=== PATIENT | male | born 1940 | race Caucasian/White ===

== ENCOUNTER 2019-12-30 17:29 | Outpatient (CLI) | payer MEDICARE, BC, SELFPAY ==
--- NOTE | ~2019-12-30 | XR_ITS ---
EXAMINATION: XR abdomen/kub 1V DATE: 12/30/2019 17:58 INDICATION: Recent kidney stone TECHNIQUE: A supine view of the abdomen on 2 radiographs was obtained. COMPARISON: 06/03/2019 FINDINGS: No interval change in 3.3 x 1.6 cm staghorn calculus as well as a couple additional 3 mm and 4 mm rou nd stones projecting over the lower pole of the left kidney. No other evident urolithiasis. Multiple surgical clips in the pelvis and left abdomen. Moderate amount of gas and stool scattered throughout the colon. No dilated gas-filled loops of small bowel to suggest obstruction. Visualized lung bases a re clear with no pleural effusion. Lumbar levoscoliosis with severe spondylosis. Mild left and modera te to severe right hip osteoarthritis. IMPRESSION: 1. No interval change in a 3.3 cm staghorn calculus and additional 3 mm and 4 mm stones at the lower pole of the left kidney. Reviewed, dictated and finalized at location A. IMPRESSION: 1. No interval change in a 3.3 cm staghorn calculus and additional 3 mm and 4 m m stones at the lower pole of the left kidney.
== END 2019-12-30 17:30 | disposition home or self-care (01) ==
PROVIDERS: PCP Family Medicine; Visit Provider Urology
DX: N20.0 Calculus of kidney (principal)
CPT/HCPCS: 74018

== ENCOUNTER 2020-06-11 07:51 | Outpatient (CLI) | payer MEDICARE, SELFPAY ==
--- NOTE | ~2020-06-11 | US_ITS ---
EXAMINATION: US venous doppler [facility] DATE: 06/11/2020 08:33 INDICATION: Personal history of other venous thrombosis and embolism. TECHNIQUE: Grayscale ultrasound images without and with compression and Doppler ultrasound images of the left lower extremity veins were obtained. COMPARISON: Ultrasound 12/28/2013 FINDINGS: The visualized portions of left common femoral vein, profunda (deep) femoral vein, femoral vein, popl iteal vein, peroneal veins, posterior tibial veins, and greater saphenous vein outflow are patent. IMPRESSION: 1. No deep venous thrombosis. Reviewed, dictated and finalized at location A. NG TECHNICIAN
== END 2020-06-11 07:52 | disposition home or self-care (01) ==
LOC: ANHIMG 07:57
PROVIDERS: PCP Family Medicine; Visit Provider Family Medicine
DX: I82.402 Acute embolism and thrombosis of unspecified deep veins of left lower extremity (principal); Z86.718 Personal history of other venous thrombosis and embolism
CPT/HCPCS: 93971

== ENCOUNTER 2020-07-19 15:23 | Outpatient (CLI) | payer MEDICARE, SELFPAY ==
--- NOTE | ~2020-07-19 | XR_ITS ---
EXAMINATION: XR abdomen/kub 1V EXAM DATE: 07/19/2020 15:51 INDICATION: Kidney stones. TECHNIQUE: Frontal projection(s) of the abdomen for interpretation. Comparison is made to prior exami nation from 12/30/2019. FINDINGS: Again there is a large approximately 3 cm left inferior calyceal stone, and also there may be a subcentimeter superior calyceal stone. Kidneys are obscured by large amount of colonic gas. No s mall bowel dilation. Pelvic surgical clips. Moderate lumbar levoscoliosis and severe thoracolumbar sp ondylosis. IMPRESSION: 1. Left nephrolithiasis. Reviewed, dictated and finalized at location A. ICATIONS INSTRUCTOR IMPRESSION: 1. Left nephrolithiasis.
== END 2020-07-19 15:24 | disposition home or self-care (01) ==
PROVIDERS: PCP Family Medicine; Visit Provider Urology
DX: N20.0 Calculus of kidney (principal)
CPT/HCPCS: 74018

== ENCOUNTER → 2022-03-06 10:16 | Outpatient (CLI) | payer MEDICARE, SELFPAY ==
--- NOTE | ~2022-03-06 | US_ITS ---
EXAMINATION: US renal BI DATE: 03/06/2022 10:49 INDICATION: CKD TECHNIQUE: Multiple grayscale and Doppler ultrasound images of the kidneys were obtained. COMPARISON: Abdominal x-ray 07/19/2020. CT abdomen pelvis 02/19/2019. FINDINGS: Exam somewhat limited by patient condition and bowel gas. The right kidney measures 9.8 x 4.8 x 5.1 c m. The left kidney measures 10.7 x 4.7 x 5.5 cm. The kidneys demonstrate slightly increased parenchym al echogenicity, with cortical thinning. Multiple echogenic shadowing foci in the left renal pelvis. No mass. Mild left hydronephrosis. The bladder is adequately distended, with bilateral ureteral jets. IMPRESSION: 1. Renal atrophy and findings suggestive of medical renal disease. 2. Mild left hydronephrosis. 3. Left nephrolithiasis. Reviewed, dictated and finalized at location K.
== END ==
PROVIDERS: PCP Family Medicine; Visit Provider Internal Medicine Nephrology
DX: N18.31 Chronic kidney disease, stage 3a (principal); Z87.442 Personal history of urinary calculi; N20.0 Calculus of kidney
CPT/HCPCS: 76775

== ENCOUNTER 2022-10-08 09:58 | Outpatient (CLI) | payer MEDICARE, SELFPAY ==
[2022-10-08 11:46] LABS: Albumin Level 4.3 g/dL (3.5-5.1); Anion Gap 9 mmol/L (8-16); Blood Urea Nitrogen 19 mg/dL (9-20); Calcium 9.5 mg/dL (8.4-10.2); Carbon Dioxide 30 mmol/L (22-30); Chloride 104 mmol/L (98-107); Estimated Glomerular Filt Rate 45; Glucose 91 mg/dL (65-110); Phosphorus 3.2 mg/dL (2.5-4.5); Potassium 3.7 mmol/L (3.4-5.0); Sodium 143 mmol/L (137-145)
[2022-10-08 12:23] LABS: Vitamin D 25 Hydroxy 83.8 ng/mL
[2022-10-08 12:41] LABS: Parathyroid Intact 33.8 pg/mL (7.5-53.5)
[2022-10-08 17:08] LABS: Creatinine Urine 113.7 mg/dL; Total Protein Urine Random 55 mg/dL; Ur Ttl Prot Creatinine Ratio 0.48 mg/mg (0-0.20)
[2022-10-10 21:47] LABS: Albumin 3.5 g/dL (3.8-4.8); Alpha 1 Globulin 0.4 g/dL (0.2-0.3); Alpha 2 Globulin 0.9 g/dL (0.5-0.9); Beta 1 Globulin 0.5 g/dL (0.4-0.6); Gamma Globulin 1.2 g/dL (0.8-1.7)
== END 2022-10-08 09:59 | disposition home or self-care (01) ==
LOC: ANHLAB 10:04
PROVIDERS: PCP Family Medicine; Visit Provider Internal Medicine Nephrology
DX: I12.9 Hypertensive chronic kidney disease with stage 1 through stage 4 chronic kidney disease, or unspecified chronic kidney disease (principal); N18.31 Chronic kidney disease, stage 3a; R77.8 Other specified abnormalities of plasma proteins; N25.81 Secondary hyperparathyroidism of renal origin; E55.9 Vitamin D deficiency, unspecified
CPT/HCPCS: 36415; 80069; 82306; 82570; 83970; 84155; 84156; 84165; 84166; 86334; 86335

== ENCOUNTER 2023-03-27 08:34 | Outpatient (CLI) | payer MEDICARE, SELFPAY ==
[2023-03-27 19:04] LABS: Basophils Absolute Auto 0.1 K/mm3 (0.0-0.1); Basophils Percent Auto 0.7 % (0.2-1.2); Eosinophils Absolute Auto 0.2 K/mm3 (0-0.3); Eosinophils Percent Auto 2.4 % (0-4.4); Hematocrit 38.7 % (42.0-52.0); Immature Granulocyte Absolute 0.04 K/mm3 (0.00-0.031); Immature Granulocyte Percent A 0.5 % (0-0.5); Lymphocytes Absolute Auto 1.52 K/mm3 (0.9-3.2); Lymphocytes Percent Auto 17.5 % (18.3-44.2); Mean Corpuscular Hemoglobin 25.9 pg (26-34); Mean Corpuscular Volume 83.4 fl (80-100); Mean Platelet Volume 10.5 fl (7.4-10.4); Monocytes Absolute Auto 0.4 K/mm3 (0.1-0.6); Monocytes Percent Auto 4.4 % (2.6-8.5); Neutrophils Absolute Auto 6.5 K/mm3 (1.3-6.7); Neutrophils Percent Auto 74.5 % (45.5-73.1); Platelet Count Result 413 k/mm3 (150-375); Red Blood Count 4.64 M/mm3 (4.6-6.20); Red Cell Distribution Width 14.5 % (11.5-14.5); White Blood Count 8.7 K/mm3 (4.5-10.0)
[2023-03-27 19:27] LABS: Alanine Aminotransferase 10 U/L (6-50); Albumin Level 3.9 g/dL (3.5-5.1); Alkaline Phosphatase 90 U/L (38-126); Anion Gap 8 mmol/L (8-16); Aspartate Amino Transferase 21 U/L (17-59); Bilirubin,Total 0.4 mg/dL (0.2-1.3); Blood Urea Nitrogen 19 mg/dL (9-20); Calcium 9.6 mg/dL (8.4-10.2); Carbon Dioxide 27 mmol/L (22-30); Chloride 104 mmol/L (98-107); Cholesterol 188 mg/dL (0-200); Estimated Glomerular Filt Rate 45; Glucose 85 mg/dL (65-110); HDL Direct 33 mg/dL; Phosphorus 3.3 mg/dL (2.5-4.5); Sodium 139 mmol/L (137-145); Triglycerides 121 mg/dL (<150)
[2023-03-27 19:39] LABS: LDL Cholesterol Direct 101 mg/dL
[2023-03-27 19:41] LABS: Vitamin D 25 Hydroxy 80.2 ng/mL
[2023-03-27 19:54] LABS: Thyroid Stimulating Hormone Reflex 0.633 uIU/mL (0.465-4.68)
[2023-03-27 19:57] LABS: Prostate Specific Antigen 0.2 ng/mL (< OR = 4.0)
== END 2023-03-27 08:35 | disposition home or self-care (01) ==
PROVIDERS: PCP Family Medicine; Visit Provider Family Medicine
DX: Z00.00 Encounter for general adult medical examination without abnormal findings (principal); Z85.038 Personal history of other malignant neoplasm of large intestine; I10 Essential (primary) hypertension; E78.5 Hyperlipidemia, unspecified; E55.9 Vitamin D deficiency, unspecified; Z12.5 Encounter for screening for malignant neoplasm of prostate; I12.9 Hypertensive chronic kidney disease with stage 1 through stage 4 chronic kidney disease, or unspecified chronic kidney disease; N18.31 Chronic kidney disease, stage 3a; E53.8 Deficiency of other specified B group vitamins
CPT/HCPCS: 36415; 80053; 80061; 80069; 82306; 82607; 84153; 84443; 85025; G0103

== ENCOUNTER 2023-03-28 08:05 | Outpatient (NON) | payer MEDICARE, SELFPAY ==
[2023-03-28 13:21] LABS: Creatinine Urine 118.8 mg/dL; Total Protein Urine Random 73 mg/dL; Ur Ttl Prot Creatinine Ratio 0.61 mg/mg (0-0.20)
== END 2023-03-28 08:06 | disposition home or self-care (01) ==
LOC: ANHGOSHLAB 08:07
PROVIDERS: PCP Family Medicine; Visit Provider Family Medicine
DX: I12.9 Hypertensive chronic kidney disease with stage 1 through stage 4 chronic kidney disease, or unspecified chronic kidney disease (principal); N18.31 Chronic kidney disease, stage 3a
CPT/HCPCS: 82570; 84156

== ENCOUNTER 2023-09-03 09:50 | Outpatient (CLI) | payer MEDICARE, SELFPAY ==
[2023-09-03 14:58] LABS: Anion Gap 8 mmol/L (8-16); Blood Urea Nitrogen 20 mg/dL (9-20); Calcium 9.9 mg/dL (8.4-10.2); Carbon Dioxide 27 mmol/L (22-30); Chloride 105 mmol/L (98-107); Estimated Glomerular Filt Rate 49; Glucose 96 mg/dL (65-110); Phosphorus 2.6 mg/dL (2.5-4.5); Potassium 3.8 mmol/L (3.4-5.0); Sodium 140 mmol/L (137-145)
[2023-09-03 15:16] LABS: Vitamin D 25 Hydroxy 67.5 ng/mL
[2023-09-03 15:26] LABS: Creatinine Urine 91.9 mg/dL; Total Protein Urine Random 44 mg/dL; Ur Ttl Prot Creatinine Ratio 0.48 mg/mg (0-0.20)
== END 2023-09-03 09:51 | disposition home or self-care (01) ==
LOC: ANHGOSHLAB 09:54
PROVIDERS: PCP Family Medicine; Visit Provider Internal Medicine Nephrology
DX: E55.9 Vitamin D deficiency, unspecified (principal); N25.81 Secondary hyperparathyroidism of renal origin; I12.9 Hypertensive chronic kidney disease with stage 1 through stage 4 chronic kidney disease, or unspecified chronic kidney disease; N18.31 Chronic kidney disease, stage 3a
CPT/HCPCS: 36415; 80069; 82306; 82570; 83970; 84156

== ENCOUNTER 2023-09-23 04:22 | Inpatient (IN) | payer MEDICARE, SELFPAY ==
[2023-09-23] VITALS (26 sets, daily range): BP systolic 76–132; BP diastolic 44–88; PULSE 58–73; RESP 18–27; TEMP 36.1–36.6; O2SAT 93–98; BMI 23.8
--- NOTE | 2023-09-23 | ECHO_ITS ---
Patient Info Name: David Coleman Age: 82 years : 1940 Gender: Male Ht: 70 in Wt: 166 lbs BSA: 1.93 m2 HR: 59 bpm BP: 101 / 52 mmHg Heart Rhythm: Sinus Rhythm Technical Quality: Fair Exam Date: 09/23/2023 1:25 PM Exam Location: Echo Lab Patient Status: Inpatient Admit Date: 09/23/2023 Staff Ordering Physician: Elba Ramirez DO Vp Product Management: Susana Marvin RDCS Attending Provider: Miracle Le MD Referring Physician: Ashley DOTY; Exam Type: CA echo dop color flow w con Study Info Indications - wide complex tachycardia Complete two-dimensional, color flow and Doppler transthoracic echocardiogram is performed with contrast to opacify the left ventricle and to improve the deliniation of the left ventricle endocardial borders. Contrast/Agitated Saline Contrast/Ag. Saline: Definity Amount: 2.00 ml Administered By: Susana Marvin RDCS Existing IV Access: Yes IV Access Condition: patent with no signs of infiltration Summary 1. Definity contrast injected to improve visualization. 2. Mild LV enlargement with moderate global systolic dysfunction. 3. David akinesis of the posterior segment. 4. No significant valvular dysfunction. Left Ventricle Left ventricular chamber dimension is mildly enlarged. Left ventricular systolic function is moderately reduced, estimated at 35-40%. The left ventricular diastolic function is grade I diastolic dysfunction. Right Ventricle Right ventricular chamber dimension is normal. Left Atria Left atrial chamber dimension is normal. Right Atria Right atrial chamber dimension is normal. Aortic Valve The aortic valve is trileaflet. There is mild aortic valve sclerosis. Pulmonic Valve The pulmonic valve is not well visualized. Mitral Valve The mitral valve has normal leaflets. There is trace mitral valve regurgitation. Tricuspid Valve The tricuspid valve leaflets are normal. Pericardium/Pleural The pericardium appears normal. Aorta The aortic root size at the sinus of Valsalva is normal. Left Ventricular Outflow Tract Name Value Normal LVOT 2D LVOT Diameter 2.08 cm LVOT Doppler LVOT Peak Gradient 2 mmHg LVOT Mean Gradient 1 mmHg LVOT VTI 12.82 cm LVOT VTI/AV VTI Ratio 0.74 LVOT Stroke Volume 43.44 ml LVOT CO 2.63 l/min LVOT CI 1.36 L/min/m2 Pulmonic Valve Name Value Normal RVOT Doppler RVOT Peak Gradient 1 mmHg PV Doppler PV Peak Gradient 2 mmHg Mitral Valve Name Value Normal
--- NOTE | ~2023-09-23 | XR_ITS ---
EXAMINATION: XR chest 1V portable DATE: 09/26/2023 10:37 INDICATION: Leukocytosis. TECHNIQUE: A single frontal view of the chest was obtained. COMPARISON: Chest single view 09/23/2023, CT abdomen and pelvis 02/19/2019 FINDINGS: There are small pleural effusions. There are airspace opacities in right mid and lower lung zones and at left lung base. No pneumothorax. The heart size is normal. IMPRESSION: 1. Worsened small pleural effusions. 2. Worsened airspace opacities in right mid and lower lung zones and at left lung base, consistent wi th atelectasis versus pneumonia. Reviewed, dictated and finalized at location A. IMPRESSION: 1. Worsened small pleural effusions. 2. Worsened airspace opacities in right mid and lower lung zones and at left zhanna ng base, consistent with atelectasis versus pneumonia.
--- NOTE | ~2023-09-23 | XR_ITS ---
Portable chest x-ray Comparison: 10/01/2018 Clinical History: Palpitations Findings: There is mild bibasilar haziness, nonspecific. Cardiomediastinal silhouette is stable. Kuldeep toña and soft tissues are unremarkable. Impression: Mild bibasilar haziness. Correlate for mild pulmonary edema/atelectasis, less likely pneumonia. Reviewed, dictated and finalized at location . Impression: Mild bibasilar haziness. Correlate for mild pulmonary edema/atelectasis, less l ikely pneumonia.
--- NOTE | 2023-09-23 04:29 | ECG_ITS ---
Measurements Intervals [place] Rate: 74 P: 29 [place]: 188 QRS: -3 QRSD: 90 T: -48 QT: 397 QTc: 443 Interpretive Statements SINUS RHYTHM VENTRICULAR PREMATURE COMPLEX CONSIDER INFERIOR INFARCT, AGE INDETERMINATE BORDERLINE ST-T WAVE ABNORMALITY- ANTEROLATERAL LEADS BASELINE ARTIFACT- I, II, III, AVR, AVL, AVF, V1-V2, V4-V6 ABNORMAL ECG COMPARED TO ECG 10/01/2018 16:30:02 NO SIGNIFICANT CHANGES Electronically Signed On 09-23-2023 6:45:37 CDT by Sang Sheikh D.O.
--- NOTE | 2023-09-23 04:34 | ED.GENADULT ---
HPI - General Adult General Chief complaint: Arrhythmia/Palpitations Stated complaint: palpitations History of Present Illness HPI narrative: Patient 82-year-old gentleman who presents emergency department with chief complaint of anxiety and inability to sleep. Patient states that at the evening he just was not feeling well feeling very anxious he has had some intermittent episodes of feeling anxious and just not feeling right. Patient decided to call EMS this evening was found to have a wide complex tachycardia with a rate of in the 180s. Patient was given 150 mg amiodarone bolus in the back of the ambulance as he had a good blood pressure at that time. Patient denies chest pain does reports that he has not felt well Related Data Home Medications Medication Instructions Recorded Confirmed calcium carbonate 600 mg calcium 600 mg PO DAILY 12/13/21 09/05/23 (1,500 mg) tablet clobetasol 0.05 % shampoo 1 applic topical QHS PRN 06/06/22 09/05/23 Allergies Allergy/AdvReac Type Severity Reaction Status Date / Time morphine Allergy Severe HIVES Verified 09/05/23 10:19 MEPERIDINE HCL Allergy Intermediate SEVERE Uncoded 09/05/23 10:19 CONSTIPATION NFA Allergy Unknown Unknown Uncoded 09/05/23 10:19 Review of Systems Review of Systems: A 10 system review of systems was completed on the patient and is negative except for what is stated in the HPI. Nursing and ancillary documentation was reviewed. [facility] Past Medical History Medical History Arthritis of left shoulder region Benign prostatic disease Degenerative arthritis of right shoulder region Foot drop History of deep venous thrombosis (DVT) of distal vein of left lower extremity (~2018) provoked after hospital admission. History of postoperative complication of surgical procedure Osteoarthritis Psoriasis Rhinitis Rotator cuff arthropathy of both shoulders Venous insufficiency, peripheral Surgical History Surgical History History of cervical spinal surgery 10/2018 History of left knee replacement (~2000) History of lumbosacral spine surgery early History of partial colectomy (~1994) Social History Social History Smoking packs per day: 1 Smoking cigarettes per day: 20.0 Years smoked: 2 Smoking pack-years: 2.00 Smoking status: Former smoker Second hand tobacco smoke exposure: No Smoking end date: 07/15/61 Alcohol intake: never Substance use: never Substance use type: does not use Do You Feel Safe in your Home?: Yes Lack of Transportation: No Lack of Food: Never True Current Housing: I Have Housing Concerned About Future Housing: No Difficulty Paying Gas/Electric Bills: No Difficulty Paying for Meds: No Currently Unemployed: No Education: High School Diploma/GED Difficulty w/ Childcare or Family Care: No Living arrangements: with family Additional living arrangements comments: Occupation/Education: retired Gender identity (if verbalized by the patient): Male Sexual Orientation (if Verbalized by the Patient): Straight or Heterosexual Exam Narrative: GENERAL: Well-appearing, well-nourished, and in no acute distress. HEAD: Normocephalic, atraumatic. EYES: PERRLA and EOMI. ENT: Nares clear, no rhinorrhea or epistaxis. Mucous membranes moist. NECK: Supple. CHEST: Clear to auscultation. No respiratory distress. HEART: Regular rate and rhythm. No murmur heard. Normal peripheral pulses. ABDOMEN: Soft, nontender, nondistended, normal active bowel sounds. EXTREMITIES: Normal range of motion. No edema. SKIN: Warm, dry, no rash. NEURO: No focal deficits. Alert and oriented x3. PSYCH: Normal mood and affect. Course Vital Signs Vital signs: Vital Signs Temperature 36.6 C 09/23/23 04:19 Puls
[2023-09-23] MEDS: ASPIRIN 81 MG CHEWABLE TABLET 324 MG PO (04:40)
[2023-09-23] MEDS: SODIUM CHLORIDE 0.9% IV 1,000 ML 999 ML IV CONT (04:42)
[2023-09-23] MEDS: AMIODARONE 360 MG/D5W 200 ML 360 MG/200 ML BAG 33.33 MG IV CONT (04:42)
[2023-09-23 04:46] LABS: Basophils Absolute Auto 0.1 K/mm3 (0.0-0.1); Basophils Percent Auto 0.5 % (0.2-1.2); Eosinophils Absolute Auto 0.1 K/mm3 (0-0.3); Eosinophils Percent Auto 1.2 % (0-4.4); Hematocrit 35.7 % (42.0-52.0); Immature Granulocyte Absolute 0.04 K/mm3 (0.00-0.031); Immature Granulocyte Percent A 0.4 % (0-0.5); Lymphocytes Absolute Auto 1.33 K/mm3 (0.9-3.2); Lymphocytes Percent Auto 13.1 % (18.3-44.2); Mean Corpuscular HGB Conc 30.8 g/dl (32-36); Mean Corpuscular Hemoglobin 25.5 pg (26-34); Mean Corpuscular Volume 82.8 fl (80-100); Mean Platelet Volume 10.2 fl (7.4-10.4); Monocytes Absolute Auto 0.5 K/mm3 (0.1-0.6); Monocytes Percent Auto 4.5 % (2.6-8.5); Neutrophils Absolute Auto 8.2 K/mm3 (1.3-6.7); Neutrophils Percent Auto 80.3 % (45.5-73.1); Platelet Count Result 327 k/mm3 (150-375); Red Blood Count 4.31 M/mm3 (4.6-6.20); Red Cell Distribution Width 16.3 % (11.5-14.5); White Blood Count 10.2 K/mm3 (4.5-10.0)
[2023-09-23 04:58] LABS: Alanine Aminotransferase 49 U/L (6-50); Albumin Level 3.8 g/dL (3.5-5.1); Alkaline Phosphatase 85 U/L (38-126); Anion Gap 7 mmol/L (8-16); Aspartate Amino Transferase 54 U/L (17-59); Bilirubin,Total 0.7 mg/dL (0.2-1.3); Blood Urea Nitrogen 27 mg/dL (9-20); Calcium 9.3 mg/dL (8.4-10.2); Carbon Dioxide 23 mmol/L (22-30); Chloride 107 mmol/L (98-107); Estimated CRCL calculation 31 ml/min; Estimated Glomerular Filt Rate 39; Glucose 110 mg/dL (65-110); Lipase 40 U/L (23-300); Magnesium 1.4 mg/dL (1.6-2.3); Potassium 3.7 mmol/L (3.4-5.0); Sodium 137 mmol/L (137-145)
[2023-09-23 04:59] LABS: INR 1.1; Prothrombin Time 14.3 Seconds (11.1-14.7)
[2023-09-23 05:00] LABS: Partial Thromboplastin Time 25.8 SECONDS (22.3-36.8)
[2023-09-23 05:15] LABS: NT Pro B Type Natriuretic Pept 8310 pg/mL (19.9-100); Troponin I 0.206 ng/mL (0.000-0.034)
[2023-09-23] MEDS: MAGNESIUM SULF 2 GM/WATER 50ML 2 GM/50 ML BAG IVPB (05:46)
[2023-09-23 06:36] LABS: Appearance Urine Cloudy (Clear); Bacteria Urine 4+ /hpf; Bilirubin Urine Negative (Negative); Blood Urine 1+ (Negative); Color Urine Yellow (Yellow); Glucose Urine UA Negative (Negative); Ketones Urine Negative (Negative); Leukocyte Esterase Ur 3+ LEU/UL (Negative); Nitrate Urine Positive (Negative); Non Pathogenic Casts 0-2; Protein Urine 2+ mg/dL (Negative); RBC Urine 0-2 /hpf (0-2); Specific Grav Ur 1.016 (1.001-1.035); Squamous Epithelial Cell Urine None seen /hpf (Few); Urobilinogen Urine 0.2 mg/dL (<2.0); WBC Urine >100 /hpf
[2023-09-23 06:39] LABS: Add Urine Microscopic? YES
--- NOTE | 2023-09-23 06:44 | ADMGEN ---
This patient, David Coleman, was admitted to IMU Room 232-01. Patient/family oriented to hospital policies and general routines including ID bracelet, bed and alarms, visiting hours, pain management, procedures, bathroom and other care routines, personal items, smoking policy, room service/diet, and visiting hours. Information on how to activate the Rapid Response Team has been discussed. Patient/Family are encouraged to report perceived risks to care and to ask questions if they do not understand what they are told or what they should do.
[2023-09-23 09:01] LABS: Troponin I 0.526 ng/mL (0.000-0.034)
--- NOTE | 2023-09-23 09:38 | PM.IMHP ---
H&P: HPI History of Present Illness Date/Time: 09/23/23 09:38 Chief Complaint: Palpitation Narrative: Patient is an 82-year-old male with past medical history of BPH, GERD, stents hypertension, history of colon cancer presents to the ED with complaints of palpitations. He had some palpitations over last week by however last night he could not fall asleep. With difficulty sleeping he thought something was wrong prompting him to come to the ED for further evaluation. He has never had issues like this before. No recent changes to medications. He has no history of heart disease or coronary events. In the ED: EMS found patient to have wide complex tachycardia rate 180s and he was given amiodarone converted him to normal sinus rhythm. He was also given a L of fluid and 2 g Mag sulfate for hypomagnesemia 1.4. Patient admitted for further evaluation and treatment of wide complex tachycardia. Review of Systems Review of Systems: Constitutional: No Fever, No Chills, No Night Sweats, No Fatigue, No Malaise ENT/Mouth: No Hearing Changes, No Ear Pain, No Nasal Congestion, No Sinus Pain, No Hoarseness, No sore throat, No Rhinorrhea, No Swallowing Difficulty Eyes: No Eye Pain, No Redness, No Vision Changes Cardiovascular: No Chest Pain, he endorses palpitations, no dyspnea Respiratory: No Cough, No Sputum, No Wheezing, No Shortness of Breath Gastrointestinal: No Nausea, No Vomiting, No Diarrhea, No Constipation, No Abdominal Pain, No Heartburn, No Hematochezia, No Melena Genitourinary: No Dysuria, No Urinary Frequency, No Hematuria, No Urinary Incontinence, No Urgency Musculoskeletal: No Arthralgias, No Myalgias, No Joint Swelling, No Joint Stiffness, No Back Pain Skin: No Skin Lesions, No Pruritis, No Hair Changes Neuro: No Weakness, No Numbness, No Paresthesias, No Loss of Consciousness, No Syncope, No Dizziness, No Headache Psych: No Anxiety/Panic, No Depression, No Insomnia Heme: No Bruising, No Bleeding Lymph: No Adenopathy Endocrine: No Polyuria, No Polydipsia, No Temperature Intolerance PMFSH Past Medical History Medical History Arthritis of left shoulder region Benign prostatic disease Degenerative arthritis of right shoulder region Foot drop History of deep venous thrombosis (DVT) of distal vein of left lower extremity (~2018) provoked after hospital admission. History of postoperative complication of surgical procedure Osteoarthritis Psoriasis Rhinitis Rotator cuff arthropathy of both shoulders Venous insufficiency, peripheral Surgical History Surgical History History of cervical spinal surgery 10/2018 History of left knee replacement (~2000) History of lumbosacral spine surgery early History of partial colectomy (~1994) Social History Social History Smoking packs per day: 1 Smoking cigarettes per day: 20.0 Years smoked: 2 Smoking pack-years: 2.00 Smoking status: Former smoker Tobacco type: cigarettes Second hand tobacco smoke exposure: No Smoking end date: 07/15/61 Alcohol intake: never Substance use: never Substance use type: does not use Do You Feel Safe in your Home?: Yes Lack of Transportation: No Lack of Food: Never True Current Housing: I Have Housing Concerned About Future Housing: No Difficulty Paying Gas/Electric Bills: No Difficulty Paying for Meds: No Currently Unemployed: No Education: High School Diploma/GED Difficulty w/ Childcare or Family Care: No Living arrangements: with family Additional living arrangements comments: Occupation/Education: retired Gender identity (if verbalized by the patient): Male Sexual Orientation (if Verbalized by the Patient): Straight or Heterosexual Spiritual care concerns: No Meds Home Medications and Allergies H
[2023-09-23] MEDS: CALCIUM CARBONATE (TUMS) 500 MG (200 MG ELEMENTAL) 600 MG PO (09:50)
[2023-09-23] MEDS: FINASTERIDE 5 MG TABLET PO (09:51)
[2023-09-23] MEDS: PANTOPRAZOLE 40 MG TABLET PO (09:51)
[2023-09-23] MEDS: ASPIRIN 81 MG CHEWABLE TABLET PO (09:51)
[2023-09-23] MEDS: TAMSULOSIN HCL 0.4 MG CAPSULE PO (09:51)
[2023-09-23] MEDS: AMIODARONE 360 MG/D5W 200 ML 360 MG/200 ML BAG 16.67 MG IV CONT ×2 (09:58→21:34)
[2023-09-23 11:23] LABS: Troponin I 0.803 ng/mL (0.000-0.034)
--- NOTE | 2023-09-23 12:38 | PM.CNCAR ---
Assessment and Plan Assessment and plan (1) Regular wide QRS complex tachycardia: Code(s): R00.0 - Tachycardia, unspecified Status: Acute Plan This is an 82-year-old man without significant cardiovascular history who was been feeling unwell for the last couple of weeks. He had very modest symptoms of inability to sleep and anxiety and was found to be in a sustained wide QRS tachycardia. This possibly was ventricular tachycardia with hemodynamic stability although I suspect it may well have been a SVT as I mentioned above. In any event the arrhythmia has been terminated with amiodarone. His cardiac silhouette is somewhat enlarged on chest x-ray he does have some bibasilar pulmonary rales at this time. When to give him 1 time dose of furosemide and await echocardiographic findings. I did prepare the patient in his family with a likelihood of having to recommend coronary angiography for further evaluation of this wide QRS tachycardia. Will await echocardiographic findings and proceed from there for now I will leave him on intravenous amiodarone pending the above information Noel Cardona MD [facility] History of Present Illness History of Present Illness Consult date/time: 09/23/23 12:38 Reason For Visit: circular tachycardia, elevated troponin, hypomagne Narrative: This is an 82-year-old man admitted to the hospital yesterday after feeling unwell and found in the EMS in the field to have a wide QRS tachycardia for which she was treated with intravenous amiodarone and then admitted to the hospital. He states he does not have any prior knowledge of any significant heart disease. He is a rather poor historian states that for the last couple weeks he was not feeling well at home he denies any sense of significant palpitations tachycardia or significant chest pain he does state that on occasion he has some central chest tightness this seems to wax and wane but not really associated with physical exertion. Having said that he is an elderly gentleman who is wheelchair-bound because of difficulty with his low low back and inability to ambulate for at least the last 5 or 6 years. He has no history of palpitations syncope orthopnea PND or edema. His electrocardiogram in the field shows a wide QRS tachycardia with a left bundle branch type morphology in the anterior precordial leads the is suggestion of P waves in the ST segment which raises the possibility of an SVT with aberrancy. In any event this arrhythmia was treated in the field with amiodarone bolus which converted him to sinus rhythm. He maintains on an amiodarone infusion at this time. Troponin levels have risen slightly to 0.8 following this event. 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 He is concerned about her care while he is hospitalized. His laboratory data does show evidence of some renal insufficiency with a creatinine of 1.7. Echocardiogram has been requested by the hospital staff and is pending. Chest x-ray does show some enlargement in his cardiothoracic silhouette as well as some mild pulmonary vascular congestion. Review of Systems Constitutional: Constitutional: Reports difficulty sleeping and Reports lethargy Eyes: Eyes: Reports no additional eye complaints ENT: Reports system reviewed and no additional complaints, except as documented Cardiovascular: Comments: Intermittent chest tightness Respiratory: Respiratory: Reports no additional respiratory complaints Gastrointestinal: Gastrointestinal: Reports no additional gastrointestinal complaints Genitourinary: Genitourinary: Reports no additional male genitourinary complaints Musculoskeletal: Musculoskeletal: Reports no additional musculoskeletal complaints Integumentary/Breasts: Skin/Breast: Reports system reviewed and no additional complaints, except as docu Neurologic: Comments: Alert and oriented x3 PMFS
[2023-09-23] MEDS: FUROSEMIDE INJ 40 MG/4 ML VIAL IV PUSH (12:57)
[2023-09-23] MEDS: PERFLUTREN LIPID MICROSPHERES 1.5 ML VIAL DILUTED TO 10 ML TOTAL VOLUME IV PUSH (14:58)
--- NOTE | 2023-09-23 16:23 | IVDEFINITY ---
Prior to administration of IV Definity the patient was educated on the risks and benefits of the imaging enhancing agent including potential adverse side effects. The patient verbalized understanding. Allergies were verified. No exclusion criteria were identified and at least one of the following inclusion criteria were met: 1) physician request, 2) patient technically difficult to image (per the [place] [employer] guidelines of two or more segments not discernable within the apical view), or 3) questionable left ventricular function. ?
--- NOTE | 2023-09-23 23:55 | PC.NURSE ---
patient unable to void. bladder scan read 316ml. 200ml drained in straight cath procedure.
[2023-09-24] VITALS (29 sets, daily range): BP systolic 114–131; BP diastolic 53–65; PULSE 20–93; RESP 16–25; TEMP 36.2–36.9; O2SAT 18–99
[2023-09-24 04:38] LABS: Hemoglobin 10.7 g/dL (14.0-18.0); Mean Corpuscular HGB Conc 31.5 g/dl (32-36); Mean Corpuscular Hemoglobin 25.4 pg (26-34); Mean Corpuscular Volume 80.8 fl (80-100); Mean Platelet Volume 9.9 fl (7.4-10.4); Platelet Count Result 347 k/mm3 (150-375); Red Blood Count 4.21 M/mm3 (4.6-6.20); Red Cell Distribution Width 16.5 % (11.5-14.5); White Blood Count 10.8 K/mm3 (4.5-10.0)
[2023-09-24 04:39] LABS: Anion Gap 5 mmol/L (8-16); Blood Urea Nitrogen 21 mg/dL (9-20); Calcium 9.2 mg/dL (8.4-10.2); Carbon Dioxide 27 mmol/L (22-30); Chloride 105 mmol/L (98-107); Estimated CRCL calculation 31 ml/min; Estimated Glomerular Filt Rate 39; Glucose 102 mg/dL (65-110); Magnesium 1.8 mg/dL (1.6-2.3); Potassium 3.5 mmol/L (3.4-5.0); Sodium 137 mmol/L (137-145)
[2023-09-24] MEDS: ASPIRIN 81 MG CHEWABLE TABLET PO (09:51)
[2023-09-24] MEDS: AMIODARONE 360 MG/D5W 200 ML 360 MG/200 ML BAG 16.67 MG IV CONT (09:53)
[2023-09-24] MEDS: SCOPOLAMINE 1 MG PATCH 1 PATCH TRANSDERM (09:55)
--- NOTE | 2023-09-24 10:22 | PM.PNCARD ---
Progress Note: A&P Assessment and Plan (1) Ventricular tachycardia: Code(s): I47.20 - Ventricular tachycardia, unspecified Status: Acute (2) NSTEMI (non-ST elevated myocardial infarction): Code(s): I21.4 - Non-ST elevation (NSTEMI) myocardial infarction Status: Acute (3) Cardiomyopathy: Code(s): I42.9 - Cardiomyopathy, unspecified Status: Acute Plan This is an 82-year-old man without significant cardiovascular history who has been feeling unwell for the last couple of weeks.? He had very modest symptoms of inability to sleep and anxiety and was found to be in a sustained wide QRS tachycardia.? This possibly was ventricular tachycardia with hemodynamic stability although may well have been an SVT. His echocardiogram demonstrates mild LV enlargement with systolic dysfunction. The posterior ?segment appears frankly akinetic, global ejection fraction is in the range of 35-40%.? This makes coronary disease and ventricular tachycardia the most likely diagnosis. The arrhythmia has been terminated with amiodarone, will continue IV Amiodarone for now. Recommended cardiac catheterization. Discussed procedure details with the patient, including indication for cath, procedure details, risks vs benefits, alternative management options. Patient is agreeable to cardiac cath. Will plan for cardiac cath today. Further recommendations and plan pending results of cath. Will plan to initiate heart failure GDMT after cath. Subjective Date/time seen: 09/24/23 10:22 Interval history: Reason for visit: VT, NSTEMI, Cardiomyopathy HPI: This is an 82-year-old man admitted to the hospital yesterday after feeling unwell and found in the EMS in the field to have a wide QRS tachycardia for which she was treated with intravenous amiodarone and then admitted to the hospital.? He states he does not have any prior knowledge of any significant heart disease.? He is a rather poor historian states that for the last couple weeks he was not feeling well at home he denies any sense of significant palpitations tachycardia or significant chest pain he does state that on occasion he has some central chest tightness this seems to wax and wane but not really associated with physical exertion.? Having said that he is an elderly gentleman who is wheelchair-bound because of difficulty with his low low back and inability to ambulate for at least the last 5 or 6 years.? He has no history of palpitations syncope orthopnea PND or edema.? His electrocardiogram in the field shows a wide QRS tachycardia with a left bundle branch type morphology in the anterior precordial leads the is suggestion of P waves in the ST segment which raises the possibility of an SVT with aberrancy.? In any event this arrhythmia was treated in the field with amiodarone bolus which converted him to sinus rhythm.? He maintains on an amiodarone infusion at this time.? Troponin levels have risen slightly to 0.8 following this event.? The patient is very emotional and concerned about his who he cares for at home with Alzheimer type of dementia.? He is concerned about her care while he is hospitalized.? His laboratory data does show evidence of some renal insufficiency with a creatinine of 1.7.? Echocardiogram has been requested by the hospital staff and is pending.? Chest x-ray does show some enlargement in his cardiothoracic silhouette as well as some mild pulmonary vascular congestion. Date of service 09/23: Feeling nauseous this morning. No chest pain. Review of Systems Review of Systems: All systems reviewed & are unremarkable except as noted in HPI and below (HPI) Exam Const: General: comfortable and no acute distress HENMT: Mouth: Yes dry mucous membranes Eyes: General: appearance normal, both eyes and all related structures Sclera: sclerae normal Neck: Neck: supple Resp: Effort & Inspection: normal respiratory effort Cardio: Rate: regular rate Rhythm: regular rhythm Skin
--- NOTE | 2023-09-24 10:47 | PM.IMPN ---
Progress Note: A&P Assessment and Plan (1) Regular wide QRS complex tachycardia: Code(s): R00.0 - Tachycardia, unspecified Status: Acute (2) Cardiomyopathy: Code(s): I42.9 - Cardiomyopathy, unspecified Status: Acute (3) NSTEMI (non-ST elevated myocardial infarction): Code(s): I21.4 - Non-ST elevation (NSTEMI) myocardial infarction Status: Acute (4) Hypomagnesemia: Code(s): E83.42 - Hypomagnesemia Status: Acute (5) Chronic kidney disease: Code(s): N18.9 - Chronic kidney disease, unspecified Status: Acute (6) Acute UTI: Code(s): N39.0 - Urinary tract infection, site not specified Status: Acute Plan An 82-year-old male with past medical history BPH, GERD, hypertension, history of colon cancer, CKD stage 3B presents with complaints of palpitations and feeling unwell and unable to sleep. EMS found patient have wide complex tachycardia with rate of 180s. Patient was started an LMA order own and he converted to normal sinus rhythm. Given normal saline and 2 g Mag sulfate rider for hypo magnesemia. Admitted on 09/23/2023 further workup. Patient to go for cardiac catheterization today. Currently on IV amiodarone. Start ceftriaxone for uncomplicated UTI. FEN: NPO for cardiac catheterization GI prophylaxis: Not indicated DVT prophylaxis: SCDs Lines: Peripheral IV Code Status: Full code Dispo: Stable. Subjective Date/time seen: 09/24/23 10:47 Interval history: Patient feels nauseous this morning. Otherwise has no complaints. No chest pain no shortness of breath. Telemetry revealing sinus rhythm at 82 beats per minute Review of Systems Review of Systems: All systems reviewed & are unremarkable except as noted in HPI and below (Subjective) Exam Const: General: comfortable and no acute distress Resp: Effort & Inspection: normal respiratory effort Auscultation: clear to auscultation bilaterally Cardio: Rate: regular rate Rhythm: regular rhythm GI: GI Palp: Yes Soft to palpation Extrem: General: no edema Objective Data Vital Signs Vital Signs: Vital Signs - 24 hr 09/23/23 11:10 09/23/23 12:00 09/23/23 16:00 Temperature 97.7 F 97.7 F 97.6 F Pulse Rate 63 63 63 Respiratory Rate 18 18 18 Blood Pressure 132/71 132/71 114/88 Pulse Oximetry 97 97 97 Oxygen Delivery 09/23/23 12:00 09/23/23 14:00 09/23/23 16:00 Temperature Pulse Rate 65 64 62 Respiratory Rate Blood Pressure Pulse Oximetry Oxygen Delivery 09/23/23 18:00 09/23/23 12:00 09/23/23 16:00 Temperature Pulse Rate 66 Respiratory Rate Blood Pressure Pulse Oximetry Oxygen Delivery Room Air Room Air 09/23/23 20:23 09/23/23 21:34 09/23/23 20:00 Temperature 97.3 F L Pulse Rate 63 64 64 Respiratory Rate 18 18 Blood Pressure 117/61 Pulse Oximetry 97 97 Oxygen Delivery Room Air 09/23/23 20:00 09/23/23 22:31 09/23/23 23:20 Temperature 97.2 F L Pulse Rate 64 60 68 Respiratory Rate 18 Blood Pressure 113/65 Pulse Oximetry 95 Oxygen Delivery 09/23/23 23:51 09/24/23 00:00 09/24/23 02:00 Temperature Pulse Rate 68 61 61 Respiratory Rate 18 Blood Pressure Pulse Oximetry 95 Oxygen Delivery Room Air 09/24/23 04:00 09/24/23 04:00 09/24/23 04:00 Temperature 97.2 F L Pulse Rate 65 65 65 Respiratory Rate 18 18 Blood Pressure 118/63 Pulse Oximetry 97 97 Oxygen Delivery Room Air 09/24/23 06:00 09/24/23 07:59 09/24/23 09:53 Temperature 97.6 F Pulse Rate 71 73 93 Respiratory Rate 20 Blood Pressure 131/64 Pulse Oximetry 97 Oxygen Delivery Intake/Output Intake/Output: Intake & Output 09/21/23 09/22/23 09/23/23 09/24/23 22:59 23:59 23:59 23:59 Intake Total 1880 700 Output Total 1999 1050 Balance -120 -350 Meds/Results Medications: Active Medications Generic Name Dose Route Start Last Admin Trade Name Freq PRN Reason Stop Do
--- NOTE | 2023-09-24 10:50 | WPDMODSED ---
Moderate Sedation Note-Pt Data Patient Data Diagnosis: Coronary artery disease Present Complaint: Coronary artery disease Procedure to be performed/Plan: Coronary angiography, left heart cath, +/- PCI Allergies Allergy/AdvReac Type Severity Reaction Status Date / Time morphine Allergy Severe HIVES Verified 09/05/23 10:19 meperidine AdvReac severe Verified 09/24/23 10:50 constipation NFA Allergy Unknown Unknown Uncoded 09/05/23 10:19 Home Medications Medication Instructions Recorded Confirmed Type calcium carbonate 600 mg calcium 600 mg PO DAILY 12/13/21 09/23/23 History (1,500 mg) tablet amlodipine 10 mg tablet 10 mg PO DAILY #90 tabs 05/24/23 09/23/23 Rx finasteride 5 mg tablet 5 mg PO DAILY #90 tabs 05/24/23 09/23/23 Rx tamsulosin 0.4 mg capsule 0.4 mg PO DAILY #90 caps 05/24/23 09/23/23 Rx omeprazole 20 mg capsule,delayed 20 mg PO DAILY #90 caps 07/16/23 09/23/23 Rx release betamethasone, augmented 0.05 % 1 applic topical BID 09/23/23 09/23/23 History topical ointment Current Medications: Active Medications Aspirin (Aspirin 81 Mg Chewable Tablet) 81 mg PO DAILY@0800 [facility] Last Admin: 09/24/23 09:51 Dose: 81 mg Calcium Carbonate (Calcium Carbonate (Tums) 500 Mg (200 Mg Elemental)) 600 mg PO DAILY [facility] Last Admin: 09/23/23 09:50 Dose: 600 mg Enoxaparin Sodium (Enoxaparin 40 Mg/0.4 Ml Syringe) 40 mg SUB-Q DAILY [facility] Finasteride (Finasteride 5 Mg Tablet) 5 mg PO DAILY [facility] Last Admin: 09/23/23 09:51 Dose: 5 mg Amiodarone HCl/Dextrose (Nexterone 360 Mg/D5w 200 Ml) 360 mg in 200 mls @ 16.667 mls/hr IV CONT .Q12H [facility] Last Admin: 09/24/23 09:53 Dose: 0.5 mg/min, 16.67 mls/hr Ceftriaxone Sodium (Rocephin 1 Gm/Ns 50 Ml) 1 gm in 50 mls @ 100 mls/hr IVPB Q24H [facility] Pantoprazole Sodium (Pantoprazole 40 Mg Tablet) 40 mg PO DAILY [facility] Last Admin: 09/23/23 09:51 Dose: 40 mg Tamsulosin HCl (Tamsulosin Hcl 0.4 Mg Capsule) 0.4 mg PO DAILY [facility] Last Admin: 09/23/23 09:51 Dose: 0.4 mg Sedation/Anesthesia: No previous sedation/anesthesia problems (including family history). [facility] Past Medical History Medical History Arthritis of left shoulder region Benign prostatic disease Degenerative arthritis of right shoulder region Foot drop History of deep venous thrombosis (DVT) of distal vein of left lower extremity (~2018) provoked after hospital admission. History of postoperative complication of surgical procedure Osteoarthritis Psoriasis Rhinitis Rotator cuff arthropathy of both shoulders Venous insufficiency, peripheral Surgical History Surgical History History of cervical spinal surgery 10/2018 History of left knee replacement (~2000) History of lumbosacral spine surgery early History of partial colectomy (~1994) Social History Social History Smoking packs per day: 1 Smoking cigarettes per day: 20.0 Years smoked: 2 Smoking pack-years: 2.00 Smoking status: Former smoker Tobacco type: cigarettes Second hand tobacco smoke exposure: No Smoking end date: 07/15/61 Alcohol intake: never Substance use: never Substance use type: does not use Do You Feel Safe in your Home?: Yes Lack of Transportation: No Lack of Food: Never True Current Housing: I Have Housing Concerned About Future Housing: No Difficulty Paying Gas/Electric Bills: No Difficulty Paying for Meds: No Currently Unemployed: No Education: High School Diploma/GED Difficulty w/ Childcare or Family Care: No Living arrangements: with family Additional living arrangements comments: Occupation/Education: retired Gender identity (if verbalized by the patient): Male Sexual Orientation (if Verbalized by the Patient): Straight or Heterosexual Spiritual care concerns: No Mod Sed Physical Exam Physical Exa
--- NOTE | 2023-09-24 11:35 | WPDCARDPROC ---
Cardiac Cath Procedure Note Date of procedure:: 09/24/23 Performing physician:: CATHETERIZATION LABORATORY REPORT Procedure Date: 09/24/2023 Flow Worker: Brenda Tello M.D., [facility]? Referring Physician: Noel Cardona M.D. ? Anesthesia: Versed and Fentanyl were ordered and given in my presence at 10:59, procedure ended at 11:25. Supervision of nurse monitored moderate sedation with Versed and Fentanyl was provided for 26 minutes. Total of Versed 1mg and Fentanyl 25mcg were administered by the Kennel Helper RN Shania Garcia. Pre-op Diagnosis: Coronary artery disease Post-op Diagnosis: 1. Multivessel coronary artery disease 2. Left ventricular end-diastolic pressure of 3mmHg Procedure(s): 1. Moderate sedation 2. Ultrasound-guided access of the right common femoral artery 3. Coronary angiography 4. Left heart cath 5. Angioseal closure of the right common femoral artery Access Site: Right common femoral artery Brief History and Clinical Indications: Patient is an 82 year old male who is referred for [facility] for VT, NSTEMI. All risks, benefits and alternatives to left heart catheterization with or without percutaneous coronary intervention was discussed at length with the patient. Risk of complications including but not limited to bleeding, infection, arrhythmia, stroke, worsening kidney function, blood loss, groin hematoma, limb loss, emergency coronary artery bypass grafting, and even were discussed with the patient and all questions were answered. The patient understood and wished to proceed. Time out called, patient name, date of , medical record number, allergies, procedure performed, identify Flow Worker, patient and staff member concurred with accurate data, procedure carried on. Findings: LEFT HEART CATHETERIZATION FINDINGS: 1. Left main: The left main coronary artery is widely patent without any significant obstructive disease. 2. Left anterior descending: There are heavy calcifications in the proximal and mid RCA. The proximal RCA has mild diffuse disease. The mid LAD after the bifurcation of the second septal branch and second diagonal branch has significant heavily calcified disease of 70-80%. The first diagonal branch is a very small branch. The second diagonal branch is a large caliber vessel that has mild ostial disease. 3. Ramus: No significant obstructive angiographic disease. 4. Left circumflex: The left circumflex artery has luminal irregularities. The OM branch is a large caliber branch with significant 80% disease in the mid portion. 5. Right coronary artery: The RCA is the dominant vessel. Heavy calcifications noted in the proximal and distal RCA. The RCA is a diffusely diseased vessel with significant 80-90% disease in the mid portion followed by a significant 80% lesion in the distal portion. The RPDA and RPLV are without any significant disease, however, slow flow noted distally. There are [id number] collaterals filling the distal RCA branches. 6. Left ventricle: A. End-diastolic pressure 3 mmHg. B. LV gram deferred. C. No significant gradient across aortic valve on catheter pullback. Description of Procedure: Informed consent signed and placed in the chart. Patient transferred to earth science laboratory technician room. Prepped and draped in usual sterile fashion. 2% lidocaine in right groin area. Micropuncture needle used to access right common femoral artery with Seldinger technique under fluoroscopic and ultrasound guidance. J wire advanced, micropuncture cannula placed. Right iliofemoral angiogram performed, access confirmed and micropuncture cannula exchanged for 6-FR sheath. 5F FL 4 diagnostic catheter engaged Left Main Coronary Artery. 5F FR 4 diagnostic catheter engaged Right Coronary Artery. Multiple orthogonal angiogram obtained and reviewed 5F Pigtail diagnostic catheter crossed aortic valve to obtain LVEDP, LV angiogram deferred. Hemostasis was achieved by 6F Angioseal. Post Operat
--- NOTE | 2023-09-24 12:09 | PC.NURSE ---
1043-pt to dairy lab technician, alert and oriented, pt continued 0.5mg amioderone drip
[2023-09-24 12:35] LABS: Cholesterol 140 mg/dL (0-200); HDL Direct 40 mg/dL; Triglycerides 47 mg/dL (<150)
[2023-09-24] MEDS: SODIUM CHLORIDE 0.9% IV 1,000 ML 125 ML IV CONT (12:38)
[2023-09-24 12:46] LABS: LDL Cholesterol Direct 90 mg/dL
[2023-09-24 12:48] LABS: Hemoglobin A1C 5.6 % (<5.7)
--- NOTE | 2023-09-24 12:55 | PC.NURSE ---
pt back from [facility]
[2023-09-24] MEDS: ENOXAPARIN 40 MG/0.4 ML SYRINGE SUB-Q (13:01)
[2023-09-24] MEDS: PANTOPRAZOLE 40 MG TABLET PO (13:01)
[2023-09-24] MEDS: TAMSULOSIN HCL 0.4 MG CAPSULE PO (13:01)
[2023-09-24] MEDS: FINASTERIDE 5 MG TABLET PO (13:02)
[2023-09-24] MEDS: ATORVASTATIN 40 MG TABLET 80 MG PO (13:02)
[2023-09-24] MEDS: CALCIUM CARBONATE (TUMS) 500 MG (200 MG ELEMENTAL) 600 MG PO (13:03)
[2023-09-24] MEDS: AMIODARONE HCL 200 MG TABLET PO (13:23)
[2023-09-25] VITALS (16 sets, daily range): BP systolic 107–123; BP diastolic 47–66; PULSE 57–71; RESP 18–20; TEMP 36.7–37.2; O2SAT 96–97
[2023-09-25] MEDS: ONDANSETRON HCL ODT 4 MG TABLET PO (01:29)
[2023-09-25 05:00] LABS: Basophils Percent Auto 0.2 % (0.2-1.2); Eosinophils Percent Auto 0.2 % (0-4.4); Hematocrit 33.6 % (42.0-52.0); Hemoglobin 10.3 g/dL (14.0-18.0); Immature Granulocyte Absolute 0.04 K/mm3 (0.00-0.031); Immature Granulocyte Percent A 0.3 % (0-0.5); Lymphocytes Absolute Auto 0.79 K/mm3 (0.9-3.2); Lymphocytes Percent Auto 6.8 % (18.3-44.2); Mean Corpuscular HGB Conc 30.7 g/dl (32-36); Mean Corpuscular Hemoglobin 25.2 pg (26-34); Mean Corpuscular Volume 82.4 fl (80-100); Mean Platelet Volume 10.2 fl (7.4-10.4); Monocytes Absolute Auto 0.6 K/mm3 (0.1-0.6); Monocytes Percent Auto 4.9 % (2.6-8.5); Neutrophils Absolute Auto 10.2 K/mm3 (1.3-6.7); Neutrophils Percent Auto 87.6 % (45.5-73.1); Platelet Count Result 345 k/mm3 (150-375); Red Blood Count 4.08 M/mm3 (4.6-6.20); Red Cell Distribution Width 16.8 % (11.5-14.5); White Blood Count 11.6 K/mm3 (4.5-10.0)
[2023-09-25 05:12] LABS: Anion Gap 4 mmol/L (8-16); Blood Urea Nitrogen 19 mg/dL (9-20); Calcium 8.9 mg/dL (8.4-10.2); Carbon Dioxide 27 mmol/L (22-30); Chloride 106 mmol/L (98-107); Estimated CRCL calculation 33 ml/min; Estimated Glomerular Filt Rate 42; Glucose 101 mg/dL (65-110); Magnesium 1.7 mg/dL (1.6-2.3); Potassium 3.5 mmol/L (3.4-5.0); Sodium 137 mmol/L (137-145)
[2023-09-25 05:27] LABS: Procalcitonin 0.1 ng/mL
--- NOTE | 2023-09-25 08:05 | PM.IMPN ---
Progress Note: A&P Assessment and Plan (1) Regular wide QRS complex tachycardia: Code(s): R00.0 - Tachycardia, unspecified Status: Acute (2) Cardiomyopathy: Code(s): I42.9 - Cardiomyopathy, unspecified Status: Acute (3) NSTEMI (non-ST elevated myocardial infarction): Code(s): I21.4 - Non-ST elevation (NSTEMI) myocardial infarction Status: Acute (4) Hypomagnesemia: Code(s): E83.42 - Hypomagnesemia Status: Acute (5) Chronic kidney disease: Code(s): N18.9 - Chronic kidney disease, unspecified Status: Acute (6) Acute UTI: Code(s): N39.0 - Urinary tract infection, site not specified Status: Acute Plan An 82-year-old male with past medical history BPH, GERD, hypertension, history of colon cancer, CKD stage 3B, bed-bound status due to bilateral foot drop and severe spinal stenosis and chronic pain and debility, presents with complaints of palpitations and feeling unwell and unable to sleep. EMS found patient have wide complex tachycardia with rate of 180s. Patient was started an LMA order own and he converted to normal sinus rhythm. Given normal saline and 2 g Mag sulfate rider for hypo magnesemia. Admitted on 09/23/2023 further workup. Ventricular tachycardia -continue telemetry. No further events. -amiodarone transition to p.o. per Cardiology NSTEMI/multivessel coronary artery disease -status post left heart catheterization on 09/24/[address] Sosa CT Surgery at [facility] contacted by Dr. Tello Line Inspector and considering the patient's wheelchair-bound status patient deemed a better candidate for hybrid approach with MIDCAB TAM to LAD and PCI to the OM and RCA. Evaluation to be conducted as an outpatient. -started on beta-carrie, aspirin, atorvastatin, Plavix. 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 Akinesis of posterior segment. LifeVest ordered. Leukocytosis -likely due to urinary tract infection secondary to urinary retention. However urine culture from admission sample negative mixed servando. In the setting of increasing leukocytosis on 09/24 with neutrophilia will order another urine sample. Continue ceftriaxone 1 g q.day started on 03/12. FEN: Cardiac diet. Saline lock IV GI prophylaxis: Not indicated DVT prophylaxis: Lovenox 40 mg q.day Lines: Peripheral IV Code Status: Full code Dispo: Stable. Transfer to medical floor with telemetry Subjective Date/time seen: 09/25/23 08:05 Interval history: No acute overnight events. Patient feels nauseous this morning however he was able to eat breakfast and once the more. He denies fever chills chest pain shortness of breath abdominal pain vomiting diarrhea. Review of Systems Review of Systems: All systems reviewed & are unremarkable except as noted in HPI and below (Subjective) Exam Const: General: comfortable and no acute distress Eyes: Pupils: Equal, round and reactive pupils present Resp: Effort & Inspection: normal respiratory effort Auscultation: clear to auscultation bilaterally Cardio: Rate: regular rate Rhythm: regular rhythm GI: Inspection: distended GI Palp: Yes Soft to palpation and No Tenderness to palpation present (GI) Extrem: General: no edema Objective Data Vital Signs Vital Signs: Vital Signs - 24 hr 09/24/23 09:53 09/24/23 11:35 09/24/23 11:35 Temperature 97.8 F Pulse Rate 93 71 Pulse Rate [Bilateral Pedal (Dorsalis Pedis) Palpation] 75 Respiratory Rate 18 Blood Pressure 124/65 Pulse Oximetry 97 Oxygen Delivery Room Air 09/24/23 12:00 09/24/23 12:00 09/24/23 12:15 Temperature Pulse Rate 79 75 Pulse Rate [Bilateral Pedal (Dorsalis Pedis) Palpation] 76 Respiratory Rate 25 H 22 H Blood Pressure 128/63 117/60 Pulse Oximetry 96 95 Oxygen Delivery Room Air Room Air 09/24/23 12:15 09/24/23 12:30 09/24/23 12:[facility]
[2023-09-25] MEDS: AMIODARONE HCL 200 MG TABLET PO (09:35)
[2023-09-25] MEDS: ASPIRIN 81 MG CHEWABLE TABLET PO (09:36)
[2023-09-25] MEDS: ENOXAPARIN 40 MG/0.4 ML SYRINGE SUB-Q (09:37)
[2023-09-25] MEDS: CALCIUM CARBONATE (TUMS) 500 MG (200 MG ELEMENTAL) 600 MG PO (09:37)
[2023-09-25] MEDS: CLOPIDOGREL BISULFATE 75 MG TABLET PO (09:37)
[2023-09-25] MEDS: ATORVASTATIN 40 MG TABLET 80 MG PO (09:37)
[2023-09-25] MEDS: TAMSULOSIN HCL 0.4 MG CAPSULE PO (09:38)
[2023-09-25] MEDS: PANTOPRAZOLE 40 MG TABLET PO (09:38)
[2023-09-25] MEDS: METOPROLOL SUCCINATE EXT REL 25 MG TABCR PO (09:38)
[2023-09-25] MEDS: FINASTERIDE 5 MG TABLET PO (09:38)
--- NOTE | 2023-09-25 10:30 | PM.PNCARD ---
Progress Note: A&P Assessment and Plan (1) Ventricular tachycardia: Code(s): I47.20 - Ventricular tachycardia, unspecified Status: Acute (2) NSTEMI (non-ST elevated myocardial infarction): Code(s): I21.4 - Non-ST elevation (NSTEMI) myocardial infarction Status: Acute (3) Cardiomyopathy: Code(s): I42.9 - Cardiomyopathy, unspecified Status: Acute Plan This is an 82-year-old man without significant cardiovascular history who has been feeling unwell for the last couple of weeks.? He had very modest symptoms of inability to sleep and anxiety and was found to be in a sustained wide QRS tachycardia.? This possibly was ventricular tachycardia with hemodynamic stability although may well have been an SVT. His echocardiogram demonstrates mild LV enlargement with systolic dysfunction. The posterior ?segment appears frankly akinetic, global ejection fraction is in the range of 35-40%.? This makes coronary disease and ventricular tachycardia the most likely diagnosis. The arrhythmia has been terminated with Amiodarone. Recommended cardiac catheterization, which was done on 09/23. Cardiac catheterization shows multivessel coronary artery disease involving the LAD, OM, and RCA. Discussed the case with Dr. Sosa, CT Surgery at [facility]. As patient is wheelchair-bound, we are concerned about his recovery and rehab after bypass surgery. Patient may be a better candidate for a hybrid approach with MIDCAB TAM to LAD bypass graft and PCI to the OM and RCA. This can be evaluated as an outpatient. Therefore, will optimize patient medically and get him scheduled to see us and CTS as an outpatient. Continue PO Amiodarone 200mg once daily. Started Metoprolol 25mg once daily, continue. I did discuss Life Vest with the patient, and he is agreeable (will plan to do Life Vest until he is revascularized). Indication for Life Vest: Sustained VT. Will start low-dose Losartan for his cardiomyopathy. Continue ASA, high-intensity statin. Started on Plavix. Treatment of UTI as per Hospitalist. From a cardiac standpoint, he is okay to discharge home. Recommendations and plan discussed with Hospitalist. Subjective Date/time seen: 09/25/23 10:30 Interval history: Reason for visit: VT, NSTEMI, Cardiomyopathy HPI: This is an 82-year-old man admitted to the hospital yesterday after feeling unwell and found in the EMS in the field to have a wide QRS tachycardia for which she was treated with intravenous amiodarone and then admitted to the hospital.? He states he does not have any prior knowledge of any significant heart disease.? He is a rather poor historian states that for the last couple weeks he was not feeling well at home he denies any sense of significant palpitations tachycardia or significant chest pain he does state that on occasion he has some central chest tightness this seems to wax and wane but not really associated with physical exertion.? Having said that he is an elderly gentleman who is wheelchair-bound because of difficulty with his low low back and inability to ambulate for at least the last 5 or 6 years.? He has no history of palpitations syncope orthopnea PND or edema.? His electrocardiogram in the field shows a wide QRS tachycardia with a left bundle branch type morphology in the anterior precordial leads the is suggestion of P waves in the ST segment which raises the possibility of an SVT with aberrancy.? In any event this arrhythmia was treated in the field with amiodarone bolus which converted him to sinus rhythm.? He maintains on an amiodarone infusion at this time.? Troponin levels have risen slightly to 0.8 following this event.? The patient is very emotional and concerned about his who he cares for at home with Alzheimer type of dementia.? He is concerned about her care while he is hospitalized.? His laboratory data does show evidence of some renal insufficiency with a creatinine of 1.7.? Echocardiogram has be
[2023-09-25] MEDS: LOSARTAN POTASSIUM 12.5 MG TABLET PO (12:15)
--- NOTE | 2023-09-25 15:59 | PC.NURSE ---
This patient, David Coleman, was transferred to [[address] [place] [address] ] on 09/25/23 at 1545. Personal belongings sent with patient. Report given to [MARIA ELENA Verde ]. Appropriate documentation sent with patient.
--- NOTE | 2023-09-25 15:59 | ADMGEN ---
This patient, David Coleman, was admitted to Medical Room 249-01. Patient/family oriented to hospital policies and general routines including ID bracelet, bed and alarms, visiting hours, pain management, procedures, bathroom and other care routines, personal items, smoking policy, room service/diet, and visiting hours. Information on how to activate the Rapid Response Team has been discussed. Patient/Family are encouraged to report perceived risks to care and to ask questions if they do not understand what they are told or what they should do.
[2023-09-26] VITALS (11 sets, daily range): BP systolic 100–124; BP diastolic 41–64; PULSE 48–66; RESP 17–18; TEMP 36.5–37.2; O2SAT 93–95
[2023-09-26] MEDS: ONDANSETRON HCL ODT 4 MG TABLET PO (01:20)
[2023-09-26 05:44] LABS: Basophils Percent Auto 0.2 % (0.2-1.2); Eosinophils Percent Auto 0.1 % (0-4.4); Hematocrit 31.7 % (42.0-52.0); Hemoglobin 9.6 g/dL (14.0-18.0); Immature Granulocyte Absolute 0.08 K/mm3 (0.00-0.031); Immature Granulocyte Percent A 0.6 % (0-0.5); Lymphocytes Absolute Auto 0.92 K/mm3 (0.9-3.2); Lymphocytes Percent Auto 6.8 % (18.3-44.2); Mean Corpuscular HGB Conc 30.3 g/dl (32-36); Mean Corpuscular Hemoglobin 24.9 pg (26-34); Mean Corpuscular Volume 82.3 fl (80-100); Monocytes Absolute Auto 0.7 K/mm3 (0.1-0.6); Monocytes Percent Auto 5.4 % (2.6-8.5); Neutrophils Absolute Auto 11.7 K/mm3 (1.3-6.7); Neutrophils Percent Auto 86.9 % (45.5-73.1); Platelet Count Result 327 k/mm3 (150-375); Red Blood Count 3.85 M/mm3 (4.6-6.20); Red Cell Distribution Width 16.5 % (11.5-14.5); White Blood Count 13.5 K/mm3 (4.5-10.0)
[2023-09-26 06:02] LABS: Anion Gap 4 mmol/L (8-16); Blood Urea Nitrogen 23 mg/dL (9-20); Calcium 8.4 mg/dL (8.4-10.2); Carbon Dioxide 26 mmol/L (22-30); Chloride 103 mmol/L (98-107); Estimated CRCL calculation 31 ml/min; Estimated Glomerular Filt Rate 39; Glucose 104 mg/dL (65-110); Magnesium 1.6 mg/dL (1.6-2.3); Sodium 133 mmol/L (137-145)
[2023-09-26 06:14] LABS: Potassium 3.5 mmol/L (3.4-5.0)
[2023-09-26] MEDS: ASPIRIN 81 MG CHEWABLE TABLET PO (09:08)
[2023-09-26] MEDS: AMIODARONE HCL 200 MG TABLET PO (09:08)
[2023-09-26] MEDS: PANTOPRAZOLE 40 MG TABLET PO (09:08)
[2023-09-26] MEDS: ATORVASTATIN 40 MG TABLET 80 MG PO (09:08)
[2023-09-26] MEDS: FINASTERIDE 5 MG TABLET PO (09:10)
[2023-09-26] MEDS: CLOPIDOGREL BISULFATE 75 MG TABLET PO (09:10)
[2023-09-26] MEDS: TAMSULOSIN HCL 0.4 MG CAPSULE PO (09:10)
[2023-09-26] MEDS: LOSARTAN POTASSIUM 12.5 MG TABLET PO (09:10)
[2023-09-26] MEDS: METOPROLOL SUCCINATE EXT REL 25 MG TABCR PO (09:10)
[2023-09-26] MEDS: ENOXAPARIN 40 MG/0.4 ML SYRINGE SUB-Q (09:11)
[2023-09-26] MEDS: CALCIUM CARBONATE (TUMS) 500 MG (200 MG ELEMENTAL) 600 MG PO (09:11)
--- NOTE | 2023-09-26 10:38 | PM.IMPN ---
Progress Note: A&P Assessment and Plan (1) Regular wide QRS complex tachycardia: Code(s): R00.0 - Tachycardia, unspecified Status: Acute (2) Cardiomyopathy: Code(s): I42.9 - Cardiomyopathy, unspecified Status: Acute (3) NSTEMI (non-ST elevated myocardial infarction): Code(s): I21.4 - Non-ST elevation (NSTEMI) myocardial infarction Status: Acute (4) Hypomagnesemia: Code(s): E83.42 - Hypomagnesemia Status: Acute (5) Chronic kidney disease: Code(s): N18.9 - Chronic kidney disease, unspecified Status: Acute (6) Acute UTI: Code(s): N39.0 - Urinary tract infection, site not specified Status: Acute Plan An 82-year-old male with past medical history BPH, GERD, hypertension, history of colon cancer, CKD stage 3B, bed-bound status due to bilateral foot drop and severe spinal stenosis and chronic pain and debility, presents with complaints of palpitations and feeling unwell and unable to sleep. EMS found patient have wide complex tachycardia with rate of 180s. Patient was started an LMA order own and he converted to normal sinus rhythm. Given normal saline and 2 g Mag sulfate rider for hypo magnesemia. Admitted on 09/23/2023 further workup. Ventricular tachycardia -continue telemetry. No further events. -amiodarone transition to p.o. per Cardiology NSTEMI/multivessel coronary artery disease -status post left heart catheterization on 09/24/[address] disease. Dr. Sosa CT Surgery at [facility] contacted by Dr. Tello Store Coordinator and considering the patient's wheelchair-bound status patient deemed a better candidate for hybrid approach with MIDCAB TAM to LAD and PCI to the OM and RCA. Evaluation to be conducted as an outpatient. -started on beta-carrie, aspirin, atorvastatin, Plavix. -on 09/25 low-dose losartan 12.5 mg p.o. daily started. 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 Akinesis of posterior segment. LifeVest ordered. Leukocytosis -admission urinalysis demonstrating wbc's nitrates and leuk esterase in spite of patient being asymptomatic ceftriaxone started. Subsequently urine culture growing mixed servando. Leukocytosis continues to increase although procalcitonin is within normal limits. UA ordered on 09/24 although this was not sent out. On 09/25 spoke with nurse Esparza to ensure that this urinalysis and culture are sent out. Check blood cultures and repeat chest x-ray as well. -continue ceftriaxone 1 g q.day for now and monitor for revealing symptomatology. CKD stage IIIB -stable. Continue to cycle renal function labs. Patient started on losartan on 09/25 and underwent left heart catheterization on 09/23 Urinary retention -Restrepo catheter placed on admission. Voiding trial soon. hypertension -at goal. FEN: Cardiac diet. Saline lock IV GI prophylaxis: Appears to be on omeprazole daily at home. Continue Protonix while inpatient. DVT prophylaxis: Lovenox 40 mg q.day Lines: Peripheral IV Code Status: Full code Dispo: Stable on medical floor with telemetry. Subjective Date/time seen: 09/26/23 10:38 Interval history: No acute overnight events. Patient denies any shortness of breath chest pain fever abdominal pain diarrhea open sores/wounds, cough, bladder pain. Review of Systems Review of Systems: All systems reviewed & are unremarkable except as noted in HPI and below (Subjective) Exam Const: General: comfortable and no acute distress Other: A&O x3 Eyes: Pupils: Equal, round and reactive pupils present Neck: Neck: supple Resp: Effort & Inspection: normal respiratory effort Auscultation: clear to auscultation bilaterally Cardio: Rate: regular rate Rhythm: regular rhythm GI: GI Palp: Yes Soft to palpation and No Tenderness to palpation present (GI) Extrem: General: no edema Objective Data Vital Signs Kyara
[2023-09-26] MEDS: DOXYCYCLINE 100 MG/NS 100 ML 100 MG/100 ML BAG IVPB ×2 (14:27→21:35)
[2023-09-26 17:01] LABS: Appearance Urine Cloudy (Clear); Bacteria Urine None Seen /hpf; Bilirubin Urine Negative (Negative); Blood Urine 2+ (Negative); Color Urine Yellow (Yellow); Glucose Urine UA Negative (Negative); Ketones Urine Trace mg/dL (Negative); Leukocyte Esterase Ur 3+ LEU/UL (Negative); Need Manual Microscopic Reviewed; Nitrate Urine Negative (Negative); Protein Urine 2+ mg/dL (Negative); RBC Urine 51-100 /hpf (0-2); Specific Grav Ur 1.021 (1.001-1.035); Squamous Epithelial Cell Urine None Seen /hpf (Few); Urobilinogen Urine 0.2 mg/dL (<2.0); WBC Urine >100 /hpf (0-3); pH Urine 5.5 (5.0-9.0)
[2023-09-26 17:02] LABS: Add Urine Microscopic? YES
[2023-09-26 18:22] LABS: Influenza A QL RT-PCR Negative (Negative); Influenza B QL RT-PCR Negative (Negative); RSV RNA, RT-PCR Negative (Negative); SARS-CoV-2 RNA PCR Negative (Negative)
[2023-09-27] VITALS (8 sets, daily range): BP systolic 101–118; BP diastolic 44–60; PULSE 47–58; RESP 16–18; TEMP 36.3–36.5; O2SAT 94–96
[2023-09-27 06:31] LABS: Basophils Percent Auto 0.3 % (0.2-1.2); Eosinophils Absolute Auto 0.1 K/mm3 (0-0.3); Eosinophils Percent Auto 1.3 % (0-4.4); Hematocrit 27.8 % (42.0-52.0); Hemoglobin 8.7 g/dL (14.0-18.0); Immature Granulocyte Absolute 0.08 K/mm3 (0.00-0.031); Immature Granulocyte Percent A 0.9 % (0-0.5); Lymphocytes Absolute Auto 1.05 K/mm3 (0.9-3.2); Lymphocytes Percent Auto 11.2 % (18.3-44.2); Mean Corpuscular HGB Conc 31.3 g/dl (32-36); Mean Corpuscular Hemoglobin 25.6 pg (26-34); Mean Corpuscular Volume 81.8 fl (80-100); Monocytes Absolute Auto 0.6 K/mm3 (0.1-0.6); Monocytes Percent Auto 6.5 % (2.6-8.5); Neutrophils Absolute Auto 7.5 K/mm3 (1.3-6.7); Neutrophils Percent Auto 79.8 % (45.5-73.1); Platelet Count Result 249 k/mm3 (150-375); Red Cell Distribution Width 16.5 % (11.5-14.5); White Blood Count 9.4 K/mm3 (4.5-10.0)
[2023-09-27 06:51] LABS: Alanine Aminotransferase 25 U/L (6-50); Albumin Level 2.7 g/dL (3.5-5.1); Alkaline Phosphatase 70 U/L (38-126); Anion Gap 0 mmol/L (8-16); Aspartate Amino Transferase 29 U/L (17-59); Bilirubin,Total 0.5 mg/dL (0.2-1.3); Blood Urea Nitrogen 25 mg/dL (9-20); Calcium 8.3 mg/dL (8.4-10.2); Carbon Dioxide 26 mmol/L (22-30); Chloride 106 mmol/L (98-107); Estimated CRCL calculation 28 ml/min; Estimated Glomerular Filt Rate 34; Glucose 95 mg/dL (65-110); Magnesium 1.5 mg/dL (1.6-2.3); Potassium 3.5 mmol/L (3.4-5.0); Sodium 132 mmol/L (137-145)
[2023-09-27 08:02] LABS: Procalcitonin 0.2 ng/mL
[2023-09-27] MEDS: METOPROLOL SUCCINATE EXT REL 25 MG TABCR PO (08:26)
[2023-09-27] MEDS: AMIODARONE HCL 200 MG TABLET PO (08:26)
[2023-09-27] MEDS: CALCIUM CARBONATE (TUMS) 500 MG (200 MG ELEMENTAL) 600 MG PO (08:27)
[2023-09-27] MEDS: FINASTERIDE 5 MG TABLET PO (08:27)
[2023-09-27] MEDS: PANTOPRAZOLE 40 MG TABLET PO (08:27)
[2023-09-27] MEDS: ENOXAPARIN 40 MG/0.4 ML SYRINGE SUB-Q (08:27)
[2023-09-27] MEDS: TAMSULOSIN HCL 0.4 MG CAPSULE PO (08:27)
[2023-09-27] MEDS: ATORVASTATIN 40 MG TABLET 80 MG PO (08:27)
[2023-09-27] MEDS: ASPIRIN 81 MG CHEWABLE TABLET PO (08:27)
[2023-09-27] MEDS: CLOPIDOGREL BISULFATE 75 MG TABLET PO (08:27)
[2023-09-27] MEDS: LOSARTAN POTASSIUM 12.5 MG TABLET PO (08:27)
[2023-09-27] MEDS: cefTRIAXone 2 GM/NS 100 ML 2 GM/100 ML BAG IVPB (08:28)
[2023-09-27] MEDS: DOXYCYCLINE 100 MG/NS 100 ML 100 MG/100 ML BAG IVPB (09:13)
--- NOTE | 2023-09-27 14:57 | PM.DS ---
DS: Discharge Diagnosis Discharge Diagnosis (1) Regular wide QRS complex tachycardia: Code(s): R00.0 - Tachycardia, unspecified Status: Acute (2) Cardiomyopathy: Code(s): I42.9 - Cardiomyopathy, unspecified Status: Acute (3) NSTEMI (non-ST elevated myocardial infarction): Code(s): I21.4 - Non-ST elevation (NSTEMI) myocardial infarction Status: Acute (4) Hypomagnesemia: Code(s): E83.42 - Hypomagnesemia Status: Acute (5) Chronic kidney disease: Code(s): N18.9 - Chronic kidney disease, unspecified Status: Acute (6) Acute UTI: Code(s): N39.0 - Urinary tract infection, site not specified Status: Acute Plan An 82-year-old male with past medical history BPH, GERD, hypertension, history of colon cancer, CKD stage 3B, bed-bound status due to bilateral foot drop and severe spinal stenosis and chronic pain and debility, presents with complaints of palpitations and feeling unwell and unable to sleep. EMS found patient have wide complex tachycardia with rate of 180s. Patient was started an LMA order own and he converted to normal sinus rhythm. Given normal saline and 2 g Mag sulfate rider for hypo magnesemia. Admitted on 09/23/2023 further workup. Ventricular tachycardia -continue telemetry. No further events. -amiodarone transition to p.o. per Cardiology NSTEMI/multivessel coronary artery disease -status post left heart catheterization on 09/24/[address] disease[address] Sosa CT Surgery at [facility] contacted by Dr. Tello Quality Control Assessor and considering the patient's wheelchair-bound status patient deemed a better candidate for hybrid approach with MIDCAB TAM to LAD and PCI to the OM and RCA. Evaluation to be conducted as an outpatient. -started on beta-carrie, aspirin, atorvastatin, Plavix. -on 09/25 low-dose losartan 12.5 mg p.o. daily started. 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 Akinesis of posterior segment. LifeVest ordered. Leukocytosis -admission urinalysis demonstrating wbc's nitrates and leuk esterase in spite of patient being asymptomatic ceftriaxone started. Subsequently urine culture growing mixed servando. Leukocytosis continues to increase although procalcitonin is within normal limits. UA ordered on 09/24 although this was not sent out. On 09/25 spoke with nurse Esparza to ensure that this urinalysis and culture are sent out. Check blood cultures and repeat chest x-ray as well. -continue ceftriaxone 1 g q.day for now and monitor for revealing symptomatology. CKD stage IIIB -stable. Continue to cycle renal function labs. Patient started on losartan on 09/25 and underwent left heart catheterization on 09/23 Urinary retention -Restrepo catheter placed on admission. Voiding trial soon. hypertension -at goal. FEN: Cardiac diet. Saline lock IV GI prophylaxis: Appears to be on omeprazole daily at home. Continue Protonix while inpatient. DVT prophylaxis: Lovenox 40 mg q.day Lines: Peripheral IV Code Status: Full code Dispo: Stable on medical floor with telemetry. DS: Summary Time Spent with Patient Time attestation: Total time spent providing and/or coordinating discharge services: Exam Narrative: - GENERAL: Pleasant male in no acute distress. Well-nourished. - EYES: EOMI. Anicteric. - HENT: Moist mucous membranes. - LUNGS: Clear to auscultation bilaterally, no wheezing, rhonchi, or rales. - CARDIOVASCULAR: Regular rate and rhythm. No murmur. No JVD. - ABDOMEN: Soft, non-tender and non-distended. No palpable masses. - EXTREMITIES: No edema. Peripheral pulses 2+. Non-tender. - NEUROLOGIC: No focal neurological deficits. CN II-XII grossly intact. - PSYCHIATRIC: Awake, Alert and oriented x 3. Appropriate mood and affect. - SKIN: No rashes or lesions. Warm. - LYMPH: No cervical lymphadenopathy. Const: General: comfortable and no ac
--- NOTE | 2023-09-27 15:03 | PM.IMPN ---
Progress Note: A&P Assessment and Plan (1) Regular wide QRS complex tachycardia: Code(s): R00.0 - Tachycardia, unspecified Status: Acute (2) Cardiomyopathy: Code(s): I42.9 - Cardiomyopathy, unspecified Status: Acute (3) NSTEMI (non-ST elevated myocardial infarction): Code(s): I21.4 - Non-ST elevation (NSTEMI) myocardial infarction Status: Acute (4) Hypomagnesemia: Code(s): E83.42 - Hypomagnesemia Status: Acute (5) Chronic kidney disease: Code(s): N18.9 - Chronic kidney disease, unspecified Status: Acute (6) Acute UTI: Code(s): N39.0 - Urinary tract infection, site not specified Status: Acute Assessment and Plan: On ceftriaxone (7) Ventricular tachycardia: Code(s): I47.20 - Ventricular tachycardia, unspecified Status: Acute Assessment and Plan: Recommended cardiac catheterization, which was done on 09/23. Cardiac catheterization shows multivessel coronary artery disease involving the LAD, OM, and RCA. Discussed the case with Dr. Sosa, CT Surgery at [facility]. As patient is wheelchair-bound, we are concerned about his recovery and rehab after bypass surgery. Patient may be a better candidate for a hybrid approach with MIDCAB TAM to LAD bypass graft and PCI to the OM and RCA. This can be evaluated as an outpatient. Therefore, will optimize patient medically and get him scheduled to see us and CTS as an outpatient. Continue PO Amiodarone 200mg once daily. Started Metoprolol 25mg once daily, continue. I did discuss Life Vest with the patient, and he is agreeable (will plan to do Life Vest until he is revascularized). Indication for Life Vest: Sustained VT. Will start low-dose Losartan for his cardiomyopathy. Continue ASA, high-intensity statin. Started on Plavix. Treatment of UTI as per Hospitalist. From a cardiac standpoint, he is okay to discharge home. Plan Plan An 82-year-old male with past medical history BPH, GERD, hypertension, history of colon cancer, CKD stage 3B, bed-bound status due to bilateral foot drop and severe spinal stenosis and chronic pain and debility, presents with complaints of palpitations and feeling unwell and unable to sleep.? EMS found patient have wide complex tachycardia with rate of 180s.? Patient was started an LMA order own and he converted to normal sinus rhythm.? Given normal saline and 2 g Mag sulfate rider for hypo magnesemia.? Admitted on 09/23/2023 further workup. Ventricular tachycardia -continue telemetry.? No further events. -amiodarone transition to p.o. per Cardiology NSTEMI/multivessel coronary artery disease -status post left heart catheterization on 09/24/[address] Sosa CT Surgery at [facility] contacted by Dr. Tello Senior Core Java Developer and considering the patient's wheelchair-bound status patient deemed a better candidate for hybrid approach with MIDCAB TAM to LAD and PCI to the OM and RCA.? Evaluation to be conducted as an outpatient. -started on beta-carrie, aspirin, atorvastatin, Plavix. -on 09/25 low-dose losartan 12.5 mg p.o. daily started.? 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 Akinesis of posterior segment.? LifeVest ordered. Leukocytosis -admission urinalysis demonstrating wbc's nitrates and leuk esterase in spite of patient being asymptomatic ceftriaxone started.? Subsequently urine culture growing mixed servando.? Leukocytosis continues to increase although procalcitonin is within normal limits.? UA ordered on 09/24 although this was not sent out.? On 09/25 spoke with nurse Esparza to ensure that this urinalysis and culture are sent out.? Check blood cultures and repeat chest x-ray as well. -continue ceftriaxone 1 g q.day for now and monitor for revealing symptomatology. CKD stage IIIB -stable.? Continue to cycle renal function labs.? Patient started on losartan on 09/25 an
[2023-09-27] MEDS: DOXYCYCLINE HYCLATE 100 MG TABLET PO (21:32)
[2023-09-28] VITALS: BP 113/53; PULSE 44; PULSE 51; RESP 18; TEMP 36.6; O2SAT 97
[2023-09-28 04:00] VITALS: BP 128/54; PULSE 51; PULSE 52; RESP 18; TEMP 36.6; O2SAT 94
[2023-09-28 05:43] LABS: Basophils Percent Auto 0.3 % (0.2-1.2); Eosinophils Absolute Auto 0.2 K/mm3 (0-0.3); Eosinophils Percent Auto 1.9 % (0-4.4); Hematocrit 28.4 % (42.0-52.0); Hemoglobin 8.8 g/dL (14.0-18.0); Immature Granulocyte Absolute 0.07 K/mm3 (0.00-0.031); Immature Granulocyte Percent A 0.8 % (0-0.5); Lymphocytes Percent Auto 13.9 % (18.3-44.2); Mean Corpuscular Hemoglobin 25.4 pg (26-34); Mean Corpuscular Volume 82.1 fl (80-100); Monocytes Absolute Auto 0.7 K/mm3 (0.1-0.6); Monocytes Percent Auto 7.5 % (2.6-8.5); Neutrophils Absolute Auto 7.1 K/mm3 (1.3-6.7); Neutrophils Percent Auto 75.6 % (45.5-73.1); Platelet Count Result 267 k/mm3 (150-375); Red Blood Count 3.46 M/mm3 (4.6-6.20); Red Cell Distribution Width 16.5 % (11.5-14.5); White Blood Count 9.3 K/mm3 (4.5-10.0)
[2023-09-28 05:51] LABS: Alanine Aminotransferase 28 U/L (6-50); Albumin Level 2.9 g/dL (3.5-5.1); Alkaline Phosphatase 72 U/L (38-126); Anion Gap 5 mmol/L (8-16); Aspartate Amino Transferase 38 U/L (17-59); Bilirubin,Total 0.2 mg/dL (0.2-1.3); Blood Urea Nitrogen 27 mg/dL (9-20); Calcium 8.5 mg/dL (8.4-10.2); Carbon Dioxide 25 mmol/L (22-30); Chloride 106 mmol/L (98-107); Estimated CRCL calculation 26 ml/min; Estimated Glomerular Filt Rate 30; Glucose 94 mg/dL (65-110); Potassium 3.5 mmol/L (3.4-5.0); Sodium 136 mmol/L (137-145)
--- NOTE | 2023-09-28 06:41 | PC.NURSE ---
Pt with known low urine output currently attempting voiding trial. Pt has had 100ml out in purewick canister and bladder scan shows a max of 300ml, however multiple repeat scans consistently show 150-200. Dr Hogan notified and no new orders received, continue to monitor at this time.
[2023-09-28 08:00] VITALS: BP 126/46; PULSE 51; PULSE 81; RESP 24; TEMP 36.8; O2SAT 96
[2023-09-28] MEDS: ASPIRIN 81 MG CHEWABLE TABLET PO (08:54)
[2023-09-28] MEDS: FINASTERIDE 5 MG TABLET PO (08:54)
[2023-09-28] MEDS: PANTOPRAZOLE 40 MG TABLET PO (08:54)
[2023-09-28] MEDS: TAMSULOSIN HCL 0.4 MG CAPSULE PO (08:54)
[2023-09-28] MEDS: CLOPIDOGREL BISULFATE 75 MG TABLET PO (08:54)
[2023-09-28] MEDS: AMIODARONE HCL 200 MG TABLET PO (08:54)
[2023-09-28] MEDS: LOSARTAN POTASSIUM 12.5 MG TABLET PO (08:54)
[2023-09-28] MEDS: METOPROLOL SUCCINATE EXT REL 25 MG TABCR PO (08:54)
[2023-09-28] MEDS: DOXYCYCLINE HYCLATE 100 MG TABLET PO (08:54)
[2023-09-28] MEDS: ATORVASTATIN 40 MG TABLET 80 MG PO (08:54)
[2023-09-28] MEDS: ENOXAPARIN 40 MG/0.4 ML SYRINGE SUB-Q (10:54)
[2023-09-28 12:00] VITALS: BP 124/51; PULSE 53; PULSE 81; RESP 18; TEMP 36.9; O2SAT 98
[2023-09-28] MEDS: CALCIUM CARBONATE (TUMS) 500 MG (200 MG ELEMENTAL) 600 MG PO (12:04)
--- NOTE | 2023-09-28 13:02 | PM.DS ---
DS: Admitting Diagnosis Discharge Date 09/28/23 Admitting Diagnosis 1. Palpitations 2. Tachycardia DS: Discharge Diagnosis Discharge Diagnosis (1) Regular wide QRS complex tachycardia: Code(s): R00.0 - Tachycardia, unspecified Status: Acute (2) Cardiomyopathy: Code(s): I42.9 - Cardiomyopathy, unspecified Status: Acute (3) NSTEMI (non-ST elevated myocardial infarction): Code(s): I21.4 - Non-ST elevation (NSTEMI) myocardial infarction Status: Acute (4) Hypomagnesemia: Code(s): E83.42 - Hypomagnesemia Status: Acute (5) Chronic kidney disease: Code(s): N18.9 - Chronic kidney disease, unspecified Status: Acute (6) Acute UTI: Code(s): N39.0 - Urinary tract infection, site not specified Status: Acute Assessment and Plan: On ceftriaxone (7) Ventricular tachycardia: Code(s): I47.20 - Ventricular tachycardia, unspecified Status: Acute Assessment and Plan: Recommended cardiac catheterization, which was done on 09/23. Cardiac catheterization shows multivessel coronary artery disease involving the LAD, OM, and RCA. Discussed the case with Dr. Sosa, CT Surgery at [facility]. As patient is wheelchair-bound, we are concerned about his recovery and rehab after bypass surgery. Patient may be a better candidate for a hybrid approach with MIDCAB TAM to LAD bypass graft and PCI to the OM and RCA. This can be evaluated as an outpatient. Therefore, will optimize patient medically and get him scheduled to see us and CTS as an outpatient. Continue PO Amiodarone 200mg once daily. Started Metoprolol 25mg once daily, continue. I did discuss Life Vest with the patient, and he is agreeable (will plan to do Life Vest until he is revascularized). Indication for Life Vest: Sustained VT. Will start low-dose Losartan for his cardiomyopathy. Continue ASA, high-intensity statin. Started on Plavix. Treatment of UTI as per Hospitalist. From a cardiac standpoint, he is okay to discharge home. Plan Plan An 82-year-old male with past medical history BPH, GERD, hypertension, history of colon cancer, CKD stage 3B, bed-bound status due to bilateral foot drop and severe spinal stenosis and chronic pain and debility, presents with complaints of palpitations and feeling unwell and unable to sleep.? EMS found patient have wide complex tachycardia with rate of 180s.? Patient was started an LMA order own and he converted to normal sinus rhythm.? Given normal saline and 2 g Mag sulfate rider for hypo magnesemia.? Admitted on 09/23/2023 further workup. Ventricular tachycardia -continue telemetry.? No further events. -amiodarone transition to p.o. per Cardiology NSTEMI/multivessel coronary artery disease -status post left heart catheterization on 09/24/[address] disease. Dr. Sosa CT Surgery at [facility] contacted by Dr. Tello Zinc Furnace Charger and considering the patient's wheelchair-bound status patient deemed a better candidate for hybrid approach with MIDCAB TAM to LAD and PCI to the OM and RCA.? Evaluation to be conducted as an outpatient. -started on beta-carrie, aspirin, atorvastatin, Plavix. -on 09/25 low-dose losartan 12.5 mg p.o. daily started.? 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 Akinesis of posterior segment.? LifeVest ordered. Leukocytosis -admission urinalysis demonstrating wbc's nitrates and leuk esterase in spite of patient being asymptomatic ceftriaxone started.? Subsequently urine culture growing mixed servando.? Leukocytosis continues to increase although procalcitonin is within normal limits.? UA ordered on 09/24 although this was not sent out.? On 09/25 spoke with nurse Esparza to ensure that this urinalysis and culture are sent out.? Check blood cultures and repeat chest x-ray as well. -continue ceftriaxone 1 g q.day for now and monitor for revealing symptomatolog
[2023-09-28 16:00] VITALS: BP 140/60; PULSE 54; RESP 16; TEMP 36.8; O2SAT 98
== END 2023-09-28 18:10 | disposition home or self-care (01) | DRG 281 ==
LOC: ANHED 05:46 → ANHIMU 06:15 → ANH2MED 09-25 15:56
PROVIDERS: General Practice; Internal Medicine; Student in an Organized Health Care Education/Training Program; Admitting Provider Internal Medicine; Emergency Provider Emergency Medicine; PCP Family Medicine; Visit Provider Internal Medicine
PROC: 4A023N7 Measurement of Cardiac Sampling and Pressure, Left Heart, Percutaneous Approach (ICD-10-PCS; CPT 93452; principal; 2023-09-24 10:30)
PROC: 4A023N7 Measurement of Cardiac Sampling and Pressure, Left Heart, Percutaneous Approach (ICD-10-PCS; 2023-09-24 10:30)
DX: I47.20 Ventricular tachycardia, unspecified (principal); I21.4 Non-ST elevation (NSTEMI) myocardial infarction; N39.0 Urinary tract infection, site not specified; I25.10 Atherosclerotic heart disease of native coronary artery without angina pectoris; I25.5 Ischemic cardiomyopathy; I12.9 Hypertensive chronic kidney disease with stage 1 through stage 4 chronic kidney disease, or unspecified chronic kidney disease; N18.32 Chronic kidney disease, stage 3b; E83.42 Hypomagnesemia; F41.9 Anxiety disorder, unspecified; N40.0 Benign prostatic hyperplasia without lower urinary tract symptoms; K21.9 Gastro-esophageal reflux disease without esophagitis; M19.90 Unspecified osteoarthritis, unspecified site; R33.9 Retention of urine, unspecified; M21.379 Foot drop, unspecified foot; L40.9 Psoriasis, unspecified; R79.89 Other specified abnormal findings of blood chemistry; M48.00 Spinal stenosis, site unspecified; Z99.3 Dependence on wheelchair; Z74.01 Bed confinement status; Z96.652 Presence of left artificial knee joint; Z86.718 Personal history of other venous thrombosis and embolism; Z87.891 Personal history of nicotine dependence; Z85.038 Personal history of other malignant neoplasm of large intestine
CPT/HCPCS: 36415; 71045; 80048; 80053; 80061; 81001; 83036; 83690; 83735; 83880; 84145; 84443; 84484; 85025; 85027; 85610; 85730; 87040; 87086; 87088; 87637; 93005; 93458; 96361; 96375; 96376; 99285; A9270; C1760; C1769; C1887; C1894; C8929; G0269; G0378; J0282; J0696; J1644; J1650; J1940; J2250; J3010; J3475; J7030; J7040; Q9957

== ENCOUNTER 2024-03-24 09:22 | Outpatient (CLI) | payer MEDICARE, SELFPAY ==
[2024-03-24 14:04] LABS: Albumin Level 3.6 g/dL (3.5-5.1); Anion Gap 10 mmol/L (4-12); Blood Urea Nitrogen 26 mg/dL (9-20); Calcium 9.1 mg/dL (8.4-10.2); Carbon Dioxide 25 mmol/L (22-30); Chloride 102 mmol/L (98-107); Estimated Glomerular Filt Rate 26; Glucose 112 mg/dL (65-110); Potassium 3.5 mmol/L (3.4-5.0); Sodium 137 mmol/L (137-145)
== END 2024-03-24 09:23 | disposition home or self-care (01) ==
PROVIDERS: PCP Family Medicine; Visit Provider Internal Medicine Nephrology
DX: I12.9 Hypertensive chronic kidney disease with stage 1 through stage 4 chronic kidney disease, or unspecified chronic kidney disease (principal); N18.31 Chronic kidney disease, stage 3a
CPT/HCPCS: 36415; 80069

== ENCOUNTER 2024-03-25 13:42 | Outpatient (NON) | payer MEDICARE, SELFPAY | END 2024-03-25 13:43 | disposition home or self-care (01) | LOC: ANHGOSHLAB 13:43 | PROVIDERS: PCP Family Medicine; Visit Provider Nurse Practitioner Family | DX: N40.0 Benign prostatic hyperplasia without lower urinary tract symptoms (principal) | CPT/HCPCS: 87077; 87086; 87088; 87186 ==

== ENCOUNTER 2024-04-07 10:07 | Outpatient (CLI) | payer MEDICARE, SELFPAY ==
[2024-04-07 13:26] LABS: Iron 39 ug/dL (49-181)
[2024-04-07 13:33] LABS: Basophils Absolute Auto 0.1 K/mm3 (0.0-0.1); Basophils Percent Auto 0.6 % (0.2-1.2); Eosinophils Absolute Auto 0.3 K/mm3 (0-0.3); Hematocrit 36.7 % (42.0-52.0); Hemoglobin 11.1 g/dL (14.0-18.0); Immature Granulocyte Absolute 0.09 K/mm3 (0.00-0.031); Immature Granulocyte Percent A 0.9 % (0-0.5); Lymphocytes Absolute Auto 1.35 K/mm3 (0.9-3.2); Lymphocytes Percent Auto 13.4 % (18.3-44.2); Mean Corpuscular HGB Conc 30.2 g/dl (32-36); Mean Corpuscular Hemoglobin 25.3 pg (26-34); Mean Corpuscular Volume 83.8 fl (80-100); Mean Platelet Volume 9.2 fl (7.4-10.4); Monocytes Absolute Auto 0.7 K/mm3 (0.1-0.6); Monocytes Percent Auto 7.3 % (2.6-8.5); Neutrophils Absolute Auto 7.5 K/mm3 (1.3-6.7); Neutrophils Percent Auto 74.8 % (45.5-73.1); Platelet Count Result 381 k/mm3 (150-375); Red Blood Count 4.38 M/mm3 (4.6-6.20); Red Cell Distribution Width 18.5 % (11.5-14.5); White Blood Count 10.1 K/mm3 (4.5-10.0)
[2024-04-07 13:35] LABS: Percent Iron Saturation 11 % (20-50)
[2024-04-07 14:02] LABS: Vitamin D 25 Hydroxy 57.4 ng/mL
[2024-04-07 14:29] LABS: Alanine Aminotransferase 31 U/L (6-50); Albumin Level 3.5 g/dL (3.5-5.1); Alkaline Phosphatase 76 U/L (38-126); Anion Gap 7 mmol/L (4-12); Aspartate Amino Transferase 53 U/L (17-59); Bilirubin,Total 0.3 mg/dL (0.2-1.3); Blood Urea Nitrogen 25 mg/dL (9-20); Carbon Dioxide 30 mmol/L (22-30); Chloride 99 mmol/L (98-107); Cholesterol 111 mg/dL (0-200); Estimated Glomerular Filt Rate 29; Glucose 124 mg/dL (65-110); HDL Direct 47 mg/dL; Magnesium 1.9 mg/dL (1.6-2.3); Potassium 3.8 mmol/L (3.4-5.0); Sodium 136 mmol/L (137-145); Triglycerides 44 mg/dL (<150)
[2024-04-07 14:40] LABS: LDL Cholesterol Direct 39 mg/dL
[2024-04-07 14:59] LABS: Prostate Specific Antigen 0.1 ng/mL (< OR = 4.0)
[2024-04-07 15:04] LABS: Hemoglobin A1C 6.2 % (<5.7)
== END 2024-04-07 10:08 | disposition home or self-care (01) ==
LOC: ANHGOSHLAB 10:09
PROVIDERS: PCP Family Medicine; Visit Provider Family Medicine
DX: Z12.5 Encounter for screening for malignant neoplasm of prostate (principal); E55.9 Vitamin D deficiency, unspecified; R73.9 Hyperglycemia, unspecified; I10 Essential (primary) hypertension; I25.10 Atherosclerotic heart disease of native coronary artery without angina pectoris; E78.5 Hyperlipidemia, unspecified; E53.8 Deficiency of other specified B group vitamins; I42.9 Cardiomyopathy, unspecified; D64.9 Anemia, unspecified
CPT/HCPCS: 36415; 80053; 80061; 82306; 82607; 82728; 83036; 83540; 83550; 83735; 84153; 84443; 85025; G0103

== ENCOUNTER 2024-04-19 08:37 | Inpatient (IN) | payer MEDICARE, SELFPAY ==
[2024-04-19] VITALS (38 sets, daily range): BP systolic 84–133; BP diastolic 36–90; PULSE 44–56; RESP 12–33; TEMP 36.1–37.3; O2SAT 89–100
--- NOTE | ~2024-04-19 | CT_ITS ---
EXAMINATION: CT brain wo con DATE: 04/19/2024 11:46 INDICATION: Altered mental status. Hallucinations. TECHNIQUE: Computed tomography (CT) of the head was performed without intravenous contrast. Sagittal and coronal reconstructions were performed. The mA was adjusted according to patient size. Iterative reconstruction technique was employed. The dose-length product was 1059.33 mGy-cm. COMPARISON: Brain MR dated 06/27/2004 FINDINGS: No acute intracranial hemorrhage, acute infarction or abnormal extra axial fluid collection. There is moderate scattered white matter hypoattenuation consistent with chronic small vessel ischemic diseas e. Symmetric prominence of the sulci and ventricles consistent with mild to moderate age-appropriate diffuse cerebral volume loss. Ventricles are normal and symmetric. No mass/mass effect. Changes of bilateral intraocular lens replacement. Sinus disease with complete opacification of the l eft frontal sinus, partially visualized mucous retention cyst in the left maxillary sinus and additio nal more diffuse mild mucosal thickening. Minimal bilateral mastoid effusions. Intracranial calcified cerebral atherosclerosis is noted. IMPRESSION: 1. No acute intracranial process. 2. Age-related changes including mild to moderate diffuse volume loss and moderate scattered white ma tter hypoattenuation consistent with chronic small vessel ischemic disease. 3. Extensive sinus disease. Reviewed, dictated and finalized at location A. IMPRESSION: 1. No acute intracranial process. 2. Age-related changes including mild to moderate diffuse volume loss and moder ate scattered white matter hypoattenuation consistent with chronic small vessel ischemic disease. 3. Extensive sinus disease.
--- NOTE | ~2024-04-19 | XR_ITS ---
EXAMINATION: XR chest 1V portable DATE: 04/19/2024 10:44 INDICATION: Cough TECHNIQUE: frontal view of the chest was obtained. COMPARISON: Chest radiograph dated 09/26/2023 FINDINGS: Small lung volumes. Mild streaky bibasilar opacities and favor atelectasis over pneumonia. No pulmona ry edema, pleural effusion or pneumothorax. The cardiomediastinal silhouette is within normal limits conifer AP technique. Bilateral rotator cuff arthropathy. Plain screw fixation for a mid cervical ant erior spinal fusion. IMPRESSION: 1. Small lung volumes with mild bibasilar atelectasis versus less likely pneumonia. Reviewed, dictated and finalized at location A. IMPRESSION: 1. Small lung volumes with mild bibasilar atelectasis versus less likely pneumo arvind.
--- NOTE | 2024-04-19 10:11 | ECG_ITS ---
Test Date: 2024-04-19 10:28:28 Measurements Intervals [place] Rate: 46 P: 79 IA: 233 QRS: -17 QRSD: 106 T: -4 QT: 484 QTc: 426 Interpretive Statements SINUS BRADYCARDIA WITH FIRST DEGREE AV BLOCK LOW QRS VOLTAGE IN PRECORDIAL LEADS [QRS DEFLECTION < 1.0 mV IN CHEST LEADS] No previous ECG available for comparison Electronically Signed On 04-19-2024 11:40:46 CDT by Axel Hawkins M.D.
[2024-04-19 10:49] LABS: Basophils Absolute Auto 0.1 K/mm3 (0.0-0.1); Basophils Percent Auto 0.5 % (0.2-1.2); Eosinophils Absolute Auto 0.4 K/mm3 (0-0.3); Eosinophils Percent Auto 2.5 % (0-4.4); Hematocrit 33.1 % (42.0-52.0); Hemoglobin 10.3 g/dL (14.0-18.0); Immature Granulocyte Absolute 0.09 K/mm3 (0.00-0.031); Immature Granulocyte Percent A 0.6 % (0-0.5); Lymphocytes Absolute Auto 1.26 K/mm3 (0.9-3.2); Lymphocytes Percent Auto 8.7 % (18.3-44.2); Mean Corpuscular HGB Conc 31.1 g/dl (32-36); Mean Corpuscular Hemoglobin 25.6 pg (26-34); Mean Corpuscular Volume 82.3 fl (80-100); Monocytes Absolute Auto 0.8 K/mm3 (0.1-0.6); Monocytes Percent Auto 5.3 % (2.6-8.5); Neutrophils Percent Auto 82.4 % (45.5-73.1); Platelet Count Result 270 k/mm3 (150-375); Red Blood Count 4.02 M/mm3 (4.6-6.20); Red Cell Distribution Width 18.6 % (11.5-14.5); White Blood Count 14.6 K/mm3 (4.5-10.0)
[2024-04-19 10:58] LABS: Alanine Aminotransferase 22 U/L (6-50); Albumin Level 3.1 g/dL (3.5-5.1); Alkaline Phosphatase 65 U/L (38-126); Anion Gap 5 mmol/L (4-12); Aspartate Amino Transferase 20 U/L (17-59); Bilirubin,Total 0.2 mg/dL (0.2-1.3); Blood Urea Nitrogen 21 mg/dL (9-20); Calcium 8.8 mg/dL (8.4-10.2); Carbon Dioxide 27 mmol/L (22-30); Chloride 106 mmol/L (98-107); Estimated CRCL calculation 23 ml/min; Estimated Glomerular Filt Rate 29; Glucose 136 mg/dL (65-110); Potassium 3.4 mmol/L (3.4-5.0); Sodium 138 mmol/L (137-145)
[2024-04-19 11:01] LABS: INR 1.1; Prothrombin Time 14.6 Seconds (11.1-14.7)
[2024-04-19 11:02] LABS: Partial Thromboplastin Time 27.8 Seconds (22.3-36.8)
[2024-04-19 11:25] LABS: Influenza A QL RT-PCR Negative (Negative); Influenza B QL RT-PCR Negative (Negative); SARS-CoV-2 RNA PCR Negative (Negative)
--- NOTE | 2024-04-19 11:58 | ED.AMS ---
HPI - Altered Mental Status General Chief Complaint: Altered Mental Status Stated Complaint: AMS, hallucinations Time Seen by Provider: 04/19/24 10:10 Source: patient, family, EMS, RN notes reviewed and old records reviewed Mode of arrival: EMS Limitations: no limitations History of Present Illness HPI narrative: This is an 83 year old male with multiple medicals who presents for evaluation of altered mental status. Patient reports he has had sore throat, congestion, and cough for 1 week. Patient is unsure of fever. She is also reporting hallucinations. He is talking to people that are not there. He denies chest pain, shortness of breath, vomiting. He reports nausea and diarrhea. Related Data Home Medications Medication Instructions Recorded Confirmed calcium carbonate 600 mg PO DAILY 12/13/21 04/07/24 melatonin 10 mg capsule 10 mg PO QHS 04/07/24 04/07/24 Allergies Allergy/AdvReac Type Severity Reaction Status Date / Time morphine Allergy Severe HIVES Verified 04/19/24 15:49 meperidine AdvReac severe Verified 04/19/24 15:49 constipation NFA Allergy Unknown Unknown Uncoded 04/19/24 08:56 Review of Systems Constitutional: Constitutional: Reports weakness Cardiovascular: Cardiovascular: Denies syncope, Denies rapid heart rate, Denies irregular heart rhythm, Denies leg edema and Denies dyspnea Respiratory: Respiratory: Denies chest congestion, Reports cough, Denies excessive phlegm production and Denies dyspnea Gastrointestinal: Gastrointestinal: Denies abdominal pain, Denies hematochezia, Reports diarrhea, Reports nausea and Denies vomiting Genitourinary: Genitourinary: Denies hematuria, Denies dysuria, Denies penile discharge and Denies testicular pain Musculoskeletal: Musculoskeletal: Denies joint swelling, Denies loss of height and Denies muscle weakness Neurologic: Denies syncope, Denies focal weakness and Denies weakness [facility] Past Medical History Medical History (Updated 04/19/24 @ 18:44 by Caitlin Snell MD) Benign prostatic disease Cardiomyopathy On LifeVest from September to February 2024. Chronic kidney disease Colon cancer Status post partial colectomy and chemoradiation. Coronary artery disease Multivessel coronary artery disease noted on cardiac catheterization in September 2023 including the LAD, RCA, and an obtuse marginal. Patient declined MIDCAB and is being treated medically. Deep vein thrombosis of left lower extremity (2018) Provoked DVT following admission. Foot drop Iron deficiency anemia Osteoarthritis Psoriasis Vitamin D deficiency Wide-complex tachycardia (09/2023) SVT versus VT, terminated with amiodarone. Surgical History Surgical History (Updated 04/19/24 @ 13:50 by Nellie Gee PA-C) History of cervical spinal surgery (10/2018) History of left knee replacement (2000) History of lumbosacral spine surgery early History of partial colectomy (1994) Family History Family History Other Cancer Cerebrovascular accident Hypertension Social History Social History (Updated 04/19/24 @ 14:03 by Nellie Gee PA-C) Social History: Surrogate medical decision maker: David Coleman Jr. (son). Code status: Full code. Smoking packs per day: 1 Smoking cigarettes per day: 20.0 Years smoked: 2 Smoking pack-years: 2.00 Smoking status: Never smoker Tobacco type: cigarettes Second hand tobacco smoke exposure: No Smoking end date: 07/15/59 Alcohol intake: never Substance use: never Substance use type: does not use Do You Feel Safe in your Home?: Yes Lack of Transportation: No Lack of Food: Never True Current Housing: I Have Housing Concerned About Future Housing: No Difficulty Paying Gas/Electric Bills: No Difficulty Paying for Meds: No Currently Unemployed: No Education: Don't Know Difficulty w/ Childcare or Family Care: No Living arrangements: with fa
[2024-04-19 12:03] LABS: Add Urine Microscopic? YES; Appearance Urine Cloudy (Clear); Bacteria Urine 4+ /hpf; Bilirubin Urine Negative (Negative); Blood Urine 1+ (Negative); Color Urine Yellow (Yellow); Glucose Urine UA Negative (Negative); Ketones Urine Negative (Negative); Leukocyte Esterase Ur 3+ LEU/UL (Negative); Nitrate Urine Positive (Negative); Non Pathogenic Casts 0-2; Protein Urine 1+ mg/dL (Negative); RBC Urine 0-2 /hpf (0-2); Specific Grav Ur 1.008 (1.001-1.035); Squamous Epithelial Cell Urine None Seen /hpf (Few); Urobilinogen Urine 0.2 mg/dL (<2.0); WBC Urine >100 /hpf (0-3)
[2024-04-19 12:16] LABS: Amphetamine Screen Urine Negative (Negative); Barbiturate Screen Urine Negative (Negative); Benzodiazepines Screen Urine Negative (Negative); Cannabinoid Screen Urine Negative (Negative); Cocaine Screen Urine Negative (Negative); Methadone Screen Urine Negative (Negative); Opiate Screen Urine Negative (Negative); Phencyclidine Screen Urine Negative (Negative)
[2024-04-19 12:23] LABS: NT Pro B Type Natriuretic Pept 948 pg/mL (19.9-100)
[2024-04-19 12:41] LABS: Strep Group A RT-PCR NOT DETECTED (Negative)
[2024-04-19 12:46] LABS: Lactic Acid Reflex 0.9 mmol/L (0.7-2.0)
--- NOTE | 2024-04-19 13:35 | PM.IMHP ---
H&P: HPI History of Present Illness Date/Time: 04/19/24 13:35 Chief Complaint: Altered mental status. Narrative: This is an 83-year-old male with cardiomyopathy (recently taken off of LifeVest), multi-vessel coronary artery disease on medical management, wide complex tachycardia (VT versus SVT) on amiodarone, hyperlipidemia, chronic kidney disease, left lower extremity deep venous thrombosis following hospitalization, colon cancer status post partial colectomy and chemoradiation, benign prostatic hyperplasia, iron deficiency anemia, bilateral foot drop, and gastroesophageal reflux disease who presented to the emergency department via EMS from home for evaluation of altered mental status. He is alert and oriented at the time of my evaluation and provides the following history. He has not been feeling well for couple of days with sinus congestion, nonproductive cough, sore throat, nausea, loose stools, and dysuria. Caregiver reports that he has been having hallucinations and is talking to people who were not present. He has not had any recent falls or head trauma. No fever, chills, sweats, chest pain, shortness of breath, vomiting, or hematuria. In the ED: He was afebrile on arrival. Blood pressures have been running at the lower end of normal which is not unusual for him. Pulse has been in the upper 40s to low 50s which seems near his baseline as well. Labs were significant for WBC count of 14.6, hemoglobin 10.3, BUN 21, creatinine 2.20. Urinalysis was positive for 1+ protein, 1+ blood, nitrates, 3+ leukocyte esterase, 4+ bacteria, greater than 100 WBC. He was negative for influenza, COVID, and group A strep. Urine drug screen was negative. Head CT showed no acute findings, age-related changes, and extensive sinus disease. Chest x-ray showed small lung volumes with mild bibasilar atelectasis versus less likely pneumonia. He was given a dose of ceftriaxone is being admitted in this setting. Review of Systems Review of Systems: 12 systems were reviewed and are negative except for as per HPI. [facility] Past Medical History Medical History Benign prostatic disease Cardiomyopathy On LifeVest from September to February 2024. Chronic kidney disease Colon cancer Status post partial colectomy and chemoradiation. Coronary artery disease Multivessel coronary artery disease noted on cardiac catheterization in September 2023 including the LAD, RCA, and an obtuse marginal. Patient declined MIDCAB and is being treated medically. Deep vein thrombosis of left lower extremity (2018) Provoked DVT following admission. Foot drop Iron deficiency anemia Osteoarthritis Psoriasis Vitamin D deficiency Wide-complex tachycardia (09/2023) SVT versus VT, terminated with amiodarone. Surgical History Surgical History History of cervical spinal surgery (10/2018) History of left knee replacement (2000) History of lumbosacral spine surgery early History of partial colectomy (1994) Family History Family History Other Cancer Cerebrovascular accident Hypertension Social History Social History (Updated 04/19/24 @ 21:19 by Nellie Gee PA-C) Social History: Surrogate medical decision maker: David Jr. Jared (son). Code status: Full code. Smoking packs per day: 1 Smoking cigarettes per day: 20.0 Years smoked: 2 Smoking pack-years: 2.00 Smoking status: Never smoker Tobacco type: cigarettes Second hand tobacco smoke exposure: No Smoking end date: 07/15/59 Alcohol intake: never Substance use: never Substance use type: does not use Do You Feel Safe in your Home?: Yes Lack of Transportation: No Lack of Food: Never True Current Housing: I Have Housing Concerned About Future Housing: No Difficulty Paying Gas/Electric Bills: No Difficulty Paying
[2024-04-19] MEDS: NYSTATIN 100,000 UNITS/ML SUSP 5 ML ORAL.SUSP PO ×2 (13:43→19:53)
[2024-04-19 15:36] LABS: Thyroid Stimulating Hormone Reflex 0.755 uIU/mL (0.465-4.68)
--- NOTE | 2024-04-19 15:48 | ADMGEN ---
This patient, David Coleman, was admitted to [facility] Surg Room 332-01. Patient/family oriented to hospital policies and general routines including ID bracelet, bed and alarms, visiting hours, pain management, procedures, bathroom and other care routines, personal items, smoking policy, room service/diet, and visiting hours. Information on how to activate the Rapid Response Team has been discussed. Patient/Family are encouraged to report perceived risks to care and to ask questions if they do not understand what they are told or what they should do.
[2024-04-19 20:07] LABS: Glucose Point of Care 121 mg/dl (65-105)
[2024-04-19] MEDS: ROSUVASTATIN 20 MG TABLET 40 MG PO (22:21)
[2024-04-19] MEDS: MELATONIN 5 MG TABLET 10 MG PO (22:22)
[2024-04-20] VITALS (11 sets, daily range): BP systolic 115–117; BP diastolic 49–69; PULSE 44–63; RESP 16–18; TEMP 36.2–37.1; O2SAT 95–98
[2024-04-20 06:36] LABS: Basophils Absolute Auto 0.1 K/mm3 (0.0-0.1); Basophils Percent Auto 0.5 % (0.2-1.2); Eosinophils Absolute Auto 0.3 K/mm3 (0-0.3); Eosinophils Percent Auto 2.5 % (0-4.4); Hematocrit 33.5 % (42.0-52.0); Hemoglobin 10.3 g/dL (14.0-18.0); Immature Granulocyte Percent A 0.8 % (0-0.5); Lymphocytes Absolute Auto 1.24 K/mm3 (0.9-3.2); Lymphocytes Percent Auto 9.8 % (18.3-44.2); Mean Corpuscular HGB Conc 30.7 g/dl (32-36); Mean Corpuscular Hemoglobin 25.7 pg (26-34); Mean Corpuscular Volume 83.5 fl (80-100); Mean Platelet Volume 9.1 fl (7.4-10.4); Monocytes Absolute Auto 0.6 K/mm3 (0.1-0.6); Neutrophils Absolute Auto 10.3 K/mm3 (1.3-6.7); Neutrophils Percent Auto 81.4 % (45.5-73.1); Platelet Count Result 308 k/mm3 (150-375); Red Blood Count 4.01 M/mm3 (4.6-6.20); Red Cell Distribution Width 18.6 % (11.5-14.5); White Blood Count 12.6 K/mm3 (4.5-10.0)
[2024-04-20 06:52] LABS: Alanine Aminotransferase 24 U/L (6-50); Albumin Level 3.2 g/dL (3.5-5.1); Alkaline Phosphatase 73 U/L (38-126); Anion Gap 6 mmol/L (4-12); Aspartate Amino Transferase 32 U/L (17-59); Bilirubin,Total 0.4 mg/dL (0.2-1.3); Blood Urea Nitrogen 20 mg/dL (9-20); Calcium 9.1 mg/dL (8.4-10.2); Carbon Dioxide 27 mmol/L (22-30); Chloride 105 mmol/L (98-107); Estimated CRCL calculation 24 ml/min; Estimated Glomerular Filt Rate 29; Glucose 92 mg/dL (65-110); Magnesium 1.8 mg/dL (1.6-2.3); Potassium 3.6 mmol/L (3.4-5.0); Sodium 138 mmol/L (137-145)
[2024-04-20 07:44] LABS: Glucose Point of Care 100 mg/dl (65-105)
[2024-04-20] MEDS: oxyBUTYnin CHLORIDE XL 5 MG TAB.ER.24 PO (09:24)
[2024-04-20] MEDS: amLODIPine BESYLATE 5 MG TABLET PO (09:24)
[2024-04-20] MEDS: PANTOPRAZOLE 40 MG TABLET PO (09:24)
[2024-04-20] MEDS: ASPIRIN 81 MG CHEWABLE TABLET PO (09:24)
[2024-04-20] MEDS: FERROUS SULFATE 325 MG TABLET DR PO (09:24)
[2024-04-20] MEDS: FINASTERIDE 5 MG TABLET PO (09:24)
[2024-04-20] MEDS: CLOPIDOGREL BISULFATE 75 MG TABLET PO (09:24)
[2024-04-20] MEDS: TAMSULOSIN HCL 0.4 MG CAPSULE PO (09:24)
[2024-04-20] MEDS: CALCIUM CARBONATE (OSCAL) 500 MG TABLET PO (09:24)
[2024-04-20] MEDS: NYSTATIN 100,000 UNITS/ML SUSP 5 ML ORAL.SUSP PO ×4 (09:28→21:07)
--- NOTE | 2024-04-20 10:15 | PC.NURSE ---
RN gave update to son Eric Coleman via telephone
--- NOTE | 2024-04-20 16:27 | PM.IMPN ---
Progress Note: A&P Assessment and Plan (1) Urinary tract infection: Code(s): N39.0 - Urinary tract infection, site not specified Status: Acute (2) Sinus disease: Code(s): J34.9 - Unspecified disorder of nose and nasal sinuses Status: Acute (3) Bradycardia: Code(s): R00.1 - Bradycardia, unspecified Status: Acute (4) Oral thrush: Code(s): B37.0 - Candidal stomatitis Status: Acute (5) Cardiomyopathy: Qualifiers: Cardiomyopathy type: unspecified Qualified Code(s): I42.9 - Cardiomyopathy, unspecified Code(s): I42.9 - Cardiomyopathy, unspecified Status: Acute (6) Chronic kidney disease: Code(s): N18.9 - Chronic kidney disease, unspecified Status: Acute (7) Coronary artery disease: Code(s): I25.10 - Atherosclerotic heart disease of [place] coronary artery without angina pectoris Status: Acute (8) Iron deficiency anemia: Code(s): D50.9 - Iron deficiency anemia, unspecified Status: Acute Plan This is an 83-year-old male Who presents to the ED via EMS for evaluation of altered mental status. He reports he has not been feeling well for past couple days with sinus congestion, nonproductive cough, sore throat, nausea, loose stools and dysuria. Caregiver reported that he has been having hallucination and talking to people who were not present. No recent falls or head trauma. No fever chills chest pain shortness of breath vomiting or hematuria. In the ED: He was afebrile on arrival. Blood pressures have been running at the lower end of normal which is not unusual for him. Pulse has been in the upper 40s to low 50s which seems near his baseline as well. Labs were significant for WBC count of 14.6, hemoglobin 10.3, BUN 21, creatinine 2.20. Urinalysis was positive for 1+ protein, 1+ blood, nitrates, 3+ leukocyte esterase, 4+ bacteria, greater than 100 WBC. He was negative for influenza, COVID, and group A strep. Urine drug screen was negative. Head CT showed no acute findings, age-related changes, and extensive sinus disease. Chest x-ray showed small lung volumes with mild bibasilar atelectasis versus less likely pneumonia. He was given a dose of ceftriaxone is being admitted in this setting. Altered mental status Hallucinations UTI urine culture growing Gram-negative bacilli. Recent 04/07 urine culture positive for Klebsiella pneumonia Extensive sinus disease Per CT scan Could be acute on chronic sinusitis Oral thrush Sinus bradycardia on beta-carrie and amiodarone ischemic cardiomyopathy EF 35-40% with grade 1 diastolic dysfunction Multivessel coronary artery disease no coronary intervention was pursued after consultation with CTS History of wide complex tachycardia on amiodarone Hyperlipidemia Chronic kidney disease stage IIIB History of left lower extremity DVT History of colon cancer status post partial colectomy and chemoradiation BPH Iron deficiency anemia Bilateral footdrop Bed-bound status due to bilateral footdrop and severe spinal stenosis and chronic pain and debility with prior multiple spinal surgeries GERD DVT prophylaxis on Eliquis Code status full code Subjective Date/time seen: 04/20/24 16:27 Interval history: No overnight events. Denies any new complaints. No chest pain or shortness of breath. Review of Systems Review of Systems: All systems reviewed & are unremarkable except as noted in HPI and below Exam Narrative: General: Mildly ill-appearing gentleman the semi-Jack position in bed. Not in acute distress HEENT: PERRL, EOMI. Sclera anicteric. Tacky mucous membranes. White patches on the tongue and mucous membranes. Neck: Supple. Respiratory: Respirations are nonlabored. Lungs are clear to auscultation. Cardiovascular: Bradycardic with S1-S2. Gastrointestinal: Abdomen is soft, nontender, and nondistended with positive bowel sounds. Skin: Warm and dry. Generalized pallor.
[2024-04-20] MEDS: ROSUVASTATIN 20 MG TABLET 40 MG PO (21:02)
[2024-04-20] MEDS: MELATONIN 5 MG TABLET 10 MG PO (21:03)
[2024-04-20] MEDS: ACETAMINOPHEN 325 MG TABLET 650 MG PO (21:05)
[2024-04-21] VITALS (11 sets, daily range): BP systolic 113–120; BP diastolic 44–62; PULSE 43–61; RESP 14–22; TEMP 35.9–36.7; O2SAT 96–99
[2024-04-21 06:54] LABS: Basophils Absolute Auto 0.1 K/mm3 (0.0-0.1); Basophils Percent Auto 0.6 % (0.2-1.2); Eosinophils Absolute Auto 0.3 K/mm3 (0-0.3); Eosinophils Percent Auto 2.9 % (0-4.4); Hematocrit 32.7 % (42.0-52.0); Hemoglobin 9.9 g/dL (14.0-18.0); Immature Granulocyte Absolute 0.14 K/mm3 (0.00-0.031); Immature Granulocyte Percent A 1.4 % (0-0.5); Lymphocytes Absolute Auto 1.56 K/mm3 (0.9-3.2); Lymphocytes Percent Auto 15.1 % (18.3-44.2); Mean Corpuscular HGB Conc 30.3 g/dl (32-36); Mean Corpuscular Hemoglobin 25.4 pg (26-34); Mean Corpuscular Volume 84.1 fl (80-100); Mean Platelet Volume 9.1 fl (7.4-10.4); Monocytes Absolute Auto 0.6 K/mm3 (0.1-0.6); Monocytes Percent Auto 5.8 % (2.6-8.5); Neutrophils Absolute Auto 7.7 K/mm3 (1.3-6.7); Neutrophils Percent Auto 74.2 % (45.5-73.1); Platelet Count Result 300 k/mm3 (150-375); Red Blood Count 3.89 M/mm3 (4.6-6.20); Red Cell Distribution Width 18.7 % (11.5-14.5); White Blood Count 10.3 K/mm3 (4.5-10.0)
[2024-04-21 06:57] LABS: Alanine Aminotransferase 23 U/L (6-50); Albumin Level 3.2 g/dL (3.5-5.1); Alkaline Phosphatase 82 U/L (38-126); Anion Gap 7 mmol/L (4-12); Aspartate Amino Transferase 30 U/L (17-59); Bilirubin,Total 0.3 mg/dL (0.2-1.3); Blood Urea Nitrogen 19 mg/dL (9-20); Carbon Dioxide 26 mmol/L (22-30); Chloride 105 mmol/L (98-107); Estimated CRCL calculation 24 ml/min; Estimated Glomerular Filt Rate 29; Glucose 94 mg/dL (65-110); Magnesium 1.8 mg/dL (1.6-2.3); Potassium 3.7 mmol/L (3.4-5.0); Sodium 138 mmol/L (137-145)
[2024-04-21] MEDS: CLOPIDOGREL BISULFATE 75 MG TABLET PO (08:26)
[2024-04-21] MEDS: oxyBUTYnin CHLORIDE XL 5 MG TAB.ER.24 PO (08:26)
[2024-04-21] MEDS: ASPIRIN 81 MG CHEWABLE TABLET PO (08:26)
[2024-04-21] MEDS: FERROUS SULFATE 325 MG TABLET DR PO (08:26)
[2024-04-21] MEDS: CALCIUM CARBONATE (OSCAL) 500 MG TABLET PO (08:26)
[2024-04-21] MEDS: ACETAMINOPHEN 325 MG TABLET 650 MG PO ×2 (08:26→20:40)
[2024-04-21] MEDS: amLODIPine BESYLATE 5 MG TABLET PO (08:26)
[2024-04-21] MEDS: TAMSULOSIN HCL 0.4 MG CAPSULE PO (08:26)
[2024-04-21] MEDS: PANTOPRAZOLE 40 MG TABLET PO (08:26)
[2024-04-21] MEDS: FINASTERIDE 5 MG TABLET PO (08:26)
[2024-04-21] MEDS: NYSTATIN 100,000 UNITS/ML SUSP 5 ML ORAL.SUSP PO ×4 (08:26→20:41)
[2024-04-21] MEDS: AMIODARONE HCL 100 MG TABLET PO (09:18)
[2024-04-21] MEDS: CEPHALEXIN 250 MG CAPSULE PO ×2 (13:13→20:41)
--- NOTE | 2024-04-21 14:33 | PM.IMPN ---
Progress Note: A&P Assessment and Plan (1) Urinary tract infection: Code(s): N39.0 - Urinary tract infection, site not specified Status: Acute (2) Sinus disease: Code(s): J34.9 - Unspecified disorder of nose and nasal sinuses Status: Acute (3) Bradycardia: Code(s): R00.1 - Bradycardia, unspecified Status: Acute (4) Oral thrush: Code(s): B37.0 - Candidal stomatitis Status: Acute (5) Cardiomyopathy: Qualifiers: Cardiomyopathy type: unspecified Qualified Code(s): I42.9 - Cardiomyopathy, unspecified Code(s): I42.9 - Cardiomyopathy, unspecified Status: Acute (6) Chronic kidney disease: Code(s): N18.9 - Chronic kidney disease, unspecified Status: Acute (7) Coronary artery disease: Code(s): I25.10 - Atherosclerotic heart disease of [place] coronary artery without angina pectoris Status: Acute (8) Iron deficiency anemia: Code(s): D50.9 - Iron deficiency anemia, unspecified Status: Acute Plan This is an 83-year-old male Who presents to the ED via EMS for evaluation of altered mental status. He reports he has not been feeling well for past couple days with sinus congestion, nonproductive cough, sore throat, nausea, loose stools and dysuria. Caregiver reported that he has been having hallucination and talking to people who were not present. No recent falls or head trauma. No fever chills chest pain shortness of breath vomiting or hematuria. In the ED: He was afebrile on arrival. Blood pressures have been running at the lower end of normal which is not unusual for him. Pulse has been in the upper 40s to low 50s which seems near his baseline as well. Labs were significant for WBC count of 14.6, hemoglobin 10.3, BUN 21, creatinine 2.20. Urinalysis was positive for 1+ protein, 1+ blood, nitrates, 3+ leukocyte esterase, 4+ bacteria, greater than 100 WBC. He was negative for influenza, COVID, and group A strep. Urine drug screen was negative. Head CT showed no acute findings, age-related changes, and extensive sinus disease. Chest x-ray showed small lung volumes with mild bibasilar atelectasis versus less likely pneumonia. He was given a dose of ceftriaxone is being admitted in this setting. Altered mental status Hallucinations UTI urine culture growing Gram-negative bacilli. Recent 04/07 urine culture positive for Klebsiella pneumonia Extensive sinus disease Per CT scan Could be acute on chronic sinusitis Oral thrush Sinus bradycardia on beta-carrie and amiodarone beta-carrie on hold will restart amiodarone 100 mg daily ischemic cardiomyopathy EF 35-40% with grade 1 diastolic dysfunction. Plan to have a repeat echocardiogram done. Will order that. Cardiology consult due to persistent bradycardia Multivessel coronary artery disease no coronary intervention was pursued after consultation with CTS History of wide complex tachycardia on amiodarone Hyperlipidemia Chronic kidney disease stage IIIB History of left lower extremity DVT History of colon cancer status post partial colectomy and chemoradiation BPH Iron deficiency anemia Bilateral footdrop Bed-bound status due to bilateral footdrop and severe spinal stenosis and chronic pain and debility with prior multiple spinal surgeries GERD DVT prophylaxis on Eliquis Code status full code Subjective Date/time seen: 04/21/24 14:33 Interval history: No overnight events. Feels well. He ambulates to the bathroom. No urinary symptoms reported. Review of Systems Review of Systems: All systems reviewed & are unremarkable except as noted in HPI and below Exam Narrative: General: Mildly ill-appearing gentleman the semi-Jack position in bed. Not in acute distress HEENT: PERRL, EOMI. Sclera anicteric. Tacky mucous membranes. Neck: Supple. Respiratory: Respirations are nonlabored. Lungs are clear to auscultation. Cardiovascular: Bradycardic with S1-S2. [place]
[2024-04-21] MEDS: ROSUVASTATIN 20 MG TABLET 40 MG PO (20:42)
[2024-04-21] MEDS: MELATONIN 5 MG TABLET 10 MG PO (20:42)
[2024-04-22] VITALS (8 sets, daily range): BP systolic 83–123; BP diastolic 49–59; PULSE 48–70; RESP 12–20; TEMP 35.9–36.8; O2SAT 94–99
[2024-04-22 06:34] LABS: Basophils Absolute Auto 0.1 K/mm3 (0.0-0.1); Basophils Percent Auto 0.5 % (0.2-1.2); Eosinophils Absolute Auto 0.3 K/mm3 (0-0.3); Eosinophils Percent Auto 2.6 % (0-4.4); Hematocrit 31.8 % (42.0-52.0); Hemoglobin 9.7 g/dL (14.0-18.0); Immature Granulocyte Absolute 0.13 K/mm3 (0.00-0.031); Immature Granulocyte Percent A 1.2 % (0-0.5); Lymphocytes Absolute Auto 1.49 K/mm3 (0.9-3.2); Lymphocytes Percent Auto 13.6 % (18.3-44.2); Mean Corpuscular HGB Conc 30.5 g/dl (32-36); Mean Corpuscular Hemoglobin 25.3 pg (26-34); Mean Platelet Volume 9.1 fl (7.4-10.4); Monocytes Absolute Auto 0.6 K/mm3 (0.1-0.6); Monocytes Percent Auto 5.2 % (2.6-8.5); Neutrophils Absolute Auto 8.4 K/mm3 (1.3-6.7); Neutrophils Percent Auto 76.9 % (45.5-73.1); Platelet Count Result 292 k/mm3 (150-375); Red Blood Count 3.83 M/mm3 (4.6-6.20); Red Cell Distribution Width 18.6 % (11.5-14.5)
[2024-04-22 06:44] LABS: Alanine Aminotransferase 24 U/L (6-50); Alkaline Phosphatase 70 U/L (38-126); Anion Gap 7 mmol/L (4-12); Aspartate Amino Transferase 37 U/L (17-59); Bilirubin,Total 0.3 mg/dL (0.2-1.3); Blood Urea Nitrogen 19 mg/dL (9-20); Calcium 8.6 mg/dL (8.4-10.2); Carbon Dioxide 25 mmol/L (22-30); Chloride 104 mmol/L (98-107); Estimated CRCL calculation 28 ml/min; Estimated Glomerular Filt Rate 34; Glucose 93 mg/dL (65-110); Magnesium 1.7 mg/dL (1.6-2.3); Potassium 3.3 mmol/L (3.4-5.0); Sodium 136 mmol/L (137-145)
[2024-04-22] MEDS: AMIODARONE HCL 100 MG TABLET PO (08:23)
[2024-04-22] MEDS: NYSTATIN 100,000 UNITS/ML SUSP 5 ML ORAL.SUSP PO ×4 (08:23→20:37)
[2024-04-22] MEDS: CEPHALEXIN 250 MG CAPSULE PO (08:23)
[2024-04-22] MEDS: oxyBUTYnin CHLORIDE XL 5 MG TAB.ER.24 PO (08:23)
[2024-04-22] MEDS: CLOPIDOGREL BISULFATE 75 MG TABLET PO (08:23)
[2024-04-22] MEDS: ASPIRIN 81 MG CHEWABLE TABLET PO (08:23)
[2024-04-22] MEDS: TAMSULOSIN HCL 0.4 MG CAPSULE PO (08:23)
[2024-04-22] MEDS: FINASTERIDE 5 MG TABLET PO (08:23)
[2024-04-22] MEDS: FERROUS SULFATE 325 MG TABLET DR PO (08:23)
[2024-04-22] MEDS: amLODIPine BESYLATE 5 MG TABLET PO (08:23)
[2024-04-22] MEDS: CALCIUM CARBONATE (OSCAL) 500 MG TABLET PO (08:23)
[2024-04-22] MEDS: PANTOPRAZOLE 40 MG TABLET PO (08:23)
--- NOTE | 2024-04-22 13:21 | PM.CNCAR ---
Assessment and Plan Assessment and plan (1) Bradycardia: Code(s): R00.1 - Bradycardia, unspecified Status: Acute (2) Wide-complex tachycardia: Onset Date: 09/2023 Code(s): R00.0 - Tachycardia, unspecified Status: Acute (3) Coronary artery disease: Code(s): I25.10 - Atherosclerotic heart disease of [place] coronary artery without angina pectoris Status: Acute (4) CAD (coronary artery disease): Qualifiers: Coronary Disease-Associated Artery/Lesion type: [place] artery [place] vs. transplanted heart: [place] heart Associated angina: without angina Qualified Code(s): I25.10 - Atherosclerotic heart disease of [place] coronary artery without angina pectoris Code(s): I25.10 - Atherosclerotic heart disease of [place] coronary artery without angina pectoris Status: Acute (5) Cardiomyopathy: Qualifiers: Cardiomyopathy type: unspecified Qualified Code(s): I42.9 - Cardiomyopathy, unspecified Code(s): I42.9 - Cardiomyopathy, unspecified Status: Acute Plan 1. Sinus Bradycardia ECG: Sinus bradycardia, First degree AV block 2. Compensated chronic systolic HF NYHA II, Stage C; EF 35-40% Etiolgoy: most likely ischemic 3. CAD, MVD 4. Hx of wide complex tachycardia 5. UTI/Delirium - Continue oral amiodarone at 100 mg OD, had a prior admission with wide-complex tachycardia. Will decrease toprol-Xl to 12.5 MG OD. Continue to monitor on tele - Not on AVE/ARB/ARNI/AA/SGLT2 because of impaired renal function - Will monitor his renal function and introduce them when able as an outpatient - Can be given hydralazine/ISDN if BP allows - Continue DAPT for now - He needs to be seen in the outpatient cardiology/CTS clinic for revascularization plans - Continue life vest till revascularization History of Present Illness History of Present Illness Consult date/time: 04/22/24 13:21 Reason For Visit: Delirium, UTI Narrative: HPI: This is an 82-year-old man known to have CAD with MVD,Cardiomyopathy, recent history of WCT (on life vest) was admitted with UTI/Delirium. cardiology consulted fro bradycardia. His HR ranges from 45-55 Denies any dizziness, lightheadeness, presyncope or syncope ON Toprol-Xl 25 and amiodarone 100 mg OD Is not wearing his life vest On DPAT Has not seen cardiology/CTS for revascularization Review of Systems Review of Systems: 12 systems were reviewed and are negative except for as per HPI. All systems reviewed & are unremarkable except as noted in HPI and below Constitutional: Constitutional: Denies weakness Cardiovascular: Cardiovascular: Denies syncope, Denies rapid heart rate, Denies irregular heart rhythm, Denies leg edema and Denies dyspnea Respiratory: Respiratory: Denies chest congestion, Reports cough, Denies excessive phlegm production and Denies dyspnea Gastrointestinal: Gastrointestinal: Denies abdominal pain, Denies hematochezia, Reports diarrhea, Reports nausea and Denies vomiting Genitourinary: Genitourinary: Denies hematuria, Denies dysuria, Denies penile discharge and Denies testicular pain Musculoskeletal: Musculoskeletal: Denies joint swelling, Denies loss of height and Denies muscle weakness Neurologic: Denies syncope, Denies focal weakness and Denies weakness [facility] Past Medical History Medical History Benign prostatic disease Cardiomyopathy On LifeVest from September to February 2024. Chronic kidney disease Colon cancer Status post partial colectomy and chemoradiation. Coronary artery disease Multivessel coronary artery disease noted on cardiac catheterization in September 2023 including the LAD, RCA, and an obtuse marginal. Patient declined MIDCAB and is being treated medically. Deep vein thrombosis of left lower extremity (2018) Provoked DVT following admission. Foot drop Iron deficiency anemia Osteoarthritis Psoriasis Vitamin
--- NOTE | 2024-04-22 15:03 | PM.IMPN ---
Progress Note: A&P Assessment and Plan (1) Urinary tract infection: Code(s): N39.0 - Urinary tract infection, site not specified Status: Acute (2) Sinus disease: Code(s): J34.9 - Unspecified disorder of nose and nasal sinuses Status: Acute (3) Bradycardia: Code(s): R00.1 - Bradycardia, unspecified Status: Acute (4) Oral thrush: Code(s): B37.0 - Candidal stomatitis Status: Acute (5) Cardiomyopathy: Qualifiers: Cardiomyopathy type: unspecified Qualified Code(s): I42.9 - Cardiomyopathy, unspecified Code(s): I42.9 - Cardiomyopathy, unspecified Status: Acute (6) Chronic kidney disease: Code(s): N18.9 - Chronic kidney disease, unspecified Status: Acute (7) Coronary artery disease: Code(s): I25.10 - Atherosclerotic heart disease of [place] coronary artery without angina pectoris Status: Acute (8) Iron deficiency anemia: Code(s): D50.9 - Iron deficiency anemia, unspecified Status: Acute Plan HPI - This is an 83-year-old male Who presents to the ED via EMS for evaluation of altered mental status. He reports he has not been feeling well for past couple days with sinus congestion, nonproductive cough, sore throat, nausea, loose stools and dysuria. Caregiver reported that he has been having hallucination and talking to people who were not present. No recent falls or head trauma. No fever chills chest pain shortness of breath vomiting or hematuria. ED - In the ED, he was afebrile on arrival. Blood pressures have been running at the lower end of normal which is not unusual for him. Pulse has been in the upper 40s to low 50s which seems near his baseline as well. Labs were significant for WBC count of 14.6, hemoglobin 10.3, BUN 21, creatinine 2.20. Urinalysis was positive for 1+ protein, 1+ blood, nitrates, 3+ leukocyte esterase, 4+ bacteria, greater than 100 WBC. He was negative for influenza, RSV, COVID, and group A strep. Urine drug screen was negative. Head CT showed no acute findings, age-related changes, and extensive sinus disease. Chest x-ray showed small lung volumes with mild bibasilar atelectasis versus less likely pneumonia. He was given a dose of ceftriaxone is being admitted in this setting. Altered mental status felt related to the UTI. Hallucinations resolved. UTI - urine culture growing Klebsiella. Changed to Keflex Extensive sinus disease - Per CT scan Could be acute on chronic sinusitis - change abx to cover UTI and sinus disease. Oral thrush - on Nystatin. Oral cavity clear now Sinus bradycardia on beta-carrie and amiodarone - beta-carrie was held; amiodarone 100 mg daily resumed. Cardiology consulted. Toprol XL resumed. Add parameters. Stop Norvasc to try to have more BP to work with. Ischemic CMP - EF 35-40% with grade 1 diastolic dysfunction. Repeat echo cancelled. Cardiology consulted due to persistent bradycardia. Continue Toprol XL as tolerated. Add ARB/Entresto if able. Multivessel coronary artery disease no coronary intervention was pursued after consultation with CTS History of wide complex tachycardia on amiodarone Hyperlipidemia Chronic kidney disease stage IIIB - Cr down slightly to 1.9. History of left lower extremity DVT History of colon cancer status post partial colectomy and chemoradiation BPH Iron deficiency anemia Bilateral footdrop Bed-bound status due to bilateral footdrop and severe spinal stenosis and chronic pain and debility with prior multiple spinal surgeries GERD DVT prophylaxis on Eliquis Code status full code Plan for discharge tomorrow if he remains stable. Subjective Date/time seen: 04/22/24 15:03 Interval history: 83yo male with CAD, CKD and CMP (EF 35-40%) here for altered mental status. No problems overnight. No complaints of chest pain or shortness of breath. He is bedbound related to bilateral footdrop and spinal stenosis. He has sores on his buttock
[2024-04-22 17:04] LABS: Glucose Point of Care 106 mg/dl (65-105)
[2024-04-22] MEDS: ACETAMINOPHEN 325 MG TABLET 650 MG PO (20:35)
[2024-04-22] MEDS: MELATONIN 5 MG TABLET 10 MG PO (20:37)
[2024-04-22] MEDS: ROSUVASTATIN 20 MG TABLET 40 MG PO (20:37)
[2024-04-22] MEDS: AMOXICILLIN/CLAVULANATE K 500-125 MG TAB 1 TABLET PO (20:39)
[2024-04-23] VITALS (8 sets, daily range): BP systolic 104–118; BP diastolic 41–53; PULSE 54–67; RESP 13–20; TEMP 36.1–37.2; O2SAT 95–99
[2024-04-23 06:28] LABS: Hematocrit 31.1 % (42.0-52.0); Hemoglobin 9.5 g/dL (14.0-18.0); Mean Corpuscular HGB Conc 30.5 g/dl (32-36); Mean Corpuscular Hemoglobin 25.7 pg (26-34); Mean Corpuscular Volume 84.3 fl (80-100); Mean Platelet Volume 9.1 fl (7.4-10.4); Platelet Count Result 293 k/mm3 (150-375); Red Blood Count 3.69 M/mm3 (4.6-6.20); Red Cell Distribution Width 18.5 % (11.5-14.5); White Blood Count 12.2 K/mm3 (4.5-10.0)
[2024-04-23 06:41] LABS: Albumin Level 2.9 g/dL (3.5-5.1); Anion Gap 7 mmol/L (4-12); Blood Urea Nitrogen 17 mg/dL (9-20); Calcium 8.7 mg/dL (8.4-10.2); Carbon Dioxide 24 mmol/L (22-30); Chloride 105 mmol/L (98-107); Estimated CRCL calculation 26 ml/min; Estimated Glomerular Filt Rate 32; Glucose 84 mg/dL (65-110); Magnesium 1.8 mg/dL (1.6-2.3); Potassium 3.5 mmol/L (3.4-5.0); Sodium 136 mmol/L (137-145)
[2024-04-23] MEDS: PANTOPRAZOLE 40 MG TABLET PO (08:46)
[2024-04-23] MEDS: TAMSULOSIN HCL 0.4 MG CAPSULE PO (08:46)
[2024-04-23] MEDS: CALCIUM CARBONATE (OSCAL) 500 MG TABLET PO (08:46)
[2024-04-23] MEDS: AMIODARONE HCL 100 MG TABLET PO (08:46)
[2024-04-23] MEDS: AMOXICILLIN/CLAVULANATE K 500-125 MG TAB 1 TABLET PO (08:46)
[2024-04-23] MEDS: oxyBUTYnin CHLORIDE XL 5 MG TAB.ER.24 PO (08:47)
[2024-04-23] MEDS: ASPIRIN 81 MG CHEWABLE TABLET PO (08:47)
[2024-04-23] MEDS: FERROUS SULFATE 325 MG TABLET DR PO (08:48)
[2024-04-23] MEDS: FINASTERIDE 5 MG TABLET PO (08:48)
[2024-04-23] MEDS: CLOPIDOGREL BISULFATE 75 MG TABLET PO (08:48)
[2024-04-23] MEDS: NYSTATIN 100,000 UNITS/ML SUSP 5 ML ORAL.SUSP PO ×2 (08:51→12:10)
--- NOTE | 2024-04-23 09:47 | PM.PNCARD ---
Progress Note: A&P Assessment and Plan (1) Bradycardia: Code(s): R00.1 - Bradycardia, unspecified Status: Acute Plan 83-year-old man with chronic multivessel coronary disease stable on medical therapy. He is also receiving amiodarone because of wide QRS tachycardia that was noticed during his initial presentation here. The consult a silva note from yesterday with Dr. Tamayo indicated the patient had not yet seen thoracic surgery consult. The patient in fact has been seen by thoracic search engine optimization consultant at [facility] and the patient declined surgical revascularization because of his advanced age. He is therefore being treated medically. For a while he had been on a LifeVest because of the wide QRS tachycardia. That has been discontinued since he has no desire for aggressive care. There were some comments made in the office note that the patient might be a candidate for a implantable defibrillator. In my opinion that is not consistent with his decision to decline revascularization. From my perspective he is stable enough for discharge. Follow-up is already arranged in the office with my partner, Dr. Omer Cardona MD [facility] Subjective Date/time seen: Date of service: 04/23/24 09:47 Interval history: Follow-up visit in this 83-year-old man with Multivessel coronary artery disease being treated medically. He was recently evaluated in the labor relations or personnel negotiator here and seen by cardiothoracic surgery at [facility]. Patient declined surgical revascularization. On medical therapy he has been stable and is asymptomatic. He was admitted to the hospital this time for UTI and altered mental status. Consultation regarding bradycardia. Beta-carrie dosage and amiodarone dosage have been decreased. Exam Const: General: comfortable and no acute distress Other: Pleasant elderly man watching television sitting in the wheelchair reports no symptom HENMT: Mouth: Yes moist mucous membranes Eyes: Sclera: sclerae normal Neck: Neck: supple and no JVD Resp: Effort & Inspection: normal respiratory effort Auscultation: clear to auscultation bilaterally Cardio: Rate: regular rate Rhythm: regular rhythm GI: GI Palp: Yes Soft to palpation Auscultation: normal bowel sounds Skin: General skin exam: normal color Neuro: Other: Alert and oriented x3 Objective Data Vital Signs Vital Signs: Vital Signs - 24 hr 04/22/24 12:00 04/22/24 12:00 04/22/24 14:55 Temperature 35.9 C L Pulse Rate 55 L 53 L Respiratory Rate 20 Blood Pressure 83/59 L Pulse Oximetry 99 Oxygen Delivery Room Air 04/22/24 14:39 04/22/24 16:00 04/22/24 16:00 Temperature 36.1 C L Pulse Rate 58 L 61 Respiratory Rate 20 Blood Pressure 120/52 L Pulse Oximetry 95 Oxygen Delivery Room Air 04/22/24 20:00 04/22/24 20:00 04/23/24 00:00 Temperature 36.8 C 37.2 C Pulse Rate 60 67 Respiratory Rate 12 20 Blood Pressure 123/53 L 118/41 L Pulse Oximetry 95 98 Oxygen Delivery Room Air 04/22/24 20:00 04/23/24 00:00 04/23/24 04:00 Temperature Pulse Rate 70 67 57 L Respiratory Rate Blood Pressure Pulse Oximetry Oxygen Delivery 04/23/24 04:00 04/23/24 08:46 Temperature 36.8 C Pulse Rate 54 L 64 Respiratory Rate 13 Blood Pressure 104/49 L Pulse Oximetry 98 Oxygen Delivery Intake/Output Intake/Output: Intake & Output 04/20/24 04/21/24 04/22/24 04/23/24 23:59 23:59 23:59 23:59 Intake Total 700 651 2571 250 Output Total 919 557 3191 800 Balance 140 -402 1030 -550 Meds/Results Medications: Active Medications Generic Name Dose Route Start Last Admin Trade Name Freq PRN Reason Stop Dose Admin Acetaminophen 650 mg 04/21/24 14:46 04/22/24 20:35 Acetaminophen 325 Mg Tablet PO 650 mg Q6H PRN Administration Mild Pain (1-3) or Fever Amiodarone HCl 100 mg 04/21/24 09:00 04/23/24 08:46 Amiodarone Hcl 100 Mg Tablet PO 100 mg
--- NOTE | 2024-04-23 14:35 | PM.DS ---
DS: Admitting Diagnosis Discharge Date 04/23/24 Admitting Diagnosis Altered mental status DS: Discharge Diagnosis Discharge Diagnosis (1) Urinary tract infection: Code(s): N39.0 - Urinary tract infection, site not specified Status: Acute (2) Sinus disease: Code(s): J34.9 - Unspecified disorder of nose and nasal sinuses Status: Acute (3) Bradycardia: Code(s): R00.1 - Bradycardia, unspecified Status: Acute (4) Oral thrush: Code(s): B37.0 - Candidal stomatitis Status: Acute (5) Cardiomyopathy: Qualifiers: Cardiomyopathy type: unspecified Qualified Code(s): I42.9 - Cardiomyopathy, unspecified Code(s): I42.9 - Cardiomyopathy, unspecified Status: Acute (6) Chronic kidney disease: Code(s): N18.9 - Chronic kidney disease, unspecified Status: Acute (7) Coronary artery disease: Code(s): I25.10 - Atherosclerotic heart disease of [place] coronary artery without angina pectoris Status: Acute (8) Iron deficiency anemia: Code(s): D50.9 - Iron deficiency anemia, unspecified Status: Acute (9) Altered mental status: Code(s): R41.82 - Altered mental status, unspecified Status: Acute DS: Summary Hospital Course Reason for hospitalization: 83yo male with CAD, CKD and CMP (EF 35-40%) here for altered mental status. Please see H&P for details. Hospital Course: In the ED, he was afebrile. Blood pressures were low end of normal which is not unusual for him. Pulse was upper 40s to low 50s. Labs were significant for WBC count of 14.6, hemoglobin 10.3, BUN 21, creatinine 2.20. Urinalysis was positive. He was negative for influenza, RSV, COVID, and group A strep. Urine drug screen was negative. Head CT showed no acute findings but age-related changes and extensive sinus disease. Chest x-ray showed small lung volumes with mild bibasilar atelectasis versus less likely pneumonia. He was given a dose of ceftriaxone. Altered mental status felt related to the UTI. Hallucinations resolved. Urine culture grew Klebsiella. Abx changed to Keflex but then to Augmentin given the extensive sinus disease. Oral thrush noted and was treated with Nystatin with good response. Oral cavity clear now. Sinus bradycardia noted on admission. He is on beta-carrie and amiodarone. Beta-carrie was held; amiodarone 100 mg daily resumed. Cardiology consulted. Toprol XL resumed at lower dose. Norvasc stopped to try to have more BP to work with. 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 Repeat echo here was cancelled. Patient with known multivessel coronary artery disease but patient declined coronary intervention. LifeVest was no longer recommended by Cardiology. He had clinical improvement and was able to be discharged home on 04/23/24. Status at Discharge Cognitive/behavioral status at discharge: stable Time Spent with Patient Time attestation: Total time spent providing and/or coordinating discharge services: 36 minutes Time spent: Greater than 30 minutes Exam Narrative: AF 97.5 107/53 54 20 99% ra Gen - NARD HEENT - no thrush Chest - CTA bilaterally, nml RR CV - bradycardia, regular, S1/S2. Tele showing SB Abd - Soft, NT/ND, Positive BS Ext - No pedal edema Neuro - Alert and orientedx4. bilateral feet in plantar flexion Psych - Nml mood and affect Skin - Warm and dry DS: Data Data Completed and Pending Labs on day of discharge: Labs from last 24 hours 04/23/24 04/22/24 05:30 16:53 WBC 12.2 H RBC 3.69 L Hgb 9.5 L Hct 31.1 L MCV 84.3 MCH 25.7 L MCHC 30.5 L RDW 18.5 H Plt Count 293 MPV 9.1 Sodium 136 L Potassium 3.5 Chloride 105 Carbon Dioxide 24 Anion Gap 7 BUN 17 Creatinine 2.00 H Estim Creat Clear Calc 26 Estimated GFR 32 L Glucose 84 POC Capillary Glucose 106 H Calcium 8.7 Phosphorus 3.0 Magnesium 1.8
== END 2024-04-23 16:25 | disposition home or self-care (01) | DRG 690 ==
LOC: ANHED 10:14 → ANH3MEDSUR 14:40
PROVIDERS: Internal Medicine; Physician Assistant; Admitting Provider Internal Medicine; Emergency Provider General Practice; PCP Family Medicine; Visit Provider Internal Medicine
DX: N39.0 Urinary tract infection, site not specified (principal); B37.0 Candidal stomatitis; R44.3 Hallucinations, unspecified; B96.1 Klebsiella pneumoniae [K. pneumoniae] as the cause of diseases classified elsewhere; D50.9 Iron deficiency anemia, unspecified; R00.1 Bradycardia, unspecified; I25.5 Ischemic cardiomyopathy; N18.32 Chronic kidney disease, stage 3b; I25.10 Atherosclerotic heart disease of native coronary artery without angina pectoris; E78.5 Hyperlipidemia, unspecified; N40.0 Benign prostatic hyperplasia without lower urinary tract symptoms; K21.9 Gastro-esophageal reflux disease without esophagitis; M19.90 Unspecified osteoarthritis, unspecified site; L40.9 Psoriasis, unspecified; M48.00 Spinal stenosis, site unspecified; J34.9 Unspecified disorder of nose and nasal sinuses; Z85.038 Personal history of other malignant neoplasm of large intestine; Z86.718 Personal history of other venous thrombosis and embolism; Z96.652 Presence of left artificial knee joint; Z79.82 Long term (current) use of aspirin; M21.372 Foot drop, left foot; M21.371 Foot drop, right foot; Z74.01 Bed confinement status
CPT/HCPCS: 36415; 70450; 71045; 80053; 80069; 80307; 81001; 82607; 82948; 83605; 83735; 83880; 84443; 85025; 85027; 85610; 85730; 87040; 87077; 87086; 87186; 87636; 87651; 93005; 96365; 96366; 97110; 97161; 97165; 97530; 99285; A9270; G0378; J0696

== ENCOUNTER 2024-05-27 08:32 | Outpatient (NON) | payer MEDICARE, SELFPAY | END 2024-05-27 08:33 | disposition home or self-care (01) | LOC: ANHGOSHLAB 08:34 | PROVIDERS: PCP Family Medicine; Visit Provider Family Medicine | DX: N30.00 Acute cystitis without hematuria (principal) | CPT/HCPCS: 87077; 87086; 87186 ==

== ENCOUNTER 2024-06-14 13:05 | Emergency (ER) | payer MEDICARE, SELFPAY ==
[2024-06-14 13:12] VITALS: BP 117/54; PULSE 50; RESP 14; TEMP 36.8; O2SAT 98
[2024-06-14 13:58] LABS: Basophils Absolute Auto 0.1 K/mm3 (0.0-0.1); Basophils Percent Auto 0.6 % (0.2-1.2); Eosinophils Absolute Auto 0.4 K/mm3 (0-0.3); Eosinophils Percent Auto 3.4 % (0-4.4); Hematocrit 35.3 % (42.0-52.0); Hemoglobin 11.3 g/dL (14.0-18.0); Immature Granulocyte Absolute 0.05 K/mm3 (0.00-0.031); Immature Granulocyte Percent A 0.5 % (0-0.5); Lymphocytes Absolute Auto 1.38 K/mm3 (0.9-3.2); Mean Corpuscular Hemoglobin 27.3 pg (26-34); Mean Corpuscular Volume 85.3 fl (80-100); Mean Platelet Volume 8.9 fl (7.4-10.4); Monocytes Absolute Auto 0.6 K/mm3 (0.1-0.6); Neutrophils Absolute Auto 8.1 K/mm3 (1.3-6.7); Neutrophils Percent Auto 76.5 % (45.5-73.1); Platelet Count Result 240 k/mm3 (150-375); Red Blood Count 4.14 M/mm3 (4.6-6.20); Red Cell Distribution Width 18.5 % (11.5-14.5); White Blood Count 10.6 K/mm3 (4.5-10.0)
[2024-06-14 14:00] VITALS: BP 144/50; PULSE 50; RESP 16; O2SAT 97
[2024-06-14 14:09] LABS: INR 1.1; Prothrombin Time 14.4 Seconds (11.1-14.7)
[2024-06-14 14:10] LABS: Partial Thromboplastin Time 21.1 Seconds (22.3-36.8)
[2024-06-14 14:14] LABS: Alanine Aminotransferase 46 U/L (6-50); Albumin Level 3.2 g/dL (3.5-5.1); Alkaline Phosphatase 71 U/L (38-126); Anion Gap 3 mmol/L (4-12); Aspartate Amino Transferase 42 U/L (17-59); Bilirubin,Total 0.4 mg/dL (0.2-1.3); Blood Urea Nitrogen 26 mg/dL (9-20); Calcium 8.7 mg/dL (8.4-10.2); Carbon Dioxide 25 mmol/L (22-30); Chloride 110 mmol/L (98-107); Estimated CRCL calculation 20 ml/min; Estimated Glomerular Filt Rate 27; Glucose 114 mg/dL (65-110); Potassium 3.8 mmol/L (3.4-5.0); Sodium 138 mmol/L (137-145)
[2024-06-14 15:00] VITALS: BP 140/87; PULSE 50; RESP 16; O2SAT 99
--- NOTE | 2024-06-14 15:40 | ED.GENADULT ---
HPI - General Adult General Chief complaint: GI Bleed Stated complaint: dark tarry stool Time Seen by Provider: 06/14/24 14:39 History of Present Illness HPI narrative: This is an 83-year-old male presenting ED with chief complaint of dark tarry stools. His code number stamper notes over last 2 days he has been having dark stools and he reports as red blood. The patient has no physical complaints.. He does take iron supplementation. Related Data Home Medications Medication Instructions Recorded Confirmed calcium carbonate 600 mg PO DAILY 12/13/21 04/19/24 melatonin 10 mg capsule 10 mg PO QHS 04/07/24 04/19/24 Allergies Allergy/AdvReac Type Severity Reaction Status Date / Time morphine Allergy Severe HIVES Verified 04/19/24 15:49 No Known Food Allergies Allergy Other Verified 04/22/24 15:24 meperidine AdvReac severe Verified 04/19/24 15:49 constipation PMFSH Past Medical History Medical History Benign prostatic disease Cardiomyopathy On LifeVest from September to February 2024. Chronic kidney disease Colon cancer Status post partial colectomy and chemoradiation. Coronary artery disease Multivessel coronary artery disease noted on cardiac catheterization in September 2023 including the LAD, RCA, and an obtuse marginal. Patient declined MIDCAB and is being treated medically. Deep vein thrombosis of left lower extremity (2018) Provoked DVT following admission. Foot drop Iron deficiency anemia Osteoarthritis Psoriasis Vitamin D deficiency Wide-complex tachycardia (09/2023) SVT versus VT, terminated with amiodarone. Surgical History Surgical History History of cervical spinal surgery (10/2018) History of left knee replacement (2000) History of lumbosacral spine surgery early History of partial colectomy (1994) Family History Family History Other Cancer Cerebrovascular accident Hypertension Social History Social History Social History: Surrogate medical decision maker: David Coleman Jr. (son). Code status: Full code. Smoking packs per day: 1 Smoking cigarettes per day: 20.0 Years smoked: 2 Smoking pack-years: 2.00 Smoking status: Never smoker Tobacco type: cigarettes Second hand tobacco smoke exposure: No Smoking end date: 07/15/59 Alcohol intake: never Substance use: never Substance use type: does not use Do You Feel Safe in your Home?: Yes Lack of Transportation: No Lack of Food: Never True Current Housing: I Have Housing Concerned About Future Housing: No Difficulty Paying Gas/Electric Bills: No Difficulty Paying for Meds: No Currently Unemployed: No Education: Don't Know Difficulty w/ Childcare or Family Care: No Living arrangements: with family Additional living arrangements comments: Lives alone. 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 He has bilateral footdrop and cannot ambulate even with his AFO braces. He uses a slide board to transfer. Occupation/Education: retired Spiritual care concerns: No Exam Narrative: APPEARANCE: No apparent distress. A&O x4 Head: atraumatic. EYES: EOMI, NOSE: Atraumatic NECK: Trachea midline RESPIRATORY: No increased rate of breathing CARDIOVASCULAR: RRR, ABDOMINAL: Large well-healed surgical scar over the patient's abdomen, soft nontender no guarding rebound Rectal exam: Brown stool in rectal vault, Hemoccult positive MUSCULOSKELETAl: No obvious deformities NEURO: Alert. Moving 4/4 extremities SKIN:: Warm, dry. Normal color PSYCHIATRIC: Normal affect Course Vital Signs Vital signs: Vital Signs Temperature 98.2 F 06/14/24 13:12 Pulse Rate 50 L 06/14/24 13:12 Respiratory Rate 14 06/14/24 13:12 Blood Pressure 117/54 L 06/14/24 13:12 Pulse Oximetry 98 06/14/24 13:12 Temperature 98.2 F 06/14/24 13:12 Pulse Rate 50 L 06/14/24 13:12 Respiratory Rate 14 06/14/24 13:12 Blood Pressure 117/54 L 06/14/24 13:12 Pulse Oximetry 98 06/14/24 13:12 Medical Decision Making MDM Narrative Medical decision making narrative: -Course: 83-year-old male presenting the ED with chief complaint of dark stools. Rectal exam showed brown stool in the rectal vault. His hemoglobin today is 11.3 which is actually 2 points higher than it was when he was discharged and on April 23. Blood pressure is at baseline. He is bradycardic which is typical for him. He does not have any abdominal pain. He is resting comfortably in bed with no complaints. I discussed admission versus discharge with the patient and his family. The patient does not want to be admitted to the hospital. We discussed risks of GI bleeding if he is discharged home. I discussed return precautions if they notice more dark or bloody stools. Recommended patient follows up with their primary care physician in next several days to get a repeat hemoglobin to see if this trending up or down. The patient has a good relationship his primary care physician does not think that will be an issue. Given GI follow-up. -DDX includes but is not limited to: Lower GI bleed, upper GI bleed, discoloration of stool due to food or medication -Independent interpretation of studies: Laboratory studies reviewed. Hemoglobin 11.3. Increased from 9.5 on d/c on Apr 23 -Shared decision making / Disposition: Discharge Vital Signs Vital Signs: Vital Signs Temperature 98.2 F 06/14/24 13:12 Pulse Rate 50 L 06/14/24 13:12 Respiratory Rate 14 06/14/24 13:12 Blood Pressure 117/54 L 06/14/24 13:12 Pulse Oximetry 98 06/14/24 13:12 Temperature 98.2 F 06/14/24 13:12 Pulse Rate 50 L 06/14/24 13:12 Respiratory Rate 14 06/14/24 13:12 Blood Pressure 117/54 L 06/14/24 13:12 Pulse Oximetry 98 06/14/24 13:12 Lab Data 06/14/24 13:51 06/14/24 13:51 Labs: Lab Results 06/14/24 Range/Units 13:51 WBC 10.6 H (4.5-10.0) K/mm3 RBC 4.14 L (4.6-6.20) M/mm3 Hgb 11.3 L (14.0-18.0) g/dL Hct 35.3 L (42.0-52.0) % MCV 85.3 (80-100) fl MCH 27.3 (26-34) pg MCHC 32.0 (32-36) g/dl RDW 18.5 H (11.5-14.5) % Plt Count 240 (150-375) k/mm3 MPV 8.9 (7.4-10.4) fl Immature Gran % (Auto) 0.5 (0-0.5) % Neut % (Auto) 76.5 H (45.5-73.1) % Lymph % (Auto) 13.0 L (18.3-44.2) % Hawkins % (Auto) 6.0 (2.6-8.5) % Eos % (Auto) 3.4 (0-4.4) % Baso % (Auto) 0.6 (0.2-1.2) % Lymph # (Auto) 1.38 (0.9-3.2) K/mm3 Hawkins # (Auto) 0.6 (0.1-0.6) K/mm3 Eos # (Auto) 0.4 H (0-0.3) K/mm3 Baso # (Auto) 0.1 (0.0-0.1) K/mm3 Abs Immat Gran (auto) 0.05 H (0.00-0.031) K/mm3 Absolute Neuts (auto) 8.1 H (1.3-6.7) K/mm3 Absolute Nucleated RBC 0.000 (0.0-0.012) K/mm3 Nucleated RBC % 0.0 (0.0-0.2) % PT 14.4 (11.1-14.7) Seconds INR 1.1 APTT 21.1 L (22.3-36.8) Seconds Sodium 138 (137-145) mmol/L Potassium 3.8 (3.4-5.0) mmol/L Chloride 110 H (98-107) mmol/L Carbon Dioxide 25 (22-30) mmol/L Anion Gap 3 L (4-12) mmol/L BUN 26 H (9-20) mg/dL Creatinine 2.30 H (0.7-1.3) mg/dL Estim Creat Clear Calc 20 ml/min Estimated GFR 27 L (59 - ) Glucose 114 H (65-110) mg/dL Calcium 8.7 (8.4-10.2) mg/dL Total Bilirubin 0.4 (0.2-1.3) mg/dL AST 42 (17-59) U/L ALT 46 (6-50) U/L Alkaline Phosphatase 71 (38-126) U/L Total Protein 7.0 (6.3-8.2) g/dL Albumin 3.2 L (3.5-5.1) g/dL Discharge Plan Discharge Clinical Impression: Dark stools Patient Disposition: Home, Self-Care Condition: Guarded Prognosis Instructions: Antibiotic Form, Melena (ED) Additional Instructions: You were seen in the ED for possible bloody stools. Her hemoglobin today is 11.3. I did not see any evidence of bleeding on rectal exam. Please follow-up with your primary care physician in 1 week so she can repeat the hemoglobin to see if it is trending down. If he continues to have dark or bloody stools I would like you to bring him back to the emergency department for re-evaluation. If he develops fevers or abdominal pain please return as well. Prescriptions: No Action calcium carbonate 600 mg calcium (1,500 mg) tablet 600 mg PO DAILY melatonin 10 mg capsule 10 mg PO QHS oxybutynin chloride 5 mg tablet extended release 24hr 5 mg PO DAILY Qty: 90 0RF rosuvastatin [Crestor] 40 mg tablet 40 mg PO QHS Qty: 90 2RF tamsulosin 0.4 mg capsule 0.4 mg PO DAILY Qty: 90 1RF finasteride 5 mg tablet 5 mg PO DAILY Qty: 90 1RF omeprazole 20 mg capsule,delayed release(DR/EC) 20 mg PO DAILY Qty: 90 1RF ferrous sulfate 325 mg (65 mg iron) tablet,delayed release (DR/EC) 325 mg PO DAILY Qty: 90 2RF metoprolol succinate [Toprol XL] 25 mg tablet extended release 24 hr 25 mg PO QAM Qty: 90 1RF Hold Instructions: HOLD - resume when okay with your doctor clopidogrel 75 mg tablet 75 mg PO QAM Qty: 90 1RF amiodarone [Pacerone] 200 mg tablet 100 mg PO DAILY@0800 Qty: 90 1RF aspirin [Children's Aspirin] 81 mg tablet,chewable 81 mg PO DAILY@0800 Qty: 90 1RF ciprofloxacin HCl 500 mg tablet 500 mg PO Q12H Qty: 14 0RF Follow-up/Referrals: Hilda Painting MD [Primary Care Provider] - 1 Week (Dark stools ) Jori Zhang MD [Physician] - 1 Week (Dark stools)
[2024-06-14 16:00] VITALS: BP 137/69; PULSE 50; RESP 16; O2SAT 97
== END 2024-06-14 16:35 | disposition home or self-care (01) ==
PROVIDERS: Emergency Provider Emergency Medicine; PCP Family Medicine
DX: R19.5 Other fecal abnormalities (principal); N18.9 Chronic kidney disease, unspecified; Z85.038 Personal history of other malignant neoplasm of large intestine; I25.10 Atherosclerotic heart disease of native coronary artery without angina pectoris; Z86.718 Personal history of other venous thrombosis and embolism; E55.9 Vitamin D deficiency, unspecified; Z96.652 Presence of left artificial knee joint
CPT/HCPCS: 36415; 80053; 85025; 85610; 85730; 86850; 86900; 86901; 99283

== ENCOUNTER 2024-07-27 07:49 | Outpatient (NON) | payer MEDICARE, SELFPAY ==
[2024-07-27 09:10] LABS: Add Urine Microscopic? YES; Appearance Urine Cloudy (Clear); Bacteria Urine 4+ /hpf; Bilirubin Urine Negative (Negative); Blood Urine 1+ (Negative); Color Urine Yellow (Yellow); Glucose Urine UA Negative (Negative); Ketones Urine Negative (Negative); Leukocyte Esterase Ur 3+ LEU/UL (Negative); Nitrate Urine Positive (Negative); Non Pathogenic Casts 0-2; Protein Urine 1+ mg/dL (Negative); RBC Urine 0-2 /hpf (0-2); Specific Grav Ur 1.013 (1.001-1.035); Squamous Epithelial Cell Urine None Seen /hpf (Few); Urobilinogen Urine 0.2 mg/dL (<2.0); WBC Urine >100 /hpf (0-3); pH Urine 5.5 (5.0-9.0)
== END 2024-07-27 07:50 | disposition home or self-care (01) ==
LOC: ANHLAB 07:50
PROVIDERS: PCP Family Medicine; Visit Provider Nurse Practitioner Family
DX: R39.9 Unspecified symptoms and signs involving the genitourinary system (principal)
CPT/HCPCS: 81001; 87086

== ENCOUNTER 2024-10-06 15:09 | Outpatient (CLI) | payer MEDICARE, SELFPAY ==
--- OUTSIDE RECORDS SUMMARY | 2024-10-06 17:45 | XMS_ITS | Clinical Summary ---
Author Organization [facility] Address [address] [place] [address] Phone Care Team Providers Care Hardwood Floor Finisher Name Role Phone Akhil Painting MD Primary Care Provider Allergies Active Allergy Reactions Criticality Noted Date Comments Morphine Medications metoprolol XL (TOPROL-XL) 25 mg extended release tablet Take 1 tablet (25 mg total) by mouth every morning 4 Active clopidogreL (PLAVIX) 75 mg tablet Take 1 tablet (75 mg total) by mouth daily 4 Active aspirin 81 mg capsule CHEW AND SWALLOW 1 TABLET BY MOUTH ONCE DAILY AT 8AM 4 Active amiodarone (PACERONE) 200 mg tablet TAKE 1 TABLET BY MOUTH ONCE DAILY AT 8AM 4 Active amLODIPine (NORVASC) 10 mg tablet Take 1 tablet (10 mg total) by mouth daily Active calcium carbonate (OS-REID) 1,500 mg (600 mg elemental) tablet 9 Active finasteride (PROSCAR) 5 mg tablet Take 1 tablet (5 mg total) by mouth daily Active omeprazole (PriLOSEC) 20 mg capsule Take 1 capsule (20 mg total) by mouth daily Active tamsulosin (FLOMAX) 0.4 mg extended release capsule Take 1 capsule (0.4 mg total) by mouth daily Active betamethasone, augmented, (DIPROLENE) 0.05 % ointment APPLY OINTMENT TOPICALLY TO AFFECTED AREA TWICE DAILY NEEDED TO NECK DIRECTED. 07/25/202 4 Active rosuvastatin (CRESTOR) 40 mg tablet Take 1 tablet (40 mg total) by mouth nightly at bedtime 4 Active Active Problems Problem Noted Date Diagnosed Date Pain of lower extremity 10/19/2014 Lumbago 10/15/2014 Immunizations Immunization Administration Dates Next Due Influenza, Trivalent, Preservative Free, Intramu scular 04/14/2014,03/15/2014 Pfizer SARS-CoV-2 Monovalent Vaccination (12+ Yrs) PURPLE 04/22/2021 Surgical History Surgery Date Site/Laterality Comments BACK SURGERY Back Surgery - (Added by TW Conv) [place] ARTHROPLASTY KNEE TIBIAL PLATEAU Knee Replacement - (Added by TW Conv) Social History Tobacco Use Types Packs/Day Years Used Date Smoking Tobacco: Former Tobacco Cessation:Counseling Given: Not Answered Personal Safety Answer Date Recorded Getting School Help Needed Not on file 08/15 Sex and Gender Information Value Date Recorded Sex Assigned at Not on file Legal Sex Male 5:50 AM 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 Gender Identity Not on file Sexual Orientation Not on file Obstetrics History Last Filed Vital Signs Vital Sign Reading Time Taken Comments Blood Pressure 102/48 03/02/2024 9:46 AM CDT Pulse 48 03/02/2024 9:46 AM CDT Temperature - - Respiratory Rate 16 10/17/2023 12:39 PM CDT Oxygen Saturation 98% 03/02/2024 9:46 AM CDT Inhaled Oxygen Concentration - - Weight 73.5 kg (162 lb) 03/02/2024 9:46 AM CDT Height 177.8 cm (5' 10 ) 03/02/2024 9:46 AM CDT Body Mass Index 23.24 03/02/2024 9:46 AM CDT Plan of Treatment Health Maintenance Due Date Last Done Comments Depression Screening 1940 Fall Risk Assessment 1940 DTaP/Tdap/Td Vaccine (1 - Tdap) 11/22/1951 Hepatitis B Screening 1958 Well Visit 65+ 2005 Zoster Vaccine (2 of 3) 04/18/2013 02/21/2013 Covid-19 Vaccine (5 - 2023-2 5 season) 2024 04/22/2021, 10/19/2020, 10/08/2020, Additional history exists Influenza Vaccine (#1) 03/15/202406/01/ 9, 05/11/2017, 04/05/2015, Additional history exists Pneumococcal vaccine 65+ Completed 015, 12/24/2014, 12/24/2014, Additional history exists Insurance [facility] MEDICARE AETNA MEDICARE Care Teams Hardwood Floor Finisher Relationship Specialty Start Date End Date Akhil Painting MD [address] [facility] [address] [place] [address] PCP - General Family Practice 03/02/24
--- OUTSIDE RECORDS SUMMARY | 2024-10-06 17:45 | XMS_ITS | Referral Summary ---
Author Organization 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
--- OUTSIDE RECORDS SUMMARY | 2024-10-06 17:45 | XMS_ITS ---
Author Name Be Hoff Address [address] [place] [address] Phone [phone] [facility] ices Address [address] [place] [address] Phone [phone] Care Team Providers Care Screen Printing Supervisor Name Role Phone Be Hoff Unavailable [phone] Yissel Orozco Unavailable Susan Neff Unavailable [phone] Functional Status No Results Mental Status No Results Allergies and Intolerances Name Onset Date Reaction Severity No Known Allergies (Allergy) SatNovember 14 15:28:00 EDT 2019 Medications Medication Directions Start Date End Date LORazepam 0.5 mg tablet 0.5mg TABLET Ora l PRN 2 Times Daily MD to review for continued usage of PRNanxiety SatJan 14 11:00:00 EDT 2018Jan 19 00:59:00 EDT 2018 metroNIDAZOLE 500 mg tablet 1 tab TABLET Oral 3 Times Daily for 14 Days SatJan 13 07:00:00 EDT 2018Jan 19 00:59:00 EDT 2019 Acidophilus capsule 2 tablets CAPSULE Or al 2 Times Daily for 21 Days Probiotic protocol SatJan 12 16:00:00 EDT 2018Jan 19 00:59:00 EDT 2019 levoFLOXacin 750 mg tablet 750mg TABLET Oral 1 Time Daily for 5 Days SatJan 10 01:00:00 EDT 2018Jan 12 16:12:00 EDT 2019 Acidophilus capsule 2 tablets CAPSULE Or al 2 Times Daily for 12 Days SatJan 10 01:00:00 EDT 2018Jan 12 16:16:00 EDT 2018 loperamide 2 mg tablet 2mg TABLET Oral P RN (Max 8 Doses) Diarrhea SatJan 06 19:00:00 EDT 2018Jan 12 16:11:00 EDT 2019 nystatin 100,000 unit/gram topical powder 1 application POWDER (GRAM) Topical 2 Times Daily for 7 Days Apply nystatin powder to nasim-area BID & PRN SatJan 05 15:00:00 ED2018Jan 12 14:59:00 ED2018 Xarelto 15 mg tablet 15mg TABLET Oral 2 Times Daily for 21 Days DVT proph SatJan 03 09:00:00 ED2018Jan 19 00:59:00 ED2018 Xarelto 20 mg tablet 20mg TABLET Oral 1 Time Daily DVT proph SatJan 24 09:00:00 ED2018Jan 19 00:59:00 ED2018 metroNIDAZOLE 500 mg tablet 500mg TABLET Oral Every 8 Hours for 6 Days Intra-abdominal Abscess SatDec 27 09:00:00 ED2018Jan 02 08:59:00 ED2018 metoclopramide 5 mg tablet 5mg TABLET Or al 2 Times Daily SatDec 27 07:00:00 EDT 2018Jan 19 00:59:00 EDT 2018 TUBErsol 5 tub. unit/0.1 mL intradermal injection solution Read Results VIAL (ML) Other 1 Time Weekly for 2 Weeks Read results between 48-72 hours after 1st and 2nd 1 week apart. If positive do chest x-ray to rule out active disease. SatDec 21 15:00:00 EDT 2018Jan 04 14:59:00 EDT 2018 heparin lock flush 10 unit/mL intravenous solution 5 ml VIAL (ML) Intravenous 1 Time Daily for 8 Days flush picc line per [facility]. SatDec 20 10:00:00 ED2018Dec 24 16:48:00 EDT 2018 melatonin 10 mg tablet 10mg TABLET Oral 1 Time Daily insomnia SatDec 20 01:00:00 ED2018Jan 19 00:59:00 EDT 2018 LORazepam 0.5 mg tablet 0.5mg TABLET Ora l PRN 2 Times Daily anxiety SatDec 20 01:00:00 ED2018Jan 14 11:44:00 EDT 2018 Acidophilus chewable tablet 2 TABS TABLE T,CHEWABLE Oral 2 Times Daily for 22 Days SatDec 19 09:00:00 ED2018Jan 10 08:59:00 EDT 2018 sertraline 50 mg tablet 50mg TABLET Oral 1 Time Daily Depression SatDec 20 07:00:00 ED2018Jan 19 00:59:00 EDT 2018 Vitamin D3 2,000 unit capsule 10,000 Unit CAPSULE Oral 1 Time Daily Supplement SatDec 18 13:00:00 ED2018Jan 19 00:59:00 ED2018 TUBErsol 5 tub. unit/0.1 mL intradermal injection solution 0.1 ml VIAL (ML) Intradermal 1 Time Weekly for 2 Weeks (PPD) 1st injection upon admission. Read between 48 and 72 hours and give 2nd injection 1 week after the 1st if result is negative. If positive result, proceed with chest x-ray to rule out active disease. SatDec 18 15:00:00 ED2018Jan 01 14:59:00 EDT 2018 levoFLOXacin 500 mg tablet 500mg TABLET Oral 1 Time Daily for 7 Days Intra-abdominal Abscess SatDec 26 08:00:00 ED2018Jan 02 07:59:00 ED2018 metroNIDAZOLE 500 mg tablet 500mg TABLET Oral Every 8 Hours for 7 Days Intra-abdominal Abscess SatDec 26 08:00:00 EDT 2018Dec 24 16:48:00 EDT 2018 ertapenem 1 gram solution for injection 1 gram VIAL (EA) Intravenous 1 Time Daily for 8 Days SatDec 17 13:00:00 ED2018Dec 25 12:59:00 ED2018 Normal Saline Flush 0.9 % injection syringe 1 syringe SYRINGE (ML) Intravenous 1 Time Daily for 8 Days SatDec 17 13:00:00 ED2018Dec 25 12:59:00 2018 clonazePAM 0.25 mg disintegrating tablet 0.25mg TABLET,DISINTEGRATING Oral PRN 2 Times Daily Anxiety SatDec 17 13:00:00 2018Dec 18 13:09:00 ED2018 HYDROcodone 5 mg-acetaminophen 325 mg tablet 1 tablet TABLET Oral PRN Every 8 Hours Pain SatDec 17 13:00:00 ED2018Jan 19 00:59:00 ED2018 Sterile Saline 0.9 % irrigation solution 5-10mL SOLUTION, IRRIGATION Irrigate 2 Times Daily SatDec 17 13:00:00 ED2018Jan 04 14:46:00 EDT 2018 cephALEXin 500 mg capsule 500mg CAPSULE Oral 2 Times Daily for 7 Days Infection to abd incision. Sat December 06 07:00:00 EDT 2018 Sat Dec 13 06:59:00 EDT 2018 enoxaparin 40 mg/0.4 mL subcutaneous syringe 0.4ml SYRINGE (ML) Subcutaneous 1 Time Daily DVT prophylactic SatDecember 05 15:00:00 ED2018Jan 03 16:08:00 ED2018 Vitamin D3 1,000 unit tablet 5,000 units TABLET Oral 1 Time Daily Supplement SatDecember 06 07:00:00 ED2018 [facility] Dec 18 13:09:00 ED2018 Vitamin B-12 500 mcg tablet 500mcg TABLE T Oral 1 Time Daily Supplement SatDecember 06 07:00:00 ED2018 [facility] Dec 18 13:09:00 ED2018 metoclopramide 10 mg tablet 10mg TABLET Oral 2 Times Daily SatNovember 26 14:00:00 ED2018December 05 15:26:00 ED2018 prochlorperazine maleate 5 mg tablet 5mg TABLET Oral PRN Every 8 Hours N/V SatNovember 26 14:00:00 2018December 05 15:26:00 ED2018 water (bulk) liquid 75 ml LIQUID (ML) G- tube 3 Times Daily SatNovember 26 16:00:00 2018December 05 15:26:00 ED2018 water (bulk) liquid 100 ml LIQUID (ML) G-tube Every 6 Hours SatNovember 24 16:25:00 ED2018November 26 16:14:00 ED2018 acetaminophen 500 mg tablet 1000mg TABLE T Oral PRN Every 8 Hours Pain SatNovember 23 13:00:00 ED2018November 23 13:28:00 ED2018 methocarbamol 750 mg tablet 750mg TABLET Oral PRN Every 8 Hours Muscle Spasms SatNovember 23 13:00:00 ED2018November 23 13:28:00 ED2018 acetaminophen 500 mg tablet 1000mg TABLE T G-tube PRN Every 8 Hours Pain SatNovember 23 13:00:00 ED2018Jan 19 00:59:00 ED2018 methocarbamol 750 mg tablet 750mg TABLET G-tube PRN Every 8 Hours Muscle Spasms SatNovember 23 13:00:00 ED2018Jan 19 00:59:00 ED2018 melatonin 10 mg tablet 10mg TABLET Oral 1 Time Daily insomnia SatNovember 23 01:00:00 ED2018December 05 15:26:00 ED2018 Xarelto 15 mg tablet 15 mg TABLET Oral 2 Times Daily for 21 Days SatNovember 22 07:00:00 ED2018December 05 15:20:00 ED2018 Xarelto 20 mg tablet 20 mg TABLET Oral 1 Time Daily Sun Dec 14 10:00:00 EDT 2018December 05 15:20:00 ED2018 Vitamin D3 1,000 unit tablet 10,000 unit s TABLET Oral 1 Time Daily Supplement SatNovember 21 07:00:00 ED2018December 05 15:23:00 EDT 2018 Vitamin D3 1,000 unit tablet 1,0000 unit TABLET Oral 1 Time Daily SatNovember 20 07:00:00 ED2018November 20 17:11:00 EDT 2018 Neosporin(qjk-pon-uazop) 3.5 mg-400 unit-5,000 unit top ointment packt 1 application OINTMENT IN PACKET (EA) Topical 1 Time Daily for 4 Days Apply to G-tube site SatNovember 17 15:00:00 EDT 2018November 21 14:59:00 ED2018 Jevity 1.2 Jose 0.06 gram-1.2 kcal/mL oral liquid 65ml/hr LIQUID (ML) Oral 2 Times Daily Jevity 1.2 at 85/hour from [id number] SatNovember 17 16:00:00 EDT 2018November 17 15:42:00 ED2018 water (bulk) liquid 140ml LIQUID (ML) G- tube Every 4 Hours Water [id number] cc every 4 hours SatNovember 17 09:00:00 ED2018November 17 15:44:00 ED2018 Jevity 1.2 Jose 0.06 gram-1.2 kcal/mL oral liquid 85mL/hr LIQUID (ML) G-tube 2 Times Daily SatNovember 17 15:00:00 EDT 2018November 17 15:49:00 EDT 2018 water (bulk) liquid 125mL LIQUID (ML) G- tube Every 4 Hours SatNovember 17 15:00:00 EDT 2018November 17 15:50:00 ED2018 Jevity 1.2 Jose 0.06 gram-1.2 kcal/mL oral liquid 85mL/hr LIQUID (ML) G-tube 2 Times Daily Jevity 85mL/hr x 18hours [id number] SatNovember 17 16:00:00 EDT 2018November 24 16:25:00 EDT 2018 water (bulk) liquid 125mL LIQUID (ML) G- tube Every 4 Hours Flush g-tube 125mL every 4 hours SatNovember 17 15:00:00 2018November 24 16:25:00 ED2018 TUBErsol 5 tub. unit/0.1 mL intradermal injection solution Read Results VIAL (ML) Other 1 Time Weekly for 2 Weeks Read results between 48-72 hours after 1st and 2nd 1 week apart. If positive do chest x-ray to rule out active disease. SatNovember 15 07:00:00 2018November 29 06:59:00 2018 water (bulk) liquid 140ml LIQUID (ML) G- tube Every 4 Hours Water flush SatNovember 15 09:00:00 2018November 17 15:40:00 2018 Lovenox 40 mg/0.4 mL subcutaneous syringe 40mg SYRINGE (ML) Subcutaneous 1 Time Daily DVT SatNovember 15 07:00:00 2018November 21 12:53:00 2018 ipratropium-albuterol 0.5 mg-3 mg(2.5 mg base)/3 mL nebulization soln 3mls AMPUL FOR NEBULIZATION (ML) Inhalation PRN Every 6 Hours SOB SatNovember 14 15:00:00 2018Jan 19 00:59:00 2018 Neosporin(xkr-tvt-aelfu) 3.5 mg-400 unit-5,000 unit top ointment packt 1 application OINTMENT IN PACKET (EA) Topical 1 Time Daily for 4 Days SatNovember 15 07:00:00 2018November 17 15:28:00 2018 Jevity 1.2 Jose 0.06 gram-1.2 kcal/mL oral liquid 65ml/hr LIQUID (ML) Oral Continuous SatNovember 14 16:00:00 2018November 17 15:30:00 2018 amLODIPine 10 mg tablet 10mg TABLET G-tu be 1 Time Daily HTN SatNovember 15 07:00:00 2018Jan 19 00:59:00 2018 acetaminophen 500 mg tablet 500mg TABLET Oral PRN Every 6 Hours Pain SatNovember 14 15:00:00 2018November 14 15:52:00 2018 alfuzosin ER 10 mg tablet,extended release 24 hr 10mg TABLET, EXTENDED RELEASE 24 HR G-tube 1 Time Daily urinary retention SatNovember 15 07:00:00 2018Jan 19 00:59:00 2018 Calcium 600 600 mg calcium (1,500 mg) tablet 600mg TABLET G-tube 2 Times Daily Supplement SatNovember 14 15:00:00 EDT 2018Jan 19 00:59:00 ED2018 acetaminophen 500 mg tablet 500mg TABLET G-tube PRN Every 6 Hours Pain SatNovember 14 15:00:00 ED2018November 23 13:21:00 EDT 2018 fluticasone propionate 50 mcg/actuation nasal spray,suspension 1 spray SPRAY, SUSPENSION Intranasal 1 Time Daily SatNovember 15 07:00:00 ED2018Jan 19 00:59:00 ED2018 methocarbamol 750 mg tablet 750mg TABLET G-tube PRN 3 Times Weekly Muscle spasm SatNovember 15 07:00:00 EDT 2018November 23 13:25:00 ED2018 metoclopramide 10 mg tablet 10mg TABLET G-tube 3 Times Daily for 10 Days Nausea/vomiting SatNovember 14 15:00:00 ED2018November 24 14:59:00 ED2018 omeprazole 40 mg capsule,delayed release 40mg CAPSULE,DELAYED RELEASE (ENTERIC COATED) G-tube 1 Time Daily GERD SatNovember 15 07:00:00 ED2018Jan 19 00:59:00 ED2018 Vitamin B-12 ER 500 mcg tablet,extended release 500mcg TABLET, EXTENDED RELEASE G-tube 1 Time Daily Supplement SatNovember 15 10:00:00 ED2018November 17 12:59:00 ED2018 Vitamin D3 5,000 unit tablet 1 tab TABLE T G-tube 1 Time Daily Supplement SatNovember 15 07:00:00 ED2018 Tavia November 20 17:11:00 EDT 2018 TUBErsol 5 tub. unit/0.1 mL intradermal injection solution 0.1 ml VIAL (ML) Intradermal 1 Time Weekly for 2 Weeks (PPD) 1st injection upon admission. Read between 48 and 72 hours and give 2nd injection 1 week after the 1st if result is negative. If positive result, proceed with chest x-ray to rule out active disease. 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* Code: * Start Date: SatNovember 14 00:00:00 EDT 2018 * End Date: * Text: * Foot drop, left foot* Code: * Start Date: SatNovember 14 00:00:00 EDT 2018 * End Date: * Text: * Foot drop, right foot* Code: * Start Date: SatNovember 14 00:00:00 EDT 2018 * End Date: * Text: * Weakness* Code: * Start Date: SatNovember 14 00:00:00 EDT 2018 * End Date: * Text: * Repeated falls* Code: * Start Date: SatNovember 14 00:00:00 EDT 2018 * End Date: * Text: * Essential (primary) hypertension* Code: * Start Date: SatNovember 14 00:00:00 EDT 2018 * End Date: * Text: * Benign prostatic hyperplasia without lower urinary tract symptoms* Code: * Start Date: SatNovember 14 00:00:00 EDT 2018 * End Date: * Text: * Presence of urogenital implants* Code: * Start Date: SatNovember 14 00:00:00 EDT 2018 * End Date: * Text: * Dysphagia, unspecified* Code: * Start Date: SatNovember 14 00:00:00 EDT 2018 * End Date: * Text: * Encounter for surgical aftercare following surgery on the digestive system* Code: * Start Date: SatNovember 14 00:00:00 EDT 2018 * End Date: * Text: * Gastrostomy status* Code: * Start Date: SatNovember 14 00:00:00 EDT 2018 * End Date: * Text: * Elevated white blood cell count, unspecified* Code: * Start Date: SatNovember 14 00:00:00 EDT 2018 * End Date: * Text: * Insomnia, unspecified* Code: * Start Date: SatNovember 14 00:00:00 EDT 2018 * End Date: * Text: * Encounter for attention to gastrostomy* Code: * Start Date: SatNovember 14 00:00:00 EDT 2018 * End Date: * Text: * Arthrodesis status* Code: * Start Date: SatNovember 14 00:00:00 EDT 2018 * End Date: * Text: * Fusion of spine, cervical region* Code: * Start Date: SatNovember 14 00:00:00 EDT 2018 * End Date: * Text: * Chronic embolism and thrombosis of unspecified deep veins of left lower extremity* Code: * Start Date: SatNovember 14 00:00:00 EDT 2018 * End Date: * Text: * Retention of urine, unspecified* Code: * Start Date: SatNovember 14 00:00:00 EDT 2018 * End Date: * Text: * Gastro-esophageal reflux disease without esophagitis* Code: * Start Date: SatNovember 14 00:00:00 EDT 2018 * End Date: * Text: * Personal history of malignant neoplasm of bladder* Code: * Start Date: SatNovember 14 00:00:00 EDT 2018 * End Date: * Text: * Gastrostomy malfunction* Code: * Start Date: SatDecember 05 00:00:00 EDT 2018 * End Date: * Text: * Other complications of procedures, not elsewhere classified, subsequent encounter* Code: * Start Date: SatDec 17 00:00:00 EDT 2018 * End Date: * Text: * Perforation of intestine (nontraumatic)* Code: * Start Date: SatDec 17 00:00:00 EDT 2019 * End Date: * Text: Reason for Referral Past Medical History
--- OUTSIDE RECORDS SUMMARY | 2024-10-06 17:46 | XMS_ITS | Clinical Summary ---
Author Organization [facility] Address Formerly [facility] [place] [address] Care Team Providers Care Boring Machine Operator Helper Name Role Phone Akhil Painting MD Primary Care Provider Soto Castillo MD Unavailable Unavailabl e Allergies Active Allergy Reactions Criticality Noted Date Comments Meperidine Other (see comment) 11/29/2018 CONSTIPATION Morphine Other (see comment) CONSTIPATION Medications alfuzosin ER 10 MG 24 hr tablet Take 10 mg by mouth daily. Active vitamin B-12 500 MCG tablet Take 500 mcg by mouth daily. Active Elastic Bandages & Supports (CERVICAL COLLAR) MiscIndications :Spinal stenosis of cervical region [facility] 1 each 09/23/2018 Active acetaminophen 500 MG tablet Take 1,000 mg by mouth every 8 (eight) hours as needed for Pain. Active vitamin D3, cholecalciferol , 5000 UNITS capsule Take 1 capsule by mouth daily. Active Calcium 500 MG TabIndications: calcium supplement 600-[address] castillo pre-op Take 650 mg by mouth 2 (two) times a day. 60 tablet 10/31/2018 Active amlodipine 10 MG tabletIndicatio ns:S/P cervical spinal fusion Take 1 tablet (10 mg total) by mouth daily. 30 tablet 11/15/2018 Active XARELTO 20 MG Tab tablet 01/27/2019 Active tamsulosin 0.4 MG Cap 02/25/2019 Active Active Problems Problem Noted Date Diagnosed Date Osteoporosis 02/05/2019 Urinary retention with incomplete bladder emptyi ng 02/05/2019 Physical deconditioning 02/05/2019 Postprocedural intraabdominal abscess ([facility] 12/09/2018 Gastrojejunostomy tube dislodgement 11/28/2018 Essential hypertension 11/03/2018 Weakness of distal arms and legs 11/02/2018 S/P cervical spinal fusion 10/30/2018 Cervical myelopathy ([facility]) 10/29/2018 Spinal stenosis of cervical region 09/23/2018 Other cervical disc degenera tion, unspecified cervical region 09/23/2018 Radiculopathy, cervical region 09/23/2018 Foraminal stenosis of cervical region 09/23/2018 Weakness generalized 09/23/2018 Family History Medical History Relation Comments Stroke Son 1 Relation Status Comments Daughter 1 Alive Daughter 2 Alive Father patient was 2.5 years old when father in MVC Mother Alive Son 1 Alive Son 2 Alive Son 3 Alive Social History Tobacco Use Types Packs/Day Years Used Date Smoking Tobacco: Former Cigarettes 1 3 0 07/15/1959 - 07/15/1962 Smokeless Tobacco: Never Alcohol Use Standard Drinks/Week Comments No 0 (1 standard drink = 0.6 oz pur e alcohol) AUDIT-C Answer Date Recorded Frequency of Alcohol Consumption Never 09/29/2018 Average Number of Drinks Not on file 019 Frequency of Binge Drinking Not on file 09/12 Sex and Gender Information Value Date Recorded Sex Assigned at Not on file 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 Gender Identity Not on file Sexual Orientation Straight 10/31/2018 11 :44 PM CDT Last Filed Vital Signs Vital Sign Reading Time Taken Comments Blood Pressure 152/84 03/26/2019 10:38 AM CDT Pulse 88 03/26/2019 10:38 AM CDT Temperature 36.6 C (97.8 F) 12/17/2018 5:00 AM CDT Respiratory Rate 20 12/17/2018 5:00 AM CDT Oxygen Saturation 97% 12/17/2018 5:00 AM CDT Inhaled Oxygen Concentration - - Weight 68 kg (150 lb) 03/26/2019 10:38 AM CDT stated weight Height 177.8 cm (5' 10 ) 02/05/2019 3:40 PM CDT Body Mass Index 21.52 02/05/2019 3:40 PM CDT Plan of Treatment Health Maintenance Due Date Last Done Comments DTaP, Tdap and Td Vaccines ( 1 - Tdap) 11/22/1959 Zoster Vaccines (1 of 2) 1990 Annual Medicare Wellness Visit 2005 Pneumococcal Vaccine: 65+ Years (1 of 1 - PCV) 2005 RSV Immunization or 60+ Years (1 - 1-dose 75+ series) 11/22/2015 COVID-19 Vaccine (1 - 2023-2 5 season) 2024 Influenza Adult (#1) 2024 04/14/2014, 03/15/2014 Meningococcal B Vaccine Aged Out No l onger eligible based on patient's age to complete this topic Meningococcal Vaccine Aged Out No susana selma eligible based on patient's age to complete this topic RSV Immunizations Under 20 Months Aged Out No longer eligible b ased on patient's age to complete this topic Medical Devices Implanted Type Area Continuous Mining Machine Company Miner Device Identifier Shelf Expiration Date Model / Serial / Lot Percutaneous Endoscopic Gastrostomy Set Implanted:Qty: 1 on 11/12/2018 by Caleb Rios MD at [facility] Tube Implant N/A: Abdomen [employer] [id number] 09/23/2019 / / [id number] Graft Infuse Bone Small - [id number] Implanted:Qty: 1 on 10/29/2018 by Soto Castillo MD at [facility] N/A: Spine Cervical [employer] 12/12/2020 [id number] / / [id number] Beth Lordotic Peek-Slidell Spacer Implanted:Qty: 1 on 10/29/2018 by Soto Castillo MD at [facility] N/A: Spine Cervical [employer] [id number] 02/20/2022 39-2607-[id number] / / [id number] Description:C3-C4 Offerman Lordotic Peek-Slidell Spacer Implanted:Qty: 1 on 10/29/2018 by Soto Castillo MD at [facility] N/A: Spine Cervical [employer]INE [id number] 08/05/2022 [id number] / / [id number] Description:C4-C5 Screw Implanted:Qty: 6 on 10/29/2018 by Soto Castillo MD at [facility] N/A: Spine Cervical MARISSA SPINE - DIV MARISSA KT [id number] / / 2 Level Plate Implanted:Qty: 1 on 10/29/2018 by Soto Castillo MD at [facility] N/A: Spine Cervical [employer] - DIV MARISSA KT [id number] / / Explanted Type Area Continuous Mining Machine Company Miner Device Identifier Shelf Expiration Date Model / Serial / Lot Distration Pin 12mm - [id number] Explanted:Qty: 3 on 10/29/2018 at [facility] [employer] [facility] DP-12-[id number] / / Insurance MEDICARE [facility] Advance Directives Documents on File Type Date Recorded Patient Mathematician Expl anation Advance Directives and Living Will 12/18/2018 10:03 AM Signed 11-17-18 POLST Form Advance Directives and Living Will 11/02/2018 9:59 AM POA FOR HEALTH CARE, (SIGNED BUT NOT DATED) * Full Code (Latest Code Status on File) Date Activated Date Inactivated Comments 12/09/2018 5:52 PM 12/17/2018 1:00 PM * Full Code Date Activated Date Inactivated Comments 10/31/2018 6:38 PM 11/14/2018 3:39 PM * Full Code Date Activated Date Inactivated Comments 10/29/2018 1:26 PM 10/31/2018 6:17 PM Care Teams Boring Machine Operator Helper Relationship Specialty Start Date End Date Akhil Painting MD PCP - General FAMILY PRACTICE 09/15/18 Soto Castillo MD Surgeon NEUROLOGICAL SURGERY 10/16/18
--- OUTSIDE RECORDS SUMMARY | 2024-10-06 17:46 | XMS_ITS | Clinical Summary ---
Author Organization [facility] Address [address] [place] [address] Phone Care Team Providers Care Orthopaedic Physician Assistant Name Role Phone Akhil Painting MD Primary Care Provider Allergies Active Allergy Reactions Criticality Noted Date Comments Meperidine Other (see comments) 11/29/2018 CONSTIPATION Morphine Other (see comments) 03/05/2022 CONSTIPATION Medications Medication Sig Dispensed Refills Start Date End Date Status alfuzosin (UROXATRAL) 10 MG 24 hr tablet alfuzosin ER 10 mg tablet,extended release 24 hr Active amLODIPine (NORVASC) 10 MG tablet Take 10 mg by mouth 1 (one) time each day 12/13/2021 Active finasteride (PROSCAR) 5 MG tablet Take 5 mg by mouth 1 (one) time each day 12/13/2021 Active fluticasone (VERAMYST) 27.5 MCG/SPRAY nasal spray Veramyst 27.5 mcg/actuation nasal spray,suspension Active fluticasone (FLONASE) 50 MCG/ACT nasal spray fluticasone propionate 50 mcg/actuation nasal spray,suspension Active omeprazole (PriLOSEC) [address] capsule Take 40 mg by mouth 1 (one) time each day 12/13/2021 Active tamsulosin (FLOMAX) 0.4 MG 24 hr capsule Take 0.4 mg by mouth 1 (one) time each day 01/21/2022 Active Clobetasol Propionate 0.05 % shampoo clobetasol 0.05 % shampoo APPLY TOPICALLY EVERY DAY AT BEDTIME FOR 4 WEEKS Active Active Problems Problem Noted Date Diagnosed Date Knee pain 03/05/2022 Osteoarthritis of knee 03/05/2022 Ingrowing toenail 11/25/2021 Incomplete emptying of urinary bladder 9 Physical deconditioning 02/05/2019 Osteoporosis 02/05/2019 Postprocedural intraabdominal abscess 12/09/2018 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 Left foot drop 11/13/2018 Essential hypertension 11/03/2018 Weakness of distal arms and legs 11/02/2018 History of cervical spine fusion 10/30/2018 Cervical myelopathy 10/29/2018 Asthenia 09/23/2018 Degeneration of cervical intervertebral disc 06/2019 Cervical radiculopathy 09/23/2018 Immunizations Name Administration Dates Next Due Influenza (IM) Preservative Free 04/14/2014,07/2013 Sars-cov-2, Unspecified 10/19/2020 Family History Medical History Relation Comments Kidney disease Neg Hx Nephrolithiasis Neg Hx Social History Tobacco Use Types Packs/Day Years Used Date Smoking Tobacco: Former Cigarettes 1 2 1 961 - 1963 Smokeless Tobacco: Never Tobacco Cessation:Counseling Given: Not Answered Alcohol Use Standard Drinks/Week Comments Never 0 (1 standard drink = 0.6 oz pur e alcohol) Sex and Gender Information Value Date Recorded Sex Assigned at Not on file Gender Identity Not on file Sexual Orientation Not on file Last Filed Vital Signs Vital Sign Reading Time Taken Comments Blood Pressure 134/76 06/04/2022 11:32 AM RIVERBOAT CAPTAIN Pulse - - Temperature 36.5 C (97.7 F) 06/04/2022 11:32 AM RIVERBOAT CAPTAIN Respiratory Rate 18 06/04/2022 11:32 AM RIVERBOAT CAPTAIN Oxygen Saturation - - Inhaled Oxygen Concentration - - Weight 74.8 kg (165 lb) 02/19/2022 9:42 AM CDT Height 175.3 cm (5' 9 ) 06/04/2022 11:32 AM RIVERBOAT CAPTAIN Body Mass Index 24.37 02/19/2022 9:42 AM CDT Plan of Treatment Health Maintenance Due Date Last Done Comments Pneumococcal PPSV23/PCV13 65 + Years / High and Highest Risk (1 of 4 - PCV) 1946 COVID-19 Vaccine (2 - season) 03/15/202403/2021, 10/19/2020 Influenza Vaccine (#1) 2024 04/14/2014, 2013 Care Teams Orthopaedic Physician Assistant Relationship Specialty Start Date End Date Akhil Painting MD [address] [place] [address] PCP - General Internal Medicine 12/26/21
--- OUTSIDE RECORDS SUMMARY | 2024-10-06 17:46 | XMS_ITS | Continuity of Care Document ---
Author Name Auto Generated, Auto Generated Organization [facility] Support Name Relationship Address Phone JaredDavid Son Unknown Unavailable Peri Dover Daughter Unknown Unavailable Jared David Financial Responsible Democrat [address] [place] [address] David Coleman Self [address] [place] [address] Tracy Coleman Spouse [address] [place] [address] Unavailable Summary Purpose Consult/Referral Allergies, Adverse Reactions, Alerts Type Description/Agent Code Date Allergy Active Date Allergy Inactivated Date of Last Reaction Adverse Reactions Severity Status Comments Source of Information [employer] f[employer] No Known Allergies Active Patient History Medications No Known Medications Conditions/Problems Problem/Diagnosis Awareness of Diagnosis Code (ICD-10) Onset Date (Start Date) Resolution Date (End Date) Status Source Comments OTHER COMPLICATIONS OF PROCEDURES, NOT ELSEWHERE CLASSIFIED, SUBSEQUENT ENCOUNTER T81.89XD 12/18/19 19 Active MD Be Hoff PERFORATION OF INTESTINE (NONTRAUMATIC) K63.1 12/18/19 19 Active MD Be Hoff 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 11/29/19 19 Active MD Be Hoff ENCOUNTER FOR OTHER ORTHOPEDIC AFTERCARE Z47.89 11/15/19 19 Active MD Be Hoff SPINAL STENOSIS, CERVICAL REGION M48.02 11/15/19 19 Active MD Be Hoff 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 11/15/19 19 Active MD Be Hoff FOOT DROP, LEFT FOOT M21.372 0 19 Active MD Be Hoff FOOT DROP, RIGHT FOOT M21.371 11/15/19 19 Active MD Be Hoff WEAKNESS R53.1 11/15/19 19 Active MD Be Hoff REPEATED FALLS R29.6 11/15/19 19 Active MD Be Hoff ESSENTIAL (PRIMARY) HYPERTENSION I10 11/15/19 19 Active MD Be Hoff 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 11/15/19 19 Active MD Be Hoff 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 11/15/19 19 Active MD Be Hoff DYSPHAGIA, UNSPECIFIED R13.10 11/15/19 19 Active MD Be Hoff ENCOUNTER FOR SURGICAL AFTERCARE FOLLOWING SURGERY ON THE DIGESTIVE SYSTEM Z48.815 11/15/19 19 Active MD Be Hoff GASTROSTOMY STATUS Z93.1 11/15/19 19 Active MD Be Hoff ELEVATED WHITE BLOOD CELL COUNT, UNSPECIFIED D72.829 11/15/19 19 Active MD Be Hoff INSOMNIA, UNSPECIFIED G47.00 11/15/19 19 Active MD Be Hoff ENCOUNTER FOR ATTENTION TO GASTROSTOMY Z43.1 11/15/19 19 Active MD Be Hoff ARTHRODESIS STATUS Z98.1 11/15/19 19 Active MD Be Hoff FUSION OF SPINE, CERVICAL REGION M43.22 11/15/19 19 Active MD Be Hoff 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
[2024-10-06 19:39] LABS: Basophils Absolute Auto 0.1 K/mm3 (0.0-0.1); Basophils Percent Auto 0.6 % (0.2-1.2); Eosinophils Absolute Auto 0.2 K/mm3 (0-0.3); Eosinophils Percent Auto 2.1 % (0-4.4); Hematocrit 39.9 % (42.0-52.0); Hemoglobin 12.5 g/dL (14.0-18.0); Immature Granulocyte Absolute 0.11 K/mm3 (0.00-0.031); Lymphocytes Absolute Auto 1.53 K/mm3 (0.9-3.2); Lymphocytes Percent Auto 13.3 % (18.3-44.2); Mean Corpuscular HGB Conc 31.3 g/dl (32-36); Mean Corpuscular Hemoglobin 27.9 pg (26-34); Mean Corpuscular Volume 89.1 fl (80-100); Mean Platelet Volume 9.6 fl (7.4-10.4); Monocytes Absolute Auto 0.7 K/mm3 (0.1-0.6); Monocytes Percent Auto 5.8 % (2.6-8.5); Neutrophils Absolute Auto 8.9 K/mm3 (1.3-6.7); Neutrophils Percent Auto 77.2 % (45.5-73.1); Platelet Count Result 323 k/mm3 (150-375); Red Blood Count 4.48 M/mm3 (4.6-6.20); Red Cell Distribution Width 17.3 % (11.5-14.5); White Blood Count 11.5 K/mm3 (4.5-10.0)
[2024-10-06 19:46] LABS: Alanine Aminotransferase 41 U/L (6-50); Albumin Level 3.6 g/dL (3.5-5.1); Alkaline Phosphatase 84 U/L (38-126); Anion Gap 11 mmol/L (4-12); Aspartate Amino Transferase 58 U/L (17-59); Bilirubin,Total 0.5 mg/dL (0.2-1.3); Blood Urea Nitrogen 28 mg/dL (9-20); Calcium 9.4 mg/dL (8.4-10.2); Carbon Dioxide 24 mmol/L (22-30); Chloride 102 mmol/L (98-107); Estimated Glomerular Filt Rate 18; Glucose 109 mg/dL (65-110); Potassium 3.8 mmol/L (3.4-5.0); Sodium 137 mmol/L (137-145)
[2024-10-06 20:12] LABS: Iron 70 ug/dL (49-181)
[2024-10-06 20:15] LABS: Hemoglobin A1C 5.9 % (<5.7)
[2024-10-06 20:28] LABS: Percent Iron Saturation 23 % (20-50)
== END 2024-10-06 15:10 | disposition home or self-care (01) ==
LOC: ANHGOSHLAB 15:10
PROVIDERS: PCP Family Medicine; Visit Provider Family Medicine
DX: D64.9 Anemia, unspecified (principal); I10 Essential (primary) hypertension; R73.03 Prediabetes; Z79.899 Other long term (current) drug therapy
CPT/HCPCS: 36415; 80053; 80299; 82607; 82728; 82746; 83036; 83540; 83550; 85025

== ENCOUNTER 2024-11-04 08:51 | Emergency (ER) | payer MEDICARE, SELFPAY ==
[2024-11-04] VITALS (13 sets, daily range): BP systolic 85–124; BP diastolic 54–69; PULSE 46–49; RESP 13–24; TEMP 36.4; O2SAT 98–100
--- NOTE | ~2024-11-04 | XR_ITS ---
EXAMINATION: XR chest 2V DATE: 11/04/2024 12:27 INDICATION: Weakness TECHNIQUE: frontal and lateral views of the chest were obtained. COMPARISON: Chest radiograph dated 04/19/24 FINDINGS: The lungs are clear with no focal airspace opacities, pulmonary edema, pleural effusion or pneumothor ax. Heart size is normal. Plate and screw fixation for cervical anterior spinal fusion. Surgical clip s in the left upper quadrant. Gaseous distention of the transverse colon. Severe thoracic and upper l umbar spondylosis. IMPRESSION: 1. No acute cardiopulmonary disease. Reviewed, dictated and finalized at location A.
--- OUTSIDE RECORDS SUMMARY | 2024-11-04 09:23 | XMS_ITS | Clinical Summary ---
Author Organization [facility] Address [facility] [place] [address] Care Team Providers Care Vice President Financial Name Role Phone Akhil Painting MD Primary [...] COLLAR) MiscIndications :Spinal stenosis of cervical region [facility] 1 each 09/23/2018 Active acetaminophen 500 MG [...] 02/05/2019 Physical deconditioning 02/05/2019 Postprocedural intraabdominal abscess ([facility]) 12/09/2018 Gastrojejunostomy tube dislodgement 11/28/2018 Essential hypertension 11/03/2018 Weakness of distal arms and legs 11/02/2018 S/P cervical spinal fusion 10/30/2018 Cervical myelopathy (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 Gender Identity Not on file Sexual Orientation [...] Td Vaccines ( 1 - Tdap) 11/22/1959 Pneumococcal Vaccine: 50+ Ye ars (1 of 1 - PCV) 1990 Zoster Vaccines (1 of 2) 1990 Annual Medicare Wellness Visit 2005 RSV Immunization or 60+ Years (1 - 1-dose 75+ series) 11/22/2015 COVID-19 Vaccine (1 - 2023-2 5 season) 2024 Meningococcal B Vaccine Aged Out No l onger eligible based on patient's age to complete this topic Meningococcal Vaccine Aged Out No susana selma eligible based on patient's age to complete this topic RSV Immunizations Under 20 Months Aged Out No longer eligible based on patient's age to complete this topic Medical Devices Implanted Type Area Community Outreach Director Device Identifier Shelf Expiration Date Model / Serial / Lot Percutaneous Endoscopic Gastrostomy Set Implanted:Qty: 1 on 11/12/2018 by Caleb Rios MD at [facility] Tube Implant N/A: Abdomen [employer] [id number] 09/23/2019 / / [id number] Graft Infuse Bone Small - [id number] Implanted:Qty: 1 on 10/29/2018 by Soto Castillo MD at [facility] N/A: Spine Cervical [employer] 12/12/2020 [id number] / / [id number] [place] Lordotic Peek-[place] Spacer Implanted:Qty: 1 on 10/29/2018 by Soto Castillo MD at [facility] N/A: Spine Cervical SE[employer]INE [id number] 02/20/2022 [id number] / / [id number] Description:C3-C4 Beth Lordotic Peek-[place] Spacer Implanted:Qty: 1 on 10/29/2018 by Soto Castillo MD at [facility] N/A: Spine Cervical SEASPINE [id number] 08/05/2022 [id number] / / [id number] Description:C4-C5 Screw Implanted:Qty: 6 on 10/29/2018 by Soto Castillo MD at [facility] N/A: Spine Cervical MARISSA SPINE - DIV MARISSA KT [id number] / / 2 Level Plate Implanted:Qty: 1 on 10/29/2018 by Soto Castillo MD at [facility] N/A: Spine Cervical MARISSA SPINE - DIV MARISSA KT [id number] / / Explanted Type Area Community Outreach Director Device Identifier Shelf Expiration Date Model / Serial / Lot Distration Pin 12mm - [id number] Explanted:Qty: 3 on 10/29/2018 at [facility] [employer] [id number]-12-[id number] / / Insurance MEDICARE [facility] Advance Directives Documents on File Type Date Recorded Patient Cryptographic Vulnerability Analyst Expl anation Advance Directives and Living Will [...] 1:26 PM 10/31/2018 6:17 PM Care Teams Vice President Financial Relationship Specialty Start Date End Date Akhil Painting MD PCP - General FAMILY PRACTICE 09/15/18 Soto Castillo MD Surgeon NEUROLOGICAL SURGERY 10/16/18
--- OUTSIDE RECORDS SUMMARY | 2024-11-04 09:23 | XMS_ITS ---
Author Name Be Hoff Address [address] [place] [address] Phone [phone] [facility] ices Address [address] [place] [address] Phone [phone] Care Team Providers Care Interpreter For The Deaf Name Role Phone Be Hoff Unavailable Yissel Orozco Unavailable Susan Neff Unavailable Functional Status No Results Mental Status No [...] 10 01:00:00 EDT 2018Jan 12 16:16:00 EDT 2019 loperamide 2 mg tablet 2mg TABLET Oral [...] for 8 Days flush picc line per [facility]. SatDec 20 10:00:00 ED2018Dec 24 16:48:00 [...] Time Daily Supplement SatDecember 06 07:00:00 ED2018 [facility] Dec 18 13:09:00 ED2018 Vitamin B-12 500 [...] 20 07:00:00 ED2018November 20 17:11:00 EDT 2018 Neosporin(mnp-aur-ufseq) 3.5 mg-400 unit-5,000 unit top ointment packt 1 application OINTMENT IN PACKET (EA) Topical 1 Time Daily for 4 Days Apply to G-tube site SatNovember 17 15:00:00 EDT 2018November 21 14:59:00 ED2018 Jevity 1.2 Jose 0.06 gram-1.2 kcal/mL oral liquid 65ml/hr LIQUID (ML) Oral 2 Times Daily Jevity 1.2 at 85/hour from 0558-4987 SatNovember 17 16:00:00 EDT 2018November 17 15:42:00 ED2018 water (bulk) liquid 140ml LIQUID (ML) G- tube Every 4 Hours Water [email or web address] cc every 4 hours SatNovember 17 09:00:00 [...] 2 Times Daily Jevity 85mL/hr x 18hours 7001-6341 SatNovember 17 16:00:00 EDT 2018November 24 16:25:00 [...] SatNovember 14 15:00:00 2018Jan 19 00:59:00 2018 Neosporin(hqb-lew-qulrv) 3.5 mg-400 unit-5,000 unit top ointment packt [...]
--- OUTSIDE RECORDS SUMMARY | 2024-11-04 09:23 | XMS_ITS | Referral Summary ---
Author Organization [facility] Address [address] [place] [address] Phone Care Team Providers Care Sidewalk Inspector Name Role Phone Akhil Painting MD Primary Care Provider Encounters Date Type Department Care Team Description 10/26/2024 Telephone [facility] Medical [facility] Cardiology [address] [facility] [address] [place] [phone] Kami Haines NP 10/22/2024 2:30 PM CDT Office Visit [facility] Cardiology [address] [facility] [address] [place] [phone] Kami Haines NP [place] (ventricular tachycardia) (HCC) (Primary Dx); 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 4 Active rosuvastatin (CRESTOR) 40 mg tablet Take 1 tablet (40 mg total) by mouth nightly at bedtime 4 Active amiodarone (PACERONE) 100 mg tabletIndicatio ns:Life-Threate lisa Ventricular Tachycardia Take 1 tablet (100 mg total) by mouth daily 90 tablet 3 5 Active metoprolol XL (TOPROL-XL) 25 mg extended release tablet Take 1 tablet (25 mg total) by mouth every morning 90 tablet 3 5 Active metoprolol XL (TOPROL-XL) 25 mg extended release tablet Take 1 tablet (25 mg total) by mouth every morning 4 10/27/19 25 Discontinu ed(Reorder ) amiodarone (PACERONE) 200 mg tablet TAKE 1 TABLET BY MOUTH ONCE DAILY AT 8AM 4 10/23/19 25 Discontinu ed(Reorder ) Active Problems Problem Noted Date Diagnosed Date Pain of lower extremity 10/19/2014 Lumbago 10/15/2014 Immunizations Immunization Administration Dates Next Due Influenza, Trivalent, Preservative Free, Intramu scular 04/14/2014,03/15/2014 Pfizer SARS-CoV-2 Monovalent Vaccination (12+ Yrs) PURPLE 04/22/2021 Social History Tobacco Use Types Packs/Day Years Used Date Smoking Tobacco: Former Tobacco Cessation:Counseling Given: Not Answered Sex and Gender Information Value Date Recorded Sex Assigned at Not on file 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 Gender Identity Not on file Sexual Orientation Not on file Last Filed Vital Signs Vital Sign Reading Time Taken Comments Blood Pressure 86/44 10/22/2024 2:29 PM CDT Pulse 49 10/22/2024 2:29 PM CDT Temperature - - Respiratory Rate 16 10/17/2023 12:39 PM CDT Oxygen Saturation 97% 10/22/2024 2:29 PM CDT Inhaled Oxygen Concentration - - Weight 69.9 kg (154 lb) 10/22/2024 2:29 PM CDT Height 177.8 cm (5' 10 ) 10/22/2024 2:29 PM CDT Body Mass Index 22.1 10/22/2024 2:29 PM CDT Plan of Treatment Not on file Insurance [facility] MEDICARE [employer] MEDICARE HMO Care Teams Sidewalk Inspector Relationship Specialty Start Date End Date Akhil Painting MD [address] [facility] [address] [place] [address] PCP - General Family Practice 03/02/24
--- OUTSIDE RECORDS SUMMARY | 2024-11-04 09:23 | XMS_ITS | Clinical Summary ---
Author Organization [facility] Address [address] [place] [address] Phone Care Team Providers Care On Site Services Specialist Name Role Phone Akhil Painting MD Primary [...] Pain of lower extremity 10/19/2014 Lumbago 10/15/2014 Encounters Date Type Department Care Team Description 10/26/2024 Telephone [facility] Cardiology [address] [place] [phone] Kami Haines NP 10/22/2024 2:30 PM CDT Office Visit [facility] Medical [facility] Cardiology [address] [place] [phone] Kami Haines NP [place] (ventricular tachycardia) ([facility]) (Primary Dx); 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; care home current use of amiodarone from Last 3 Months Immunizations Immunization Administration Dates Next Due Influenza, Trivalent, Preservative Free, Intramu scular 04/14/2014,03/15/2014 Pfizer SARS-CoV-2 Monovalent Vaccination (12+ Yrs) PURPLE 04/22/2021 Surgical History Surgery Date Site/Laterality Comments BACK SURGERY Back Surgery - (Added by BEATA Conv) MD ARTHROPLASTY KNEE TIBIAL PLATEAU Knee Replacement - (Added by BEATA Conv) Social History Tobacco Use Types Packs/Day Years Used Date Smoking Tobacco: Former Tobacco Cessation:Counseling Given: Not Answered Sex and Gender Information Value Date Recorded Sex Assigned at Not on file 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 Gender Identity Not on file Sexual Orientation [...] 10/22/2024 2:29 PM CDT Plan of Treatment Health Maintenance Due Date Last Done Comments Depression Screening 1940 Fall Risk Assessment 1940 DTaP/Tdap/Td Vaccine (1 - Tdap) 11[birth year]22/1951 Hepatitis B Screening 1958 Well Visit 65+ 2005 Zoster Vaccine (2 of 3) 04/18/2013 02/21/2013 Covid-19 Vaccine (5 - 2023-2 5 season) 2024 04/22/2021, 10/19/2020, 10/08/2020, Additional history exists Influenza Vaccine (Season Ended) 2025 06/01/2019, 05/11/2017, 04/05/2015, Additional history exists Pneumococcal vaccine 65+ Completed 015, 12/24/2014, 12/24/2014, Additional history exists Insurance [employer] [facility]ARE [facility] MEDICARE Address: [facility] [id number] [place] [address] [facility] MEDICARE HMO Care Teams On Site Services Specialist Relationship Specialty Start Date End Date Akhil Painting MD [address] [facility] [address] [place] [address] PCP - General Family Practice 03/02/24
--- OUTSIDE RECORDS SUMMARY | 2024-11-04 09:23 | XMS_ITS | Clinical Summary ---
Author Organization [facility] Address [address] [place] [address] Phone Care Team Providers Care Shelter Director Name Role Phone Akhil Painting MD Primary Care Provider Allergies Active Allergy Reactions Criticality Noted Date Comments Meperidine Other (see comments) 11/29/2018 CONSTIPATION Morphine Other (see comments) 03/05/2022 CONSTIPATION Medications alfuzosin (UROXATRAL) 10 MG 24 hr tablet alfuzosin ER 10 mg tablet,extended release 24 hr Active amLODIPine (NORVASC) 10 MG tablet Take 10 mg by mouth 1 (one) time each day 2 Active finasteride (PROSCAR) 5 MG tablet Take 5 mg by mouth 1 (one) time each day 2 Active fluticasone (VERAMYST) 27.5 MCG/SPRAY nasal spray Veramyst 27.5 mcg/actuation nasal spray,suspension Active fluticasone (FLONASE) 50 MCG/ACT nasal spray fluticasone propionate 50 mcg/actuation nasal spray,suspension Active omeprazole (PriLOSEC) [address] capsule Take 40 mg by mouth 1 (one) time each day 2 Active tamsulosin (FLOMAX) 0.4 MG 24 hr capsule Take 0.4 mg by mouth 1 (one) time each day 2 Active Clobetasol Propionate 0.05 % shampoo clobetasol [...] intervertebral disc 06/2019 Cervical radiculopathy 09/23/2018 Immunizations Immunization Administration Dates Next Due Influenza (IM) Preservative Free 04/14/2014,07/2013 Sars-cov-2, Unspecified 10/19/2020 Family History Medical History Relation Comments Kidney disease Neg Hx Nephrolithiasis Neg Hx Social History Tobacco Use Types Packs/Day Years Used Date Smoking Tobacco: Former Cigarettes 1 2 1 961 - 1962 Smokeless Tobacco: Never Tobacco Cessation:Counseling Given: Not Answered Alcohol Use Standard Drinks/Week Comments Never 0 (1 standard drink = 0.6 oz pur e alcohol) Sex and Gender Information Value Date Recorded Sex Assigned at Not on file Legal Sex Male 10:23 AM MDT Gender Identity Not on file Sexual Orientation Not on file Last Filed Vital Signs Vital Sign Reading Time Taken Comments Blood Pressure 134/76 06/04/2022 11:32 AM WOMENS 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 Pulse - - Temperature 36.5 C (97.7 F) 06/04/2022 11:32 AM WOMENS 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 Respiratory Rate 18 06/04/2022 11:32 AM WOMENS 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 Oxygen Saturation - - Inhaled Oxygen Concentration - - Weight 74.8 kg (165 lb) 02/19/2022 9:42 AM CDT Height 175.3 cm (5' 9 ) 06/04/2022 11:32 AM WOMENS 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 Body Mass Index 24.37 02/19/2022 9:42 AM CDT Plan of Treatment Health Maintenance Due Date Last Done Comments Pneumococcal PPSV23/PCV13 65 + Years / Low and Medium Risk (1 of 4 - PCV) 1990 COVID-19 Vaccine (2 - season) 03/15/202403/2021, 10/19/2020 Influenza Vaccine (Season Ended) 2025 04/14/20 14, 03/15/2014 Insurance MEDICARE [facility] Care Teams Shelter Director Relationship Specialty Start Date End Date Akhil Painting MD [address] [place] [address] PCP - General Internal Medicine 12/26/21
--- OUTSIDE RECORDS SUMMARY | 2024-11-04 09:23 | XMS_ITS ---
Author Name Be Hoff Address [address] [place] [address] Phone [phone] [facility] ices Address [address] [place] [address] Phone [phone] Care Team Providers Care Fire Prevention Chief Name Role Phone Be Hoff Unavailable [phone] Yissel Orozco Unavailable [phone] Susan Neff Unavailable Functional Status No Results [...] for 8 Days flush picc line per [facility]. SatDec 20 10:00:00 ED2018Dec 24 16:48:00 [...] Time Daily Supplement SatDecember 06 07:00:00 ED2018 [facility] Dec 18 13:09:00 ED2018 Vitamin B-12 [...] 20 07:00:00 ED2018November 20 17:11:00 EDT 2018 Neosporin(ldp-gvp-davtr) 3.5 mg-400 unit-5,000 unit top ointment packt 1 application OINTMENT IN PACKET (EA) Topical 1 Time Daily for 4 Days Apply to G-tube site SatNovember 17 15:00:00 EDT 2018November 21 14:59:00 ED2018 Jevity 1.2 Jose 0.06 gram-1.2 kcal/mL oral liquid 65ml/hr LIQUID (ML) Oral 2 Times Daily Jevity 1.2 at 85/hour from 5200-7709 SatNovember 17 16:00:00 EDT 2018November 17 15:42:00 ED2018 water (bulk) liquid 140ml LIQUID (ML) G- tube Every 4 Hours Water [id number] cc every 4 hours SatNovember 17 09:00:00 [...] 2 Times Daily Jevity 85mL/hr x 18hours 1100-4784 SatNovember 17 16:00:00 EDT 2018November 24 16:25:00 [...] SatNovember 14 15:00:00 2018Jan 19 00:59:00 2018 Neosporin(vgl-oof-vugmq) 3.5 mg-400 unit-5,000 unit top ointment packt [...]
--- NOTE | 2024-11-04 09:53 | ECG_ITS ---
Test Date: 2024-11-04 10:02:54 Measurements Intervals [place] Rate: 46 P: 30 NE: 274 QRS: -22 QRSD: 102 T: -4 QT: 473 QTc: 417 Interpretive Statements SINUS BRADYCARDIA WITH FIRST DEGREE AV BLOCK INFERIOR INFARCT, AGE INDETERMINATE BORDERLINE ST-T WAVE ABNORMALITY- ANTEROLATERAL LEADS BASELINE ARTIFACT- I, II, III, AVR, AVL ,AVF, V1-V2 ABNORMAL ECG Compared to ECG 04/19/2024 10:28:28 NO SIGNIFICANT CHANGE Electronically Signed On 11-04-2024 10:03:12 CDT by Sang Sheikh D.O.
[2024-11-04 10:06] LABS: Basophils Absolute Auto 0.1 K/mm3 (0.0-0.1); Basophils Percent Auto 0.6 % (0.2-1.2); Eosinophils Absolute Auto 0.2 K/mm3 (0-0.3); Eosinophils Percent Auto 1.4 % (0-4.4); Hematocrit 37.4 % (42.0-52.0); Hemoglobin 11.7 g/dL (14.0-18.0); Immature Granulocyte Absolute 0.11 K/mm3 (0.00-0.031); Immature Granulocyte Percent A 0.9 % (0-0.5); Lymphocytes Absolute Auto 1.41 K/mm3 (0.9-3.2); Lymphocytes Percent Auto 11.8 % (18.3-44.2); Mean Corpuscular HGB Conc 31.3 g/dl (32-36); Mean Corpuscular Hemoglobin 28.5 pg (26-34); Mean Platelet Volume 9.4 fl (7.4-10.4); Monocytes Absolute Auto 0.7 K/mm3 (0.1-0.6); Neutrophils Absolute Auto 9.5 K/mm3 (1.3-6.7); Neutrophils Percent Auto 79.3 % (45.5-73.1); Platelet Count Result 247 k/mm3 (150-375); Red Blood Count 4.11 M/mm3 (4.6-6.20)
[2024-11-04 10:17] LABS: Alanine Aminotransferase 18 U/L (6-50); Albumin Level 3.4 g/dL (3.5-5.1); Alkaline Phosphatase 84 U/L (38-126); Anion Gap 7 mmol/L (4-12); Aspartate Amino Transferase 24 U/L (17-59); Bilirubin,Total 0.5 mg/dL (0.2-1.3); Blood Urea Nitrogen 23 mg/dL (9-20); Calcium 9.2 mg/dL (8.4-10.2); Carbon Dioxide 24 mmol/L (22-30); Chloride 106 mmol/L (98-107); Estimated CRCL calculation 17 ml/min; Estimated Glomerular Filt Rate 19; Glucose 112 mg/dL (65-110); Potassium 3.6 mmol/L (3.4-5.0); Sodium 137 mmol/L (137-145)
[2024-11-04 10:35] LABS: Add Urine Microscopic? YES; Appearance Urine Cloudy (Clear); Bacteria Urine 4+ /hpf; Bilirubin Urine Negative (Negative); Blood Urine 2+ (Negative); Color Urine Yellow (Yellow); Glucose Urine UA Negative (Negative); Ketones Urine Negative (Negative); Leukocyte Esterase Ur 3+ LEU/UL (Negative); Need Manual Microscopic Reviewed; Nitrate Urine Negative (Negative); Protein Urine 1+ mg/dL (Negative); RBC Urine 0-2 /hpf (0-2); Squamous Epithelial Cell Urine None Seen /hpf (Few); Urobilinogen Urine 0.2 mg/dL (<2.0); WBC Urine >100 /hpf (0-3); pH Urine 5.5 (5.0-9.0)
[2024-11-04] MEDS: SODIUM CHLORIDE 0.9% IV 500 ML 999 ML IV CONT (11:49)
--- NOTE | 2024-11-04 11:56 | ED.WEAKNESS ---
HPI - Weakness General Chief complaint: Weakness Stated complaint: weakness Time Seen by Provider: 11/04/24 11:18 Source: patient and family Mode of arrival: EMS Limitations: no limitations History of Present Illness HPI Narrative: This is an 83-year-old male that presents to the emergency department for generalized weakness. Reports he has felt unwell since this morning. Cannot really localize any symptoms. Denies fevers, chest pain, shortness of breath, abdominal pain, vomiting, dysuria Related Data Home Medications ?Medication ?Instructions ?Recorded ?Confirmed ?Last Taken ?Type calcium carbonate 600 mg PO DAILY 12/13/21 10/06/24 09/22/23 09:00 History amiodarone 200 mg tablet 200 mg PO DAILY 10/06/24 10/06/24 Unknown History loratadine 10 mg tablet (Claritin) 10 mg PO DAILY 10/06/24 10/06/24 Unknown History Allergies Allergy/AdvReac Type Severity Reaction Status Date / Time morphine Allergy Severe HIVES Verified 11/04/24 10:03 No Known Food Allergies Allergy Other Verified 11/04/24 10:03 meperidine AdvReac severe Verified 11/04/24 10:03 constipation Review of Systems Review of Systems: CONSTITUTIONAL: Denies fever CARDIOVASCULAR: Denies chest pain, or edema. RESPIRATORY: Denies dyspnea. GASTROINTESTINAL: Denies abdominal pain, nausea, vomiting GENITOURINARY: Denies dysuria or hematuria. NEUROLOGIC: Reports generalized weakness. All systems reviewed & are unremarkable except as noted in HPI and below PMFSH Past Medical History Medical History (Updated 11/04/24 @ 12:46 by Sada Bruce PA-C) Prediabetes Colon cancer Status post partial colectomy and chemoradiation. 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 Iron deficiency anemia Deep vein thrombosis of left lower extremity (2018) Provoked DVT following admission. Coronary artery disease Multivessel coronary artery disease noted on cardiac catheterization in September 2023 including the LAD, RCA, and an obtuse marginal. Patient declined MIDCAB and is being treated medically. Cardiomyopathy On LifeVest from September to February 2024. Vitamin D deficiency Psoriasis Benign prostatic disease Osteoarthritis Foot drop Surgical History Surgical History History of cervical spinal surgery (10/2018) History of left knee replacement (2000) History of partial colectomy (1994) History of lumbosacral spine surgery early Family History Family History Other Cancer Cerebrovascular accident Hypertension Social History Social History Social History: Surrogate medical decision maker: David ColemanJr. (son). Code status: Full code. Smoking packs per day: 1 Smoking cigarettes per day: 20.0 Years smoked: 2 Smoking pack-years: 2.00 Smoking status: Never smoker Tobacco type: cigarettes Second hand tobacco smoke exposure: No Smoking end date: 07/15/59 Alcohol intake: never Substance use: never Substance use type: does not use Do You Feel Safe in your Home?: Yes Lack of Transportation: No Lack of Food: Never True Current Housing: I Have Housing Concerned About Future Housing: No Difficulty Paying Gas/Electric Bills: No Difficulty Paying for Meds: No Currently Unemployed: No Education: Don't Know Difficulty w/ Childcare or Family Care: No Living arrangements: with family Additional living arrangements comments: Lives alone. 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 He has bilateral footdrop and cannot ambulate even with his AFO braces. He uses a slide board to transfer. Occupation/Education: retired Spiritual care concerns: No Exam Narrative: GENERAL: Elderly, well-nourished, and in no acute distress. HEAD: Normocephalic, atraumatic. EYES: PERRLA and EOMI. ENT: Nares clear, no rhinorrhea or epistaxis. Mucous membranes moist. Oropharynx without tonsillar hypertrophy exudate or other lesions. Bilateral TMs pearly prather non-bulging NECK: Supple. No adenopathy or masses. CHEST: Clear to auscultation. No respiratory distress. No wheezes rales or rhonchi HEART: Regular rate and rhythm. No murmur heard. Normal peripheral pulses. ABDOMEN: Soft, nontender, nondistended, normal active bowel sounds. EXTREMITIES: Normal range of motion. No edema. SKIN: Warm, dry, no rash. NEURO: No focal deficits. Alert and oriented x3. PSYCH: Normal mood and affect Course Course Emergency Course: Patient family updated on workup and recommendation for admission. Patient would like to trial further management with outpatient oral antibiotics. Does report he has around the clock care at home. His family is in agreement with this plan Vital Signs Vital signs: Vital Signs Temperature 97.5 F L 11/04/24 08:51 Pulse Rate 49 L 11/04/24 08:51 Respiratory Rate 16 11/04/24 08:51 Blood Pressure 85/66 L 11/04/24 08:51 Pulse Oximetry 98 11/04/24 08:51 Temperature 97.5 F L 11/04/24 08:51 Pulse Rate 47 L 11/04/24 12:45 Respiratory Rate 13 11/04/24 12:45 Blood Pressure 124/69 11/04/24 11:45 Pulse Oximetry 100 11/04/24 11:46 MDM - Weakness MDM Narrative Medical decision making narrative: Patient presents to the emergency department for generalized weakness. Blood pressure soft upon arrival, this normalized before any intervention. He was lightly hydrated in the ED. CBC with leukocytosis to 12. Hemoglobin appears stable. Metabolic panel without evidence of patient's renal dysfunction. Urine with evidence of infection. This was sent for culture. Patient started on IV antibiotics. Influenza, RSV and COVID screens are negative. Chest x-ray without acute cardiopulmonary abnormality. Patient family updated on workup and recommendation for admission. Patient would like to trial further management with outpatient oral antibiotics. Does report he has around the clock care at home. His family is in agreement with this plan. He will be continued on oral antibiotics. Instructed to follow up with primary provider. He was given warnings to return to the ER Differential Diagnosis Differential diagnosis: Likely anemia, hypoglycemia, sepsis, dehydration and other (UTI, electrolyte derangement) Lab Data Attestation: I reviewed the patient's lab results. 11/04/24 09:58 11/04/24 09:58 Labs: Lab Results 11/04/24 11/04/24 11/04/24 Range/Units 09:58 10:11 11:25 WBC 12.0 H (4.5-10.0) K/mm3 RBC 4.11 L (4.6-6.20) M/mm3 Hgb 11.7 L (14.0-18.0) g/dL Hct 37.4 L (42.0-52.0) % MCV 91.0 (80-100) fl MCH 28.5 (26-34) pg MCHC 31.3 L (32-36) g/dl RDW 18.0 H (11.5-14.5) % Plt Count 247 (150-375) k/mm3 MPV 9.4 (7.4-10.4) fl Immature Gran % (Auto) 0.9 H (0-0.5) % Neut % (Auto) 79.3 H (45.5-73.1) % Lymph % (Auto) 11.8 L (18.3-44.2) % [place] % (Auto) 6.0 (2.6-8.5) % Eos % (Auto) 1.4 (0-4.4) % Baso % (Auto) 0.6 (0.2-1.2) % Lymph # (Auto) 1.41 (0.9-3.2) K/mm3 [place] # (Auto) 0.7 H (0.1-0.6) K/mm3 Eos # (Auto) 0.2 (0-0.3) K/mm3 Baso # (Auto) 0.1 (0.0-0.1) K/mm3 Abs Immat Gran (auto) 0.11 H (0.00-0.031) K/mm3 Absolute Neuts (auto) 9.5 H (1.3-6.7) K/mm3 Absolute Nucleated RBC 0.000 (0.0-0.012) K/mm3 Nucleated RBC % 0.0 (0.0-0.2) % Sodium 137 (137-145) mmol/L Potassium 3.6 (3.4-5.0) mmol/L Chloride 106 (98-107) mmol/L Carbon Dioxide 24 (22-30) mmol/L Anion Gap 7 (4-12) mmol/L BUN 23 H (9-20) mg/dL Creatinine 3.15 H (0.7-1.3) mg/dL Estim Creat Clear Calc 17 ml/min Estimated GFR 19 L (59 - ) Glucose 112 H (65-110) mg/dL Calcium 9.2 (8.4-10.2) mg/dL Total Bilirubin 0.5 (0.2-1.3) mg/dL AST 24 (17-59) U/L ALT 18 (6-50) U/L Alkaline Phosphatase 84 (38-126) U/L Total Protein 7.0 (6.3-8.2) g/dL Albumin 3.4 L (3.5-5.1) g/dL Urine Color Yellow (Yellow) Urine Appearance Cloudy H (Clear) Urine pH 5.5 (5.0-9.0) Ur Specific [place] 1.010 (1.001-1.035) Urine Protein 1+ H (Negative) mg/dL Urine Glucose (UA) Negative (Negative) mg/dL Urine Ketones Negative (Negative) mg/dL Ur Blood (Man) 2+ H (Negative) Urine Nitrate Negative (Negative) Urine Bilirubin Negative (Negative) Urine Urobilinogen 0.2 (<2.0) mg/dL Add Ur Microanalysis Reviewed Leukocyte Esterase Rfl 3+ H (Negative) OLIVIA/UL Urine RBC 0-2 (0-2) /hpf Urine WBC >100 H (0-3) /hpf Ur Squamous Epith Cells None seen (Few) /hpf Urine Bacteria 4+ H /hpf Urine Casts 6-10 Influenza A (RT-PCR) Negative (Negative) Influenza B (RT-PCR) Negative (Negative) RSV (RT-PCR) Negative (Negative) SARS-CoV-2 RNA (RT-PCR) Negative (Negative) Imaging Data Radiologist's impression: ITS Impressions Chest X-Ray 11/04/24 12:30 IMPRESSION: 1. No acute cardiopulmonary disease. ECG Data EKG #1: ECG completion date: 11/04/24 EKG Interpretation: bradycardia, sinus rhythm, no ST changes, normal QT and no acute changes (compared to EKG 04/2024) Critical Care Time Critical Care Time Critical Care Time: No Discharge Plan Discharge Clinical Impression: Acute UTI Patient Disposition: Home Condition: Improved Instructions: Antibiotic Form, Urinary Tract Infection in Men (ED) Additional Instructions: Return to the emergency department if you experience fever, chest pain, shortness of breath, abdominal pain with nausea and vomiting, weakness, numbness, or any other symptoms that are concerning to you. Take oral antibiotics as prescribed Follow up with your primary care doctor Patient Language: Tuvaluan Prescriptions: New cefdinir 300 mg capsule 300 mg PO Q12H 7 Days Qty: 14 0RF No Action calcium carbonate 600 mg calcium (1,500 mg) tablet 600 mg PO DAILY loratadine [Claritin] 10 mg tablet 10 mg PO DAILY amiodarone 200 mg tablet 200 mg PO DAILY fluticasone propionate [Flonase Allergy Relief] 50 mcg/actuation spray,suspension 2 spray intranasal DAILY Qty: 16 0RF Rx Instructions: administer into each nostril (DME) electric [facility] bed See Rx Instructions .Route .MEDSUPPLY Qty: 1 0RF Rx Instructions: As directed tamsulosin 0.4 mg capsule 0.4 mg PO DAILY Qty: 90 1RF finasteride 5 mg tablet 5 mg PO DAILY Qty: 90 1RF ferrous sulfate 325 mg (65 mg iron) tablet,delayed release (DR/EC) 325 mg PO DAILY Qty: 90 2RF aspirin [Children's Aspirin] 81 mg tablet,chewable 81 mg PO DAILY@0800 Qty: 90 1RF rosuvastatin [Crestor] 40 mg tablet 40 mg PO QHS Qty: 90 1RF clopidogrel 75 mg tablet 75 mg PO QAM Qty: 90 1RF (DME) Gee lift See Rx Instructions .Route .MEDSUPPLY Qty: 1 0RF Rx Instructions: As directed metoprolol succinate [Toprol XL] 25 mg tablet extended release 24 hr 25 mg PO QAM Qty: 90 1RF omeprazole 20 mg capsule,delayed release(DR/EC) 20 mg PO DAILY Qty: 90 1RF (DME) John Paul fitzpatrick See Rx Instructions .Route .MEDSUPPLY Qty: 1 0RF Rx Instructions: As directed Follow-up/Referrals: Hilda Painting MD [Primary Care Provider] -
[2024-11-04 12:07] LABS: Influenza A QL RT-PCR Negative (Negative); Influenza B QL RT-PCR Negative (Negative); RSV RNA, RT-PCR Negative (Negative); SARS-CoV-2 RNA PCR Negative (Negative)
--- NOTE | 2024-11-04 13:24 | PC.NURSE ---
Pt. dressed by this RN and x ray technician. Son at bedside.
--- OUTSIDE RECORDS SUMMARY | 2024-11-04 13:27 | XMS_ITS | Clinical Summary ---
Author Organization [facility] Address [address] [place] [phone] Phone Care Team Providers Care Edge Inker Uppers Name Role Phone Akhil Painting MD Primary [...] Comments Blood Pressure 134/76 06/04/2022 11:32 AM FORECLOSURE CLERK Pulse - - Temperature 36.5 C (97.7 F) 06/04/2022 11:32 AM FORECLOSURE CLERK Respiratory Rate 18 06/04/2022 11:32 AM FORECLOSURE CLERK Oxygen Saturation - - Inhaled Oxygen Concentration - - Weight 74.8 kg (165 lb) 02/19/2022 9:42 AM CDT Height 175.3 cm (5' 9 ) 06/04/2022 11:32 AM FORECLOSURE CLERK Body Mass Index 24.37 02/19/2022 9:42 AM CDT Plan of Treatment Health Maintenance Due Date Last Done Comments Pneumococcal PPSV23/PCV13 65 + Years / Low and Medium Risk (1 of 4 - PCV) 1990 COVID-19 Vaccine (2 - season) 03/15/202403/2021, 10/19/2020 Influenza Vaccine (Season Ended) 2025 04/14/20 14, 03/15/2014 Insurance MEDICARE [facility] Care Teams Edge Inker Uppers Relationship Specialty Start Date End Date Akhil Painting MD [address] [place] [address] PCP - General Internal Medicine 12/26/21
--- OUTSIDE RECORDS SUMMARY | 2024-11-04 13:27 | XMS_ITS | Clinical Summary ---
Author Organization [facility] Address Pending sale to [facility] [place] [address] Care Team Providers Care Forest Fire Fighter Name Role Phone Akhil Painting MD Primary [...] COLLAR) MiscIndications :Spinal stenosis of cervical region [facility] 1 each 09/23/2018 Active acetaminophen [...] 02/05/2019 Physical deconditioning 02/05/2019 Postprocedural intraabdominal abscess ([facility]) 12/09/2018 Gastrojejunostomy tube dislodgement 11/28/2018 Essential hypertension 11/03/2018 Weakness of distal arms and legs 11/02/2018 S/P cervical spinal fusion 10/30/2018 Cervical myelopathy ([facility]) 10/29/2018 Spinal stenosis of cervical region 09/23/2018 [...] on file 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 Tube Implant N/A: Abdomen [employer] A MST CO [id number] 09/23/2019 / / [id number] Graft Infuse Bone Small - [id number] Implanted:Qty: 1 on 10/29/2018 by Soto Castillo MD at [facility] N/A: Spine Cervical [employer] 12/12/2020 [id number] / / [id number] [place] Lordotic [place] Spacer Implanted:Qty: 1 on 10/29/2018 by Soto Castillo MD at [facility] N/A: Spine Cervical SEASPINE [id number] 02/20/2022 39-2607-S / / [id number] Description:C3-C4 Beth Lordotic [place] Spacer Implanted:Qty: 1 on 10/29/2018 by Soto Castillo MD at [facility] N/A: Spine Cervical SEASPINE [id number] 08/05/2022 39-2607-[id number] / / [id number] Description:C4-C5 Screw Implanted:Qty: 6 on 10/29/2018 by Soto Castillo MD at [facility] N/A: Spine Cervical MARISSA SPINE - DIV MARISSA KT [id number] / / 2 Level Plate Implanted:Qty: 1 on 10/29/2018 by Soto Castillo MD at [facility] N/A: Spine Cervical MARISSA SPINE - DIV MARISSA KT [id number] / / Explanted Type Area Utility Systems Repairer Operator Device Identifier Shelf Expiration Date Model / Serial / Lot Distration Pin 12mm - [id number] Explanted:Qty: 3 on 10/29/2018 at [facility] [employer] DP-12-TB / / Insurance MEDICARE [facility] Advance Directives Documents on File Type Date Recorded Patient Sales Operations Expl anation Advance Directives and Living Will [...] 1:26 PM 10/31/2018 6:17 PM Care Teams Forest Fire Fighter Relationship Specialty Start Date End Date Akhil Painting MD PCP - General FAMILY PRACTICE 09/15/18 Soto Castillo MD Surgeon NEUROLOGICAL SURGERY 10/16/18
--- OUTSIDE RECORDS SUMMARY | 2024-11-04 13:27 | XMS_ITS ---
Author Name Be Hoff Address [address] [place] [address] Phone [phone] [facility][Note 3] ices Address [address] [place] [address] Phone [phone] Care Team Providers Care Graduate Research Assistant Name Role Phone Be Hoff Unavailable Yissel [...] for 8 Days flush picc line per [facility]. SatDec 20 10:00:00 ED2018Dec 24 16:48:00 EDT [...] 20 07:00:00 ED2018November 20 17:11:00 EDT 2018 Neosporin(tiu-otr-jlouu) 3.5 mg-400 unit-5,000 unit top ointment packt 1 application OINTMENT IN PACKET (EA) Topical 1 Time Daily for 4 Days Apply to G-tube site SatNovember 17 15:00:00 EDT 2018November 21 14:59:00 ED2018 Jevity 1.2 Jose 0.06 gram-1.2 kcal/mL oral liquid 65ml/hr LIQUID (ML) Oral 2 Times Daily Jevity 1.2 at 85/hour from 7860-0384 SatNovember 17 16:00:00 EDT 2018November 17 15:42:00 ED2018 water (bulk) liquid 140ml LIQUID (ML) G- tube Every 4 Hours Water [id number] cc every 4 hours SatNovember 17 09:00:00 [...] 2 Times Daily Jevity 85mL/hr x 18hours 8979-1337 SatNovember 17 16:00:00 EDT 2018November 24 16:25:00 [...] SatNovember 14 15:00:00 2018Jan 19 00:59:00 2018 Neosporin(cjr-maz-ikfgx) 3.5 mg-400 unit-5,000 unit top ointment packt [...]
--- OUTSIDE RECORDS SUMMARY | 2024-11-04 13:27 | XMS_ITS ---
Author Name Be Hoff Address [address] [place] [address] Phone [phone] [facility] ices Address [address] [place] [address] Phone [phone] Care Team Providers Care Machine Installer Name Role Phone Be Hoff Unavailable [phone] Yissel Orozco Unavailable Susan Neff Unavailable Functional [...] for 8 Days flush picc line per [facility]. SatDec 20 10:00:00 ED2018Dec 24 [...] Time Daily Supplement SatDecember 06 07:00:00 ED2018 [facility] Dec 18 13:09:00 ED2018 Vitamin B-12 500 [...] 20 07:00:00 ED2018November 20 17:11:00 EDT 2018 Neosporin(cxl-snt-nhnds) 3.5 mg-400 unit-5,000 unit top ointment packt 1 application OINTMENT IN PACKET (EA) Topical 1 Time Daily for 4 Days Apply to G-tube site SatNovember 17 15:00:00 EDT 2018November 21 14:59:00 ED2018 Jevity 1.2 Jose 0.06 gram-1.2 kcal/mL oral liquid 65ml/hr LIQUID (ML) Oral 2 Times Daily Jevity 1.2 at 85/hour from 8781-7121 SatNovember 17 16:00:00 EDT 2018November 17 15:42:00 ED2018 water (bulk) liquid 140ml LIQUID (ML) G- tube Every 4 Hours Water [email or web address] cc every 4 hours SatNovember 17 09:00:00 [...] 2 Times Daily Jevity 85mL/hr x 18hours 5594-5755 SatNovember 17 16:00:00 EDT 2018November 24 16:25:00 [...] SatNovember 14 15:00:00 2018Jan 19 00:59:00 2018 Neosporin(nwx-hcz-bzhxf) 3.5 mg-400 unit-5,000 unit top ointment packt [...]
--- OUTSIDE RECORDS SUMMARY | 2024-11-04 13:27 | XMS_ITS | Clinical Summary ---
Author Organization [facility] Address [address] [place] [address] Phone Care Team Providers Care Residential Assistant Name Role Phone Akhil Painting MD [...] Care Team Description 10/26/2024 Telephone [facility] Medical Group Cardiology [address] [place] [phone] Kami Haines NP 10/22/2024 2:30 PM CDT Office Visit [facility] Medical [facility] Cardiology [address] [place] [phone] Kami Haines NP [place] (ventricular tachycardia) ([facility]) (Primary Dx); 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; senior care current use of amiodarone from Last 3 Months Immunizations Immunization Administration Dates Next Due Influenza, Trivalent, Preservative Free, Intramu scular 04/14/2014,03/15/2014 Pfizer SARS-CoV-2 Monovalent Vaccination (12+ Yrs) PURPLE 04/22/2021 Surgical History Surgery Date Site/Laterality Comments BACK SURGERY Back Surgery - (Added by BEATA Conv) NE ARTHROPLASTY KNEE TIBIAL PLATEAU Knee Replacement - (Added by BEATA Conv) Social History Tobacco Use Types Packs/Day Years Used Date Smoking Tobacco: Former Tobacco Cessation:Counseling Given: Not Answered Sex and Gender Information Value Date Recorded Sex Assigned at Not on file 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
--- OUTSIDE RECORDS SUMMARY | 2024-11-04 13:27 | XMS_ITS | Referral Summary ---
Author Organization [facility] Address [address] [place] [address] Phone Care Team Providers Care Folder Tier Name Role Phone Akhil Painting MD Primary Care Provider Encounters Date Type Department Care Team Description 10/26/[address] 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
--- NOTE | 2024-11-04 13:46 | PC.NURSE ---
Staff assisted pt. with getting pt. into home w/c. Pt. d/c home with family and primary caregiver.
== END 2024-11-04 13:50 | disposition home or self-care (01) ==
PROVIDERS: Emergency Medicine; Emergency Provider Physician Assistant; PCP Family Medicine
DX: N39.0 Urinary tract infection, site not specified (principal); R00.1 Bradycardia, unspecified; N18.9 Chronic kidney disease, unspecified; Z86.718 Personal history of other venous thrombosis and embolism; I25.10 Atherosclerotic heart disease of native coronary artery without angina pectoris; M19.90 Unspecified osteoarthritis, unspecified site
CPT/HCPCS: 36415; 71046; 80053; 81001; 85025; 87040; 87086; 87181; 87637; 93005; 96365; 99284; J0696; J7040

== ENCOUNTER 2024-11-25 09:06 | Outpatient (NON) | payer MEDICARE, SELFPAY ==
--- OUTSIDE RECORDS SUMMARY | 2024-11-25 09:14 | XMS_ITS ---
Author Name Auto Generated, Auto Generated Organization [facility] ices Address [address] [place] [address] Phone [phone] Care Team Providers Care Slubber Operator Name Role Phone Be Hoff Unavailable Yissel Orozco Unavailable [phone] Susan Neff Unavailable [phone] Functional Status No Results Mental Status No Results Allergies and Intolerances Name Onset Date Reaction Severity No Known Allergies (Allergy) SatNovember 14 15:28:00 EDT 2018 Medications Medication Directions Start Date End Date [...] 12 16:00:00 EDT 2018Jan 19 00:59:00 EDT 2018 levoFLOXacin 750 mg tablet 750mg TABLET Oral [...] 06 19:00:00 EDT 2018Jan 12 16:11:00 EDT 2018 nystatin 100,000 unit/gram topical powder 1 application POWDER (GRAM) Topical 2 Times Daily for 7 Days Apply nystatin powder to nasim-area BID & PRN SatJan 05 15:00:00 EDT 2018Jan 12 14:59:00 EDT 2018 Xarelto 15 mg tablet 15mg TABLET Oral 2 Times Daily for 21 Days DVT proph SatJan 03 09:00:00 EDT 2018Jan 19 00:59:00 EDT 2018 Xarelto 20 mg tablet 20mg TABLET Oral 1 Time Daily DVT proph SatJan 24 09:00:00 EDT 2018Jan 19 00:59:00 EDT 2018 metroNIDAZOLE 500 mg tablet 500mg TABLET Oral Every 8 Hours for 6 Days Intra-abdominal Abscess SatDec 27 09:00:00 EDT 2018Jan 02 08:59:00 EDT 2018 metoclopramide 5 mg tablet 5mg TABLET Or [...] for 8 Days flush picc line per [facility]. Sat Dec 20 10:00:00 ED2018Dec 24 16:48:00 EDT 2018 melatonin 10 mg tablet 10mg TABLET Oral 1 Time Daily insomnia SatDec 20 01:00:00 EDT 2018Jan 19 00:59:00 EDT 2018 LORazepam 0.5 mg tablet 0.5mg TABLET Ora l PRN 2 Times Daily anxiety SatDec 20 01:00:00 EDT 2018Jan 14 11:44:00 EDT 2018 Acidophilus chewable tablet 2 TABS TABLE T,CHEWABLE Oral 2 Times Daily for 22 Days SatDec 19 09:00:00 ED2018Jan 10 08:59:00 EDT 2018 sertraline 50 mg tablet 50mg TABLET Oral 1 Time Daily Depression SatDec 20 07:00:00 EDT 2018Jan 19 00:59:00 EDT 2018 Vitamin D3 2,000 unit capsule 10,000 Unit CAPSULE Oral 1 Time Daily Supplement Tavia Dec 18 13:00:00 EDT 2018Jan 19 00:59:00 EDT 2018 TUBErsol [...] Days Intra-abdominal Abscess SatDec 26 08:00:00 EDT 2018Jan 02 07:59:00 EDT 2018 metroNIDAZOLE 500 mg tablet 500mg TABLET Oral [...] SatDec 17 13:00:00 ED2018Dec 25 12:59:00 ED2018 clonazePAM 0.25 mg disintegrating tablet 0.25mg TABLET,DISINTEGRATING Oral PRN 2 Times Daily Anxiety SatDec 17 13:00:00 ED2018 06 13:09:00 ED2018 HYDROcodone 5 mg-acetaminophen 325 mg tablet 1 tablet TABLET Oral PRN Every 8 Hours Pain SatDec 17 13:00:00 ED2018Jan 19 00:59:00 ED2018 Sterile Saline 0.9 % irrigation solution 5-10mL SOLUTION, IRRIGATION Irrigate 2 Times Daily SatDec 17 13:00:00 ED2018Jan 04 14:46:00 EDT 2018 cephALEXin 500 mg capsule 500mg CAPSULE Oral 2 Times Daily for 7 Days Infection to abd incision. SatDecember 06 07:00:00 EDT 2018Dec 13 06:59:00 EDT 2018 enoxaparin 40 mg/0.4 mL subcutaneous syringe 0.4ml SYRINGE (ML) Subcutaneous 1 Time Daily DVT prophylactic SatDecember 05 15:00:00 EDT 2018Jan 03 16:08:00 EDT 2018 Vitamin D3 1,000 unit tablet 5,000 units TABLET Oral 1 Time Daily Supplement SatDecember 06 07:00:00 ED2018 Tavia Dec 18 13:09:00 ED2018 Vitamin B-12 500 mcg tablet 500mcg TABLE T Oral 1 Time Daily Supplement SatDecember 06 07:00:00 EDT 2018 Tavia Dec 18 13:09:00 ED2018 metoclopramide 10 mg tablet 10mg TABLET Oral 2 Times Daily SatNovember 26 14:00:00 ED2018December 05 15:26:00 ED2018 prochlorperazine maleate 5 mg tablet 5mg TABLET Oral PRN Every 8 Hours N/V SatNovember 26 14:00:00 ED2018December 05 15:26:00 ED2018 water (bulk) liquid 75 ml LIQUID (ML) G- tube 3 Times Daily SatNovember 26 16:00:00 2018December 05 15:26:00 2018 water (bulk) liquid 100 ml LIQUID (ML) [...] 20 mg TABLET Oral 1 Time Daily SatDec 14 10:00:00 ED2018December 05 15:20:00 ED2018 Vitamin D3 1,000 unit tablet 10,000 unit s TABLET Oral 1 Time Daily Supplement SatNovember 21 07:00:00 EDT 2018December 05 15:23:00 EDT 2018 Vitamin D3 1,000 unit tablet 1,0000 unit TABLET Oral 1 Time Daily SatNovember 20 07:00:00 EDT 2018November 20 17:11:00 EDT 2018 Neosporin(aix-atf-azxuy) 3.5 mg-400 unit-5,000 unit top ointment packt 1 application OINTMENT IN PACKET (EA) Topical 1 Time Daily for 4 Days Apply to G-tube site SatNovember 17 15:00:00 EDT 2018November 21 14:59:00 EDT 2018 Jevity 1.2 Jose 0.06 gram-1.2 kcal/mL oral liquid 65ml/hr LIQUID (ML) Oral 2 Times Daily Jevity 1.2 at 85/hour from 8644-2283 SatNovember 17 16:00:00 EDT 2018November 17 15:42:00 EDT 2018 water (bulk) liquid 140ml LIQUID (ML) G- tube Every 4 Hours Water [id number] cc every 4 hours SatNovember 17 09:00:00 EDT 2018November 17 15:44:00 EDT 2018 Jevity 1.2 Jose 0.06 gram-1.2 kcal/mL oral liquid 85mL/hr LIQUID (ML) G-tube 2 Times Daily SatNovember 17 15:00:00 EDT 2018November 17 15:49:00 EDT 2018 water (bulk) liquid 125mL LIQUID (ML) G- tube Every 4 Hours SatNovember 17 15:00:00 EDT 2018November 17 15:50:00 EDT 2018 Jevity 1.2 Jose 0.06 gram-1.2 kcal/mL oral liquid 85mL/hr LIQUID (ML) G-tube 2 Times Daily Jevity 85mL/hr x 18hours 4180-4675 SatNovember 17 16:00:00 EDT 2018November 24 16:25:00 EDT 2018 water (bulk) liquid 125mL LIQUID (ML) G- tube Every 4 Hours Flush g-tube 125mL every 4 hours SatNovember 17 15:00:00 EDT 2018November 24 16:25:00 EDT 2018 TUBErsol 5 tub. unit/0.1 mL intradermal injection solution Read Results VIAL (ML) Other 1 Time Weekly for 2 Weeks Read results between 48-72 hours after 1st and 2nd 1 week apart. If positive do chest x-ray to rule out active disease. SatNovember 15 07:00:00 ED2018November 29 06:59:00 ED2018 water (bulk) liquid 140ml LIQUID (ML) G- tube Every 4 Hours Water flush SatNovember 15 09:00:00 ED2018November 17 15:40:00 ED2018 Lovenox 40 mg/0.4 mL subcutaneous syringe 40mg SYRINGE (ML) Subcutaneous 1 Time Daily DVT SatNovember 15 07:00:00 ED2018November 21 12:53:00 ED2018 ipratropium-albuterol 0.5 mg-3 mg(2.5 mg base)/3 mL nebulization soln 3mls AMPUL FOR NEBULIZATION (ML) Inhalation PRN Every 6 Hours SOB SatNovember 14 15:00:00 ED2018Jan 19 00:59:00 ED2018 Neosporin(koq-foh-drfbi) 3.5 mg-400 unit-5,000 unit top ointment packt 1 application OINTMENT IN PACKET (EA) Topical 1 Time Daily for 4 Days SatNovember 15 07:00:00 2018November 17 15:28:00 2018 Jevity 1.2 Jose 0.06 gram-1.2 kcal/mL oral liquid 65ml/hr LIQUID (ML) Oral Continuous SatNovember 14 16:00:00 ED2018November 17 15:30:00 2018 amLODIPine 10 mg tablet 10mg TABLET G-tu be 1 Time Daily HTN SatNovember 15 07:00:00 2018Jan 19 00:59:00 2018 acetaminophen 500 mg tablet 500mg TABLET Oral PRN Every 6 Hours Pain SatNovember 14 15:00:00 ED2018November 14 15:52:00 ED2018 alfuzosin ER 10 mg tablet,extended release 24 hr 10mg TABLET, EXTENDED RELEASE 24 HR G-tube 1 Time Daily urinary retention SatNovember 15 07:00:00 2018Jan 19 00:59:00 2018 Calcium 600 600 mg calcium (1,500 mg) tablet 600mg TABLET G-tube 2 Times Daily Supplement SatNovember 14 15:00:00 2018Jan 19 00:59:00 EDT 2018 acetaminophen 500 mg tablet 500mg TABLET G-tube PRN Every 6 Hours Pain SatNovember 14 15:00:00 EDT 2018November 23 13:21:00 EDT 2018 fluticasone propionate 50 mcg/actuation nasal spray,suspension 1 spray SPRAY, SUSPENSION Intranasal 1 Time Daily SatNovember 15 07:00:00 EDT 2018Jan 19 00:59:00 EDT 2018 methocarbamol 750 mg tablet 750mg TABLET G-tube PRN 3 Times Weekly Muscle spasm SatNovember 15 07:00:00 EDT 2018November 23 13:25:00 EDT 2018 metoclopramide 10 mg tablet 10mg TABLET G-tube 3 Times Daily for 10 Days Nausea/vomiting SatNovember 14 15:00:00 EDT 2018November 24 14:59:00 EDT 2018 omeprazole 40 mg capsule,delayed release 40mg CAPSULE,DELAYED RELEASE (ENTERIC COATED) G-tube 1 Time Daily GERD SatNovember 15 07:00:00 EDT 2018Jan 19 00:59:00 EDT 2018 Vitamin B-12 ER 500 mcg tablet,extended release 500mcg TABLET, EXTENDED RELEASE G-tube 1 Time Daily Supplement SatNovember 15 10:00:00 EDT 2018November 17 12:59:00 EDT 2018 Vitamin D3 5,000 unit tablet 1 tab TABLE T G-tube 1 Time Daily Supplement SatNovember 15 07:00:00 EDT 2018November 20 17:11:00 EDT 2018 TUBErsol 5 tub. unit/0.1 mL intradermal injection solution 0.1 ml VIAL (ML) Intradermal 1 Time Weekly for 2 Weeks (PPD) 1st injection upon admission. Read between 48 and 72 hours and give 2nd injection 1 week after the 1st if result is negative. If positive result, proceed with chest x-ray to rule out active disease. SatNovember 15 07:00:00 EDT 2018November 29 06:59:00 EDT 2018 water (bulk) liquid 120ml LIQUID (ML) G- [...] EDT 2018 * End Date: * Text: Reason for Referral Past Medical History
--- OUTSIDE RECORDS SUMMARY | 2024-11-25 09:14 | XMS_ITS | Clinical Summary ---
Author Organization [facility] Address [address] [place] [address] Phone Care Team Providers Care Child Day Care Provider Name Role Phone Akhil Painting MD Primary [...] bedtime 4 Active amiodarone (PACERONE) 100 mg tabletIndication s:Life-Threateni ng Ventricular Tachycardia Take 1 tablet (100 mg total) by mouth daily 90 tablet 3 Active metoprolol XL (TOPROL-XL) 25 mg extended release tablet Take 1 tablet (25 mg total) by mouth every morning 90 tablet 3 5 Active Active Problems Problem Noted Date Diagnosed Date Pain of lower extremity 10/19/2014 Lumbago 10/15/2014 Encounters Date Type Department Care Team Description 10/26/2024 Telephone [facility] Medical [facility] Cardiology [address] [place] [address] Kami Haines NP 10/22/2024 2:30 PM CDT Office Visit [facility] Medical [facility] Cardiology [address] [place] [address] Kami Haines NP [place] (ventricular tachycardia) (HCC) (Primary Dx); 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; 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 from Last 3 Months Immunizations Immunization Administration Dates Next Due Influenza, Trivalent, Preservative Free, Intramu scular 04/14/2014,03/15/2014 Pfizer SARS-CoV-2 Monovalent Vaccination (12+ Yrs) PURPLE 04/22/2021 Surgical History Surgery Date Site/Laterality Comments BACK SURGERY Back Surgery - (Added by BEATA Conv) [place] ARTHROPLASTY KNEE TIBIAL PLATEAU Knee Replacement - (Added by BEATA Conv) Social History Tobacco Use Types Packs/Day Years Used Date Smoking Tobacco: Former Tobacco Cessation:Counseling Given: Not Answered Sex and Gender Information Value Date Recorded Sex Assigned at Not on file 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 [id number] [place] [id number] [facility] MEDICARE O Care Teams Child Day Care Provider Relationship Specialty Start Date End Date Akhil Painting MD [address] [facility] [address] [place] [address] PCP - General Family Practice 03/02/24
--- OUTSIDE RECORDS SUMMARY | 2024-11-25 09:14 | XMS_ITS | Referral Summary ---
Author Organization [facility] Address [address] [place] [address] Phone Care Team Providers Care Gta Name Role Phone Akhil Painting MD Primary Care Provider Encounters Date Type Department Care Team Description 10/26/2024 Telephone [facility] Medical [facility] Cardiology [address] [facility] [address] [place] [phone] Kami Haines NP 10/22/2024 2:30 PM CDT Office Visit [facility] Cardiology [address] [facility] [address] [place] [phone] Kami Haines NP [place] (ventricular tachycardia) (HCC) (Primary Dx); 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; 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
--- OUTSIDE RECORDS SUMMARY | 2024-11-25 09:14 | XMS_ITS ---
Author Name Auto Generated, Auto Generated Organization [facility] [employer] [facility] ices Address [address] [place] [address] Phone [phone] Care Team Providers Care Real Estate Paralegal Name Role Phone Be Hoff Unavailable Yissel Orozco Unavailable [phone] Susan Neff Unavailable Functional Status No Results [...] 8 Days flush picc line per [facility]. Sat Dec 20 10:00:00 ED2018Dec 24 16:48:00 [...] 07:00:00 EDT 2018November 20 17:11:00 EDT 2018 Neosporin(exx-bpc-vhoek) 3.5 mg-400 unit-5,000 unit top ointment packt 1 application OINTMENT IN PACKET (EA) Topical 1 Time Daily for 4 Days Apply to G-tube site SatNovember 17 15:00:00 EDT 2018November 21 14:59:00 EDT 2018 Jevity 1.2 Jose 0.06 gram-1.2 kcal/mL oral liquid 65ml/hr LIQUID (ML) Oral 2 Times Daily Jevity 1.2 at 85/hour from 3130-8086 SatNovember 17 16:00:00 EDT 2018November 17 15:42:00 EDT 2018 water (bulk) liquid 140ml LIQUID (ML) G- tube Every 4 Hours Water [id number] cc every 4 hours SatNovember 17 09:00:00 [...] 2 Times Daily Jevity 85mL/hr x 18hours 1643-3007 SatNovember 17 16:00:00 EDT 2018November 24 16:25:00 [...] SatNovember 14 15:00:00 ED2018Jan 19 00:59:00 ED2018 Neosporin(lbx-msi-flehu) 3.5 mg-400 unit-5,000 unit top ointment packt [...]
--- OUTSIDE RECORDS SUMMARY | 2024-11-25 09:14 | XMS_ITS | Clinical Summary ---
Author Organization [facility] Address [facility]ly [facility] [place] [address] Care Team Providers Care Order Dispatcher Chief Name Role Phone Akhil Painting MD Primary [...] COLLAR) MiscIndications :Spinal stenosis of cervical region [facility] 1 each 09/23/2018 Active acetaminophen 500 [...] 02/05/2019 Physical deconditioning 02/05/2019 Postprocedural intraabdominal abscess ([facility]) 12/09/2018 Gastrojejunostomy tube dislodgement 11/28/2018 Essential hypertension 11/03/2018 Weakness of distal arms and legs 11/02/2018 S/P cervical spinal fusion 10/30/2018 Cervical myelopathy (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 Gender Identity Not on file Sexual Orientation [...] this topic Medical Devices Implanted Type Area Benefit Specialist Device Identifier Shelf Expiration Date Model / Serial / Lot Percutaneous Endoscopic Gastrostomy Set Implanted:Qty: 1 on 11/12/2018 by Caleb Rios MD at [facility] Tube Implant N/A: Abdomen COOK ENDOSCOPY [employer] [id number] 09/23/2019 / / [id number] Graft Infuse Bone Small - [id number] Implanted:Qty: 1 on 10/29/2018 by Soto Castillo MD at [facility] N/A: Spine Cervical [employer] 12/12/2020 [id number] / / [id number] Beth Lordotic Peek-Honcut Spacer Implanted:Qty: 1 on 10/29/2018 by Soto Castillo MD at [facility] N/A: Spine Cervical SE[employer]INE [id number] 02/20/2022 [id number] / / [id number] Description:C3-C4 Beth Lordotic Peek-Honcut Spacer Implanted:Qty: 1 on 10/29/2018 by Soto Castillo MD at [facility] N/A: Spine Cervical SEASPINE [id number] 08/05/2022 [id number] / / [id number] Description:C4-C5 Screw Implanted:Qty: 6 on 10/29/2018 by Soto Castillo MD at [facility] N/A: Spine Cervical MARISSA SPINE - DIV MARISSA KT [id number] / / 2 Level Plate Implanted:Qty: 1 on 10/29/2018 by Soto Castillo MD at [facility] N/A: Spine Cervical MARISSA SPINE - DIV MARISSA KT [id number] / / Explanted Type Area Benefit Specialist Device Identifier Shelf Expiration Date Model / Serial / Lot Distration Pin 12mm - [id number] Explanted:Qty: 3 on 10/29/2018 at 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
--- OUTSIDE RECORDS SUMMARY | 2024-11-25 09:14 | XMS_ITS | Clinical Summary ---
Author Organization [facility] Address [address] [place] [address] Phone Care Team Providers Care Green Belt Name Role Phone Akhil Painting MD Primary [...] Comments Blood Pressure 134/76 06/04/2022 11:32 AM SERVICE DESK ANALYST Pulse - - Temperature 36.5 C (97.7 F) 06/04/2022 11:32 AM SERVICE DESK ANALYST Respiratory Rate 18 06/04/2022 11:32 AM SERVICE DESK ANALYST Oxygen Saturation - - Inhaled Oxygen Concentration - - Weight 74.8 kg (165 lb) 02/19/2022 9:42 AM CDT Height 175.3 cm (5' 9 ) 06/04/2022 11:32 AM SERVICE DESK ANALYST Body Mass Index 24.37 02/19/2022 9:42 AM CDT Plan of Treatment Health Maintenance Due Date Last Done Comments Pneumococcal PPSV23/PCV13 65 + Years / Low and Medium Risk (1 of 4 - PCV) 1990 COVID-19 Vaccine (2 - season) 03/15/202403/2021, 10/19/2020 Influenza Vaccine (Season Ended) 2025 04/14/20 14, 03/15/2014 Insurance MEDICARE [facility] Care Teams Green Belt Relationship Specialty Start Date End Date Akhil Painting MD [address] [place] [address] PCP - General Internal Medicine 12/26/21
[2024-11-25 20:34] LABS: Add Urine Microscopic? YES; Appearance Urine Turbid (Clear); Bacteria Urine 4+ /hpf; Bilirubin Urine Negative (Negative); Blood Urine 2+ (Negative); Color Urine Yellow (Yellow); Glucose Urine UA Negative (Negative); Ketones Urine Negative (Negative); Leukocyte Esterase Ur 3+ LEU/UL (Negative); Need Manual Microscopic Reviewed; Nitrate Urine Negative (Negative); Non Pathogenic Casts >20; Protein Urine 2+ mg/dL (Negative); Specific Grav Ur 1.016 (1.001-1.035); Squamous Epithelial Cell Urine Moderate /hpf (Few); Urobilinogen Urine 0.2 mg/dL (<2.0); WBC Urine >100 /hpf (0-3)
== END 2024-11-25 09:07 | disposition home or self-care (01) ==
PROVIDERS: PCP Family Medicine; Visit Provider Family Medicine
DX: N39.0 Urinary tract infection, site not specified (principal)
CPT/HCPCS: 81001; 87077; 87086; 87186

== ENCOUNTER 2024-12-23 16:12 | Outpatient (NON) | payer MEDICARE, SELFPAY ==
--- OUTSIDE RECORDS SUMMARY | 2024-12-23 18:04 | XMS_ITS | Referral Summary ---
Author Organization [facility] Address [address] [place] [address] Phone Care Team Providers Care Senior Sales Operations Manager Name Role Phone Akhil Painting MD Primary Care Provider Encounters Date Type Department Care Team Description 10/26/2024 Telephone [facility] Medical [facility] Cardiology [address] [facility] [address] [place] [phone] Kami Haines NP 10/22/2024 2:30 PM CDT Office Visit [facility] Cardiology [address] [facility] [address] [place] [phone] Kami Haines NP [place] (ventricular tachycardia) (HCC) (Primary Dx); 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; 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 [address] [place] [address] PCP - General Family Practice 03/02/24
--- OUTSIDE RECORDS SUMMARY | 2024-12-23 18:04 | XMS_ITS | Clinical Summary ---
Author Organization [facility] Address [address] [place] [address] Phone Care Team Providers Care Certified Respiratory Therapist Name Role Phone Akhil Painting MD Primary [...] Type Department Care Team Description 10/26/2024 Telephone [facility] Medical [facility] Cardiology [address] [place] [address] Kami Haines NP 10/22/2024 2:30 PM CDT Office Visit [facility] Medical [facility] Cardiology [address] [place] [address] Kami Haines NP [place] (ventricular tachycardia) (HCC) (Primary Dx); 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; 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 from Last 3 Months Immunizations Immunization Administration Dates Next Due Influenza, Trivalent, Preservative Free, Intramu scular 04/14/2014,03/15/2014 Pfizer SARS-CoV-2 Monovalent Vaccination (12+ Yrs) PURPLE 04/22/2021 Surgical History Surgery Date Site/Laterality Comments BACK SURGERY Back Surgery - (Added by BEATA Conv) [place] ARTHROPLASTY KNEE TIBIAL PLATEAU Knee Replacement - (Added by BEATA Conv) Social History Tobacco Use Types Packs/Day Years Used Date Smoking Tobacco: Former Tobacco Cessation:Counseling Given: Not Answered Sex and Gender Information Value Date Recorded Sex Assigned at Not on file 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
--- OUTSIDE RECORDS SUMMARY | 2024-12-23 18:04 | XMS_ITS | Clinical Summary ---
Author Organization [facility] Address [address] [place] [address] Phone Care Team Providers Care Cap And Stud Machine Operator Name Role Phone Akhil Painting MD Primary [...] Comments Blood Pressure 134/76 06/04/2022 11:32 AM BUFFER MACHINE Pulse - - Temperature 36.5 C (97.7 F) 06/04/2022 11:32 AM BUFFER MACHINE Respiratory Rate 18 06/04/2022 11:32 AM BUFFER MACHINE Oxygen Saturation - - Inhaled Oxygen Concentration - - Weight 74.8 kg (165 lb) 02/19/2022 9:42 AM CDT Height 175.3 cm (5' 9) 06/04/2022 11:32 AM BUFFER MACHINE Body Mass Index 24.37 02/19/2022 9:42 AM CDT Plan of Treatment Health Maintenance Due Date Last Done Comments Pneumococcal PPSV23/PCV13 65 + Years / Low and Medium Risk (1 of 4 - PCV) 1990 COVID-19 Vaccine (2 - season) 03/15/202403/2021, 10/19/2020 Influenza Vaccine (Season Ended) 2025 04/14/20 14, 03/15/2014 Insurance MEDICARE [facility] Care Teams Cap And Stud Machine Operator Relationship Specialty Start Date End Date Akhil Painting MD [address] [place] [address] PCP - General Internal Medicine 12/26/21
--- OUTSIDE RECORDS SUMMARY | 2024-12-23 18:04 | XMS_ITS ---
Author Name Auto Generated, Auto Generated Organization [facility] [employer] [facility] ices Address [address] [place] [address] Phone [phone] Care Team Providers Care Multiple Slide Operator Name Role Phone Be Hoff Unavailable [...] Days flush picc line per [facility]. Sat Dec 20 10:00:00 ED2018Dec 24 16:48:00 [...] 07:00:00 EDT 2018November 20 17:11:00 EDT 2018 Neosporin(zfu-uoc-uwqky) 3.5 mg-400 unit-5,000 unit top ointment packt 1 application OINTMENT IN PACKET (EA) Topical 1 Time Daily for 4 Days Apply to G-tube site SatNovember 17 15:00:00 EDT 2018November 21 14:59:00 EDT 2018 Jevity 1.2 Jose 0.06 gram-1.2 kcal/mL oral liquid 65ml/hr LIQUID (ML) Oral 2 Times Daily Jevity 1.2 at 85/hour from 0550-7060 SatNovember 17 16:00:00 EDT 2018November 17 15:42:00 EDT 2018 water (bulk) liquid 140ml LIQUID (ML) G- tube Every 4 Hours Water [id number] cc every 4 hours SatNovember 17 09:00:00 [...] 2 Times Daily Jevity 85mL/hr x 18hours 1739-7345 SatNovember 17 16:00:00 EDT 2018November 24 16:25:00 [...] SatNovember 14 15:00:00 ED2018Jan 19 00:59:00 ED2018 Neosporin(isb-bnx-udxvf) 3.5 mg-400 unit-5,000 unit top ointment packt [...]
== END 2024-12-23 16:13 | disposition home or self-care (01) ==
LOC: ANHGOSHLAB 16:13
PROVIDERS: PCP Family Medicine; Visit Provider Family Medicine
DX: N39.0 Urinary tract infection, site not specified (principal)
CPT/HCPCS: 87077; 87086; 87186

== ENCOUNTER 2025-01-14 09:12 | Outpatient (NON) | payer MEDICARE, SELFPAY ==
--- OUTSIDE RECORDS SUMMARY | 2025-01-14 09:16 | XMS_ITS | Clinical Summary ---
Author Organization [facility] Address [facility] [place] [address] Care Team Providers Care Supervisor Motorcycle [employer] Name Role Phone Akhil Painting MD Primary [...] COLLAR) MiscIndications :Spinal stenosis of cervical region [facility] 1 each 09/23/2018 Active acetaminophen 500 [...] 02/05/2019 Physical deconditioning 02/05/2019 Postprocedural intraabdominal abscess ([facility]) 12/09/2018 Gastrojejunostomy tube dislodgement 11/28/2018 Essential hypertension 11/03/2018 Weakness of distal arms and legs 11/02/2018 S/P cervical spinal fusion 10/30/2018 Cervical myelopathy ([facility]) 10/29/2018 Spinal stenosis of cervical region 09/23/2018 [...] on file 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 Gender Identity Not on file Sexual Orientation [...] CDT stated weight Height 177.8 cm (5' 10) 02/05/2019 3:40 PM CDT Body Mass Index [...] this topic Medical Devices Implanted Type Area Automotive Parts Counter Assistant Device Identifier Shelf Expiration Date Model / Serial / Lot Percutaneous Endoscopic Gastrostomy Set Implanted:Qty: 1 on 11/12/2018 by Caleb Rios MD at [facility] Tube Implant N/A: Abdomen [employer] [id number] 09/23/2019 / / [id number] Graft Infuse Bone Small - [id number] Implanted:Qty: 1 on 10/29/2018 by Soto Castillo MD at [facility] N/A: Spine Cervical [employer] 12/12/2020 [id number] / / [id number] Lordotic Peek-Prentiss Spacer Implanted:Qty: 1 on 10/29/2018 by Soto Castillo MD at [facility] N/A: Spine Cervical SEASPINE [id number] 02/20/2022 39-2607-S / / [id number] Description:C3-C4 Beth Lordotic Peek-Prentiss Spacer Implanted:Qty: 1 on 10/29/2018 by Soto Castillo MD at [facility] N/A: Spine Cervical SEASPINE [id number] 08/05/2022 39-2607-S / / [id number] Description:C4-C5 Screw Implanted:Qty: 6 on 10/29/2018 by Soto Castillo MD at [facility] N/A: Spine Cervical MARISSA SPINE - DIV MARISSA KT [id number] / / 2 Level Plate Implanted:Qty: 1 on 10/29/2018 by Soto Castillo MD at [facility] N/A: Spine Cervical MARISSA SPINE - DIV MARISSA KT [id number] / / Explanted Type Area Automotive Parts Counter Assistant Device Identifier Shelf Expiration Date Model / Serial / Lot Distration Pin 12mm - [id number] Explanted:Qty: 3 on 10/29/2018 at [facility] [employer] DP-12-TB / / Insurance MEDICARE [facility] Advance Directives Documents on File Type Date Recorded Patient Legal Stenographer Expl anation Advance Directives and Living Will [...] 1:26 PM 10/31/2018 6:17 PM Care Teams Supervisor Motorcycle Repair Shop Relationship Specialty Start Date End Date Akhil Painting MD PCP - General FAMILY PRACTICE 09/15/18 Soto Castillo MD Surgeon NEUROLOGICAL SURGERY 10/16/18
--- OUTSIDE RECORDS SUMMARY | 2025-01-14 09:16 | XMS_ITS ---
Author Name Auto Generated, Auto Generated Organization [facility] [employer] [facility] ices Address [address] [place] [address] Phone [phone] Care Team Providers Care Braiding Operator Name Role Phone Be Hoff Unavailable [...] for 8 Days flush picc line per [facility]. Sat Dec 20 10:00:00 ED2018Dec 24 [...] 07:00:00 EDT 2018November 20 17:11:00 EDT 2018 Neosporin(rmc-nxk-ofhkr) 3.5 mg-400 unit-5,000 unit top ointment packt 1 application OINTMENT IN PACKET (EA) Topical 1 Time Daily for 4 Days Apply to G-tube site SatNovember 17 15:00:00 EDT 2018November 21 14:59:00 EDT 2018 Jevity 1.2 Jose 0.06 gram-1.2 kcal/mL oral liquid 65ml/hr LIQUID (ML) Oral 2 Times Daily Jevity 1.2 at 85/hour from 8337-5900 SatNovember 17 16:00:00 EDT 2018November 17 15:42:00 EDT 2018 water (bulk) liquid 140ml LIQUID (ML) G- tube Every 4 Hours Water [id number] cc every 4 hours SatNovember 17 09:00:00 [...] 2 Times Daily Jevity 85mL/hr x 18hours 6774-8245 SatNovember 17 16:00:00 EDT 2018November 24 16:25:00 [...] SatNovember 14 15:00:00 ED2018Jan 19 00:59:00 ED2018 Neosporin(hor-vmr-cphgy) 3.5 mg-400 unit-5,000 unit top ointment packt [...]
--- OUTSIDE RECORDS SUMMARY | 2025-01-14 09:16 | XMS_ITS | Referral Summary ---
Author Organization [facility] Address [address] [place] [address] Phone Care Team Providers Care Speech Assistant Name Role Phone Akhil Painting MD Primary Care Provider Encounters Date Type Department Care Team Description 10/26/2024 Telephone [facility] Cardiology [address] [facility] [place] [phone] Kami Haines NP 10/22/2024 2:30 PM CDT Office Visit [facility] Cardiology [address] [place] [phone] Kami Haines NP [place] (ventricular tachycardia) (HCC) (Primary Dx); 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; 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
--- OUTSIDE RECORDS SUMMARY | 2025-01-14 09:16 | XMS_ITS ---
Author Name Auto Generated, Auto Generated Organization [facility] [employer] [facility] ices Address [address] [place] [address] Phone [phone] Care Team Providers Care Conductor Pullman Name Role Phone Be Hoff Unavailable Yissel Orozco Unavailable [phone] Susan Neff Unavailable Functional Status No Results [...] 07:00:00 EDT 2018November 20 17:11:00 EDT 2018 Neosporin(lny-glg-vfebn) 3.5 mg-400 unit-5,000 unit top ointment packt 1 application OINTMENT IN PACKET (EA) Topical 1 Time Daily for 4 Days Apply to G-tube site SatNovember 17 15:00:00 EDT 2018November 21 14:59:00 EDT 2018 Jevity 1.2 Jose 0.06 gram-1.2 kcal/mL oral liquid 65ml/hr LIQUID (ML) Oral 2 Times Daily Jevity 1.2 at 85/hour from 3522-2290 SatNovember 17 16:00:00 EDT 2018November 17 15:42:00 EDT 2018 water (bulk) liquid 140ml LIQUID (ML) G- tube Every 4 Hours Water [id number] cc every 4 hours SatNovember 17 09:00:00 [...] 2 Times Daily Jevity 85mL/hr x 18hours 9760-3820 SatNovember 17 16:00:00 EDT 2018November 24 16:25:00 [...] SatNovember 14 15:00:00 ED2018Jan 19 00:59:00 ED2018 Neosporin(edl-uwa-upxkn) 3.5 mg-400 unit-5,000 unit top ointment packt [...]
--- OUTSIDE RECORDS SUMMARY | 2025-01-14 09:16 | XMS_ITS | Clinical Summary ---
Author Organization [facility] Address [address] [place] [address] Phone Care Team Providers Care Child Welfare Specialist Name Role Phone Akhil Painting MD [...] Type Department Care Team Description 10/26/2024 Telephone [facility] Cardiology [address] [place] [address] Kami Haines NP 10/22/2024 2:30 PM CDT Office Visit [facility] [address] [place] [address] Kami Haines NP [place] (ventricular tachycardia) (HCC) (Primary Dx); 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; long term current use of amiodarone from Last 3 Months Immunizations Immunization Administration Dates Next Due Influenza, Trivalent, Preservative Free, Intramu scular 04/14/2014,03/15/2014 Pfizer SARS-CoV-2 Monovalent Vaccination (12+ Yrs) PURPLE 04/22/2021 Surgical History Surgery Date Site/Laterality Comments BACK SURGERY Back Surgery - (Added by BEATA Conv) [place] ARTHROPLASTY KNEE TIBIAL PLATEAU Knee Replacement - (Added by BEATA Conv) Social History Tobacco Use Types Packs/Day Years Used Date Smoking Tobacco: Former Tobacco Cessation:Counseling Given: Not Answered Sex and Gender Information Value Date Recorded Sex Assigned at Not on file 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 [id number] [place] [id number] [facility] MEDICARE O Care Teams Child Welfare Specialist Relationship Specialty Start Date End Date Akhil Painting MD [address] [facility] [place] [address] [place] [address] PCP - General Family Practice 03/02/24
--- OUTSIDE RECORDS SUMMARY | 2025-01-14 09:16 | XMS_ITS | Clinical Summary ---
Author Organization [facility] Address [address] [place] [address] Phone Care Team Providers Care Maintenance Mechanic Millwright Name Role Phone Akhil Painting MD Primary [...] Comments Blood Pressure 134/76 06/04/2022 11:32 AM TEST ENGINEER Pulse - - Temperature 36.5 C (97.7 F) 06/04/2022 11:32 AM TEST ENGINEER Respiratory Rate 18 06/04/2022 11:32 AM TEST ENGINEER Oxygen Saturation - - Inhaled Oxygen Concentration - - Weight 74.8 kg (165 lb) 02/19/2022 9:42 AM CDT Height 175.3 cm (5' 9) 06/04/2022 11:32 AM TEST ENGINEER Body Mass Index 24.37 02/19/2022 9:42 AM CDT Plan of Treatment Health Maintenance Due Date Last Done Comments Pneumococcal PPSV23/PCV13 65 + Years / Low and Medium Risk (1 of 2 - PCV) 1990 COVID-19 Vaccine (2 - season) 03/15/202403/2021, 10/19/2020 Influenza Vaccine (Season Ended) 2025 04/14/20 14, 03/15/2014 Insurance MEDICARE [facility] Care Teams Maintenance Mechanic Millwright Relationship Specialty Start Date End Date Akhil Painting MD [address] [place] [address] PCP - General Internal Medicine 12/26/21
== END 2025-01-14 09:13 | disposition home or self-care (01) ==
LOC: ANHGOSHLAB 09:13
PROVIDERS: PCP Family Medicine; Visit Provider Family Medicine
DX: N39.0 Urinary tract infection, site not specified (principal)
CPT/HCPCS: 87077; 87086; 87186

== ENCOUNTER 2025-04-14 15:56 | Outpatient (NON) | payer MEDICARE, SELFPAY ==
--- OUTSIDE RECORDS SUMMARY | 2025-04-14 15:59 | XMS_ITS | Clinical Summary ---
Author Organization [facility] Address [address] [place] [phone] Phone Care Team Providers Care Wraparound Facilitator Name Role Phone Akhil Painting MD Primary [...] Comments Blood Pressure 134/76 06/04/2022 11:32 AM ENVIRONMENTAL TECH Pulse - - Temperature 36.5 C (97.7 F) 06/04/2022 11:32 AM ENVIRONMENTAL TECH Respiratory Rate 18 06/04/2022 11:32 AM ENVIRONMENTAL TECH Oxygen Saturation - - Inhaled Oxygen Concentration - - Weight 74.8 kg (165 lb) 02/19/2022 9:42 AM CDT Height 175.3 cm (5' 9) 06/04/2022 11:32 AM ENVIRONMENTAL TECH Body Mass Index 24.37 02/19/2022 9:42 AM CDT Plan of Treatment Health Maintenance Due Date Last Done Comments Pneumococcal PPSV23/PCV13 65 + Years / Low and Medium Risk (1 of 2 - PCV) 1990 COVID-19 Vaccine (2 - season) 03/15/202503/2021, 10/19/2020 Influenza Vaccine (#1) 2025 04/14/2014, 2013 Insurance MEDICARE [facility] Care Teams Wraparound Facilitator Relationship Specialty Start Date End Date Akhil Painting MD [address] [place] [address] PCP - General Internal Medicine 12/26/21
--- OUTSIDE RECORDS SUMMARY | 2025-04-14 15:59 | XMS_ITS | Clinical Summary ---
Author Organization [facility] Address [facility] [place] [address] Care Team Providers Care Atg Architect Name Role Phone Akhil Painting MD Primary [...] COLLAR) MiscIndications :Spinal stenosis of cervical region [facility] 1 each 09/23/2018 Active acetaminophen 500 [...] 02/05/2019 Physical deconditioning 02/05/2019 Postprocedural intraabdominal abscess ([facility]) 12/09/2018 Gastrojejunostomy tube dislodgement 11/28/2018 Essential hypertension 11/03/2018 Weakness of distal arms and legs 11/02/2018 S/P cervical spinal fusion 10/30/2018 Cervical myelopathy ([facility]) 10/29/2018 Spinal stenosis of cervical [...] on file 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 Gender Identity Not on file Sexual Orientation [...] COVID-19 Vaccine (1 - 2023-2 5 season) 2025 Meningococcal B Vaccine Aged Out No l onger eligible based on patient's age to complete this topic Meningococcal Vaccine Aged Out No susana selma eligible based on patient's age to complete this topic RSV Immunizations Under 20 Months Aged Out No longer eligible based on patient's age to complete this topic Medical Devices Implanted Type Area Janitor Cleaner Device Identifier Shelf Expiration Date Model / Serial / Lot Percutaneous Endoscopic Gastrostomy Set Implanted:Qty: 1 on 11/12/2018 by Caleb Rios MD at [facility] Tube Implant N/A: Abdomen [employer] [id number] 09/23/2019 / / [id number] Graft Infuse Bone Small - [id number] Implanted:Qty: 1 on 10/29/2018 by Soto Castillo MD at [facility] N/A: Spine Cervical [employer] 12/12/2020 [id number] / / [id number] [place] Lordotic Peek-Tecolotito Spacer Implanted:Qty: 1 on 10/29/2018 by Soto Castillo MD at [facility] N/A: Spine Cervical SEASPINE [id number] 02/20/2022 39-2607-S / / [id number] Description:C3-C4 Beth Lordotic Peek-Tecolotito Spacer Implanted:Qty: 1 on 10/29/2018 by Soto Castillo MD at [facility] N/A: Spine Cervical SEASPINE [id number] 08/05/2022 39-2607-S / / [id number] Description:C4-C5 Screw Implanted:Qty: 6 on 10/29/2018 by Soto Castillo MD at [facility] N/A: Spine Cervical MARISSA SPINE - DIV MARISSA KT [id number] / / 2 Level Plate Implanted:Qty: 1 on 10/29/2018 by Soto Castillo MD at [facility] N/A: Spine Cervical MARISSA SPINE - DIV MARISSA KT [id number] / / Explanted Type Area Janitor Cleaner Device Identifier Shelf Expiration Date Model / Serial / Lot Distration Pin 12mm - [id number] Explanted:Qty: 3 on 10/29/2018 at [facility] [employer] DP-12-TB / / Insurance MEDICARE [facility] Advance Directives Documents on File Type Date Recorded 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
--- OUTSIDE RECORDS SUMMARY | 2025-04-14 15:59 | XMS_ITS | Clinical Summary ---
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 Gender Identity Not on file Sexual Orientation [...] 3) 04/18/2013 02/21/2013 Covid-19 Vaccine (5 - 2024-2 6 season) 2025 04/22/2021, 10/19/2020, 10/08/2020, Additional history exists Influenza Vaccine (#1) 03/15/202506/01/201 9, 05/11/2017, 04/05/2015, Additional history exists Pneumococcal vaccine 65+ Completed 015, 12/24/2014, 12/24/2014, Additional history exists Insurance [facility] Address: [facility] [address] [place] [address] [employer] MEDICARE HMO Care Teams Hand Ii Blocker Relationship Specialty Start Date End Date Akhil Painting MD [address] [facility] [address] [place] [address] PCP - General Family Practice 03/02/24
[2025-04-14 19:27] LABS: Add Urine Microscopic? YES; Appearance Urine Turbid (Clear); Glucose Urine UA Negative (Negative); Leukocyte Esterase Ur 3+ LEU/UL (Negative); Need Manual Microscopic Reviewed; Nitrate Urine Negative (Negative); Non Pathogenic Casts 0-2; Specific Grav Ur 1.009 (1.001-1.035)
== END 2025-04-14 15:57 | disposition home or self-care (01) ==
LOC: ANHGOSHLAB 15:57
PROVIDERS: PCP Family Medicine; Visit Provider Family Medicine
DX: N39.0 Urinary tract infection, site not specified (principal)
CPT/HCPCS: 81001; 87086

== ENCOUNTER 2025-05-11 08:58 | Outpatient (NON) | payer OTHER, MEDICARE, SELFPAY ==
--- OUTSIDE RECORDS SUMMARY | 2025-05-11 09:31 | XMS_ITS | Encounter Summary ---
Author Organization [facility] Address [address] [place] [address] Care Team Providers Care General Labor Name Role Phone Unavailable Primary Care Provider Anderson e Encounter Details Date Type Department Care Team (Late st Contact Info) Description 12/09/2005 Inpatient Historical HIS IN BED Marcos Miller MD NO ADDRESS ON FILE Unspecified Intestinal Obstruction (CMS/HCC) (Primary Dx) Social History Tobacco Use Types Packs/Day Years Used Date Smoking Tobacco: Never Assessed Sex and Gender Information Value Date Recorded Sex Assigned at Not on file Legal Sex Male 4:31 AM 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 Gender Identity Not on file Sexual Orientation Not on file documented as of this encounter Plan of Treatment Not on file documented as of this encounter Procedures Procedure Name Priority Date/Time Associated Diagnosis Comments CBC WITH DIFFERENTIAL Routine 12/10/2005 5:03 AM CDT BASIC METABOLIC PANEL Routine 12/10/2005 5:03 AM CDT URINALYSIS MICROSCOPY ONLY Routine 12/09/2005 12:26 PM CDT URINALYSIS W/REFLEX MICROSCOPIC Routine 12/09/2005 12:26 PM CDT CBC WITH DIFFERENTIAL Routine 12/09/2005 11:58 AM CDT COMPREHENSIVE METABOLIC PANEL Routine 12/09/2005 11:58 AM CDT XR ABDOMEN W DECUB AND OR ERECT 2 VW Routine 12/09/2005 10:08 AM CDT documented in this encounter Results * (ABNORMAL) CBC WITH DIFFERENTIAL (12/10/2005 5:03 AM CDT) WBC 9.6 4.8 - 10.8 K/ul INTERFACE SYSTEM RBC 4.86 4.60 - 6.20 Mil/ul INTERFACE SYSTEM HEMOGLOBIN 14.1 14.0 - 18.0 g/dL INTERFACE SYSTEM HEMATOCRIT 41.8 41.0 - 53.0 % INTERFACE SYSTEM MCV 86.0 84.0 - 103.0 Fl INTERFACE SYSTEM MCH 29.0 27.0 - 34.0 pg INTERFACE SYSTEM MCHC 33.7 30.0 - 35.0 g/dL INTERFACE SYSTEM RDW 13.4 11.0 - 14.5 % INTERFACE SYSTEM PLATELETS 296 140 - 440 K/ul INTERFACE SYSTEM MPV 10.0 8.9 - 12.8 Fl INTERFACE SYSTEM NEUTROPHILS 74.9 42.2 - 75.2 % INTERFACE SYSTEM LYMPHOCYTES 16.1(L) 24.0 - 44.0 % INTERFACE SYSTEM MONOCYTES 7.3 2.0 - 10.0 % INTERFACE SYSTEM EOSINOPHILS 1.5 0.0 - 7.0 % INTERFACE SYSTEM BASOPHILS 0.2 0.0 - 1.0 % INTERFACE SYSTEM NEUTROPHIL ABSOLUTE 7.2 2.0 - 8.0 K/uL INTERFACE SYSTEM LYMPHOCYTE ABSOLUTE 1.6 1.2 - 4.0 K/ul INTERFACE SYSTEM MONOCYTE ABSOLUTE 0.7(H) 0.1 - 0.6 K/ul INTERFACE SYSTEM EOSINOPHIL ABSOLUTE 0.1 0.0 - 0.7 K/ul INTERFACE SYSTEM BASOPHILS ABSOLUTE 0.0 0.0 - 0.2 K/ul INTERFACE SYSTEM 12/10/2005 5:03 AM CDT us Marcos Miller MD HEMATOLOGY ORDERABLES Fi nal Result INTERFACE SYSTEM Refer to clinic/hospital department * (ABNORMAL) BASIC METABOLIC PANEL (12/10/2005 5:03 AM CDT) GLUCOSE 121(H) 70 - 110 mg/dL INTERFACE SYSTEM BUN 11 9 - 20 mg/dL INTERFACE SYSTEM CREATININE 0.7 0.7 - 1.5 mg/dL INTERFACE SYSTEM SODIUM 142 136 - 145 mEq/L INTERFACE SYSTEM POTASSIUM 3.7 3.5 - 5.0 mEq/L INTERFACE SYSTEM CHLORIDE 107 95 - 110 mEq/L INTERFACE SYSTEM CO2 29 22 - 32 mmol/l INTERFACE SYSTEM ANION GAP 10 9 - 20 mEq/L INTERFACE SYSTEM OSMOLALITY, CALCULATED 292 275 - 295 mOsm/Kg INTERFACE SYSTEM CALCIUM 9.1 8.4 - 10.5 mg/dL INTERFACE SYSTEM 12/10/2005 5:03 AM CDT Marcos Miller MD CHEMISTRY ORDERABLES Fin al Result INTERFACE SYSTEM Refer to clinic/hospital department * (ABNORMAL) URINALYSIS MICROSCOPY ONLY (12/09/2005 12:26 PM CDT) WBC URINE 0-2 0 - 2 INTERFACE SYSTEM RBC UA 3-5(A) 0 - 2 INTERFACE SYSTEM HYALINE CAST None Seen 0 - 2 INTERFA CE SYSTEM BACTERIA UA Rare INTERFAC E SYSTEM 12/09/2005 12:2 6 PM CDT Lolis Irwin MD URINE ORDERABLES Final Result Performing Organization Address City/[facility] de Phone Number INTERFACE SYSTEM Refer to clinic/hospital department * (ABNORMAL) URINALYSIS (12/09/2005 12:26 PM CDT) COLOR UA Yellow Straw INTERFACE SYSTEM CLARITY UA Clear Clear INTERFACE SYSTEM LEUKOCYTE ESTERASE UA NEGATIVE NEGATIVE INTERFACE SYSTEM NITRITE UA NEGATIVE NEGATIVE INTERFACE SYSTEM PH UA 5.5 5.0 - 9.0 INTERFACE SYSTEM PROTEIN UA NEGATIVE NEGATIVE INTERFACE SYSTEM Comment: As of 05 positive protein results obtained on routine urinalysis will not be confirmed by sulfosalicylic acid (SSA) precipitation. Current methodology for protein detection is highly sensitive for detection of albumin; therefore, confirmation is not necessary. GLUCOSE UA NEGATIVE NEGATIVE INTERFACE SYSTEM KETONES UA NEGATIVE NEGATIVE INTERFACE SYSTEM UROBILINOGEN UA 0.2 0.2 INTE RFACE SYSTEM BILIRUBIN UA NEGATIVE NEGATIVE INTERFA CE SYSTEM BLOOD UA MODERATE(A) NEGATIVE INTERFAC E SYSTEM SPECIFIC GRAVITY UA 1.028 1.005 - 1.030 INTERFACE SYSTEM MICRO EXAM Yes(A) No INTERFACE SYSTEM 12/09/2005 12:2 6 PM CDT Lolis Irwin MD URINE ORDERABLES Final Result INTERFACE SYSTEM Refer to clinic/hospital department * (ABNORMAL) COMPREHENSIVE METABOLIC PANEL (12/09/2005 11:58 AM CDT) GLUCOSE 120(H) 70 - 110 mg/dL INTERFACE SYSTEM BUN 17 9 - 20 mg/dL INTERFACE SYSTEM CREATININE 0.8 0.7 - 1.5 mg/dL INTERFACE SYSTEM SODIUM 139 136 - 145 mEq/L INTERFACE SYSTEM POTASSIUM 4.1 3.5 - 5.0 mEq/L INTERFACE SYSTEM CHLORIDE 107 95 - 110 mEq/L INTERFACE SYSTEM CO2 26 22 - 32 mmol/l INTERFACE SYSTEM ANION GAP 10 9 - 20 mEq/L INTERFACE SYSTEM OSMOLALITY, CALCULATED 289 275 - 295 mOsm/Kg INTERFACE SYSTEM CALCIUM 9.6 8.4 - 10.5 mg/dL INTERFACE SYSTEM TOTAL PROTEIN 7.7 6.3 - 8.2 g/dL INTERFACE SYSTEM ALBUMIN 4.6 3.5 - 5.0 g/dL INTERFACE SYSTEM GLOBULIN (CALC) 3.1 2.4 - 3.9 g/dL INTERFACE SYSTEM ALBUMIN/GLOBULIN RATIO 1.5 1.0 - 2.3 INTERFACE SYSTEM ALKALINE PHOSPHATASE 87 25 - 100 U/L INTERFACE SYSTEM Comment: As of 05 the [facility] has changed testing methods. The new reference range is 25-100 The old referance range was 38-126 AST 28 8 - 33 U/L INTERFACE SYSTEM Comment: As of 05 the [facility] has changed testing methods. The new reference range is 8-33 The old referance range was Males 17-59 Females 14-36 ALT 32 4 - 36 IU/L INTERFACE SYSTEM Comment: As of 05 the [facility] has changed testing methods. The new reference range is 4-36 The old referance range was Males 21-72 Females 9-52 BILIRUBIN TOTAL 0.6 0.3 - 1.2 mg/dL INTERFACE SYSTEM Comment: As of 05 the [facility] has changed testing methods. The new reference range is 0.3-1.2 The old referance range was 0.2-1.4 12/09/2005 11:5 8 AM CDT Lolis Irwin MD CHEMISTRY ORDERABLES Final Resul t Performing Organization Address City/[facility] Co de Phone Number INTERFACE SYSTEM Refer to clinic/hospital department * (ABNORMAL) CBC WITH DIFFERENTIAL (12/09/2005 11:58 AM CDT) WBC 15.6(H) 4.8 - 10.8 K/ul INTERFACE SYSTEM RBC 5.24 4.60 - 6.20 Mil/ul INTERFACE SYSTEM HEMOGLOBIN 15.4 14.0 - 18.0 g/dL INTERFACE SYSTEM HEMATOCRIT 44.1 41.0 - 53.0 % INTERFACE SYSTEM MCV 84.2 84.0 - 103.0 Fl INTERFACE SYSTEM MCH 29.4 27.0 - 34.0 pg INTERFACE SYSTEM MCHC 34.9 30.0 - 35.0 g/dL INTERFACE SYSTEM RDW 13.3 11.0 - 14.5 % INTERFACE SYSTEM PLATELETS 324 140 - 440 K/ul INTERFACE SYSTEM MPV 9.4 8.9 - 12.8 Fl INTERFACE SYSTEM NEUTROPHILS 84.8(H) 42.2 - 75.2 % INTERFACE SYSTEM LYMPHOCYTES 8.9(L) 24.0 - 44.0 % INTERFACE SYSTEM MONOCYTES 5.3 2.0 - 10.0 % INTERFA CE SYSTEM EOSINOPHILS 0.8 0.0 - 7.0 % INTERF ALEX SYSTEM BASOPHILS 0.2 0.0 - 1.0 % INTERFAC E SYSTEM NEUTROPHIL ABSOLUTE 13.3(H) 2.0 - 8.0 K/uL INTERFACE SYSTEM LYMPHOCYTE ABSOLUTE 1.4 1.2 - 4.0 K/ul INTERFACE SYSTEM MONOCYTE ABSOLUTE 0.8(H) 0.1 - 0.6 K/ul INTERFACE SYSTEM EOSINOPHIL ABSOLUTE 0.1 0.0 - 0.7 K/ul INTERFACE SYSTEM BASOPHILS ABSOLUTE 0.0 0.0 - 0.2 K/ul INTERFACE SYSTEM PERIPHERAL BLOOD SMEAR REVIEW Automated Diff Automated Diff INTERFACE SYSTEM 12/09/2005 11:5 8 AM CDT Lolis Irwin MD HEMATOLOGY ORDERABLES Final Resu lt Performing Organization Address City/State/[facility] Co de Phone Number INTERFACE SYSTEM Refer to clinic/hospital department * XR ABDOMEN W DECUB AND OR ERECT (12/09/2005 10:08 AM CDT) Anatomical Region Laterality Modality Abdomen Other 12/09/2005 10:0 8 AM CDT Narrative 12/09/2005 10:08 AM CDT ABDOMEN - SUPINE AND UPRIGHT VIEWS DATE: 12/09/2005. HISTORY: Abdominal distention and pain. Surgical clips are present in the low pelvis and laminectomy changes of the lower lumbar spine are noted. Rounded opacity over the left iliac wing probably reflects an ostomy. Probable stone is present in the lower pole of the left kidney measuring up to 8 mm in size. The bowel gas pattern is unremarkable and no subphrenic free air is present on the upright view. IMPRESSION: 1. Probable ostomy over the left lower abdomen, clinical correlation is necessary. 2. Left renal calculus. 3. Unremarkable bowel gas pattern. gb Dictated By: Marcos Tucker M.D. Electronically Signed By: Marcos Tucker M.D. Date Signed: 12/09/05 GRB Procedure Note 06/03/2009 ABDOMEN - SUPINE AND UPRIGHT VIEWS DATE: 12/09/2005. HISTORY: Abdominal distention and pain. Surgical clips are present in the low pelvis and laminectomy changes ofthe lower lumbar spine are noted. Rounded opacity over the left iliac wing probably reflects an ostomy.Probable stone is present in the lower pole of the left kidney measuring up to 8 mm in size. The bowel gas pattern is unremarkable and no subphrenic free air ispresent on the upright view. IMPRESSION: 1. Probable ostomy over the left lower abdomen, clinical correlation isnecessary. 2. Left renal calculus. 3. Unremarkable bowel gas pattern. gb Dictated By: Marcos Tucker M.D. Electronically Signed By: Marcos Tucker M.D. Date Signed: 12/09/05 GRB Lolis Irwin MD DIAGNOSTIC IMAGING ORDERABLES Fi nal Result documented in this encounter Visit Diagnoses Diagnosis Unspecified intestinal obstruction- Primary documented in this encounter
--- OUTSIDE RECORDS SUMMARY | 2025-05-11 09:31 | XMS_ITS | Clinical Summary ---
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
--- OUTSIDE RECORDS SUMMARY | 2025-05-11 09:31 | XMS_ITS | Clinical Summary ---
Author Organization 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
[2025-05-11 13:45] LABS: Add Urine Microscopic? YES; Appearance Urine Cloudy (Clear); Glucose Urine UA Negative (Negative); Leukocyte Esterase Ur 3+ LEU/UL (Negative); Need Manual Microscopic Reviewed; Nitrate Urine Positive (Negative); Non Pathogenic Casts 0-2; Specific Grav Ur 1.010 (1.001-1.035)
== END 2025-05-11 08:59 | disposition home or self-care (01) ==
LOC: ANHGOSHLAB 08:59
PROVIDERS: PCP Family Medicine; Visit Provider Family Medicine
DX: N39.0 Urinary tract infection, site not specified (principal)
CPT/HCPCS: 81001; 87077; 87086; 87186

== ENCOUNTER 2025-05-17 11:04 | Inpatient (IN) | payer MEDICARE, SELFPAY ==
[2025-05-17 11:11] VITALS: BP 126/46; PULSE 48; RESP 20; TEMP 36.5; O2SAT 100
--- NOTE | 2025-05-17 11:47 | ED.RECABL ---
HPI - Recheck/Abnormal Lab/Rx General Chief Complaint: Recheck/Abnormal Lab/Rx <AVERY Ledesma Last Filed: 05/17/25 14:57> Stated Complaint: uti x 6 months, Lab test show sepsis <AVERY Ledesma Last Filed: 05/17/25 14:57> Time Seen by Provider: 05/17/25 11:34 <AVERY Ledesma Last Filed: 05/17/25 14:57> Source: patient, family and old records reviewed <AVERY Ledesma Last Filed: 05/17/25 14:57> Mode of arrival: EMS <AVERY Ledesma Last Filed: 05/17/25 14:57> Limitations: no limitations <AVERY Ledesma Last Filed: 05/17/25 14:57> History of Present Illness HPI narrative: Patient is an 84-year-old male, with PMH of CKD, cardiomyopathy, who presents the ED via EMS with report of abnormal labs. Daughter at bedside assisted in providing information. Reports patient is currently on hospice care. Has been dealing with a UTI for the past 6 months. Daughter states urine is mostly consistent of mucous. Currently on Cefdinir for UTI. Daughter reports recent urine culture grew out bacteria resistant to oral antibiotics and they were referred here for further evaluation. Daughter reports that patient does wear a pure wick at nighttime. Patient denies abdominal or back pain, N/V, fevers. <AVERY Ledesma Last Filed: 05/17/25 14:57> Related Data Home Medications: Home Medications ?Medication ?Instructions ?Recorded ?Confirmed ?Last Taken ?Type calcium carbonate 600 mg PO DAILY 12/13/21 01/18/25 09/22/23 09:00 History amiodarone 100 mg tablet 100 mg PO DAILY 01/11/25 01/18/25 Unknown History <AVERY Ledesma Last Filed: 05/17/25 14:57> Allergies/Adverse Reactions: Allergies Allergy/AdvReac Type Severity Reaction Status Date / Time morphine Allergy Severe HIVES Verified 05/17/25 11:06 No Known Food Allergies Allergy Other Verified 05/17/25 11:06 meperidine AdvReac severe Verified 05/17/25 11:06 constipation <Hvaen Villarreal PA-C - Last Filed: 05/17/25 14:57> Review of Systems Review of Systems: All systems reviewed & are unremarkable except as noted in HPI. <Haven Villarreal PA-C - Last Filed: 05/17/25 14:57> All systems reviewed & are unremarkable except as noted in HPI and below <Haven Villarreal PA-C - Last Filed: 05/17/25 14:57> [facility] Past Medical History Medical History: Medical History Chronic kidney disease (CKD), stage 4 Prediabetes Colon cancer Status post partial colectomy and chemoradiation. 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 Iron deficiency anemia Deep vein thrombosis of left lower extremity (2018) Provoked DVT following admission. Coronary artery disease Multivessel coronary artery disease noted on cardiac catheterization in September 2023 including the LAD, RCA, and an obtuse marginal. Patient declined MIDCAB and is being treated medically. Cardiomyopathy On LifeVest from September to February 2024. Vitamin D deficiency Psoriasis Benign prostatic disease Osteoarthritis Foot drop <Haven Villarreal PA-C - Last Filed: 05/17/25 14:57> Surgical History Surgical History: Surgical History History of cervical spinal surgery (10/2018) History of left knee replacement (2000) History of partial colectomy (1994) History of lumbosacral spine surgery early <Haven Villarreal PA-C - Last Filed: 05/17/25 14:57> Family History Family History: Family History Other Cancer Cerebrovascular accident Hypertension <Haven Villarreal PA-C - Last Filed: 05/17/25 14:57> Social History Social History: Social History Social History: Surrogate medical decision maker: David ColemanJr. (son). Code status: Full code. Smoking packs per day: 1 Smoking cigarettes per day: 20.0 Years smoked: 2 Smoking pack-years: 2.00 Smoking status: Never smoker Tobacco type: cigarettes Second hand tobacco smoke exposure: No Smoking end date: 07/15/59 Alcohol intake: never Substance use: never Substance use type: does not use Do You Feel Safe in your Home?: Yes Lack of Transportation: No Lack of Food: Never True Current Housing: I Have Housing Concerned About Future Housing: No Difficulty Paying Gas/Electric Bills: No Difficulty Paying for Meds: No Currently Unemployed: No Education: Don't Know Difficulty w/ Childcare or Family Care: No Living arrangements: with family Additional living arrangements comments: Lives alone. 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 He has bilateral footdrop and cannot ambulate even with his AFO braces. He uses a slide board to transfer. Occupation/Education: retired Spiritual care concerns: No <Haven Villarreal PA-C - Last Filed: 05/17/25 14:57> Exam Narrative: GENERAL: Chronically ill appearing, well-nourished, non-toxic, in no acute distress. HEAD: Normocephalic, atraumatic. RESPIRATORY: Airway patent, respirations nonlabored. Clear to auscultation bilaterally, no rales, rhonchi, wheezing. CARDIOVASCULAR: Borderline bradycardic w/ regular rhythm without murmurs, rubs, or gallops. ABDOMINAL: Soft, no focal tenderness, nondistended. Normoactive BS. MUSCULOSKELETAL: Moves all extremities. No gross deformities. SKIN: Warm, dry, small superficial pressure ulcer to L sacral region w/o tunnelling or significant signs of infection. NEURO: A&O X3. Speech clear. Cranial nerves II-XII grossly intact. Steady gait. No ataxic movements. PSYCHIATRIC: Appropriate mood and affect. Normal interaction. <Haven Villarreal PA-C - Last Filed: 05/17/25 14:57> Course VASCULAR TECHNOLOGIST/PA Physician Supervision This visit was performed by both a physician and an APC; I performed all aspects of the medical decision making component of this evaluation as documented. Briefly, patient here with a multi-drug resistant antibiotics, with consultation from ID pharmacist here will start antibiotics <Magaly Cummings MD - Last Filed: 05/17/25 14:16> Vital Signs Vital signs: Vital Signs Temperature 97.7 F 05/17/25 11:11 Pulse Rate 48 L 05/17/25 11:11 Respiratory Rate 20 05/17/25 11:11 Blood Pressure 126/46 L 05/17/25 11:11 Pulse Oximetry 100 05/17/25 11:11 Oxygen Delivery Room Air 05/17/25 11:11 Temperature 97.7 F 05/17/25 11:11 Pulse Rate 52 L 05/17/25 14:02 Respiratory Rate 18 05/17/25 14:02 Blood Pressure 114/78 05/17/25 14:02 Pulse Oximetry 100 05/17/25 14:02 Oxygen Delivery Room Air 05/17/25 11:11 <Haven Villarreal PA-C - Last Filed: 05/17/25 14:57> Vital Signs Temperature 97.7 F 05/17/25 11:11 Pulse Rate 48 L 05/17/25 11:11 Respiratory Rate 20 05/17/25 11:11 Blood Pressure 126/46 L 05/17/25 11:11 Pulse Oximetry 100 05/17/25 11:11 Oxygen Delivery Room Air 05/17/25 11:11 Temperature 97.7 F 05/17/25 11:11 Pulse Rate 52 L 05/17/25 14:02 Respiratory Rate 18 05/17/25 14:02 Blood Pressure 114/78 05/17/25 14:02 Pulse Oximetry 100 05/17/25 14:02 Oxygen Delivery Room Air 05/17/25 11:11 <Magaly Cummings MD - Last Filed: 05/17/25 14:16> MDM - Recheck/Abnormal Lab/Rx MDM Narrative Medical decision making narrative: Patient presented to ED with report of abnormal urine culture, resistant with oral abx. Daughter reports patient has been dealing with UTI for the past 6 months. Currently on hospice care. Patient borderline bradycardic upon arrival. This does appear chronic per previous records. Blood pressure is stable. He is afebrile. In no acute distress. Denying any pain. Laboratory studies with leukocytosis of 11.9. H&H is stable. Consistent with previous records. Creatinine 3.06. Consistent with previous records. Lactic acid within normal range. He is not meeting criteria for sepsis at this time. UA does appear frankly infected. Re-sent for culture. Blood cultures obtained. Urine culture reviewed reviewed, shows Pseudomonas CRPA, multiple resistances. Will discuss with infectious disease pharmacist. Discussed case with EDY nAg, recommend ceftazidime 2g q24h based on renal function. Will be admitted for further evaluation. Discussed case with CLAUDIA Venegas hospitalist, accepted patient for admission. Patient and family are in agreement with plan. <Haven Villarreal PA-C - Last Filed: 05/17/25 14:57> Medical Records Attestation: I reviewed the patient's medical records. <Haven Villarreal PA-C - Last Filed: 05/17/25 14:57> Lab Data Attestation: I reviewed the patient's lab results. <Haven Villarreal PA-C - Last Filed: 05/17/25 14:57> Result diagrams: 05/17/25 11:56 05/17/25 11:56 <Haven Villarreal PA-C - Last Filed: 05/17/25 14:57> Labs: Lab Results 05/17/25 05/17/25 Range/Units 11:56 13:24 WBC 11.9 H (4.5-10.0) K/mm3 RBC 3.98 L (4.6-6.20) M/mm3 Hgb 11.3 L (14.0-18.0) g/dL Hct 37.1 L (42.0-52.0) % MCV 93.2 (80-100) fl MCH 28.4 (26-34) pg MCHC 30.5 L (32-36) g/dl RDW 15.2 H (11.5-14.5) % Plt Count 292 (150-375) k/mm3 MPV 9.2 (7.4-10.4) fl Immature Gran % (Auto) 0.6 H (0-0.5) % Neut % (Auto) 80.7 H (45.5-73.1) % Lymph % (Auto) 11.2 L (18.3-44.2) % Stone % (Auto) 4.6 (2.6-8.5) % Eos % (Auto) 2.4 (0-4.4) % Baso % (Auto) 0.5 (0.2-1.2) % Lymph # (Auto) 1.33 (0.9-3.2) K/mm3 Stone # (Auto) 0.5 (0.1-0.6) K/mm3 Eos # (Auto) 0.3 (0-0.3) K/mm3 Baso # (Auto) 0.1 (0.0-0.1) K/mm3 Abs Immat Gran (auto) 0.07 H (0.00-0.031) K/mm3 Absolute Neuts (auto) 9.6 H (1.3-6.7) K/mm3 Absolute Nucleated RBC 0.000 (0.0-0.012) K/mm3 Nucleated RBC % 0.0 (0.0-0.2) % PT 13.4 (11.1-14.7) Seconds INR 1.0 APTT 23.1 (22.3-36.8) Seconds Sodium 139 (137-145) mmol/L Potassium 4.2 (3.4-5.0) mmol/L Chloride 109 H (98-107) mmol/L Carbon Dioxide 22 (22-30) mmol/L Anion Gap 8 (4-12) mmol/L BUN 37 H D (9-20) mg/dL Creatinine 3.06 H (0.7-1.3) mg/dL Estim Creat Clear Calc 16 ml/min Estimated GFR 20 L (59 - ) Glucose 111 H (65-110) mg/dL Lactic Acid 1.3 (0.7-2.0) mmol/L Calcium 8.9 (8.4-10.2) mg/dL Total Bilirubin 0.4 (0.2-1.3) mg/dL AST 25 (17-59) U/L ALT 13 (6-50) U/L Alkaline Phosphatase 78 (38-126) U/L C-Reactive Protein 1.1 (<1.0) mg/dL Total Protein 7.7 (6.3-8.2) g/dL Albumin 3.6 (3.5-5.1) g/dL Urine Color Yellow (Yellow) Urine Appearance Turbid H (Clear) Urine pH 5.5 (5.0-9.0) Ur Specific [place] 1.010 (1.001-1.035) Urine Protein 1+ H (Negative) mg/dL Urine Glucose (UA) Negative (Negative) mg/dL Urine Ketones Negative (Negative) mg/dL Ur Blood (Man) 2+ H (Negative) Urine Nitrate Negative (Negative) Urine Bilirubin Negative (Negative) Urine Urobilinogen 0.2 (<2.0) mg/dL Leukocyte Esterase Rfl 3+ H (Negative) OLIVIA/UL Urine RBC 6-10 H (0-2) /hpf Urine WBC >100 H (0-3) /hpf Ur Squamous Epith Cells Few (Few) /hpf Urine Bacteria 2+ H /hpf Urine Casts 0-2 Urine Yeast (Budding) Present H (None) /hpf <Haven Villarreal PA-C - Last Filed: 05/17/25 14:57> Lab Results 05/17/25 05/17/25 Range/Units 11:56 13:24 WBC 11.9 H (4.5-10.0) K/mm3 RBC 3.98 L (4.6-6.20) M/mm3 Hgb 11.3 L (14.0-18.0) g/dL Hct 37.1 L (42.0-52.0) % MCV 93.2 (80-100) fl MCH 28.4 (26-34) pg MCHC 30.5 L (32-36) g/dl RDW 15.2 H (11.5-14.5) % Plt Count 292 (150-375) k/mm3 MPV 9.2 (7.4-10.4) fl Immature Gran % (Auto) 0.6 H (0-0.5) % Neut % (Auto) 80.7 H (45.5-73.1) % Lymph % (Auto) 11.2 L (18.3-44.2) % Stone % (Auto) 4.6 (2.6-8.5) % Eos % (Auto) 2.4 (0-4.4) % Baso % (Auto) 0.5 (0.2-1.2) % Lymph # (Auto) 1.33 (0.9-3.2) K/mm3 Stone # (Auto) 0.5 (0.1-0.6) K/mm3 Eos # (Auto) 0.3 (0-0.3) K/mm3 Baso # (Auto) 0.1 (0.0-0.1) K/mm3 Abs Immat Gran (auto) 0.07 H (0.00-0.031) K/mm3 Absolute Neuts (auto) 9.6 H (1.3-6.7) K/mm3 Absolute Nucleated RBC 0.000 (0.0-0.012) K/mm3 Nucleated RBC % 0.0 (0.0-0.2) % PT 13.4 (11.1-14.7) Seconds INR 1.0 APTT 23.1 (22.3-36.8) Seconds Sodium 139 (137-145) mmol/L Potassium 4.2 (3.4-5.0) mmol/L Chloride 109 H (98-107) mmol/L Carbon Dioxide 22 (22-30) mmol/L Anion Gap 8 (4-12) mmol/L BUN 37 H D (9-20) mg/dL Creatinine 3.06 H (0.7-1.3) mg/dL Estim Creat Clear Calc 16 ml/min Estimated GFR 20 L (59 - ) Glucose 111 H (65-110) mg/dL Lactic Acid 1.3 (0.7-2.0) mmol/L Calcium 8.9 (8.4-10.2) mg/dL Total Bilirubin 0.4 (0.2-1.3) mg/dL AST 25 (17-59) U/L ALT 13 (6-50) U/L Alkaline Phosphatase 78 (38-126) U/L C-Reactive Protein 1.1 (<1.0) mg/dL Total Protein 7.7 (6.3-8.2) g/dL Albumin 3.6 (3.5-5.1) g/dL Urine Color Yellow (Yellow) Urine Appearance Turbid H (Clear) Urine pH 5.5 (5.0-9.0) Ur Specific [place] 1.010 (1.001-1.035) Urine Protein 1+ H (Negative) mg/dL Urine Glucose (UA) Negative (Negative) mg/dL Urine Ketones Negative (Negative) mg/dL Ur Blood (Man) 2+ H (Negative) Urine Nitrate Negative (Negative) Urine Bilirubin Negative (Negative) Urine Urobilinogen 0.2 (<2.0) mg/dL Leukocyte Esterase Rfl 3+ H (Negative) OLIVIA/UL Urine RBC 6-10 H (0-2) /hpf Urine WBC >100 H (0-3) /hpf Ur Squamous Epith Cells Few (Few) /hpf Urine Bacteria 2+ H /hpf Urine Casts 0-2 Urine Yeast (Budding) Present H (None) /hpf <Magaly Cummings MD - Last Filed: 05/17/25 14:16> Discharge Plan Discharge Clinical Impression: Drug (multiple) resistant infection UTI (urinary tract infection) Qualifiers: Urinary tract infection type: acute cystitis Hematuria presence: with hematuria Qualified Code(s): N30.01 - Acute cystitis with hematuria CKD (chronic kidney disease) Qualifiers: Chronic kidney disease stage: unspecified stage Qualified Code(s): N18.9 - Chronic kidney disease, unspecified <Haven Villarreal PA-C - Last Filed: 05/17/25 14:57> Patient Disposition: Still a Patient <Haven Villarreal PA-C - Last Filed: 05/17/25 14:57> Condition: Stable <Haven Villarreal PA-C - Last Filed: 05/17/25 14:57> Patient Language: Tajik <Haven Villarreal PA-C - Last Filed: 05/17/25 14:57> Prescriptions: No Action amiodarone 100 mg tablet 100 mg PO DAILY nystatin 100,000 unit/gram cream 1 applic topical BID Qty: 30 1RF metoprolol succinate [Toprol XL] 25 mg tablet extended release 24 hr 12.5 mg PO QAM Qty: 90 0RF calcium carbonate 600 mg calcium (1,500 mg) tablet 600 mg PO DAILY (DME) electric hospital bed See Rx Instructions .Route .MEDSUPPLY Qty: 1 0RF Rx Instructions: As directed (DME) Gee lift See Rx Instructions .Route .MEDSUPPLY Qty: 1 0RF Rx Instructions: As directed (DME) Roho mattress See Rx Instructions .Route .MEDSUPPLY Qty: 1 0RF Rx Instructions: As directed (DME) low air loss mattress See Rx Instructions .Route .MEDSUPPLY Qty: 1 0RF Rx Instructions: As directed ferrous sulfate 325 mg (65 mg iron) tablet,delayed release (DR/EC) 325 mg PO DAILY Qty: 90 2RF rosuvastatin [Crestor] 40 mg tablet 40 mg PO QHS Qty: 90 1RF clopidogrel 75 mg tablet 75 mg PO QAM Qty: 90 1RF omeprazole 20 mg capsule,delayed release(DR/EC) 20 mg PO DAILY Qty: 90 0RF Rx Instructions: DUE FOR APPOINTMENT IN JUNE tamsulosin 0.4 mg capsule 0.4 mg PO DAILY Qty: 90 0RF Rx Instructions: DUE FOR APPOINTMENT IN JUNE finasteride 5 mg tablet 5 mg PO DAILY Qty: 90 0RF Rx Instructions: DUE FOR APPOINTMENT IN JUNE cefdinir 300 mg capsule 300 mg PO Q12H Qty: 20 0RF aspirin [Children's Aspirin] 81 mg tablet,chewable 81 mg PO DAILY@0800 Qty: 90 3RF <Haven Villarreal PA-C - Last Filed: 05/17/25 14:57> Follow-up/Referrals: Hilda Painting MD [Primary Care Provider, Family Practice] <Haven Villarreal PA-C - Last Filed: 05/17/25 14:57>
[2025-05-17 12:05] LABS: Hematocrit 37.1 % (42.0-52.0); Hemoglobin 11.3 g/dL (14.0-18.0); Immature Granulocyte Percent A 0.6 % (0-0.5); Lymphocytes Absolute Auto 1.33 K/mm3 (0.9-3.2); Mean Corpuscular HGB Conc 30.5 g/dl (32-36); Mean Corpuscular Hemoglobin 28.4 pg (26-34); Mean Corpuscular Volume 93.2 fl (80-100); Nucleated Red Blood Cells Absolute Auto 0.000 K/mm3 (0.0-0.012); Nucleated Red Blood Cells Perc 0.0 % (0.0-0.2); Platelet Count Result 292 k/mm3 (150-375); Red Blood Count 3.98 M/mm3 (4.6-6.20); White Blood Count 11.9 K/mm3 (4.5-10.0)
[2025-05-17 12:18] LABS: Alanine Aminotransferase 13 U/L (6-50); Albumin Level 3.6 g/dL (3.5-5.1); Alkaline Phosphatase 78 U/L (38-126); Anion Gap 8 mmol/L (4-12); Aspartate Amino Transferase 25 U/L (17-59); Bilirubin,Total 0.4 mg/dL (0.2-1.3); Blood Urea Nitrogen 37 mg/dL (9-20); CRP 1.1 mg/dL (<1.0); Calcium 8.9 mg/dL (8.4-10.2); Carbon Dioxide 22 mmol/L (22-30); Chloride 109 mmol/L (98-107); Estimated CRCL calculation 16 ml/min; Estimated Glomerular Filt Rate 20; Glucose 111 mg/dL (65-110); Potassium 4.2 mmol/L (3.4-5.0); Sodium 139 mmol/L (137-145); Total Protein 7.7 g/dL (6.3-8.2)
[2025-05-17 12:38] LABS: INR 1.0; Prothrombin Time 13.4 Seconds (11.1-14.7)
[2025-05-17 12:39] LABS: Partial Thromboplastin Time 23.1 Seconds (22.3-36.8)
--- OUTSIDE RECORDS SUMMARY | 2025-05-17 13:13 | XMS_ITS | Clinical Summary ---
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 Pulse - - Temperature 36.5 C (97.7 F) 06/04/2022 11:32 AM ENGINEERING EXECUTIVE Respiratory Rate 18 06/04/2022 11:32 AM ENGINEERING EXECUTIVE Oxygen Saturation - - Inhaled Oxygen Concentration - - Weight 74.8 kg (165 lb) 02/19/2022 9:42 AM CDT Height 175.3 cm (5' 9) 06/04/2022 11:32 AM ENGINEERING EXECUTIVE Body Mass Index 24.37 02/19/2022 9:42 AM CDT Plan of Treatment Health Maintenance Due Date Last Done Comments Pneumococcal PPSV23/PCV13 65 + Years / Low and Medium Risk (1 of 2 - PCV) 1990 COVID-19 Vaccine (2 - season) 03/15/202503/2021, 10/19/2020 Influenza Vaccine (#1) 2025 04/14/2014, 2013 Insurance MEDICARE [facility] Care Teams Dental Instrument Maker Relationship Specialty Start Date End Date Akhil Painting MD [address] [place] [address] PCP - General Internal Medicine 12/26/21
--- OUTSIDE RECORDS SUMMARY | 2025-05-17 13:13 | XMS_ITS | Clinical Summary ---
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
--- OUTSIDE RECORDS SUMMARY | 2025-05-17 13:13 | XMS_ITS | Encounter Summary ---
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 The new reference range is 25-100 The old referance range was 38-126 AST 28 8 - 33 U/L INTERFACE SYSTEM Comment: As of 05 the [facility] has changed testing methods. The new reference range is 8-33 The old referance range was Males 17-59 Females 14-36 ALT 32 4 - 36 IU/L INTERFACE SYSTEM Comment: As of 05 the [facility] has changed testing methods. The new reference range is 4-36 The old referance range was Males 21-72 Females 9-52 BILIRUBIN TOTAL 0.6 0.3 - 1.2 mg/dL INTERFACE SYSTEM Comment: As of 05 the [facility] has changed testing methods. The new reference range is 0.3-1.2 The old referance range was 0.2-1.4 12/09/2005 11:5 8 AM CDT Lolis Irwin MD CHEMISTRY ORDERABLES Final Resul t Performing Organization Address City/[facility] Co de Phone Number INTERFACE SYSTEM Refer [...] ORDERABLES Final Resu lt Performing Organization Address City/State/[facility] Co de Phone Number INTERFACE SYSTEM Refer [...]
--- OUTSIDE RECORDS SUMMARY | 2025-05-17 13:13 | XMS_ITS | Clinical Summary ---
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 [address] [place] [address] PCP - General Family Practice 03/02/24
[2025-05-17 13:42] LABS: Add Urine Microscopic? YES; Appearance Urine Turbid (Clear); Budding Yeast Urine Present /hpf; Glucose Urine UA Negative (Negative); Leukocyte Esterase Ur 3+ LEU/UL (Negative); Nitrate Urine Negative (Negative); Non Pathogenic Casts 0-2; Specific Grav Ur 1.010 (1.001-1.035)
[2025-05-17] MEDS: SODIUM CHLORIDE 0.9% IVPB (13:52)
[2025-05-17] MEDS: CEFTAZIDIME IVPB (13:52)
[2025-05-17 14:01] VITALS: RESP 18; O2SAT 100
[2025-05-17 14:02] VITALS: BP 114/78; PULSE 52; RESP 18; O2SAT 100
[2025-05-17 15:21] VITALS: BP 122/56; PULSE 87; RESP 18; O2SAT 100
[2025-05-17 15:30] VITALS: BP 123/50; PULSE 47; RESP 16; TEMP 36.6; O2SAT 98; O2SAT 99
--- NOTE | 2025-05-17 15:30 | ADMGEN ---
This patient, David Coleman, was admitted to [facility] Surg Room 314-01. Patient/family oriented to hospital policies and general routines including ID bracelet, bed and alarms, visiting hours, pain management, procedures, bathroom and other care routines, personal items, smoking policy, room service/diet, and visiting hours. Information on how to activate the Rapid Response Team has been discussed. Patient/Family are encouraged to report perceived risks to care and to ask questions if they do not understand what they are told or what they should do.
--- NOTE | 2025-05-17 16:03 | PCCCNOTE ---
Called [facility] regarding current status for pt. Willy Tomas at [facility] pt currently on hospice. Pt was started on palliative care on 11/13/2024 and moved to hospice on 02/05/2025. Pt was referred to ED for tx of drug resistant UTI. UTI has not been responsive oral abx. Per Jayde pt will need to revoke hospice and can be readmitted to hospice after hospitalization complete. [facility] [phone]. Son is POA.
--- NOTE | 2025-05-17 16:27 | PM.IMHP ---
H&P: HPI History of Present Illness Date/Time: 05/17/25 16:27 Chief Complaint: Abnormal lab Narrative: 84-year-old male with past medical history of CKD stage 4, DVT, CAD, cardiomyopathy, BPH, footdrop, decubitus ulcer presents to the ED on 05/17/2025 from home with his caregiver Amelia with complaints of UTI. Caregiver Amelia assisted with providing medical information. Patient has had a UTI for the past 6 months and make it states his urine is mostly mucus. Patient is currently on cefdinir for his UTI. Her recently, his PCP obtained a urine sample to sent for culture. The culture grew Pseudomonas aeruginosa-CRPA. Patient was directed by his PCP to present to the ED for further treatment. Patient denied any symptoms of UTI. No fever, chills, dysuria. Of note, patient has been on hospice for the past few with [facility]. He had been on palliative care with [facility] until he developed a decubitus ulcer, which qualified him for hospice. The wound had been treated with Medihoney at home and has improved. Patient had to revoke hospice for this hospitalization. Patient receives care from in-home caregivers Amelia and Nai from the hours of 7:00 a.m. to 9:30 p.m.. He uses a male purewick at night. Son Eric is POA. Initial vital signs BP 126/46, HR 48, respirations 20, afebrile and 100% on room air. Lab significant for WBC 11.9, BUN 37, creatinine 3.06 UA with 1+ protein, 2+ blood, 3+ leukocyte Estrace, 6-10 rbc's, > 100 WBC, 2+ bacteria, yeast present [facility] Past Medical History Medical History (Updated 05/18/25 @ 01:22 by Rubi Jason, ZOILA) Chronic kidney disease (CKD), stage 4 Prediabetes Colon cancer Status post partial colectomy and chemoradiation. 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 Iron deficiency anemia Deep vein thrombosis of left lower extremity (2018) Provoked DVT following admission. Coronary artery disease Multivessel coronary artery disease noted on cardiac catheterization in September 2023 including the LAD, RCA, and an obtuse marginal. Patient declined MIDCAB and is being treated medically. Cardiomyopathy On LifeVest from September to February 2024. Vitamin D deficiency Psoriasis Benign prostatic disease Osteoarthritis Foot drop Surgical History Surgical History History of cervical spinal surgery (10/2018) History of left knee replacement (2000) History of partial colectomy (1994) History of lumbosacral spine surgery early Family History Family History (Updated 05/17/25 @ 16:15 by Alejandra Olivia RN) Mother Alzheimer dementia Social History Social History Social History: Surrogate medical decision maker: David Coleman Jr. (son). Code status: Full code. Smoking packs per day: 0.25 Smoking cigarettes per day: 5.0 Years smoked: 4 Smoking pack-years: 1.00 Smoking status: Former smoker Tobacco type: cigarettes Second hand tobacco smoke exposure: No Smoking end date: 07/15/1962 Alcohol intake: never Substance use: never Substance use type: does not use Do You Feel Safe in your Home?: Yes Lack of Transportation: No Lack of Food: Never True Current Housing: I Have Housing Concerned About Future Housing: No Difficulty Paying Gas/Electric Bills: No Difficulty Paying for Meds: No Currently Unemployed: No Education: High School Diploma/GED Difficulty w/ Childcare or Family Care: No Living arrangements: with family Additional living arrangements comments: Lives alone. [employer] in the home from 07:00 to 23:00. He has bilateral footdrop and cannot ambulate even with his AFO braces. He uses a slide board to transfer. Occupation/Education: retired Spiritual care concerns: No Meds Home Medications and Allergies Home Medications ?Medication ?Instructions ?Recorded ?Confirmed ?Type calcium carbonate 600 mg PO DAILY 12/13/21 01/18/25 History electric hospital bed #1 ea 10/08/24 01/18/25 Rx Gee lift #1 ea 10/27/24 01/18/25 Rx Roho mattress #1 ea 11/03/24 01/18/25 Rx low air loss mattress #1 ea 11/10/24 01/18/25 Rx ferrous sulfate 325 mg (65 mg 325 mg PO DAILY #90 tabs 12/28/24 01/18/25 Rx iron) tablet,delayed release rosuvastatin 40 mg tablet (Crestor) 40 mg PO QHS #90 tabs 01/01/25 01/18/25 Rx amiodarone 100 mg tablet 100 mg PO DAILY 01/11/25 01/18/25 History metoprolol succinate 25 mg 12.5 mg (1/2 x 25 mg) PO QAM #90 01/11/25 01/18/25 Rx tablet,extended release 24 hr tabs (Toprol XL) nystatin 100,000 unit/gram topical 1 applic topical BID #30 grams 01/11/25 01/18/25 Rx cream clopidogrel 75 mg tablet 75 mg PO QAM #90 tabs 02/19/25 Rx finasteride 5 mg tablet 5 mg PO DAILY #90 tabs 05/03/25 Rx omeprazole 20 mg capsule,delayed 20 mg PO DAILY #90 caps 05/03/25 Rx release tamsulosin 0.4 mg capsule 0.4 mg PO DAILY #90 caps 05/03/25 Rx cefdinir 300 mg capsule 300 mg PO Q12H #20 caps 05/11/25 Rx aspirin 81 mg chewable tablet 81 mg PO DAILY@0800 #90 tabs 05/13/25 Rx (Children's Aspirin) Allergies Allergy/AdvReac Type Severity Reaction Status Date / Time morphine Allergy Severe HIVES Verified 05/17/25 16:25 No Known Food Allergies Allergy Other Verified 05/17/25 16:25 meperidine AdvReac severe Verified 05/17/25 16:25 constipation Vital Signs Vital Signs - 24 hr 05/17/25 11:11 05/17/25 14:01 05/17/25 14:02 Temperature 97.7 F Pulse Rate 48 L 52 L Respiratory Rate 20 18 18 Blood Pressure 126/46 L 114/78 Pulse Oximetry 100 100 100 Oxygen Delivery Room Air 05/17/25 15:21 05/17/25 15:30 Temperature 97.8 F Pulse Rate 87 47 L Respiratory Rate 18 16 Blood Pressure 122/56 L 123/50 L Pulse Oximetry 100 99 Oxygen Delivery Exam Narrative: GENERAL: non-toxic appearing, in no acute distress. Chronically ill appearing HEAD: Normocephalic, atraumatic. EYES: PERRLA. Conjunctivae clear. EARS: NOSE: Normal no drainage. THROAT: Pharynx clear, no exudate. NECK: Trachea midline. Thyroid not palpable. No adenopathy, no masses. RESPIRATORY: Airway patent, respirations nonlabored. CTA. CARDIOVASCULAR: Regular rate and rhythm. Bradycardic GASTROINTESTINAL: Abdomen is soft and nontender. No organomegaly. Bowel sounds normal in all quadrants. GENITOURINARY: Defer MUSCULOSKELETAL: Moves all extremities. No gross deformities. Patient states he is bedbound SKIN: Warm, dry, normal color. Small decubitus ulcer to sacrum without signs of infection NEURO: A&O X4. Speech clear PSYCHIATRIC: Normal interaction H&P: Results Labs Labs: Short CBC 05/17/25 Range/Units 11:56 WBC 11.9 H (4.5-10.0) K/mm3 Hgb 11.3 L (14.0-18.0) g/dL Hct 37.1 L (42.0-52.0) % Plt Count 292 (150-375) k/mm3 BMP 05/17/25 11:56 Sodium 139 Potassium 4.2 Chloride 109 H Carbon Dioxide 22 BUN 37 H D Creatinine 3.06 H Glucose 111 H Calcium 8.9 Liver Function 05/17/25 Range/Units 11:56 Total Bilirubin 0.4 (0.2-1.3) mg/dL AST 25 (17-59) U/L ALT 13 (6-50) U/L Alkaline Phosphatase 78 (38-126) U/L Albumin 3.6 (3.5-5.1) g/dL Urine 05/17/25 Range/Units 13:24 Urine Color Yellow (Yellow) Urine Appearance Turbid H (Clear) Urine pH 5.5 (5.0-9.0) Ur Specific [place] 1.010 (1.001-1.035) Urine Protein 1+ H (Negative) mg/dL Urine Glucose (UA) Negative (Negative) mg/dL Assessment and Plan Assessment and plan (1) Drug (multiple) resistant infection: Status: Acute Assessment and Plan: Pseudomonas aeruginosa-CRPA grew from urine specimen on 05/11. Patient has no symptoms of UTI but caregiver states his urine is mostly mucus. -ceftazidime 2 g Q 24 -trend CBC (2) Stage 4 chronic kidney disease: Code(s): N18.4 - Chronic kidney disease, stage 4 (severe) Status: Chronic Assessment and Plan: CKD stage 4 current at his baseline. BUN 37, creatinine 3.06, GFR 20 -patient has upcoming appointment with Nephrology -trend BMP (3) Pressure ulcer, buttock: Code(s): L89.309 - Pressure ulcer of unspecified buttock, unspecified stage Status: Chronic Assessment and Plan: No signs of infection. -wound care consult -turn schedule (4) Essential (primary) hypertension: Code(s): I10 - Essential (primary) hypertension Status: Chronic Assessment and Plan: BP currently 98/40 with heart rate of 50. Await med rec for accurate antihypertensives. (5) Iron deficiency anemia: Code(s): D50.9 - Iron deficiency anemia, unspecified Status: Chronic Assessment and Plan: Continue ferrous sulfate daily (6) Hyperlipidemia: Code(s): E78.5 - Hyperlipidemia, unspecified Status: Chronic Assessment and Plan: Continue rosuvastatin (7) BPH NOS w/o ur obs/LUTS: Code(s): N40.0 - Benign prostatic hyperplasia without lower urinary tract symptoms Status: Chronic Assessment and Plan: Continue tamsulosin, finasteride (8) Wide-complex tachycardia: Onset Date: 09/2023 Code(s): R00.0 - Tachycardia, unspecified Status: Chronic Assessment and Plan: Continue amiodarone -monitor heart rate Plan Diet: Regular diet GI prophylaxis: NA DVT prophylaxis: SCDs lines/drains: PIV Fluids: NA Code status: Do not resuscitate Quality VTE Prophylaxis VTE prophylaxis: mechanical ordered Hospitalist [facility] Advance Care Plan I have confirmed that the patient's Advanced Care Plan is present, code status is documented, or surrogate decision maker is listed in patient medical record.: Yes Medication Reconciliation I have utilized all available resources to obtain, update and review the patients current medications (includes all prescriptions, OTC, herbals, cannabis, and nutritional supplements).: Yes
--- NOTE | 2025-05-17 18:57 | PC.NURSE ---
RN attempted to do med rec with patient. Patient is not familiar with home medications. Patient states that caregiver will be here tonight and knows medications. RN asked patient twice throughout shift if caregiver is still coming. Patient now stating that caregiver cannot make it tonight will be here in the morning with the medication list.
[2025-05-17 20:55] VITALS: BP 98/40; PULSE 50; RESP 24; TEMP 36.1; O2SAT 100
[2025-05-18 04:40] VITALS: BP 132/66; PULSE 48; RESP 18; TEMP 36.6; O2SAT 100
[2025-05-18 05:00] VITALS: BMI 20.4
--- NOTE | 2025-05-18 06:51 | PC.NURSE ---
Caregiver, Amelia called this morning to verify patient's medication list to updated. She stated the other caregiver, Raquel, lives closer to patient and would be able to bring copy from his home. Voicemail left to return call to unit and speak to his nurse to verify medications.
[2025-05-18 08:00] VITALS: PULSE 52; RESP 17; O2SAT 100
--- NOTE | 2025-05-18 08:04 | WNDPHOTO ---
PHOTO ONLY - See Nursing Notes and/ or assessments for documentation.
[2025-05-18] MEDS: TAMSULOSIN HCL 0.4 MG CAPSULE PO (09:49)
[2025-05-18] MEDS: FERROUS SULFATE 325 MG TABLET PO (09:49)
[2025-05-18] MEDS: ROSUVASTATIN 20 MG TABLET 40 MG PO (09:49)
[2025-05-18] MEDS: CLOPIDOGREL BISULFATE 75 MG TABLET PO (09:49)
[2025-05-18] MEDS: FINASTERIDE 5 MG TABLET PO (09:50)
[2025-05-18] MEDS: ASPIRIN 81 MG ENTERIC TABLET PO (09:50)
--- NOTE | 2025-05-18 11:00 | PC.NURSE ---
Spoke with pt's daughter, Lorraine regarding pt care. Notified daughter that the Provider is awaiting Neuro clearance for discharge. Unsure if discharge will occur today.
--- NOTE | 2025-05-18 13:56 | PC.NURSE ---
Pt's daughter Lorraine called again. Again notified still awaiting neuro clearance for discharge. Daughter became aggressive and confrontational on the phone asking who would know the answer and get the neurologist to see pt today to discharge pt today. Daughter notified that neurologist aware and will see pt when available. Daughter became argumentative inquiring of this nurse if i knew how much it cost to stay in a hospital. Again notified of need for neuro clearance prior to discharge. There's nothing this nurse can do to expedite discharge. Daughter hung up the phone.
[2025-05-18 14:00] VITALS: BP 124/60; PULSE 52; RESP 17; TEMP 36.6; O2SAT 100
[2025-05-18] MEDS: SODIUM CHLORIDE 0.9% IVPB (14:23)
[2025-05-18] MEDS: CEFTAZIDIME IVPB (14:23)
--- NOTE | 2025-05-18 16:01 | PC.NURSE ---
Provider, Divina, called by this nurse and notified of daughters aggressiveness and insistence that pt be discharged today. Provider again noted that neuro needed to clear pt. Also notified this nurse of Cardiology's order for gas prover in discharge. Pt would be discharged tomorrow after neuro assesses pt and monitor can be applied.
--- NOTE | 2025-05-18 17:00 | PC.NURSE ---
This nurse called to pt room per pt. Pt confused at baseline with dementia. Asked this nurse why he can't be discharged today. Pt notified that provider awaiting the neuro consult to assess pt prior to discharge. Verbalized understanding at that time.
--- NOTE | 2025-05-18 17:30 | PC.NURSE ---
Pt's daughter Lorraine here in pt's room. Daughter told the PCT that someone needed to come to pt's room and explain to pt why he can't be discharged today. This nurse addressed Lorraine stating I would go through this one more time. Pt's daughter again became confrontational stating Just one more time? Daughter notified that I have spoken with her twice today and pt recently regarding discharge today and reasoning why that can not happen. Daughter stated this nurse had not called her back today even though I had spoken with her twice via telephone. Daughter continued being argumentative and unreasonable.
--- NOTE | 2025-05-18 17:45 | PC.NURSE ---
This nurse walking in hallway and turned to find daughter taking this nurses picture with cell phone. Charge nurse notified. Charge nurse assumed pt care for rest of shift.
--- NOTE | 2025-05-18 18:12 | WPDIDCN ---
Assessment and Plan Assessment and plan (1) CKD (chronic kidney disease): Qualifiers: Chronic kidney disease stage: unspecified stage Qualified Code(s): N18.9 - Chronic kidney disease, unspecified Code(s): N18.9 - Chronic kidney disease, unspecified Status: Acute (2) UTI (urinary tract infection): Qualifiers: Hematuria presence: with hematuria Urinary tract infection type: acute cystitis Qualified Code(s): N30.01 - Acute cystitis with hematuria Code(s): N39.0 - Urinary tract infection, site not specified Status: Acute (3) Drug (multiple) resistant infection: Status: Acute Plan ASSESSMENT: 1. CR-PSAR UTI with possible pyelonephritis 2. BPH 3. CKD--adjust abx 4. CAD, CMP, HTN, HL 5. DVT 6. colon can s/p partial colectomy and chemoradiation 7. wide complex tachycardia on amiodarone-->avoid quinolone abx due to interaction RECOMMENDATIONS: -ceftazidime x 7 days -f/u on repeat UX -f/u on blood cxs d/w pharmacy staff Patient was examined and interviewed with the aid of a HIPPA-protected telemedicine audio and visual platform with the patient at [facility] in [facility] and myself in my office in [place]. With patient consent. HPI Data of Consult Date/Time: 05/18/25 18:12 Requesting Physician: Audrey Lugo MD Primary Care Provider: Akhil Painting MD Consult Narrative Reason for consult: CR-PSAR UTI Narrative: David Coleman is a 84 year old male with pmhx/o CKD, DVT, HTN, HL, CAD, CMP, BPH, colon cancer s/p partial colectomy and chemoradiation, enrolled in hospice, seems like recurrent UTIs also, presented to hospital for abx for UCx positive for CR-PSAR. No fevers. Mild leukocytosis. [facility] Past Medical History Medical History (Updated 05/18/25 @ 01:22 by Rubi Jason APRN) Chronic kidney disease (CKD), stage 4 Prediabetes Colon cancer Status post partial colectomy and chemoradiation. 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 Iron deficiency anemia Deep vein thrombosis of left lower extremity (2018) Provoked DVT following admission. Coronary artery disease Multivessel coronary artery disease noted on cardiac catheterization in September 2023 including the LAD, RCA, and an obtuse marginal. Patient declined MIDCAB and is being treated medically. Cardiomyopathy On LifeVest from September to February 2024. Vitamin D deficiency Psoriasis Benign prostatic disease Osteoarthritis Foot drop Surgical History Surgical History History of cervical spinal surgery (10/2018) History of left knee replacement (2000) History of partial colectomy (1994) History of lumbosacral spine surgery early Family History Family History (Updated 05/17/25 @ 16:15 by Alejandra Olivia RN) Mother Alzheimer dementia Social History Social History Social History: Surrogate medical decision maker: David Coleman Jr. (son). Code status: Full code. Smoking packs per day: 0.25 Smoking cigarettes per day: 5.0 Years smoked: 4 Smoking pack-years: 1.00 Smoking status: Former smoker Tobacco type: cigarettes Second hand tobacco smoke exposure: No Smoking end date: 07/15/1962 Alcohol intake: never Substance use: never Substance use type: does not use Do You Feel Safe in your Home?: Yes Lack of Transportation: No Lack of Food: Never True Current Housing: I Have Housing Concerned About Future Housing: No Difficulty Paying Gas/Electric Bills: No Difficulty Paying for Meds: No Currently Unemployed: No Education: High School Diploma/GED Difficulty w/ Childcare or Family Care: No Living arrangements: with family Additional living arrangements comments: Lives alone. Mess [employer] in the home from 07:00 to 23:00. He has bilateral footdrop and cannot ambulate even with his AFO braces. He uses a slide board to transfer. Occupation/Education: retired Spiritual care concerns: No Meds Home Medications and Allergies Home Medications ?Medication ?Instructions ?Recorded ?Confirmed ?Type calcium carbonate 600 mg PO DAILY 12/13/21 05/18/25 History electric hospital bed #1 ea 10/08/24 01/18/25 Rx Gee lift #1 ea 10/27/24 01/18/25 Rx Roho mattress #1 ea 11/03/24 01/18/25 Rx low air loss mattress #1 ea 11/10/24 01/18/25 Rx ferrous sulfate 325 mg (65 mg 325 mg PO DAILY #90 tabs 12/28/24 05/18/25 Rx iron) tablet,delayed release rosuvastatin 40 mg tablet (Crestor) 40 mg PO QHS #90 tabs 01/01/25 05/18/25 Rx amiodarone 100 mg tablet 100 mg PO DAILY 01/11/25 05/18/25 History metoprolol succinate 25 mg 12.5 mg (1/2 x 25 mg) PO QAM #90 01/11/25 05/18/25 Rx tablet,extended release 24 hr tabs (Toprol XL) clopidogrel 75 mg tablet 75 mg PO QAM #90 tabs 02/19/25 05/18/25 Rx finasteride 5 mg tablet 5 mg PO DAILY #90 tabs 05/03/25 05/18/25 Rx omeprazole 20 mg capsule,delayed 20 mg PO DAILY #90 caps 05/03/25 05/18/25 Rx release tamsulosin 0.4 mg capsule 0.4 mg PO DAILY #90 caps 05/03/25 05/18/25 Rx aspirin 81 mg chewable tablet 81 mg PO DAILY@0800 #90 tabs 05/13/25 05/18/25 Rx (Children's Aspirin) terbinafine HCl 250 mg tablet 250 mg PO HS 05/18/25 05/18/25 History Allergies Allergy/AdvReac Type Severity Reaction Status Date / Time morphine Allergy Severe HIVES Verified 05/17/25 16:25 No Known Food Allergies Allergy Other Verified 05/17/25 16:25 meperidine AdvReac severe Verified 05/17/25 16:25 constipation Vital Signs Vital Signs - 24 hr 05/17/25 20:55 05/17/25 23:06 05/18/25 04:40 Temperature 97 F L 97.8 F Pulse Rate 50 L 48 L Respiratory Rate 24 H 18 Blood Pressure 98/40 L 132/66 Pulse Oximetry 100 100 Oxygen Delivery Room Air 05/18/25 08:00 05/18/25 14:00 Temperature 97.9 F Pulse Rate 52 L 52 L Respiratory Rate 17 17 Blood Pressure 124/60 Pulse Oximetry 100 100 Oxygen Delivery Room Air Exam Narrative: non-toxic, on room air abd +tender and left CVA tender Results Labs 05/17/25 11:56 05/17/25 11:56
--- NOTE | 2025-05-18 18:35 | PM.IMPN ---
Progress Note: A&P Assessment and Plan (1) UTI (urinary tract infection): Qualifiers: Hematuria presence: with hematuria Urinary tract infection type: acute cystitis Qualified Code(s): N30.01 - Acute cystitis with hematuria Code(s): N39.0 - Urinary tract infection, site not specified Status: Acute Assessment and Plan: Recommended to come from PCP due to urine culture growing carbapenem resistant Pseudomonas aeruginosa, currently sensitive to ceftazidime. Infectious diseases was consulted, agrees with continuation of ceftazidime for 7 days. To follow final culture results that are currently pending. (2) Stage 4 chronic kidney disease: Code(s): N18.4 - Chronic kidney disease, stage 4 (severe) Status: Chronic Assessment and Plan: Renal dosing of drugs Avoid nephrotoxic agents (3) Hyperlipidemia: Code(s): E78.5 - Hyperlipidemia, unspecified Status: Chronic Assessment and Plan: All rosuvastatin (4) Wide-complex tachycardia: Onset Date: 09/2023 Code(s): R00.0 - Tachycardia, unspecified Status: Chronic Assessment and Plan: On amiodarone Plan DVT prophylaxis Subjective Date/time seen: 05/18/25 18:35 Review of Systems Review of Systems: All systems reviewed & are unremarkable except as noted in HPI and below Exam Narrative: GENERAL: non-toxic appearing, in no acute distress. Chronically ill appearing HEAD: Normocephalic, atraumatic. EYES: PERRLA. Conjunctivae clear. EARS: NOSE: Normal no drainage. THROAT: Pharynx clear, no exudate. NECK: Trachea midline. Thyroid not palpable. No adenopathy, no masses. RESPIRATORY: Airway patent, respirations nonlabored. CTA. CARDIOVASCULAR: Regular rate and rhythm. Bradycardic GASTROINTESTINAL: Abdomen is soft and nontender. No organomegaly. Bowel sounds normal in all quadrants. GENITOURINARY: Defer MUSCULOSKELETAL: Moves all extremities. No gross deformities. Patient states he is bedbound SKIN: Warm, dry, normal color. Small decubitus ulcer to sacrum without signs of infection NEURO: A&O X4. Speech clear PSYCHIATRIC: Normal interaction Objective Data Vital Signs Vital Signs: Vital Signs - 24 hr 05/17/25 20:55 05/17/25 23:06 05/18/25 04:40 Temperature 97 F L 97.8 F Pulse Rate 50 L 48 L Respiratory Rate 24 H 18 Blood Pressure 98/40 L 132/66 Pulse Oximetry 100 100 Oxygen Delivery Room Air 05/18/25 08:00 05/18/25 14:00 Temperature 97.9 F Pulse Rate 52 L 52 L Respiratory Rate 17 17 Blood Pressure 124/60 Pulse Oximetry 100 100 Oxygen Delivery Room Air Intake/Output Intake/Output: Intake & Output 05/15/25 05/16/25 05/17/25 05/18/25 23:59 22:59 23:59 23:59 Intake Total 530 640 Balance 530 640 Meds/Results Medications: Active Medications Generic Name Dose Route Start Last Admin Trade Name Freq PRN Reason Stop Dose Admin Acetaminophen 650 mg 05/17/25 13:51 Acetaminophen 325 Mg Tablet PO Q4H PRN Mild Pain (1-3) or Fever Amiodarone HCl 100 mg 05/18/25 08:00 05/18/25 09:51 Amiodarone Hcl 100 Mg Tablet PO Not Given DAILY@0800 TATIANA Aspirin 81 mg 05/18/25 09:00 05/18/25 09:50 Aspirin 81 Mg Enteric Tablet PO 81 mg QAM TATIANA Administration Clopidogrel Bisulfate 75 mg 05/18/25 09:00 05/18/25 09:49 Clopidogrel Bisulfate 75 Mg Tablet PO 75 mg QAM TATIANA Administration Dextrose 12.5 gm 05/17/25 14:04 Dextrose 50% 25 Gm/50 Ml Syringe IV PUSH PRN PRN Hypoglycemia Protocol Ferrous Sulfate 325 mg 05/18/25 09:00 05/18/25 09:49 Ferrous Sulfate 325 Mg Tablet PO 325 mg DAILY TATIANA Administration Finasteride 5 mg 05/18/25 09:00 05/18/25 09:50 Finasteride 5 Mg Tablet PO 5 mg QAM TATIANA Administration Glucagon 1 mg 05/17/25 14:04 Glucagon For Inj 1 Mg Vial IM PRN PRN Hypoglycemia Protocol Glucose 15 gm 05/17/25 14:04 Glucose Oral Gel 15 Gm Of Glucse In 37.5 Gm Tube PO PRN PRN Hypoglycemia Protocol Ceftazidime 2 gm/ Sodium 50 mls @ 100 mls/hr 05/18/25 14:00 05/18/25 14:23 Chloride IVPB 05/23/25 14:29 100 mls/hr Q24H TATIANA Administration Dextrose 1,000 mls @ 100 mls/hr 05/17/25 14:04 Dextrose 5% 1,000 Ml IVPB PRN PRN Hypoglycemia Protocol Ondansetron HCl 4 mg 05/17/25 13:51 Ondansetron Inj 4 Mg/2 Ml Vial IV PUSH Q4H PRN Nausea Rosuvastatin Calcium 40 mg 05/18/25 09:00 05/18/25 09:49 Rosuvastatin 20 Mg Tablet PO 40 mg QAM TATIANA Administration Tamsulosin HCl 0.4 mg 05/18/25 09:00 05/18/25 09:49 Tamsulosin Hcl 0.4 Mg Capsule PO 0.4 mg QAM [facility] Administration Hospitalist [facility] Advance Care Plan I have confirmed that the patient's Advanced Care Plan is present, code status is documented, or surrogate decision maker is listed in patient medical record.: Yes Medication Reconciliation I have utilized all available resources to obtain, update and review the patients current medications (includes all prescriptions, OTC, herbals, cannabis, and nutritional supplements).: Yes
[2025-05-18 21:10] VITALS: BP 114/64; PULSE 51; RESP 16; TEMP 37.3; O2SAT 99
[2025-05-19 05:30] VITALS: BP 130/70; PULSE 51; RESP 18; TEMP 36.6; O2SAT 99
[2025-05-19 06:18] LABS: Hematocrit 31.7 % (42.0-52.0); Hemoglobin 9.8 g/dL (14.0-18.0); Immature Granulocyte Percent A 0.6 % (0-0.5); Lymphocytes Absolute Auto 1.27 K/mm3 (0.9-3.2); Mean Corpuscular HGB Conc 30.9 g/dl (32-36); Mean Corpuscular Hemoglobin 28.9 pg (26-34); Mean Corpuscular Volume 93.5 fl (80-100); Nucleated Red Blood Cells Absolute Auto 0.000 K/mm3 (0.0-0.012); Nucleated Red Blood Cells Perc 0.0 % (0.0-0.2); Platelet Count Result 267 k/mm3 (150-375); Red Blood Count 3.39 M/mm3 (4.6-6.20); White Blood Count 11.5 K/mm3 (4.5-10.0)
[2025-05-19 06:43] LABS: Alanine Aminotransferase 10 U/L (6-50); Albumin Level 2.9 g/dL (3.5-5.1); Alkaline Phosphatase 70 U/L (38-126); Anion Gap 5 mmol/L (4-12); Aspartate Amino Transferase 20 U/L (17-59); Bilirubin,Total 0.3 mg/dL (0.2-1.3); Blood Urea Nitrogen 35 mg/dL (9-20); Calcium 8.7 mg/dL (8.4-10.2); Carbon Dioxide 21 mmol/L (22-30); Chloride 113 mmol/L (98-107); Estimated CRCL calculation 14 ml/min; Estimated Glomerular Filt Rate 18; Glucose 101 mg/dL (65-110); Potassium 3.9 mmol/L (3.4-5.0); Sodium 139 mmol/L (137-145); Total Protein 6.5 g/dL (6.3-8.2)
[2025-05-19] MEDS: TAMSULOSIN HCL 0.4 MG CAPSULE PO (09:52)
[2025-05-19] MEDS: CLOPIDOGREL BISULFATE 75 MG TABLET PO (09:52)
[2025-05-19 09:53] VITALS: PULSE 60
[2025-05-19] MEDS: AMIODARONE HCL 100 MG TABLET PO (09:53)
[2025-05-19] MEDS: ROSUVASTATIN 20 MG TABLET 40 MG PO (09:53)
[2025-05-19] MEDS: FINASTERIDE 5 MG TABLET PO (09:53)
[2025-05-19] MEDS: FERROUS SULFATE 325 MG TABLET PO (09:53)
[2025-05-19] MEDS: ASPIRIN 81 MG ENTERIC TABLET PO (09:53)
[2025-05-19 14:00] VITALS: BP 111/56; PULSE 56; RESP 18; TEMP 36.5; O2SAT 100
[2025-05-19] MEDS: cefTAZidime INJ 1 GM in SODIUM CHLORIDE 0.9% IV 50 ML IVPB (14:38)
--- NOTE | 2025-05-19 16:07 | P.PNIM_ITS ---
Progress Note: A&P Assessment and Plan (1) UTI (urinary tract infection): Qualifiers: Hematuria presence: with hematuria Urinary tract infection type: acute cystitis Qualified Code(s): N30.01 - Acute cystitis with hematuria Code(s): N39.0 - Urinary tract infection, site not specified Status: Acute Assessment and Plan: Recommended to come from PCP due to urine culture growing carbapenem resistant Pseudomonas aeruginosa, currently sensitive to ceftazidime. Infectious diseases was consulted, agrees with continuation of ceftazidime for 7 days. Ceftazidime dose was renally adjusted given slight alteration to CKD noted today in creatinine Urine culture-growth observed, currently pending Will consider for line placement so patient can complete antibiotic course outside of the hospital setting given that is the primary reason he is here (2) Stage 4 chronic kidney disease: Code(s): N18.4 - Chronic kidney disease, stage 4 (severe) Status: Chronic Assessment and Plan: Renal dosing of drugs Avoid nephrotoxic agents Daily monitoring of renal function (3) Hyperlipidemia: Code(s): E78.5 - Hyperlipidemia, unspecified Status: Chronic Assessment and Plan: All rosuvastatin (4) Wide-complex tachycardia: Onset Date: 09/2023 Code(s): R00.0 - Tachycardia, unspecified Status: Chronic Assessment and Plan: On amiodarone Plan DVT prophylaxis Subjective Date/time seen: 05/19/25 16:07 Interval history: 84-year-old male with past medical history of CKD stage 4, DVT, CAD, cardiomyopathy, BPH, footdrop, decubitus ulcer presents to the ED on 05/17/2025 from home with his caregiver Amelia with complaints of UTI. Caregiver Amelia assisted with providing medical information. Patient has had a UTI for the past 6 months and make it states his urine is mostly mucus. Patient is currently on cefdinir for his UTI. Her recently, his PCP obtained a urine sample to sent for culture. The culture grew Pseudomonas aeruginosa-CRPA. Patient was directed by his PCP to present to the ED for further treatment. Patient denied any symptoms of UTI. No fever, chills, dysuria. Of note, patient has been on hospice for the past few with [facility]. He had been on palliative care with [facility] until he developed a decubitus ulcer, which qualified him for hospice. The wound had been treated with Medihoney at home and has improved. Patient had to revoke hospice for this hospitalization. Patient receives care from in-home caregivers Amelia and Nai from the hours of 7:00 a.m. to 9:30 p.m.. He uses a male purewick at night. Son Eric is DEVON. Initial vital signs BP 126/46, HR 48, respirations 20, afebrile and 100% on room air. Lab significant for WBC 11.9, BUN 37, creatinine 3.06 UA with 1+ protein, 2+ blood, 3+ leukocyte Estrace, 6-10 rbc's, > 100 WBC, 2+ bacteria, yeast present Review of Systems Review of Systems: All systems reviewed & are unremarkable except as noted in HPI and below Exam Narrative: GENERAL: non-toxic appearing, in no acute distress. Chronically ill appearing HEAD: Normocephalic, atraumatic. EYES: PERRLA. Conjunctivae clear. EARS: NOSE: Normal no drainage. THROAT: Pharynx clear, no exudate. NECK: Trachea midline. Thyroid not palpable. No adenopathy, no masses. RESPIRATORY: Airway patent, respirations nonlabored. CTA. CARDIOVASCULAR: Regular rate and rhythm. Bradycardic GASTROINTESTINAL: Abdomen is soft and nontender. No organomegaly. Bowel sounds normal in all quadrants. GENITOURINARY: Defer MUSCULOSKELETAL: Moves all extremities. No gross deformities. Patient states he is bedbound SKIN: Warm, dry, normal color. Small decubitus ulcer to sacrum without signs of infection NEURO: A&O X4. Speech clear PSYCHIATRIC: Normal interaction Objective Data Vital Signs Vital Signs: Vital Signs - 24 hr 05/18/25 20:00 05/18/25 21:10 05/19/25 05:30 Temperature 99.2 F 98 F Pulse Rate 51 L 51 L Respiratory Rate 16 18 Blood Pressure 114/64 130/70 Pulse Oximetry 99 99 Oxygen Delivery Room Air 05/19/25 08:00 05/19/25 09:53 05/19/25 14:00 Temperature 97.7 F Pulse Rate 60 56 L Respiratory Rate 18 Blood Pressure 111/56 L Pulse Oximetry 100 Oxygen Delivery Room Air Intake/Output Intake/Output: Intake & Output 05/16/25 05/17/25 05/18/25 05/19/25 22:59 23:59 23:59 23:59 Intake Total 530 1120 580 Output Total 350 Balance 530 1120 230 Meds/Results Medications: Active Medications Generic Name Dose Route Start Last Admin Trade Name Freq PRN Reason Stop Dose Admin Acetaminophen 650 mg 05/17/25 13:51 Acetaminophen 325 Mg Tablet PO Q4H PRN Mild Pain (1-3) or Fever Amiodarone HCl 100 mg 05/18/25 08:00 05/19/25 09:53 Amiodarone Hcl 100 Mg Tablet PO 100 mg DAILY@0800 TATIANA Administration Aspirin 81 mg 05/18/25 09:00 05/19/25 09:53 Aspirin 81 Mg Enteric Tablet PO 81 mg QAM TATIANA Administration Clopidogrel Bisulfate 75 mg 05/18/25 09:00 05/19/25 09:52 Clopidogrel Bisulfate 75 Mg Tablet PO 75 mg QAM TATIANA Administration Dextrose 12.5 gm 05/17/25 14:04 Dextrose 50% 25 Gm/50 Ml Syringe IV PUSH PRN PRN Hypoglycemia Protocol Ferrous Sulfate 325 mg 05/18/25 09:00 05/19/25 09:53 Ferrous Sulfate 325 Mg Tablet PO 325 mg DAILY TATIANA Administration Finasteride 5 mg 05/18/25 09:00 05/19/25 09:53 Finasteride 5 Mg Tablet PO 5 mg QAM TATIANA Administration Glucagon 1 mg 05/17/25 14:04 Glucagon For Inj 1 Mg Vial IM PRN PRN Hypoglycemia Protocol Glucose 15 gm 05/17/25 14:04 Glucose Oral Gel 15 Gm Of Glucse In 37.5 Gm Tube PO PRN PRN Hypoglycemia Protocol Dextrose 1,000 mls @ 100 mls/hr 05/17/25 14:04 Dextrose 5% 1,000 Ml IVPB PRN PRN Hypoglycemia Protocol Ceftazidime 1 gm/ Sodium 50 mls @ 100 mls/hr 05/19/25 14:00 05/19/25 14:38 Chloride IVPB 05/23/25 14:29 100 mls/hr Q24H TATIANA Administration Ondansetron HCl 4 mg 05/17/25 13:51 Ondansetron Inj 4 Mg/2 Ml Vial IV PUSH Q4H PRN Nausea Rosuvastatin Calcium 40 mg 05/18/25 09:00 05/19/25 09:53 Rosuvastatin 20 Mg Tablet PO 40 mg QAM TATIANA Administration Tamsulosin HCl 0.4 mg 05/18/25 09:00 05/19/25 09:52 Tamsulosin Hcl 0.4 Mg Capsule PO 0.4 mg QAM TATIANA Administration Labs Labs: Laboratory Results - last 24 hr 05/19/25 05:58 WBC 11.5 H RBC 3.39 L Hgb 9.8 L Hct 31.7 L MCV 93.5 MCH 28.9 MCHC 30.9 L RDW 15.3 H Plt Count 267 MPV 9.1 Immature Gran % (Auto) 0.6 H Neut % (Auto) 80.3 H Lymph % (Auto) 11.0 L [place] % (Auto) 5.5 Eos % (Auto) 2.3 Baso % (Auto) 0.3 Lymph # (Auto) 1.27 [place] # (Auto) 0.6 Eos # (Auto) 0.3 Baso # (Auto) 0.0 Abs Immat Gran (auto) 0.07 H Absolute Neuts (auto) 9.3 H Absolute Nucleated RBC 0.000 Nucleated RBC % 0.0 Sodium 139 Potassium 3.9 Chloride 113 H Carbon Dioxide 21 L Anion Gap 5 BUN 35 H Creatinine 3.28 H Estim Creat Clear Calc 14 Estimated GFR 18 L Glucose 101 Calcium 8.7 Total Bilirubin 0.3 AST 20 ALT 10 Alkaline Phosphatase 70 Total Protein 6.5 Albumin 2.9 L Hospitalist MIPS Advance Care Plan I have confirmed that the patient's Advanced Care Plan is present, code status is documented, or surrogate decision maker is listed in patient medical record.: Yes Medication Reconciliation I have utilized all available resources to obtain, update and review the patients current medications (includes all prescriptions, OTC, herbals, cannabis, and nutritional supplements).: Yes
--- NOTE | 2025-05-19 21:32 | P.PNINF_ITS ---
Progress Note: A&P Assessment and Plan (1) CKD (chronic kidney disease): Qualifiers: Chronic kidney disease stage: unspecified stage Qualified Code(s): N18.9 - Chronic kidney disease, unspecified Code(s): N18.9 - Chronic kidney disease, unspecified Status: Acute (2) UTI (urinary tract infection): Qualifiers: Hematuria presence: with hematuria Urinary tract infection type: acute cystitis Qualified Code(s): N30.01 - Acute cystitis with hematuria Code(s): N39.0 - Urinary tract infection, site not specified Status: Acute (3) Drug (multiple) resistant infection: Status: Acute Plan ASSESSMENT: 1. CR-PSAR UTI with possible pyelonephritis--improving 2. BPH 3. CKD--adjust abx 4. CAD, CMP, HTN, HL 5. DVT 6. colon can s/p partial colectomy and chemoradiation 7. wide complex tachycardia on amiodarone-->avoid quinolone abx due to interaction RECOMMENDATIONS: -ceftazidime x 7 days--today is day 3 -f/u on repeat UX--in process -f/u on blood cxs--NGTD d/w pharmacy staff Patient was examined and interviewed with the aid of a HIPPA-protected tele medicine audio and visual platform with the patient at [facility] in [facility] and myself in my office in [place]. With patient consent. Subjective Date/time seen: 05/19/25 21:32 Interval history: no high temps mild leukocytosis no c/o pain feels fine Exam Narrative: No abd tenderness no left CVA tenderness now Objective Data Vital Signs Vital Signs: Vital Signs - 24 hr 05/19/25 05:30 05/19/25 08:00 05/19/25 09:53 Temperature 98 F Pulse Rate 51 L 60 Respiratory Rate 18 Blood Pressure 130/70 Pulse Oximetry 99 Oxygen Delivery Room Air 05/19/25 14:00 Temperature 97.7 F Pulse Rate 56 L Respiratory Rate 18 Blood Pressure 111/56 L Pulse Oximetry 100 Oxygen Delivery Intake/Output Intake/Output: Intake & Output 05/16/25 05/17/25 05/18/25 05/19/25 22:59 23:59 23:59 23:59 Intake Total 530 1120 820 Output Total 350 Balance 530 1120 470 Meds/Results Medications: Active Medications Generic Name Dose Route Start Last Admin Trade Name Freq PRN Reason Stop Dose Admin Acetaminophen 650 mg 05/17/25 13:51 Acetaminophen 325 Mg Tablet PO Q4H PRN Mild Pain (1-3) or Fever Amiodarone HCl 100 mg 05/18/25 08:00 05/19/25 09:53 Amiodarone Hcl 100 Mg Tablet PO 100 mg DAILY@0800 TATIANA Administration Aspirin 81 mg 05/18/25 09:00 05/19/25 09:53 Aspirin 81 Mg Enteric Tablet PO 81 mg QAM TATIANA Administration Clopidogrel Bisulfate 75 mg 05/18/25 09:00 05/19/25 09:52 Clopidogrel Bisulfate 75 Mg Tablet PO 75 mg QAM TATIANA Administration Dextrose 12.5 gm 05/17/25 14:04 Dextrose 50% 25 Gm/50 Ml Syringe IV PUSH PRN PRN Hypoglycemia Protocol Ferrous Sulfate 325 mg 05/18/25 09:00 05/19/25 09:53 Ferrous Sulfate 325 Mg Tablet PO 325 mg DAILY TATIANA Administration Finasteride 5 mg 05/18/25 09:00 05/19/25 09:53 Finasteride 5 Mg Tablet PO 5 mg QAM TATIANA Administration Glucagon 1 mg 05/17/25 14:04 Glucagon For Inj 1 Mg Vial IM PRN PRN Hypoglycemia Protocol Glucose 15 gm 05/17/25 14:04 Glucose Oral Gel 15 Gm Of Glucse In 37.5 Gm Tube PO PRN PRN Hypoglycemia Protocol Dextrose 1,000 mls @ 100 mls/hr 05/17/25 14:04 Dextrose 5% 1,000 Ml IVPB PRN PRN Hypoglycemia Protocol Ceftazidime 1 gm/ Sodium 50 mls @ 100 mls/hr 05/19/25 14:00 05/19/25 14:38 Chloride IVPB 05/23/25 14:29 100 mls/hr Q24H TATIANA Administration Ondansetron HCl 4 mg 05/17/25 13:51 Ondansetron Inj 4 Mg/2 Ml Vial IV PUSH Q4H PRN Nausea Rosuvastatin Calcium 40 mg 05/18/25 09:00 05/19/25 09:53 Rosuvastatin 20 Mg Tablet PO 40 mg QAM TATIANA Administration Tamsulosin HCl 0.4 mg 05/18/25 09:00 05/19/25 09:52 Tamsulosin Hcl 0.4 Mg Capsule PO 0.4 mg QAM TATIANA Administration Labs Labs: Laboratory Results - last 24 hr 05/19/25 05:58 WBC 11.5 H RBC 3.39 L Hgb 9.8 L Hct 31.7 L MCV 93.5 MCH 28.9 MCHC 30.9 L RDW 15.3 H Plt Count 267 MPV 9.1 Immature Gran % (Auto) 0.6 H Neut % (Auto) 80.3 H Lymph % (Auto) 11.0 L [place] % (Auto) 5.5 Eos % (Auto) 2.3 Baso % (Auto) 0.3 Lymph # (Auto) 1.27 [place] # (Auto) 0.6 Eos # (Auto) 0.3 Baso # (Auto) 0.0 Abs Immat Gran (auto) 0.07 H Absolute Neuts (auto) 9.3 H Absolute Nucleated RBC 0.000 Nucleated RBC % 0.0 Sodium 139 Potassium 3.9 Chloride 113 H Carbon Dioxide 21 L Anion Gap 5 BUN 35 H Creatinine 3.28 H Estim Creat Clear Calc 14 Estimated GFR 18 L Glucose 101 Calcium 8.7 Total Bilirubin 0.3 AST 20 ALT 10 Alkaline Phosphatase 70 Total Protein 6.5 Albumin 2.9 L
[2025-05-19 22:00] VITALS: BP 109/62; PULSE 51; RESP 16; TEMP 36.9; O2SAT 99
[2025-05-20 06:00] VITALS: BP 122/52; PULSE 50; RESP 18; TEMP 36.5; O2SAT 100
[2025-05-20 06:04] LABS: Hematocrit 31.4 % (42.0-52.0); Hemoglobin 9.6 g/dL (14.0-18.0); Immature Granulocyte Percent A 0.7 % (0-0.5); Lymphocytes Absolute Auto 1.57 K/mm3 (0.9-3.2); Mean Corpuscular HGB Conc 30.6 g/dl (32-36); Mean Corpuscular Hemoglobin 28.7 pg (26-34); Mean Corpuscular Volume 94.0 fl (80-100); Nucleated Red Blood Cells Absolute Auto 0.000 K/mm3 (0.0-0.012); Nucleated Red Blood Cells Perc 0.0 % (0.0-0.2); Platelet Count Result 267 k/mm3 (150-375); Red Blood Count 3.34 M/mm3 (4.6-6.20); White Blood Count 10.6 K/mm3 (4.5-10.0)
[2025-05-20 06:27] LABS: Alanine Aminotransferase 10 U/L (6-50); Albumin Level 2.9 g/dL (3.5-5.1); Alkaline Phosphatase 73 U/L (38-126); Anion Gap 6 mmol/L (4-12); Aspartate Amino Transferase 20 U/L (17-59); Bilirubin,Total 0.2 mg/dL (0.2-1.3); Blood Urea Nitrogen 32 mg/dL (9-20); Calcium 8.5 mg/dL (8.4-10.2); Carbon Dioxide 22 mmol/L (22-30); Chloride 111 mmol/L (98-107); Estimated CRCL calculation 15 ml/min; Estimated Glomerular Filt Rate 20; Glucose 97 mg/dL (65-110); Potassium 3.9 mmol/L (3.4-5.0); Sodium 139 mmol/L (137-145); Total Protein 6.3 g/dL (6.3-8.2)
[2025-05-20 08:04] VITALS: PULSE 51; PULSE 97; O2SAT 98
[2025-05-20] MEDS: FERROUS SULFATE 325 MG TABLET PO (08:04)
[2025-05-20] MEDS: ROSUVASTATIN 20 MG TABLET 40 MG PO (08:04)
[2025-05-20] MEDS: AMIODARONE HCL 100 MG TABLET PO (08:04)
[2025-05-20] MEDS: ASPIRIN 81 MG ENTERIC TABLET PO (08:04)
[2025-05-20] MEDS: TAMSULOSIN HCL 0.4 MG CAPSULE PO (08:05)
[2025-05-20] MEDS: FINASTERIDE 5 MG TABLET PO (08:05)
[2025-05-20] MEDS: CLOPIDOGREL BISULFATE 75 MG TABLET PO (08:05)
[2025-05-20] MEDS: cefTAZidime INJ 1 GM in SODIUM CHLORIDE 0.9% IV 50 ML IVPB (13:39)
[2025-05-20 14:00] VITALS: BP 83/49; PULSE 60; RESP 14; TEMP 36.7; O2SAT 100
--- NOTE | 2025-05-20 15:05 | P.PNIM_ITS ---
Progress Note: A&P Assessment and Plan (1) UTI (urinary tract infection): Qualifiers: Hematuria presence: with hematuria Urinary tract infection type: acute cystitis Qualified Code(s): N30.01 - Acute cystitis with hematuria Code(s): N39.0 - Urinary tract infection, site not specified Status: Acute Assessment and Plan: Recommended to come from PCP due to urine culture growing carbapenem resistant Pseudomonas aeruginosa, currently sensitive to ceftazidime. Infectious diseases was consulted, agrees with continuation of ceftazidime for 7 days. Ceftazidime dose was renally adjusted given slight alteration to CKD noted today in creatinine Urine culture-culture returned positive for Elana albicans no evidence of CRPA. Given above urine culture findings, will await further Infectious Disease recommendations at this time Will consider for line placement so patient can complete antibiotic course outside of the hospital setting given that is the primary reason he is here (2) Stage 4 chronic kidney disease: Code(s): N18.4 - Chronic kidney disease, stage 4 (severe) Status: Chronic Assessment and Plan: Renal dosing of drugs Avoid nephrotoxic agents Daily monitoring of renal function (3) Hyperlipidemia: Code(s): E78.5 - Hyperlipidemia, unspecified Status: Chronic Assessment and Plan: On rosuvastatin (4) Wide-complex tachycardia: Onset Date: 09/2023 Code(s): R00.0 - Tachycardia, unspecified Status: Chronic Assessment and Plan: On amiodarone Plan DVT prophylaxis Subjective Date/time seen: 05/20/25 15:05 Interval history: 84-year-old male with past medical history of CKD stage 4, DVT, CAD, cardiomyopathy, BPH, footdrop, decubitus ulcer presents to the ED on 05/17/2025 from home with his caregiver Amelia with complaints of UTI. Caregiver Amelia assisted with providing medical information. Patient has had a UTI for the past 6 months and make it states his urine is mostly mucus. Patient is currently on cefdinir for his UTI. Her recently, his PCP obtained a urine sample to sent for culture. The culture grew Pseudomonas aeruginosa-CRPA. Patient was directed by his PCP to present to the ED for further treatment. Patient denied any symptoms of UTI. No fever, chills, dysuria. Of note, patient has been on hospice for the past few with [facility]. He had been on palliative care with [facility] until he developed a decubitus ulcer, which qualified him for hospice. The wound had been treated with Medihoney at home and has improved. Patient had to revoke hospice for this hospitalization. Patient receives care from in-home caregivers Amelia and Nai from the hours of 7:00 a.m. to 9:30 p.m.. He uses a male purewick at night. Son Eric is POA. Initial vital signs BP 126/46, HR 48, respirations 20, afebrile and 100% on room air. Lab significant for WBC 11.9, BUN 37, creatinine 3.06 UA with 1+ protein, 2+ blood, 3+ leukocyte Estrace, 6-10 rbc's, > 100 WBC, 2+ bacteria, yeast present Review of Systems Review of Systems: All systems reviewed & are unremarkable except as noted in HPI and below Exam Narrative: GENERAL: non-toxic appearing, in no acute distress. Chronically ill appearing HEAD: Normocephalic, atraumatic. EYES: PERRLA. Conjunctivae clear. EARS: NOSE: Normal no drainage. THROAT: Pharynx clear, no exudate. NECK: Trachea midline. Thyroid not palpable. No adenopathy, no masses. RESPIRATORY: Airway patent, respirations nonlabored. CTA. CARDIOVASCULAR: Regular rate and rhythm. Bradycardic GASTROINTESTINAL: Abdomen is soft and nontender. No organomegaly. Bowel sounds normal in all quadrants. GENITOURINARY: Defer MUSCULOSKELETAL: Moves all extremities. No gross deformities. Patient states he is bedbound SKIN: Warm, dry, normal color. Small decubitus ulcer to sacrum without signs of infection NEURO: A&O X4. Speech clear PSYCHIATRIC: Normal interaction Objective Data Vital Signs Vital Signs: Vital Signs - 24 hr 05/19/25 22:00 05/20/25 06:00 05/20/25 08:04 Temperature 98.5 F 97.7 F Pulse Rate 51 L 50 L 97 Respiratory Rate 16 18 Blood Pressure 109/62 122/52 L Pulse Oximetry 99 100 Oxygen Delivery 05/20/25 08:04 05/20/25 14:00 Temperature 98.1 F Pulse Rate 51 L 60 Respiratory Rate 14 Blood Pressure 83/49 L Pulse Oximetry 98 100 Oxygen Delivery Room Air Intake/Output Intake/Output: Intake & Output 05/17/25 05/18/25 05/19/2506/25 23:59 23:59 23:59 23:59 Intake Total 530 1120 870 717 Output Total 350 600 Balance 530 1120 520 117 Meds/Results Medications: Active Medications Generic Name Dose Route Start Last Admin Trade Name Freq PRN Reason Stop Dose Admin Acetaminophen 650 mg 05/17/25 13:51 Acetaminophen 325 Mg Tablet PO Q4H PRN Mild Pain (1-3) or Fever Amiodarone HCl 100 mg 05/18/25 08:00 05/20/25 08:04 Amiodarone Hcl 100 Mg Tablet PO 100 mg DAILY@0800 TATIANA Administration Aspirin 81 mg 05/18/25 09:00 05/20/25 08:04 Aspirin 81 Mg Enteric Tablet PO 81 mg QAM TATIANA Administration Clopidogrel Bisulfate 75 mg 05/18/25 09:00 05/20/25 08:05 Clopidogrel Bisulfate 75 Mg Tablet PO 75 mg QAM TATIANA Administration Dextrose 12.5 gm 05/17/25 14:04 Dextrose 50% 25 Gm/50 Ml Syringe IV PUSH PRN PRN Hypoglycemia Protocol Ferrous Sulfate 325 mg 05/18/25 09:00 05/20/25 08:04 Ferrous Sulfate 325 Mg Tablet PO 325 mg DAILY TATINAA Administration Finasteride 5 mg 05/18/25 09:00 05/20/25 08:05 Finasteride 5 Mg Tablet PO 5 mg QAM TATIANA Administration Glucagon 1 mg 05/17/25 14:04 Glucagon For Inj 1 Mg Vial IM PRN PRN Hypoglycemia Protocol Glucose 15 gm 05/17/25 14:04 Glucose Oral Gel 15 Gm Of Glucse In 37.5 Gm Tube PO PRN PRN Hypoglycemia Protocol Dextrose 1,000 mls @ 100 mls/hr 05/17/25 14:04 Dextrose 5% 1,000 Ml IVPB PRN PRN Hypoglycemia Protocol Ceftazidime 1 gm/ Sodium 50 mls @ 100 mls/hr 05/19/25 14:00 05/20/25 13:39 Chloride IVPB 05/23/25 14:29 100 mls/hr Q24H TATIANA Administration Ondansetron HCl 4 mg 05/17/25 13:51 Ondansetron Inj 4 Mg/2 Ml Vial IV PUSH Q4H PRN Nausea Rosuvastatin Calcium 40 mg 05/18/25 09:00 05/20/25 08:04 Rosuvastatin 20 Mg Tablet PO 40 mg QAM [facility] Administration Tamsulosin HCl 0.4 mg 05/18/25 09:00 05/20/25 08:05 Tamsulosin Hcl 0.4 Mg Capsule PO 0.4 mg QAM [facility] Administration Labs Labs: Laboratory Results - last 24 hr 05/20/25 05:39 WBC 10.6 H RBC 3.34 L Hgb 9.6 L Hct 31.4 L MCV 94.0 MCH 28.7 MCHC 30.6 L RDW 15.3 H Plt Count 267 MPV 9.2 Immature Gran % (Auto) 0.7 H Neut % (Auto) 75.3 H Lymph % (Auto) 14.9 L [place] % (Auto) 5.7 Eos % (Auto) 2.9 Baso % (Auto) 0.5 Lymph # (Auto) 1.57 [place] # (Auto) 0.6 Eos # (Auto) 0.3 Baso # (Auto) 0.1 Abs Immat Gran (auto) 0.07 H Absolute Neuts (auto) 8.0 H Absolute Nucleated RBC 0.000 Nucleated RBC % 0.0 Sodium 139 Potassium 3.9 Chloride 111 H Carbon Dioxide 22 Anion Gap 6 BUN 32 H Creatinine 2.99 H Estim Creat Clear Calc 15 Estimated GFR 20 L Glucose 97 Calcium 8.5 Total Bilirubin 0.2 AST 20 ALT 10 Alkaline Phosphatase 73 Total Protein 6.3 Albumin 2.9 L Hospitalist MIPS Advance Care Plan I have confirmed that the patient's Advanced Care Plan is present, code status is documented, or surrogate decision maker is listed in patient medical record.: Yes Medication Reconciliation I have utilized all available resources to obtain, update and review the patients current medications (includes all prescriptions, OTC, herbals, cannabis, and nutritional supplements).: Yes
--- NOTE | 2025-05-20 18:38 | P.PNINF_ITS ---
Progress Note: A&P Assessment and Plan (1) CKD (chronic kidney disease): Qualifiers: Chronic kidney disease stage: unspecified stage Qualified Code(s): N18.9 - Chronic kidney disease, unspecified Code(s): N18.9 - Chronic kidney disease, unspecified Status: Acute (2) UTI (urinary tract infection): Qualifiers: Hematuria presence: with hematuria Urinary tract infection type: acute cystitis Qualified Code(s): N30.01 - Acute cystitis with hematuria Code(s): N39.0 - Urinary tract infection, site not specified Status: Acute (3) Drug (multiple) resistant infection: Status: Acute Plan ASSESSMENT: 1. CR-PSAR UTI with possible pyelonephritis--improving 2. BPH 3. CKD--adjust abx 4. CAD, CMP, HTN, HL 5. DVT 6. colon can s/p partial colectomy and chemoradiation 7. wide complex tachycardia on amiodarone-->avoid quinolone abx due to interaction RECOMMENDATIONS: -ceftazidime x 7 days--today is day 4 -f/u on repeat UX--shital-->this is a colonizer only and not a pathogen -f/u on blood cxs--NGTD d/w pharmacy staff and caregiver Patient was examined and interviewed with the aid of a HIPPA-protected telemedicine audio and visual platform with the patient at [facility] in [facility] and myself in my office in [place]. With patient consent. Subjective Date/time seen: 05/20/25 18:38 Interval history: no abd pain appetite good no diarrhea no nausea Exam Narrative: NAD, non-toxic abd soft NT Objective Data Vital Signs Vital Signs: Vital Signs - 24 hr 05/19/25 22:00 05/20/25 06:00 05/20/25 08:04 Temperature 98.5 F 97.7 F Pulse Rate 51 L 50 L 97 Respiratory Rate 16 18 Blood Pressure 109/62 122/52 L Pulse Oximetry 99 100 Oxygen Delivery 05/20/25 08:04 05/20/25 14:00 Temperature 98.1 F Pulse Rate 51 L 60 Respiratory Rate 14 Blood Pressure 83/49 L Pulse Oximetry 98 100 Oxygen Delivery Room Air Intake/Output Intake/Output: Intake & Output 05/17/25 05/18/25 05/19/25 05/20/25 23:59 23:59 23:59 23:59 Intake Total 530 6522 262 2514 Output Total 350 1100 Balance 530 1120 520 -93 Meds/Results Medications: Active Medications Generic Name Dose Route Start Last Admin Trade Name Freq PRN Reason Stop Dose Admin Acetaminophen 650 mg 05/17/25 13:51 Acetaminophen 325 Mg Tablet PO Q4H PRN Mild Pain (1-3) or Fever Amiodarone HCl 100 mg 05/18/25 08:00 05/20/25 08:04 Amiodarone Hcl 100 Mg Tablet PO 100 mg DAILY@0800 TATIANA Administration Aspirin 81 mg 05/18/25 09:00 05/20/25 08:04 Aspirin 81 Mg Enteric Tablet PO 81 mg QAM TATIANA Administration Calcium Carbonate 600 mg 05/21/25 09:00 Calcium Carbonate (Tums) 500 Mg (200 Mg Elemental) BY MOUTH DAILY [facility] Clopidogrel Bisulfate 75 mg 05/18/25 09:00 05/20/25 08:05 Clopidogrel Bisulfate 75 Mg Tablet PO 75 mg QAM [facility] Administration Dextrose 12.5 gm 05/17/25 14:04 Dextrose 50% 25 Gm/50 Ml Syringe IV PUSH PRN PRN Hypoglycemia Protocol Ferrous Sulfate 325 mg 05/18/25 09:00 05/20/25 08:04 Ferrous Sulfate 325 Mg Tablet PO 325 mg DAILY [facility] Administration Finasteride 5 mg 05/18/25 09:00 05/20/25 08:05 Finasteride 5 Mg Tablet PO 5 mg QAM TATIANA Administration Glucagon 1 mg 05/17/25 14:04 Glucagon For Inj 1 Mg Vial IM PRN PRN Hypoglycemia Protocol Glucose 15 gm 05/17/25 14:04 Glucose Oral Gel 15 Gm Of Glucse In 37.5 Gm Tube PO PRN PRN Hypoglycemia Protocol Dextrose 1,000 mls @ 100 mls/hr 05/17/25 14:04 Dextrose 5% 1,000 Ml IVPB PRN PRN Hypoglycemia Protocol Ceftazidime 1 gm/ Sodium 50 mls @ 100 mls/hr 05/19/25 14:00 05/20/25 14:09 Chloride IVPB 05/23/25 14:29 Infused Q24H TATIANA Infusion Ondansetron HCl 4 mg 05/17/25 13:51 Ondansetron Inj 4 Mg/2 Ml Vial IV PUSH Q4H PRN Nausea Rosuvastatin Calcium 40 mg 05/18/25 09:00 05/20/25 08:04 Rosuvastatin 20 Mg Tablet PO 40 mg QAM [facility] Administration Tamsulosin HCl 0.4 mg 05/18/25 09:00 05/20/25 08:05 Tamsulosin Hcl 0.4 Mg Capsule PO 0.4 mg QAM [facility] Administration Labs Labs: Laboratory Results - last 24 hr 05/20/25 05:39 WBC 10.6 H RBC 3.34 L Hgb 9.6 L Hct 31.4 L MCV 94.0 MCH 28.7 MCHC 30.6 L RDW 15.3 H Plt Count 267 MPV 9.2 Immature Gran % (Auto) 0.7 H Neut % (Auto) 75.3 H Lymph % (Auto) 14.9 L [place] % (Auto) 5.7 Eos % (Auto) 2.9 Baso % (Auto) 0.5 Lymph # (Auto) 1.57 [place] # (Auto) 0.6 Eos # (Auto) 0.3 Baso # (Auto) 0.1 Abs Immat Gran (auto) 0.07 H Absolute Neuts (auto) 8.0 H Absolute Nucleated RBC 0.000 Nucleated RBC % 0.0 Sodium 139 Potassium 3.9 Chloride 111 H Carbon Dioxide 22 Anion Gap 6 BUN 32 H Creatinine 2.99 H Estim Creat Clear Calc 15 Estimated GFR 20 L Glucose 97 Calcium 8.5 Total Bilirubin 0.2 AST 20 ALT 10 Alkaline Phosphatase 73 Total Protein 6.3 Albumin 2.9 L
--- NOTE | 2025-05-20 18:59 | PC.NURSE ---
I have reviewed the License Pending Nurse Lori Tiwari's documentation and agree with charting.
[2025-05-20 19:04] VITALS: BP 121/59; PULSE 62
[2025-05-20 19:55] VITALS: BP 127/56; PULSE 59; RESP 18; TEMP 36.8; O2SAT 99
[2025-05-21 04:25] VITALS: BP 139/66; PULSE 55; RESP 20; TEMP 36.3; O2SAT 99
[2025-05-21 06:20] LABS: Hematocrit 28.3 % (42.0-52.0); Hemoglobin 9.0 g/dL (14.0-18.0); Immature Granulocyte Percent A 0.6 % (0-0.5); Lymphocytes Absolute Auto 1.51 K/mm3 (0.9-3.2); Mean Corpuscular HGB Conc 31.8 g/dl (32-36); Mean Corpuscular Hemoglobin 29.6 pg (26-34); Mean Corpuscular Volume 93.1 fl (80-100); Nucleated Red Blood Cells Absolute Auto 0.000 K/mm3 (0.0-0.012); Nucleated Red Blood Cells Perc 0.0 % (0.0-0.2); Platelet Count Result 249 k/mm3 (150-375); Red Blood Count 3.04 M/mm3 (4.6-6.20); White Blood Count 9.4 K/mm3 (4.5-10.0)
[2025-05-21 06:45] LABS: Alanine Aminotransferase 16 U/L (6-50); Albumin Level 2.7 g/dL (3.5-5.1); Alkaline Phosphatase 88 U/L (38-126); Anion Gap 5 mmol/L (4-12); Aspartate Amino Transferase 35 U/L (17-59); Bilirubin,Total 0.2 mg/dL (0.2-1.3); Blood Urea Nitrogen 33 mg/dL (9-20); Calcium 8.4 mg/dL (8.4-10.2); Carbon Dioxide 22 mmol/L (22-30); Chloride 111 mmol/L (98-107); Estimated CRCL calculation 14 ml/min; Estimated Glomerular Filt Rate 19; Glucose 95 mg/dL (65-110); Potassium 4.3 mmol/L (3.4-5.0); Sodium 138 mmol/L (137-145); Total Protein 6.1 g/dL (6.3-8.2)
[2025-05-21 09:25] VITALS: O2SAT 97
[2025-05-21 09:26] VITALS: PULSE 56
[2025-05-21] MEDS: AMIODARONE HCL 100 MG TABLET PO (09:26)
[2025-05-21] MEDS: CALCIUM CARBONATE (TUMS) 500 MG (200 MG ELEMENTAL) 600 MG BY MOUTH (09:26)
[2025-05-21] MEDS: FINASTERIDE 5 MG TABLET PO (09:26)
[2025-05-21] MEDS: ROSUVASTATIN 20 MG TABLET 40 MG PO (09:27)
[2025-05-21] MEDS: CLOPIDOGREL BISULFATE 75 MG TABLET PO (09:27)
[2025-05-21] MEDS: FERROUS SULFATE 325 MG TABLET PO (09:27)
[2025-05-21] MEDS: ASPIRIN 81 MG ENTERIC TABLET PO (09:27)
[2025-05-21] MEDS: TAMSULOSIN HCL 0.4 MG CAPSULE PO (09:27)
--- NOTE | 2025-05-21 10:32 | PM.IMPN ---
Progress Note: A&P Assessment and Plan (1) UTI (urinary tract infection): Qualifiers: Hematuria presence: with hematuria Urinary tract infection type: acute cystitis Qualified Code(s): N30.01 - Acute cystitis with hematuria Code(s): N39.0 - Urinary tract infection, site not specified Status: Acute Assessment and Plan: Ceftazidime day 5 today Recommended to come from PCP due to urine culture growing carbapenem resistant Pseudomonas aeruginosa, currently sensitive to ceftazidime. Infectious diseases was consulted, agrees with continuation of ceftazidime for 7 days. Ceftazidime dose was renally adjusted given slight alteration to CKD noted today in creatinine Urine culture-culture returned positive for Elana albicans no evidence of CRPA. Infectious disease recommendations in regards to treating recent culture as contaminant and continuing to treat initial culture with ceftazidime appreciated Will consider for line placement so patient can complete antibiotic course outside of the hospital setting given that is the primary reason he is here however patient will be completing course on Saturday and can be discharged after dose is administered if he remains here. (2) Stage 4 chronic kidney disease: Code(s): N18.4 - Chronic kidney disease, stage 4 (severe) Status: Chronic Assessment and Plan: Renal dosing of drugs Avoid nephrotoxic agents Daily monitoring of renal function (3) Hyperlipidemia: Code(s): E78.5 - Hyperlipidemia, unspecified Status: Chronic Assessment and Plan: On rosuvastatin (4) Wide-complex tachycardia: Onset Date: 09/2023 Code(s): R00.0 - Tachycardia, unspecified Status: Chronic Assessment and Plan: On amiodarone Plan DVT prophylaxis Subjective Date/time seen: 05/21/25 10:32 Interval history: 84-year-old male with past medical history of CKD stage 4, DVT, CAD, cardiomyopathy, BPH, footdrop, decubitus ulcer presents to the ED on 05/17/2025 from home with his caregiver Amelia with complaints of UTI. Caregiver Amelia assisted with providing medical information. Patient has had a UTI for the past 6 months and make it states his urine is mostly mucus. Patient is currently on cefdinir for his UTI. Her recently, his PCP obtained a urine sample to sent for culture. The culture grew Pseudomonas aeruginosa-CRPA. Patient was directed by his PCP to present to the ED for further treatment. Patient denied any symptoms of UTI. No fever, chills, dysuria. Of note, patient has been on hospice for the past few with [facility]. He had been on palliative care with [facility] until he developed a decubitus ulcer, which qualified him for hospice. The wound had been treated with Medihoney at home and has improved. Patient had to revoke hospice for this hospitalization. Patient receives care from in-home caregivers Amelia and Nai from the hours of 7:00 a.m. to 9:30 p.m.. He uses a male purewick at night. Son Eric is POA. Initial vital signs BP 126/46, HR 48, respirations 20, afebrile and 100% on room air. Lab significant for WBC 11.9, BUN 37, creatinine 3.06 UA with 1+ protein, 2+ blood, 3+ leukocyte Estrace, 6-10 rbc's, > 100 WBC, 2+ bacteria, yeast present Review of Systems Review of Systems: All systems reviewed & are unremarkable except as noted in HPI and below Exam Narrative: GENERAL: non-toxic appearing, in no acute distress. Chronically ill appearing HEAD: Normocephalic, atraumatic. EYES: PERRLA. Conjunctivae clear. EARS: NOSE: Normal no drainage. THROAT: Pharynx clear, no exudate. NECK: Trachea midline. Thyroid not palpable. No adenopathy, no masses. RESPIRATORY: Airway patent, respirations nonlabored. CTA. CARDIOVASCULAR: Regular rate and rhythm. Bradycardic GASTROINTESTINAL: Abdomen is soft and nontender. No organomegaly. Bowel sounds normal in all quadrants. GENITOURINARY: Defer MUSCULOSKELETAL: Moves all extremities. No gross deformities. Patient states he is bedbound SKIN: Warm, dry, normal color. Small decubitus ulcer to sacrum without signs of infection NEURO: A&O X4. Speech clear PSYCHIATRIC: Normal interaction Objective Data Vital Signs Vital Signs: Vital Signs - 24 hr 05/20/25 14:00 05/20/25 19:04 05/20/25 19:55 Temperature 98.1 F 98.2 F Pulse Rate 60 62 59 L Respiratory Rate 14 18 Blood Pressure 83/49 L 121/59 L 127/56 L Pulse Oximetry 100 99 05/21/25 04:25 05/21/25 09:26 Temperature 97.3 F L Pulse Rate 55 L 56 L Respiratory Rate 20 Blood Pressure 139/66 Pulse Oximetry 99 Intake/Output Intake/Output: Intake & Output 05/18/25 05/19/25 05/20/25 05/21/25 23:59 23:59 23:59 23:59 Intake Total 6485 142 9356 595 Output Total 350 1100 400 Balance 1120 520 -93 195 Meds/Results Medications: Active Medications Generic Name Dose Route Start Last Admin Trade Name Freq PRN Reason Stop Dose Admin Acetaminophen 650 mg 05/17/25 13:51 Acetaminophen 325 Mg Tablet PO Q4H PRN Mild Pain (1-3) or Fever Amiodarone HCl 100 mg 05/18/25 08:00 05/21/25 09:26 Amiodarone Hcl 100 Mg Tablet PO 100 mg DAILY@0800 TATIANA Administration Aspirin 81 mg 05/18/25 09:00 05/21/25 09:27 Aspirin 81 Mg Enteric Tablet PO 81 mg QAM TATIANA Administration Calcium Carbonate 600 mg 05/21/25 09:00 05/21/25 09:26 Calcium Carbonate (Tums) 500 Mg (200 Mg Elemental) BY MOUTH 600 mg DAILY TATIANA Administration Clopidogrel Bisulfate 75 mg 05/18/25 09:00 05/21/25 09:27 Clopidogrel Bisulfate 75 Mg Tablet PO 75 mg QAM TATIANA Administration Dextrose 12.5 gm 05/17/25 14:04 Dextrose 50% 25 Gm/50 Ml Syringe IV PUSH PRN PRN Hypoglycemia Protocol Ferrous Sulfate 325 mg 05/18/25 09:00 05/21/25 09:27 Ferrous Sulfate 325 Mg Tablet PO 325 mg DAILY TATIANA Administration Finasteride 5 mg 05/18/25 09:00 05/21/25 09:26 Finasteride 5 Mg Tablet PO 5 mg QAM TATIANA Administration Glucagon 1 mg 05/17/25 14:04 Glucagon For Inj 1 Mg Vial IM PRN PRN Hypoglycemia Protocol Glucose 15 gm 05/17/25 14:04 Glucose Oral Gel 15 Gm Of Glucse In 37.5 Gm Tube PO PRN PRN Hypoglycemia Protocol Dextrose 1,000 mls @ 100 mls/hr 05/17/25 14:04 Dextrose 5% 1,000 Ml IVPB PRN PRN Hypoglycemia Protocol Ceftazidime 1 gm/ Sodium 50 mls @ 100 mls/hr 05/19/25 14:00 05/20/25 14:09 Chloride IVPB 05/23/25 14:29 Infused Q24H TATIANA Infusion Ondansetron HCl 4 mg 05/17/25 13:51 Ondansetron Inj 4 Mg/2 Ml Vial IV PUSH Q4H PRN Nausea Rosuvastatin Calcium 40 mg 05/18/25 09:00 05/21/25 09:27 Rosuvastatin 20 Mg Tablet PO 40 mg QAM TATIANA Administration Tamsulosin HCl 0.4 mg 05/18/25 09:00 05/21/25 09:27 Tamsulosin Hcl 0.4 Mg Capsule PO 0.4 mg QAM TATIANA Administration Labs Labs: Laboratory Results - last 24 hr 05/21/25 05:57 WBC 9.4 RBC 3.04 L Hgb 9.0 L Hct 28.3 L MCV 93.1 MCH 29.6 MCHC 31.8 L RDW 15.4 H Plt Count 249 MPV 9.0 Immature Gran % (Auto) 0.6 H Neut % (Auto) 72.8 Lymph % (Auto) 16.0 L [place] % (Auto) 6.9 Eos % (Auto) 3.2 Baso % (Auto) 0.5 Lymph # (Auto) 1.51 [place] # (Auto) 0.7 H Eos # (Auto) 0.3 Baso # (Auto) 0.1 Abs Immat Gran (auto) 0.06 H Absolute Neuts (auto) 6.8 H Absolute Nucleated RBC 0.000 Nucleated RBC % 0.0 Sodium 138 Potassium 4.3 Chloride 111 H Carbon Dioxide 22 Anion Gap 5 BUN 33 H Creatinine 3.19 H Estim Creat Clear Calc 14 Estimated GFR 19 L Glucose 95 Calcium 8.4 Total Bilirubin 0.2 AST 35 ALT 16 Alkaline Phosphatase 88 Total Protein 6.1 L Albumin 2.7 L Hospitalist MIPS Advance Care Plan I have confirmed that the patient's Advanced Care Plan is present, code status is documented, or surrogate decision maker is listed in patient medical record.: Yes Medication Reconciliation I have utilized all available resources to obtain, update and review the patients current medications (includes all prescriptions, OTC, herbals, cannabis, and nutritional supplements).: Yes
[2025-05-21 14:00] VITALS: BP 110/79; PULSE 89; RESP 16; TEMP 37; O2SAT 97
[2025-05-21] MEDS: cefTAZidime INJ 1 GM in SODIUM CHLORIDE 0.9% IV 50 ML IVPB (14:58)
[2025-05-21 21:02] VITALS: BP 1134/61; PULSE 57; RESP 17; TEMP 36.6; O2SAT 99
[2025-05-22 06:00] VITALS: BP 110/58; PULSE 58; RESP 17; TEMP 36.2; O2SAT 99
[2025-05-22 06:35] LABS: Hematocrit 31.1 % (42.0-52.0); Hemoglobin 9.6 g/dL (14.0-18.0); Immature Granulocyte Percent A 0.4 % (0-0.5); Lymphocytes Absolute Auto 1.29 K/mm3 (0.9-3.2); Mean Corpuscular HGB Conc 30.9 g/dl (32-36); Mean Corpuscular Hemoglobin 29.0 pg (26-34); Mean Corpuscular Volume 94.0 fl (80-100); Nucleated Red Blood Cells Absolute Auto 0.000 K/mm3 (0.0-0.012); Nucleated Red Blood Cells Perc 0.0 % (0.0-0.2); Platelet Count Result 255 k/mm3 (150-375); Red Blood Count 3.31 M/mm3 (4.6-6.20); White Blood Count 9.9 K/mm3 (4.5-10.0)
[2025-05-22 06:56] LABS: Alanine Aminotransferase 15 U/L (6-50); Albumin Level 2.9 g/dL (3.5-5.1); Alkaline Phosphatase 71 U/L (38-126); Anion Gap 6 mmol/L (4-12); Aspartate Amino Transferase 23 U/L (17-59); Bilirubin,Total 0.2 mg/dL (0.2-1.3); Blood Urea Nitrogen 29 mg/dL (9-20); Calcium 8.8 mg/dL (8.4-10.2); Carbon Dioxide 22 mmol/L (22-30); Chloride 110 mmol/L (98-107); Estimated CRCL calculation 16 ml/min; Estimated Glomerular Filt Rate 21; Glucose 111 mg/dL (65-110); Potassium 3.7 mmol/L (3.4-5.0); Sodium 138 mmol/L (137-145); Total Protein 6.3 g/dL (6.3-8.2)
[2025-05-22] MEDS: TAMSULOSIN HCL 0.4 MG CAPSULE PO (08:36)
[2025-05-22] MEDS: CLOPIDOGREL BISULFATE 75 MG TABLET PO (08:36)
[2025-05-22] MEDS: ROSUVASTATIN 20 MG TABLET 40 MG PO (08:36)
[2025-05-22] MEDS: CALCIUM CARBONATE (TUMS) 500 MG (200 MG ELEMENTAL) 600 MG BY MOUTH (08:36)
[2025-05-22] MEDS: FINASTERIDE 5 MG TABLET PO (08:36)
[2025-05-22] MEDS: ASPIRIN 81 MG ENTERIC TABLET PO (08:36)
[2025-05-22] MEDS: FERROUS SULFATE 325 MG TABLET PO (08:36)
[2025-05-22 08:37] VITALS: PULSE 56
[2025-05-22] MEDS: AMIODARONE HCL 100 MG TABLET PO (08:37)
--- NOTE | 2025-05-22 11:35 | PM.IMPN ---
Progress Note: A&P Assessment and Plan (1) UTI (urinary tract infection): Qualifiers: Hematuria presence: with hematuria Urinary tract infection type: acute cystitis Qualified Code(s): N30.01 - Acute cystitis with hematuria Code(s): N39.0 - Urinary tract infection, site not specified Status: Acute Assessment and Plan: Ceftazidime day 6 today Recommended to come from PCP due to urine culture growing carbapenem resistant Pseudomonas aeruginosa, currently sensitive to ceftazidime. Infectious diseases was consulted, agrees with continuation of ceftazidime for 7 days. Ceftazidime dose was renally adjusted given slight alteration to CKD noted today in creatinine Urine culture-culture returned positive for Elana albicans no evidence of CRPA. Infectious disease recommendations in regards to treating recent culture as contaminant and continuing to treat initial culture with ceftazidime appreciated Line placement was not considered feasible by care coordination, patient agreeable to complete course. Final dose of ceftazidime can be administered tomorrow, and discharge after. (2) Stage 4 chronic kidney disease: Code(s): N18.4 - Chronic kidney disease, stage 4 (severe) Status: Chronic Assessment and Plan: Renal dosing of drugs Avoid nephrotoxic agents Daily monitoring of renal function (3) Hyperlipidemia: Code(s): E78.5 - Hyperlipidemia, unspecified Status: Chronic Assessment and Plan: On rosuvastatin (4) Wide-complex tachycardia: Onset Date: 09/2023 Code(s): R00.0 - Tachycardia, unspecified Status: Chronic Assessment and Plan: On amiodarone Plan DVT prophylaxis Final dose of ceftazidime tomorrow, can request pharmacy for earlier dose to facilitate discharge once it is completed. Advise to follow with PCP 1-2 weeks after discharge. Subjective Date/time seen: 05/22/25 11:35 Interval history: 84-year-old male with past medical history of CKD stage 4, DVT, CAD, cardiomyopathy, BPH, footdrop, decubitus ulcer presents to the ED on 05/17/2025 from home with his caregiver Amelia with complaints of UTI. Caregiver Amelia assisted with providing medical information. Patient has had a UTI for the past 6 months and make it states his urine is mostly mucus. Patient is currently on cefdinir for his UTI. Her recently, his PCP obtained a urine sample to sent for culture. The culture grew Pseudomonas aeruginosa-CRPA. Patient was directed by his PCP to present to the ED for further treatment. Patient denied any symptoms of UTI. No fever, chills, dysuria. Of note, patient has been on hospice for the past few with [facility]. He had been on palliative care with [facility] until he developed a decubitus ulcer, which qualified him for hospice. The wound had been treated with Medihoney at home and has improved. Patient had to revoke hospice for this hospitalization. Patient receives care from in-home caregivers Amelia and Nai from the hours of 7:00 a.m. to 9:30 p.m.. He uses a male purewick at night. Son Eric is POA. Initial vital signs BP 126/46, HR 48, respirations 20, afebrile and 100% on room air. Lab significant for WBC 11.9, BUN 37, creatinine 3.06 UA with 1+ protein, 2+ blood, 3+ leukocyte Estrace, 6-10 rbc's, > 100 WBC, 2+ bacteria, yeast present Review of Systems Review of Systems: All systems reviewed & are unremarkable except as noted in HPI and below Exam Narrative: GENERAL: non-toxic appearing, in no acute distress. Chronically ill appearing HEAD: Normocephalic, atraumatic. EYES: PERRLA. Conjunctivae clear. EARS: NOSE: Normal no drainage. THROAT: Pharynx clear, no exudate. NECK: Trachea midline. Thyroid not palpable. No adenopathy, no masses. RESPIRATORY: Airway patent, respirations nonlabored. CTA. CARDIOVASCULAR: Regular rate and rhythm. Bradycardic GASTROINTESTINAL: Abdomen is soft and nontender. No organomegaly. Bowel sounds normal in all quadrants. GENITOURINARY: Defer MUSCULOSKELETAL: Moves all extremities. No gross deformities. Patient states he is bedbound SKIN: Warm, dry, normal color. Small decubitus ulcer to sacrum without signs of infection NEURO: A&O X4. Speech clear PSYCHIATRIC: Normal interaction Objective Data Vital Signs Vital Signs: Vital Signs - 24 hr 05/21/25 14:00 05/21/25 21:02 05/22/25 06:00 Temperature 98.6 F 97.8 F 97.1 F L Pulse Rate 89 57 L 58 L Respiratory Rate 16 17 17 Blood Pressure 110/79 1134/61 H 110/58 L Pulse Oximetry 97 99 99 Oxygen Delivery 05/22/25 08:00 05/22/25 08:37 Temperature Pulse Rate 56 L Respiratory Rate Blood Pressure Pulse Oximetry Oxygen Delivery Room Air Intake/Output Intake/Output: Intake & Output 05/19/25 05/20/25 05/21/25 05/22/25 23:59 23:59 23:59 23:59 Intake Total 870 1007 1075 750 Output Total 350 1100 400 200 Balance 520 -93 675 550 Meds/Results Medications: Active Medications Generic Name Dose Route Start Last Admin Trade Name Freq PRN Reason Stop Dose Admin Acetaminophen 650 mg 05/17/25 13:51 Acetaminophen 325 Mg Tablet PO Q4H PRN Mild Pain (1-3) or Fever Amiodarone HCl 100 mg 05/18/25 08:00 05/22/25 08:37 Amiodarone Hcl 100 Mg Tablet PO 100 mg DAILY@0800 TATIANA Administration Aspirin 81 mg 05/18/25 09:00 05/22/25 08:36 Aspirin 81 Mg Enteric Tablet PO 81 mg QAM TATIANA Administration Calcium Carbonate 600 mg 05/21/25 09:00 05/22/25 08:36 Calcium Carbonate (Tums) 500 Mg (200 Mg Elemental) BY MOUTH 600 mg DAILY TATIANA Administration Clopidogrel Bisulfate 75 mg 05/18/25 09:00 05/22/25 08:36 Clopidogrel Bisulfate 75 Mg Tablet PO 75 mg QAM TATIANA Administration Dextrose 12.5 gm 05/17/25 14:04 Dextrose 50% 25 Gm/50 Ml Syringe IV PUSH PRN PRN Hypoglycemia Protocol Ferrous Sulfate 325 mg 05/18/25 09:00 05/22/25 08:36 Ferrous Sulfate 325 Mg Tablet PO 325 mg DAILY TATIANA Administration Finasteride 5 mg 05/18/25 09:00 05/22/25 08:36 Finasteride 5 Mg Tablet PO 5 mg QAM TATIANA Administration Glucagon 1 mg 05/17/25 14:04 Glucagon For Inj 1 Mg Vial IM PRN PRN Hypoglycemia Protocol Glucose 15 gm 05/17/25 14:04 Glucose Oral Gel 15 Gm Of Glucse In 37.5 Gm Tube PO PRN PRN Hypoglycemia Protocol Dextrose 1,000 mls @ 100 mls/hr 05/17/25 14:04 Dextrose 5% 1,000 Ml IVPB PRN PRN Hypoglycemia Protocol Ceftazidime 1 gm/ Sodium 50 mls @ 100 mls/hr 05/19/25 14:00 05/21/25 14:58 Chloride IVPB 05/23/25 14:29 100 mls/hr Q24H TATIANA Administration Ondansetron HCl 4 mg 05/17/25 13:51 Ondansetron Inj 4 Mg/2 Ml Vial IV PUSH Q4H PRN Nausea Rosuvastatin Calcium 40 mg 05/18/25 09:00 05/22/25 08:36 Rosuvastatin 20 Mg Tablet PO 40 mg QAM TATIANA Administration Tamsulosin HCl 0.4 mg 05/18/25 09:00 05/22/25 08:36 Tamsulosin Hcl 0.4 Mg Capsule PO 0.4 mg QAM TATIANA Administration Labs Labs: Laboratory Results - last 24 hr 05/22/25 05:46 WBC 9.9 RBC 3.31 L Hgb 9.6 L Hct 31.1 L MCV 94.0 MCH 29.0 MCHC 30.9 L RDW 15.3 H Plt Count 255 MPV 9.2 Immature Gran % (Auto) 0.4 Neut % (Auto) 78.2 H Lymph % (Auto) 13.0 L [place] % (Auto) 4.8 Eos % (Auto) 3.2 Baso % (Auto) 0.4 Lymph # (Auto) 1.29 [place] # (Auto) 0.5 Eos # (Auto) 0.3 Baso # (Auto) 0.0 Abs Immat Gran (auto) 0.04 H Absolute Neuts (auto) 7.7 H Absolute Nucleated RBC 0.000 Nucleated RBC % 0.0 Sodium 138 Potassium 3.7 Chloride 110 H Carbon Dioxide 22 Anion Gap 6 BUN 29 H Creatinine 2.90 H Estim Creat Clear Calc 16 Estimated GFR 21 L Glucose 111 H Calcium 8.8 Total Bilirubin 0.2 AST 23 ALT 15 Alkaline Phosphatase 71 Total Protein 6.3 Albumin 2.9 L Hospitalist MIPS Advance Care Plan I have confirmed that the patient's Advanced Care Plan is present, code status is documented, or surrogate decision maker is listed in patient medical record.: Yes Medication Reconciliation I have utilized all available resources to obtain, update and review the patients current medications (includes all prescriptions, OTC, herbals, cannabis, and nutritional supplements).: Yes
[2025-05-22 14:00] VITALS: BP 106/53; PULSE 85; RESP 18; TEMP 36.3; O2SAT 94
[2025-05-22] MEDS: cefTAZidime INJ 1 GM in SODIUM CHLORIDE 0.9% IV 50 ML IVPB (14:09)
[2025-05-22 22:00] VITALS: BP 111/57; PULSE 61; RESP 18; TEMP 37.1; O2SAT 100
[2025-05-23 06:00] VITALS: BP 131/59; PULSE 55; RESP 18; TEMP 36.5; O2SAT 100
[2025-05-23 06:34] LABS: Hematocrit 32.6 % (42.0-52.0); Hemoglobin 10.2 g/dL (14.0-18.0); Immature Granulocyte Percent A 0.7 % (0-0.5); Lymphocytes Absolute Auto 1.32 K/mm3 (0.9-3.2); Mean Corpuscular HGB Conc 31.3 g/dl (32-36); Mean Corpuscular Hemoglobin 29.4 pg (26-34); Mean Corpuscular Volume 93.9 fl (80-100); Nucleated Red Blood Cells Absolute Auto 0.000 K/mm3 (0.0-0.012); Nucleated Red Blood Cells Perc 0.0 % (0.0-0.2); Platelet Count Result 268 k/mm3 (150-375); Red Blood Count 3.47 M/mm3 (4.6-6.20); White Blood Count 10.4 K/mm3 (4.5-10.0)
[2025-05-23 06:45] LABS: Alanine Aminotransferase 13 U/L (6-50); Albumin Level 3.0 g/dL (3.5-5.1); Alkaline Phosphatase 87 U/L (38-126); Anion Gap 6 mmol/L (4-12); Aspartate Amino Transferase 22 U/L (17-59); Bilirubin,Total 0.3 mg/dL (0.2-1.3); Blood Urea Nitrogen 31 mg/dL (9-20); Calcium 9.2 mg/dL (8.4-10.2); Carbon Dioxide 21 mmol/L (22-30); Chloride 111 mmol/L (98-107); Estimated CRCL calculation 16 ml/min; Estimated Glomerular Filt Rate 20; Glucose 102 mg/dL (65-110); Sodium 138 mmol/L (137-145); Total Protein 6.7 g/dL (6.3-8.2)
[2025-05-23 07:10] LABS: Potassium 3.8 mmol/L (3.4-5.0)
[2025-05-23] MEDS: CALCIUM CARBONATE (TUMS) 500 MG (200 MG ELEMENTAL) 600 MG BY MOUTH (09:43)
[2025-05-23] MEDS: CLOPIDOGREL BISULFATE 75 MG TABLET PO (09:43)
[2025-05-23] MEDS: FERROUS SULFATE 325 MG TABLET PO (09:43)
[2025-05-23] MEDS: FINASTERIDE 5 MG TABLET PO (09:43)
[2025-05-23] MEDS: ASPIRIN 81 MG ENTERIC TABLET PO (09:43)
[2025-05-23 09:44] VITALS: PULSE 62
[2025-05-23] MEDS: ROSUVASTATIN 20 MG TABLET 40 MG PO (09:44)
[2025-05-23] MEDS: TAMSULOSIN HCL 0.4 MG CAPSULE PO (09:44)
[2025-05-23] MEDS: AMIODARONE HCL 100 MG TABLET PO (09:44)
--- NOTE | 2025-05-23 10:41 | P.DS_ITS ---
DS: Admitting Diagnosis Discharge Date 05/23/2025 Admitting Diagnosis drug (multiple) resistant infection stage 4 chronic kidney disease pressure ulcer, buttock essential hypertension iron deficiency anemia hyperlipidemia BPH NOS w/o ur obs/LUTS Wide-complex tachycardia DS: Discharge Diagnosis Discharge Diagnosis (1) UTI (urinary tract infection): Qualifiers: Hematuria presence: with hematuria Urinary tract infection type: acute cystitis Qualified Code(s): N30.01 - Acute cystitis with hematuria Code(s): N39.0 - Urinary tract infection, site not specified Status: Acute (2) Stage 4 chronic kidney disease: Code(s): N18.4 - Chronic kidney disease, stage 4 (severe) Status: Chronic (3) Hyperlipidemia: Code(s): E78.5 - Hyperlipidemia, unspecified Status: Chronic (4) Wide-complex tachycardia: Onset Date: 09/2023 Code(s): R00.0 - Tachycardia, unspecified Status: Chronic DS: Summary Hospital Course Reason for hospitalization: MDRO acute cystitis Hospital Course: UTI Patient requires 7 days of ceftazidime to complete treatment Recommended to come from PCP due to urine culture growing carbapenem resistant Pseudomonas aeruginosa, currently sensitive to ceftazidime. Infectious diseases was consulted, agrees with continuation of ceftazidime for 7 days. Ceftazidime dose was renally adjusted given slight alteration to CKD noted today in creatinine Urine culture-culture returned positive for Elana albicans no evidence of CRPA. Infectious disease recommendations in regards to treating recent culture as contaminant and continuing to treat initial culture with ceftazidime appreciated Line placement was not considered feasible by care coordination, patient agreeable to complete course in hospital Discharge home today after last dose if IV antibiotics Stage 4 chronic kidney disease Renal dosing of drugs Avoid nephrotoxic agents Daily monitoring of renal function Hyperlipidemia On rosuvastatin Wide-complex tachycardia on amiodarone Follow up with PCP 1-2 weeks after discharge from the hospital. Patient was discharged home. Time Spent with Patient Time attestation: Total time spent providing and/or coordinating discharge services: 35 Minutes Exam Narrative: GENERAL: non-toxic appearing, in no acute distress. Chronically ill appearing HEAD: Normocephalic, atraumatic. EYES: PERRLA. Conjunctivae clear. EARS: NOSE: Normal no drainage. THROAT: Pharynx clear, no exudate. NECK: Trachea midline. Thyroid not palpable. No adenopathy, no masses. RESPIRATORY: Airway patent, respirations nonlabored. CTA. CARDIOVASCULAR: Regular rate and rhythm. Bradycardic GASTROINTESTINAL: Abdomen is soft and nontender. No organomegaly. Bowel sounds normal in all quadrants. GENITOURINARY: Defer MUSCULOSKELETAL: Moves all extremities. No gross deformities. Patient states he is bedbound SKIN: Warm, dry, normal color. Small decubitus ulcer to sacrum without signs of infection NEURO: A&O X4. Speech clear PSYCHIATRIC: Normal interaction DS: Data Data Completed and Pending Labs on day of discharge: Labs from last 24 hours 05/23/25 05:51 WBC 10.4 H RBC 3.47 L Hgb 10.2 L Hct 32.6 L MCV 93.9 MCH 29.4 MCHC 31.3 L RDW 15.1 H Plt Count 268 MPV 9.2 Immature Gran % (Auto) 0.7 H Neut % (Auto) 76.5 H Lymph % (Auto) 12.7 L [place] % (Auto) 6.2 Eos % (Auto) 3.3 Baso % (Auto) 0.6 Lymph # (Auto) 1.32 [place] # (Auto) 0.6 Eos # (Auto) 0.3 Baso # (Auto) 0.1 Abs Immat Gran (auto) 0.07 H Absolute Neuts (auto) 8.0 H Absolute Nucleated RBC 0.000 Nucleated RBC % 0.0 Sodium 138 Potassium 3.8 Chloride 111 H Carbon Dioxide 21 L Anion Gap 6 BUN 31 H Creatinine 2.95 H Estim Creat Clear Calc 16 Estimated GFR 20 L Glucose 102 Calcium 9.2 Total Bilirubin 0.3 AST 22 ALT 13 Alkaline Phosphatase 87 Total Protein 6.7 Albumin 3.0 L Preliminary micro results at discharge 05/17/25 12:30 Blood Culture - Preliminary Blood 05/17/25 11:56 Blood Culture - Preliminary Blood Discharge Plan Discharge Attending physician on discharge: Edna Castillo Consulting providers: Magaly Cummings; Rubi Jason; Abel Heath Oca; Sherron Hyde Discharging Clinician: Ewa Renteria Patient Disposition: Home Activity: as tolerated Diet: as tolerated Discharge Instructions: Patient to read[facility] to [facility] at home ([phone]) at discharge. Please fax discharge instructions and medication sheets to [phone]. Patient Instructions: Heart Failure (DC) Patient Language: Armenian Follow-up/Referrals: Hilda Painting MD [Primary Care Provider, [facility]] Referral Note: call for an appt to follow up with your PCP or hospice within 1-2 weeks of discharge Discharge Medications: Continued amiodarone 100 mg tablet 100 mg PO DAILY metoprolol succinate [Toprol XL] 25 mg tablet extended release 24 hr 12.5 mg PO QAM Qty: 90 0RF calcium carbonate 600 mg calcium (1,500 mg) tablet 600 mg PO DAILY (DME) electric hospital bed See Rx Instructions .Route .MEDSUPPLY Qty: 1 0RF Rx Instructions: As directed (DME) Gee lift See Rx Instructions .Route .MEDSUPPLY Qty: 1 0RF Rx Instructions: As directed (DME) Roho mattress See Rx Instructions .Route .MEDSUPPLY Qty: 1 0RF Rx Instructions: As directed (DME) low air loss mattress See Rx Instructions .Route .MEDSUPPLY Qty: 1 0RF Rx Instructions: As directed ferrous sulfate 325 mg (65 mg iron) tablet,delayed release (DR/EC) 325 mg PO DAILY Qty: 90 2RF rosuvastatin [Crestor] 40 mg tablet 40 mg PO QHS Qty: 90 1RF clopidogrel 75 mg tablet 75 mg PO QAM Qty: 90 1RF omeprazole 20 mg capsule,delayed release(DR/EC) 20 mg PO DAILY Qty: 90 0RF Rx Instructions: DUE FOR APPOINTMENT IN JUNE tamsulosin 0.4 mg capsule 0.4 mg PO DAILY Qty: 90 0RF Rx Instructions: DUE FOR APPOINTMENT IN JUNE finasteride 5 mg tablet 5 mg PO DAILY Qty: 90 0RF Rx Instructions: DUE FOR APPOINTMENT IN JUNE aspirin [Children's Aspirin] 81 mg tablet,chewable 81 mg PO DAILY@0800 Qty: 90 3RF No Action cefpodoxime 200 mg tablet 200 mg PO BID Qty: 14 0RF Rx Instructions: must administer with a meal/food Date of admission: 05/18/25 10:13 Primary Care Provider: Hilda Painting Admitting Provider: Audrey Lugo Attending physician on admission: Ewa Renteria Condition: Stable Quality VTE Prophylaxis VTE prophylaxis: mechanical ordered
[2025-05-23] MEDS: cefTAZidime INJ 1 GM in SODIUM CHLORIDE 0.9% IV 50 ML IVPB (11:23)
[2025-05-23] MEDS: PHARMACIST COMMUNICATION ORDER 1 EACH XX (11:24)
== END 2025-05-23 12:55 | disposition home or self-care (01) | DRG 728 ==
LOC: ANHED 13:21 → ANH3MEDSUR 15:04
PROVIDERS: Student in an Organized Health Care Education/Training Program; Admitting Provider Internal Medicine; Emergency Provider Physician Assistant; PCP Family Medicine; Visit Provider Nurse Practitioner Adult Health
DX: B37.49 Other urogenital candidiasis (principal); I42.9 Cardiomyopathy, unspecified; N18.4 Chronic kidney disease, stage 4 (severe); N40.0 Benign prostatic hyperplasia without lower urinary tract symptoms; I25.10 Atherosclerotic heart disease of native coronary artery without angina pectoris; M19.90 Unspecified osteoarthritis, unspecified site; L40.9 Psoriasis, unspecified; E78.5 Hyperlipidemia, unspecified; R00.0 Tachycardia, unspecified; D50.9 Iron deficiency anemia, unspecified; Z86.718 Personal history of other venous thrombosis and embolism; Z85.038 Personal history of other malignant neoplasm of large intestine; Z96.652 Presence of left artificial knee joint; Z87.891 Personal history of nicotine dependence; Z66 Do not resuscitate; M21.379 Foot drop, unspecified foot; Z51.5 Encounter for palliative care
CPT/HCPCS: 36415; 80053; 81001; 83605; 85025; 85610; 85730; 86140; 87040; 87086; 96365; 99212; 99285; A9270; G0378; G0463; J0713

== ENCOUNTER 2025-06-04 09:35 | Outpatient (NON) | payer MEDICARE, SELFPAY ==
[2025-06-04 13:47] LABS: Add Urine Microscopic? YES; Appearance Urine Turbid (Clear); Glucose Urine UA Negative (Negative); Leukocyte Esterase Ur 3+ LEU/UL (Negative); Need Manual Microscopic Reviewed; Nitrate Urine Positive (Negative); Specific Grav Ur 1.012 (1.001-1.035)
== END 2025-06-04 09:36 | disposition home or self-care (01) ==
PROVIDERS: PCP Family Medicine; Visit Provider Family Medicine
DX: N39.0 Urinary tract infection, site not specified (principal)
CPT/HCPCS: 81001; 87086

== ENCOUNTER 2025-06-18 09:09 | Outpatient (NON) | payer MEDICARE, SELFPAY ==
[2025-06-18 13:22] LABS: Add Urine Microscopic? YES; Appearance Urine Turbid (Clear); Budding Yeast Urine Present /hpf; Glucose Urine UA Negative (Negative); Leukocyte Esterase Ur 3+ LEU/UL (Negative); Nitrate Urine Positive (Negative); Specific Grav Ur 1.011 (1.001-1.035)
== END 2025-06-18 09:10 | disposition home or self-care (01) ==
LOC: ANHGOSHLAB 09:10
PROVIDERS: PCP Family Medicine; Visit Provider Family Medicine
DX: N39.0 Urinary tract infection, site not specified (principal)
CPT/HCPCS: 81001; 87086

== ENCOUNTER 2025-07-02 12:05 | Outpatient (CLI) | payer MEDICARE, SELFPAY ==
--- NOTE | ~2025-07-02 | CT_ITS ---
EXAM/PROCEDURE: CT abdomen pelvis wo con HISTORY: BPH W urinary obstruction COMPARISON: None available. TECHNIQUE: Noncontrast CT of the abdomen and pelvis FINDINGS: A 3.1 x 2.1 x 2.0 cm staghorn calculus is present in the left collecting system, somewhat larger compared to the previous study. Mild hydronephrosis, with no significant hydroureter. There are periureteral strandy changes however. Indwelling urethral Restrepo catheter present with nondistended urinary bladder. There appears to be moderately extensive strandy changes about the urinary bladder. Surgical changes in the perirectal region. No hydroureteronephrosis on the right side. No right-sided kidney stones. Liver spleen pancreas and adrenal glands appear stable. Moderate to large amount of stool present extending to the cecum. The bowel gas pattern is nonobstructive with no free air or pneumatosis. Small amount of free fluid in the lower pelvis. No AAA or grossly inflamed appendix. Diffuse degenerative changes in the bones which otherwise appear intact. In the lower chest, mild bibasilar atelectatic appearing changes. Mild to moderate cardiomegaly and trace pericardial effusion. Coronary artery calcifications noted. IMPRESSION: 1. Directed noncontrast exam demonstrating left renal staghorn stone with mild hydronephrosis and left-sided periureteral strandy changes suggestive of ascending UTI. The urinary bladder is decompressed with indwelling catheter; there appears to be moderately extensive infiltrative changes about the urinary bladder which could be associated with cystitis. 2. Surgical changes in the rectal region. The vesicorectal and prostate regions are obscured due to infiltrative changes and small amount of free fluid. 3. Other findings as above. Reviewed, dictated and finalized at location A. SCIENCE AND IOT MANAGER IMPRESSION: 1. Directed noncontrast exam demonstrating left renal staghorn stone with mild hydronephrosis and left-sided periureteral strandy changes suggestive of ascend ing UTI. The urinary bladder is decompressed with indwelling catheter; there ap pears to be moderately extensive infiltrative changes about the urinary bladder which could be associated with cystitis. 2. Surgical changes in the rectal region. The vesicorectal and prostate regions are obscured due to infiltrative changes and small amount of free fluid. 3. Other findings as above.
== END 2025-07-02 12:06 | disposition home or self-care (01) ==
PROVIDERS: PCP Family Medicine; Visit Provider Urology
DX: N40.1 Benign prostatic hyperplasia with lower urinary tract symptoms (principal); I50.9 Heart failure, unspecified
CPT/HCPCS: 74176

== ENCOUNTER 2025-07-02 14:00 | Observation (INO) | payer MEDICARE, SELFPAY ==
[2025-07-02] VITALS (9 sets, daily range): BP systolic 119–139; BP diastolic 33–61; PULSE 42–59; RESP 14–28; TEMP 36.1–36.6; O2SAT 99–100; BMI 20.5
--- NOTE | ~2025-07-02 | XR_ITS ---
Intraoperative images, fluoroscopy time 49 seconds Reviewed, dictated and finalized at location P. T EXPERIENCE CAPTAIN
--- NOTE | ~2025-07-02 | XR_ITS ---
EXAMINATION: XR chest 1V portable COMPARISON: Comparison 11/04/2024. HISTORY: sob FINDINGS: Mild pulmonary venous congestion. No pneumothorax. Mild cardiomegaly. Mediastinal and hilar contours are within normal limits. Bony thorax no acute abnormality. Miscellaneous: None Impression: Mild CHF Reviewed, dictated and finalized at location P. TIC PERFORMER Impression: Mild CHF
--- OUTSIDE RECORDS SUMMARY | 2025-07-02 13:23 | XMS_ITS | Encounter Summary ---
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 The new reference range is 25-100 The old referance range was 38-126 AST 28 8 - 33 U/L INTERFACE SYSTEM Comment: As of 05 the [facility] has changed testing methods. The new reference range is 8-33 The old referance range was Males 17-59 Females 14-36 ALT 32 4 - 36 IU/L INTERFACE SYSTEM Comment: As of 05 the [facility] has changed testing methods. The new reference range is 4-36 The old referance range was Males 21-72 Females 9-52 BILIRUBIN TOTAL 0.6 0.3 - 1.2 mg/dL INTERFACE SYSTEM Comment: As of 05 the [facility] has changed testing methods. The new reference range is 0.3-1.2 The old referance range was 0.2-1.4 12/09/2005 11:5 8 AM CDT Lolis Irwin MD CHEMISTRY ORDERABLES Final Resul t INTERFACE SYSTEM Refer to clinic/hospital department * [...] ORDERABLES Final Resu lt Performing Organization Address City/State/[facility] Co de Phone Number INTERFACE [...]
--- OUTSIDE RECORDS SUMMARY | 2025-07-02 13:23 | XMS_ITS | Clinical Summary ---
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
--- OUTSIDE RECORDS SUMMARY | 2025-07-02 13:23 | XMS_ITS | Clinical Summary ---
Author Organization [facility] Address [facility] [place] [address] Care Team Providers Care Yarn Mercerizer Operator Helper Name Role Phone Akhil Painting [...] COLLAR) MiscIndications :Spinal stenosis of cervical region [facility] 1 each 09/23/2018 Active acetaminophen 500 [...] 02/05/2019 Physical deconditioning 02/05/2019 Postprocedural intraabdominal abscess 12/09/2018 Gastrojejunostomy tube dislodgement 11/28/2018 Essential hypertension 11/03/2018 Weakness of distal arms and legs 11/02/2018 S/P cervical spinal fusion 10/30/2018 Cervical myelopathy 10/29/2018 Spinal stenosis of cervical region 09/23/2018 [...] on file 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 Gender Identity Not on file Sexual Orientation [...] 1 - Tdap) 11/22/1959 Pneumococcal Vaccine: 50+ Years (1 of 1 - PCV) 1990 Zoster Vaccines (1 of 2) 1990 Annual Medicare Wellness Visit 2005 RSV Immunization or 60+ Years (1 - 1-dose 75+ series) 11/22/2015 COVID-19 Vaccine ( - 2024-2 6 season) 2025 Influenza Adult (#1) 2025 04/14/2014, 03/15/2014 Hepatitis A Vaccines Aged Out No long er eligible based on patient's age to complete this topic Meningococcal B Vaccine Aged Out No l onger eligible based on patient's age to complete this topic Meningococcal Vaccine Aged Out No susana selma eligible based on patient's age to complete this topic RSV Immunizations Under 20 Months Aged Out No longer eligible b ased on patient's age to complete this topic Medical Devices Implanted Type Area Vegetable I Farmworker Device Identifier Shelf Expiration Date Model / Serial / Lot Percutaneous Endoscopic Gastrostomy Set Implanted:Qty: 1 on 11/12/2018 by Caleb Rios MD at [facility] Tube Implant N/A: Abdomen COOK END[employer] [id number] 09/23/2019 / / [id number] Graft Infuse Bone Small - [id number] Implanted:Qty: 1 on 10/29/2018 by Soto Castillo MD at [facility] N/A: Spine Cervical [employer] 12/12/2020 [id number] / / [id number] [place] Lordotic Peek-Normanna Spacer Implanted:Qty: 1 on 10/29/2018 by Soto Castillo MD at [facility] N/A: Spine Cervical SEASPINE [id number] 02/20/2022 [id number] / / [id number] Description:C3-C4 [place] Lordotic Peek-Normanna Spacer Implanted:Qty: 1 on 10/29/2018 by Soto Castillo MD at [facility] N/A: Spine Cervical SEASPINE [id number] 08/05/2022 [id number] / / [id number] Description:C4-C5 Screw Implanted:Qty: 6 on 10/29/2018 by Soto Castillo MD at [facility] N/A: Spine Cervical MARISSA SPINE - DIV MARISSA KT [id number] / / 2 Level Plate Implanted:Qty: 1 on 10/29/2018 by Soto Castillo MD at [facility] N/A: Spine Cervical MARISSA SPINE - DIV MARISSA KT [id number] / / Explanted Type Area Vegetable I Farmworker Device Identifier Shelf Expiration Date Model / Serial / Lot Distration Pin 12mm - [id number] Explanted:Qty: 3 on 10/29/2018 at [facility] DP-12-TB / / Insurance MEDICARE [facility] Advance Directives Documents on File Type Date Recorded 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
--- OUTSIDE RECORDS SUMMARY | 2025-07-02 13:23 | XMS_ITS | Clinical Summary ---
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 Respiratory Rate 18 06/04/2022 11:32 AM PIE MAKER MACHINE Oxygen Saturation - - Inhaled Oxygen Concentration - - Weight 74.8 kg (165 lb) 02/19/2022 9:42 AM CDT Height 175.3 cm (5' 9) 06/04/2022 11:32 AM PIE MAKER MACHINE Body Mass Index 24.37 02/19/2022 9:42 AM CDT Plan of Treatment Health Maintenance Due Date Last Done Comments Pneumococcal PPSV23/PCV13 65 + Years / Low and Medium Risk (1 of 2 - PCV) 1990 COVID-19 Vaccine (2 - season) 03/15/202503/2021, 10/19/2020 Influenza Vaccine (#1) 2025 04/14/2014, 2013 Insurance MEDICARE [facility] Care Teams Unit Educator Relationship Specialty Start Date End Date Akhil Painting MD [address] [place] [address] PCP - General Internal Medicine 12/26/21
--- OUTSIDE RECORDS SUMMARY | 2025-07-02 13:23 | XMS_ITS | Clinical Summary ---
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
--- NOTE | 2025-07-02 14:24 | P.HP_ITS ---
H&P: HPI History of Present Illness Date/Time: 07/02/25 14:24 Chief Complaint: Hydronephrosis Narrative: 84-year-old male presents the hospital with left hydronephrosis and left staghorn calculus as a direct admit. Patient states that he had a CT of his abdomen today which showed his static corn callus a a and mild hydronephrosis urology wanted him admitted so that they could do a cystoscope and a stent place ment today. Patient has a chronic Restrepo which was exchanged. Patient has no complaints at this time. Patient seen after procedure. Patient denies fever chills nausea vomiting. Lab work on admission shows no leukocytosis, hemoglobin 10.3, chloride 114, carbon dioxide 21, BUN 32, creatinine 2.7 GFR at 23 which around baseline. Patient had a CT abdomen pelvis which showed Directed noncontrast exam demonstrating left renal staghorn stone with mild hydronephrosis and left-sided periureteral strandy changes suggestive of ascending UTI. The urinary bladder is decompressed with indwelling catheter; there appears to be moderately extensive infiltrative changes about the urinary bladder which could be associated with cystitis. The vesicorectal and prostate regions are obscured due to infiltrative changes and small amount of free fluid. Chest x-ray shows mild CHF. Urology plan to do left stent placement patient is NPO. Review of Systems 2 Review of Systems: 12 systems were reviewed and are negativ e except for as per HPI. [facility] Past Medical History Medical History Chronic kidney disease (CKD), stage 4 Prediabetes Colon cancer Status post partial colectomy and chemoradiation. 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 Iron deficiency anemia Deep vein thrombosis of left lower extremity (2018) Provoked DVT following admission. Coronary artery disease Multivessel coronary artery disease noted on cardiac catheterization in September 2023 including the LAD, RCA, and an obtuse marginal. Patient declined MIDCAB and is being treated medically. Cardiomyopathy On LifeVest from September to February 2024. Vitamin D deficiency Psoriasis Benign prostatic disease Osteoarthritis Foot drop Surgical History Surgical History History of cervical spinal surgery (10/2018) History of left knee replacement (2000) History of partial colectomy (1994) History of lumbosacral spine surgery early Family History Family History Mother Alzheimer dementia Social History Social History Social History: Surrogate medical decision maker: David ColemanJr. (son). Code status: Full code. Smoking packs per day: 0.25 Smoking cigarettes per day: 5.0 Years smoked: 4 Smoking pack-years: 1.00 Smoking status: Former smoker Second hand tobacco smoke exposure: No Alcohol intake: never Substance use: never Substance use type: does not use Lack of Transportation: No Lack of Food: Never True Current Housing: I Have Housing Concerned About Future Housing: No Difficulty Paying Gas/Electric Bills: No Difficulty Paying for Meds: No Currently Unemployed: No Education: High School Diploma/GED Difficulty w/ Childcare or Family Care: No Living arrangements: with family Additional living arrangements comments: Lives alone. 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 He has bilateral footdrop and cannot ambulate even with his AFO braces. He uses a slide board to transfer. Occupation/Education: retired Spiritual care concerns: No Meds Home Medications and Allergies Home Medications ?Medication ?Instructions ?Recorded ?Confirmed ?Type calcium carbonate 600 mg PO DAILY 12/13/21 History electric hospital bed #1 ea 10/08/24 07/02/25 Rx Gee lift #1 ea 10/27/24 07/02/25 Rx Roho mattress #1 ea 11/03/24 07/02/25 Rx low air loss mattress #1 ea 11/10/24 07/02/25 Rx ferrous sulfate 325 mg (65 mg 325 mg PO DAILY #90 tabs 12/28/24 07/02/25 Rx iron) tablet,delayed release rosuvastatin 40 mg tablet (Crestor) 40 mg PO QHS #90 t abs 01/01/25 07/02/25 Rx amiodarone 100 mg tablet 100 mg PO DAILY 01/11/25 History metoprolol succinate 25 mg 12.5 mg (1/2 x 25 mg) PO QA M #90 01/11/25 07/02/25 Rx tablet,extended release 24 hr tabs (Toprol XL) clopidogrel 75 mg tablet 75 mg PO QAM #90 tabs 07/02/25 Rx finasteride 5 mg tablet 5 mg PO DAILY #90 tabs 05/0307/02/25 Rx omeprazole 20 mg capsule,delayed 20 mg PO DAILY #90 ca ps 05/03/25 07/02/25 Rx release tamsulosin 0.4 mg capsule 0.4 mg PO DAILY #90 caps 07/02/25 Rx aspirin 81 mg chewable tablet 81 mg PO DAILY@0800 #90 tabs 05/13/25 07/02/25 Rx (Children's Aspirin) terbinafine HCl 250 mg tablet 250 mg PO .nightly 07/0207/02/25 History Allergies Allergy/AdvReac Type Severity Reaction Status Date / Time morphine Allergy Severe HIVES Verified 07/02/25 16:12 No Known Food Allergies Allergy Other Verified 07/02/25 16:12 meperidine AdvReac severe Verified 07/02/25 16:12 constipation Exam Narrative: General: well appearing, appears stated age. HEENT: normocephalic, atraumatic. Mucous membranes moist. EOMI, PERRLA, bilateral sclera anicteric, no conjunctival injection. Neck supple without JVD, lymphadenopathy, or bruit. Respiratory: clear bilaterally. No rales/rhonic/wheezes. Cardiovascular: Regular rate and rhythm, normal S1-S2. No murmurs, rubs, or clicks. PMI is nondisplaced, capillary refill less than 3 second. Abdomen: Soft, round, no pulsatile masses, nondistended and nontender. No rebound, no guarding. Bowel sounds present to all four quadrants. No high pitch or tinkling sounds, resonant to percussion. Extremities: No cyanosis, clubbing, or edema present. Pulses are palpable 2/2. Active ROM to all four extremities. Neuro: Alert and orientated x 4. PERRLA. Cranial nerves 2-12 intact without focal deficit. Skin: Warm, dry, and intact, without rash, erythema, or lesion. Psych: pleasant, cooperative, normal speech, normal affect, no hallucinations, no dysarthia Restrepo Urinary Catheter: Urinary Catheter: patent and draining Results Labs Attestation: I personally reviewed all lab results Imaging US - abdomen: Radiologist's impression: 1. Directed noncontrast exam demonstrating left renal staghorn stone with mild hydronephrosis and left-sided periureteral strandy changes suggestive of ascending UTI. The urinary bladder is decompressed with indwelling catheter; there appears to be moderately extensive infiltrative changes about the urinary bladder which could be associated with cystitis. 2. Surgical changes in the rectal region. The vesicorectal and prostate regions are obscured due to infiltrative changes and small amount of free fluid. Quality VTE Prophylaxis VTE prophylaxis: mechanical ordered and pharmacologic ordered Assessment and Plan Assessment and plan (1) Renal stones: Code(s): N20.0 - Calculus of kidney Status: Acute Assessment and Plan: Directed noncontrast exam demonstrating left renal staghorn stone with mild hydronephrosis and left-sided periureteral strandy changes suggestive of ascending UTI. The urinary bladder is decompressed with indwelling catheter; there appears to be moderately extensive infiltrative changes about the urinary bladder which could be associated with cystitis consulted NPO Plan for stent placement Restrepo catheter Patient started on Rocephin by Urology Continue Flomax and Proscar (2) UTI (urinary tract infection): Qualifiers: Hematuria presence: without hematuria Urinary tract infection type: acute cystitis Qualified Code(s): N30.00 - Acute cystitis without hematuria Code(s): N39.0 - Urinary tract infection, site not specified Status: Acute Assessment and Plan: Culture and sensitivity pending On Rocephin (3) Bradycardia: Code(s): R00.1 - Bradycardia, unspecified Status: Acute Assessment and Plan: Metoprolol hold due to patient being bradycardic Telemetry monitoring (4) Stage 4 chronic kidney disease: Code(s): N18.4 - Chronic kidney disease, stage 4 (severe) Status: Chronic (5) Coronary artery disease: Code(s): I25.10 - Atherosclerotic heart disease of [place] coronary artery without angina pectoris Status: Acute Assessment and Plan: Continue Plavix, aspirin, amiodarone and Crestor Prior Studies I have reviewed the following patient records and this information was taken into consideration when formulating the assessment and plan.: previous labs and previous hospitalizations Time Spent with Patient Time with patient: less than 45 minutes Hospitalist MIPS Advance Care Plan I have confirmed that the patient's Advanced Care Plan is present, code status is documented, or surrogate decision maker is listed in patient medical record.: Yes Medication Reconciliation I have utilized all available resources to obtain, update and review the patients current medications (includes all prescriptions, OTC, herbals, cannabis, and nutritional supplements).: Yes
--- NOTE | 2025-07-02 14:30 | PC.NURSE ---
Patient arrived to the floor via his personal electric wheelchair with a family member. clinical research monitor placed on the patient and vital signs obtained. Skin assessed and there is no open wounds noted at this time. He does have a healed coccyx/sacral wound with a very small scabbed area noted. His skin is otherwise clean, dry and intact. This RN tried to place an IV however was unsuccessful. Vascular access nurse notified. Patient is noted to be alert and oriented at the time of admission. He does not have his home medication list with him. His family is going to retrieve the list. Family wanted to bring an electric blanket for the patient and this RN discussed that they blankets were not allowed per hospital policy. This upset the family member as they stated that they patient had been here approximately 3 weeks ago on the third floor and was allowed to have them. This RN discussed that this was in fact confirmed with our Director and no electric blankets were allowed. Patient is noted to be tearful at this time while on a personal phone stating he is fearful of surgery. Otherwise he is noted to be cooperative with myself and the team. No acute distress noted this time.
[2025-07-02 14:48] LABS: Hematocrit 32.3 % (42.0-52.0); Hemoglobin 10.3 g/dL (14.0-18.0); Immature Granulocyte Percent A 0.5 % (0-0.5); Lymphocytes Absolute Auto 1.27 K/mm3 (0.9-3.2); Mean Corpuscular HGB Conc 31.9 g/dl (32-36); Mean Corpuscular Hemoglobin 29.3 pg (26-34); Mean Corpuscular Volume 91.8 fl (80-100); Nucleated Red Blood Cells Absolute Auto 0.000 K/mm3 (0.0-0.012); Nucleated Red Blood Cells Perc 0.0 % (0.0-0.2); Platelet Count Result 355 k/mm3 (150-375); Red Blood Count 3.52 M/mm3 (4.6-6.20); White Blood Count 9.8 K/mm3 (4.5-10.0)
--- NOTE | 2025-07-02 14:48 | ECG_ITS ---
Test Date: 2025-07-02 15:07:48 Measurements Intervals [place] Rate: 45 P: 0 PA: 0 QRS: -22 QRSD: 81 T: -17 QT: 508 QTc: 441 Interpretive Statements SINUS BRADYCARDIA VOLTAGE CRITERIA FOR LVH BORDERLINE T WAVE ABNORMALITY- INFERIOR LEADS BASELINE ARTIFACT- I, II, III, AVR, AVL ,AVF, V1-V6 ABNORMAL ECG Compared to ECG 11/04/2024 10:02:54 NO SIGNIFICANT CHANGE Electronically Signed On 07-02-2025 15:18:09 HOGSHEAD STOCK CLERK by Sang Sheikh D.O.
[2025-07-02 14:58] LABS: Anion Gap 6 mmol/L (4-12); Blood Urea Nitrogen 32 mg/dL (9-20); Calcium 9.2 mg/dL (8.4-10.2); Carbon Dioxide 21 mmol/L (22-30); Chloride 114 mmol/L (98-107); Estimated CRCL calculation 17 ml/min; Estimated Glomerular Filt Rate 23; Glucose 94 mg/dL (65-110); Potassium 4.1 mmol/L (3.4-5.0); Sodium 141 mmol/L (137-145)
[2025-07-02 15:02] LABS: INR 1.1; Partial Thromboplastin Time 30.3 Seconds (22.3-36.8); Prothrombin Time 14.2 Seconds (11.1-14.7)
--- NOTE | 2025-07-02 15:50 | WPDANESEPPF ---
Anes - Initial Pre Proc Eval Procedure: Operation Date: 07/02/25 15:45 Proposed Procedures p Cystoscopy, Left Ureteral Stent Placement - Lavon Stone MD Date/Time: 07/02/25 15:50 Surgeon: Lauro Dean MD Pre Op Diagnosis: Urinary obstruction Patient Data Age: 84 Gender: M Height: 1.78 m Weight: 64.8 kg Last Vital Signs Temp 36.6 C 07/02/25 14:00 Pulse 42 L 07/02/25 14:00 Resp 28 H 07/02/25 14:00 BP 132/44 L 07/02/25 14:00 Pulse Ox 100 07/02/25 14:00 Allergies Allergy/AdvReac Type Severity Reaction Status Date / Time morphine Allergy Severe HIVES Verified 07/02/25 15:47 No Known Food Allergies Allergy Other Verified 07/02/25 15:47 meperidine AdvReac severe Verified 07/02/25 15:47 constipation Home Medications ?Medication ?Instructions ?Recorded ?Confirmed ?Type calcium carbonate 600 mg PO DAILY 12/13/21 06/03/25 History electric hospital bed #1 ea 10/08/24 06/03/25 Rx Gee lift #1 ea 10/27/24 06/03/25 Rx Roho mattress #1 ea 11/03/24 06/03/25 Rx low air loss mattress #1 ea 11/10/24 06/03/25 Rx ferrous sulfate 325 mg (65 mg 325 mg PO DAILY #90 tabs 12/28/24 06/03/25 Rx iron) tablet,delayed release rosuvastatin 40 mg tablet (Crestor) 40 mg PO QHS #90 tabs 01/01/25 06/03/25 Rx amiodarone 100 mg tablet 100 mg PO DAILY 01/11/25 06/03/25 History metoprolol succinate 25 mg 12.5 mg (1/2 x 25 mg) PO QAM #90 01/11/25 06/03/25 Rx tablet,extended release 24 hr tabs (Toprol XL) clopidogrel 75 mg tablet 75 mg PO QAM #90 tabs 02/19/25 06/03/25 Rx finasteride 5 mg tablet 5 mg PO DAILY #90 tabs 05/03/25 06/03/25 Rx omeprazole 20 mg capsule,delayed 20 mg PO DAILY #90 caps 05/03/25 06/03/25 Rx release tamsulosin 0.4 mg capsule 0.4 mg PO DAILY #90 caps 05/03/25 06/03/25 Rx aspirin 81 mg chewable tablet 81 mg PO DAILY@0800 #90 tabs 05/13/25 06/03/25 Rx (Children's Aspirin) cefpodoxime 200 mg tablet 200 mg PO BID #14 tabs 06/17/25 Rx fluconazole 150 mg tablet 150 mg PO Q3D #3 tabs 06/21/25 Rx Laboratory Tests 07/02/25 14:29 WBC 9.8 K/mm3 (4.5-10.0) RBC 3.52 L M/mm3 (4.6-6.20) Hgb 10.3 L g/dL (14.0-18.0) Hct 32.3 L % (42.0-52.0) MCV 91.8 fl (80-100) MCH 29.3 pg (26-34) MCHC 31.9 L g/dl (32-36) RDW 15.7 H % (11.5-14.5) Plt Count 355 k/mm3 (150-375) MPV 8.9 fl (7.4-10.4) Immature Gran % (Auto) 0.5 % (0-0.5) Neut % (Auto) 77.2 H % (45.5-73.1) Lymph % (Auto) 12.9 L % (18.3-44.2) Butts % (Auto) 5.4 % (2.6-8.5) Eos % (Auto) 3.4 % (0-4.4) Baso % (Auto) 0.6 % (0.2-1.2) Lymph # (Auto) 1.27 K/mm3 (0.9-3.2) Butts # (Auto) 0.5 K/mm3 (0.1-0.6) Eos # (Auto) 0.3 K/mm3 (0-0.3) Baso # (Auto) 0.1 K/mm3 (0.0-0.1) Abs Immat Gran (auto) 0.05 H K/mm3 (0.00-0.031) Absolute Neuts (auto) 7.6 H K/mm3 (1.3-6.7) Absolute Nucleated RBC 0.000 K/mm3 (0.0-0.012) Nucleated RBC % 0.0 % (0.0-0.2) PT 14.2 Seconds (11.1-14.7) INR 1.1 APTT 30.3 Seconds (22.3-36.8) Sodium 141 mmol/L (137-145) Potassium 4.1 mmol/L (3.4-5.0) Chloride 114 H mmol/L (98-107) Carbon Dioxide 21 L mmol/L (22-30) Anion Gap 6 mmol/L (4-12) BUN 32 H mg/dL (9-20) Creatinine 2.70 H mg/dL (0.7-1.3) Estim Creat Clear Calc 17 ml/min Estimated GFR 23 L (59 - ) Glucose 94 mg/dL (65-110) Calcium 9.2 mg/dL (8.4-10.2) Patient hx anesthesia problems: none Family hx anesthesia problems: none Results Review: All pre-operative results and documents have been reviewed as part of the pre-operative evaluation. [facility] Past Medical History Medical History Chronic kidney disease (CKD), stage 4 Prediabetes Colon cancer Status post partial colectomy and chemoradiation. 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 Iron deficiency anemia Deep vein thrombosis of left lower extremity (2018) Provoked DVT following admission. Coronary artery disease Multivessel coronary artery disease noted on cardiac catheterization in September 2023 including the LAD, RCA, and an obtuse marginal. Patient declined MIDCAB and is being treated medically. Cardiomyopathy On LifeVest from September to February 2024. Vitamin D deficiency Psoriasis Benign prostatic disease Osteoarthritis Foot drop Surgical History Surgical History History of cervical spinal surgery (10/2018) History of left knee replacement (2000) History of partial colectomy (1994) History of lumbosacral spine surgery early Family History Family History Mother Alzheimer dementia Social History Social History Social History: Surrogate medical decision maker: David Coleman Jr. (son). Code status: Full code. Smoking packs per day: 0.25 Smoking cigarettes per day: 5.0 Years smoked: 4 Smoking pack-years: 1.00 Smoking status: Former smoker Tobacco type: cigarettes Second hand tobacco smoke exposure: No Smoking end date: 07/15/1962 Alcohol intake: never Substance use: never Substance use type: does not use Lack of Transportation: No Lack of Food: Never True Current Housing: I Have Housing Concerned About Future Housing: No Difficulty Paying Gas/Electric Bills: No Difficulty Paying for Meds: No Currently Unemployed: No Education: High School Diploma/GED Difficulty w/ Childcare or Family Care: No Living arrangements: with family Additional living arrangements comments: Lives alone. 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 He has bilateral footdrop and cannot ambulate even with his AFO braces. He uses a slide board to transfer. Occupation/Education: retired Spiritual care concerns: No Anes - Eval Final PreProcedure Day of Procedure 07/02/25 15:50 Patient weight: normal Heart: bradycardia Lungs: clear to auscultation Airway: Mallampati scale class II Neurological: alert and oriented Last oral intake: >/= 8 hours ASA classification: III Emergent: no Anesthetic plan: proceed Anesthesia type and monitoring: general GIVS and standard monitoring Results Review: All pre-operative results and documents have been reviewed as part of the pre-operative evaluation. Informed Consent: The patient's anesthetic plan and its attendant risks and benefits were discussed with the patient/family/POA. Questions were solicited and answers provided to the satisfaction of the patient/family/POA.
[2025-07-02] MEDS: ceFAZolin 2 GM in SODIUM CHLORIDE 0.9% IV 50 ML 100 ML IVPB (16:00)
--- OUTSIDE RECORDS SUMMARY | 2025-07-02 16:11 | XMS_ITS | Clinical Summary ---
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 Gender Identity Not on file Sexual [...] this topic Medical Devices Implanted Type Area E Tailer Device Identifier Shelf Expiration Date Model / Serial / Lot Percutaneous Endoscopic Gastrostomy Set Implanted:Qty: 1 on 11/12/2018 by Caleb Rios MD at [facility] Tube Implant N/A: Abdomen [employer] [id number] 09/23/2019 / / [id number] Graft Infuse Bone Small - [id number] Implanted:Qty: 1 on 10/29/2018 by Soto Castillo MD at [facility] N/A: Spine Cervical [employer] 12/12/2020 [id number] / / [id number] Chey[place] Lordotic Peek-Masth[place] Spacer Implanted:Qty: 1 on 10/29/2018 by Soto Castillo MD at [facility] N/A: Spine Cervical SEASPINE [id number] 02/20/2022 39-2607-S / / [id number] Description:C3-C4 Cheyenne Lordotic Peek-Masth[place] Spacer Implanted:Qty: 1 on 10/29/2018 by Soto Castillo MD at [facility] N/A: Spine Cervical SEASPINE [id number] 08/05/2022 39-2607-[id number] / / [id number] Description:C4-C5 Screw Implanted:Qty: 6 on 10/29/2018 by Soto Castillo MD at [facility] N/A: Spine Cervical MARISSA SPINE - DIV MARISSA KT [id number] / / 2 Level Plate Implanted:Qty: 1 on 10/29/2018 by Soto Castillo MD at [facility] N/A: Spine Cervical MARISSA SPINE - DIV MARISSA KT [id number] / / Explanted Type Area E Tailer Device Identifier Shelf Expiration Date Model / Serial / Lot Distration Pin 12mm - [id number] Explanted:Qty: 3 on 10/29/2018 at [facility] DP-12-TB / / Insurance MEDICARE [facility] Advance Directives Documents on File Type Date Recorded 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
--- OUTSIDE RECORDS SUMMARY | 2025-07-02 16:11 | XMS_ITS | Clinical Summary ---
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
--- OUTSIDE RECORDS SUMMARY | 2025-07-02 16:11 | XMS_ITS | Encounter Summary ---
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 The new reference range is 25-100 The old referance range was 38-126 AST 28 8 - 33 U/L INTERFACE SYSTEM Comment: As of 05 the [employer] [facility] has changed testing methods. The new reference range is 8-33 The old referance range was Males 17-59 Females 14-36 ALT 32 4 - 36 IU/L INTERFACE SYSTEM Comment: As of 05 the [employer] has changed testing methods. The new reference range is 4-36 The old referance range was Males 21-72 Females 9-52 BILIRUBIN TOTAL 0.6 0.3 - 1.2 mg/dL INTERFACE SYSTEM Comment: As of 05 the [employer] has changed testing methods. The new [...] ORDERABLES Final Resu lt Performing Organization Address City/State/[facility] Co de Phone Number INTERFACE [...]
--- OUTSIDE RECORDS SUMMARY | 2025-07-02 16:11 | XMS_ITS | Clinical Summary ---
Author Organization [facility] Address [address] [place] [address] Phone Care Team Providers Care Movement Education Specialist Name Role Phone Akhil Painting MD [...] Comments Blood Pressure 134/76 06/04/2022 11:32 AM REPORT MANAGER Pulse - - Temperature 36.5 C (97.7 F) 06/04/2022 11:32 AM REPORT MANAGER Respiratory Rate 18 06/04/2022 11:32 AM REPORT MANAGER Oxygen Saturation - - Inhaled Oxygen Concentration - - Weight 74.8 kg (165 lb) 02/19/2022 9:42 AM CDT Height 175.3 cm (5' 9) 06/04/2022 11:32 AM REPORT MANAGER Body Mass Index 24.37 02/19/2022 9:42 AM CDT Plan of Treatment Health Maintenance Due Date Last Done Comments Pneumococcal PPSV23/PCV13 65 + Years / Low and Medium Risk (1 of 2 - PCV) 1990 COVID-19 Vaccine (2 - season) 03/15/202503/2021, 10/19/2020 Influenza Vaccine (#1) 2025 04/14/2014, 2013 Insurance MEDICARE [facility] Care Teams Movement Education Specialist Relationship Specialty Start Date End Date Akhil Painting MD [address] [place] [address] PCP - General Internal Medicine 12/26/21
--- OUTSIDE RECORDS SUMMARY | 2025-07-02 16:11 | XMS_ITS | Clinical Summary ---
Author Organization [facility] Address [address] 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
[2025-07-02] MEDS: LACTATED RINGERS 1,000 ML 30 ML IV CONT (16:29)
--- NOTE | 2025-07-02 16:30 | W.PM.PROC2 ---
Procedure Note - Detailed Date of Procedure 07/02/25 Pre-op Diagnosis Left hydronephrosis, left staghorn calculus Post-op Diagnosis Same Procedure Performed Cystoscopy, left retrograde pyelography, left ureteral stent placement Surgeon Lavon Stone MD Anesthesia MAC Description of Procedure Patient brought the operative suite was prepped draped in routine sterile fashion while in dorsal lithotomy position. 2% xylocaine jelly was introduced intraurethrally and systemic sedation is administered per the anesthesia department. Cystoscopy undertaken with a 19 F rigid cystoscope. There was no urethral stricture and only moderate lateral lobe hyperplasia. The bladder shows trabeculation. The ureteral orifices are both a little unusual and obscured by small Hutch diverticula. Was able to identify the left ureteral orifice, performed a retrograde pyelogram with a Huntington catheter, advanced a 0.035 in glidewire into his dilated left ureter and renal pelvis and placed a 6 F variable length stent with the proximal coil in the renal pelvis and distal coil in the bladder. Scopes wires removed. I replaced the 18 F coude catheter. Patient was taken recovery room good condition Drains No Packing No
--- NOTE | 2025-07-02 17:24 | PC.NURSE ---
Patient arrived to the floor from OR via stretcher. lunchroom monitor placed on and functioning at this time. Urinary catheter intact and draining blood tinged urine. Patient is noted to be in good spirits. Family is at the bedside at this time.
[2025-07-02] MEDS: cefTRIAXone 1 GM in SODIUM CHLORIDE 0.9% IV 50 ML 100 ML IVPB (18:08)
[2025-07-02] MEDS: DOCUSATE SODIUM 100 MG CAPSULE PO (18:09)
[2025-07-02 19:18] LABS: Need Manual Microscopic Reviewed; Non Pathogenic Casts 0-2
[2025-07-02 19:19] LABS: Add Urine Microscopic? YES; Appearance Urine Turbid (Clear); Glucose Urine UA Negative (Negative); Leukocyte Esterase Ur 1+ LEU/UL (Negative); Nitrate Urine Negative (Negative); Specific Grav Ur 1.019 (1.001-1.035)
[2025-07-03] VITALS (13 sets, daily range): BP systolic 122–142; BP diastolic 45–53; PULSE 48–59; RESP 16–32; TEMP 36.7–36.9; O2SAT 98–100
[2025-07-03 04:32] LABS: Hematocrit 29.3 % (42.0-52.0); Hemoglobin 9.2 g/dL (14.0-18.0); Immature Granulocyte Percent A 0.5 % (0-0.5); Lymphocytes Absolute Auto 1.22 K/mm3 (0.9-3.2); Mean Corpuscular HGB Conc 31.4 g/dl (32-36); Mean Corpuscular Hemoglobin 28.9 pg (26-34); Mean Corpuscular Volume 92.1 fl (80-100); Nucleated Red Blood Cells Absolute Auto 0.000 K/mm3 (0.0-0.012); Nucleated Red Blood Cells Perc 0.0 % (0.0-0.2); Platelet Count Result 321 k/mm3 (150-375); Red Blood Count 3.18 M/mm3 (4.6-6.20); White Blood Count 11.1 K/mm3 (4.5-10.0)
[2025-07-03 04:41] LABS: Anion Gap 7 mmol/L (4-12); Blood Urea Nitrogen 29 mg/dL (9-20); Calcium 8.6 mg/dL (8.4-10.2); Carbon Dioxide 21 mmol/L (22-30); Chloride 114 mmol/L (98-107); Estimated CRCL calculation 19 ml/min; Estimated Glomerular Filt Rate 25; Glucose 101 mg/dL (65-110); Potassium 3.9 mmol/L (3.4-5.0); Sodium 142 mmol/L (137-145)
[2025-07-03] MEDS: CLOPIDOGREL BISULFATE 75 MG TABLET PO (08:58)
[2025-07-03] MEDS: FINASTERIDE 5 MG TABLET PO (08:58)
[2025-07-03] MEDS: ASPIRIN 81 MG CHEWABLE TABLET PO (08:58)
[2025-07-03] MEDS: TAMSULOSIN HCL 0.4 MG CAPSULE PO (08:59)
[2025-07-03] MEDS: DOCUSATE SODIUM 100 MG CAPSULE PO ×2 (08:59→17:10)
[2025-07-03] MEDS: AMIODARONE HCL 100 MG TABLET PO (08:59)
[2025-07-03] MEDS: FERROUS SULFATE 325 MG TABLET PO (08:59)
[2025-07-03] MEDS: CALCIUM CARBONATE (OSCAL) 500 MG TABLET PO (08:59)
[2025-07-03] MEDS: cefTRIAXone 1 GM in SODIUM CHLORIDE 0.9% IV 50 ML 100 ML IVPB (17:09)
--- NOTE | 2025-07-03 17:21 | P.PNIM_ITS ---
Assessment and Plan Assessment and Plan (1) Renal stones: Code(s): N20.0 - Calculus of kidney Status: Acute Assessment and Plan: Patient was seen in the urology clinic and a CT was performed that showed a left staghorn stone with mild hydronephrosis and left-sided periureteral stranding suggestive of ascending UTI. The urinary bladder is decompressed with indwelling catheter; there appears to be moderately extensive infiltrative changes about the urinary bladder which could be associated with cystitis Patient was a direct admission and went to the OR 07/02 and had a cystoscopy, left retrograde pyelography, and left ureteral stent placement Restrepo catheter placed UA concerning for UTI UCx pending Patient started on Rocephin (07/02) Continue Flomax and Proscar (2) UTI (urinary tract infection): Qualifiers: Hematuria presence: without hematuria Urinary tract infection type: acute cystitis Qualified Code(s): N30.00 - Acute cystitis without hematuria Code(s): N39.0 - Urinary tract infection, site not specified Status: Acute Assessment and Plan: UA is consistent with UTI. UCx collected. Rocephin started. UCx pending. Follow up on UCx results. (3) Bradycardia: Code(s): R00.1 - Bradycardia, unspecified Status: Acute Assessment and Plan: Patient noted to be bradycardic with heart rate 40-50. Metoprolol held. Telemetry reviewed showing heart rate around 50 bpm. Monitor on telemetry (4) Stage 4 chronic kidney disease: Code(s): N18.4 - Chronic kidney disease, stage 4 (severe) Status: Chronic Assessment and Plan: Creatinine earlier this year ranged from 2.9-3.3. Creatinine on admission was 2.7 and has improved to 2.48. Continue to monitor urine output, renal function and electrolytes. (5) Coronary artery disease: Code(s): I25.10 - Atherosclerotic heart disease of [place] coronary artery without angina pectoris Status: Acute Assessment and Plan: Patient with known multivessel coronary disease by heart catheterization September 2023. Continue Plavix, aspirin, amiodarone and Crestor Plan DVT prophylaxis -SCDs Code status -full Subjective Date/time seen: 07/03/25 17:21 Interval history: 84yo male presents the hospital with left hydronephrosis and left staghorn calculus as a direct admit. Slept well. No CP or SOB. He does not wear a life vest now. He does not walk and is wheelchair bound. They have a mary lift him to the . He has been off abx for about 4 days prior to admission. Exam Narrative: AF 98.2 132/53 50 20 100%ra Gen - NARD Chest - CTA bilaterally, nml RR CV - RRR S1/S2. Telemetry showing mild bradycardia with heart rate in the low 50s Abd - Soft, NT/ND, Positive BS - Restrepo secured draining clear yellow urine Ext - No pedal edema Psych - Nml mood and affect Skin - Warm and dry Objective Data Vital Signs Vital Signs: Vital Signs - 24 hr 07/02/25 18:00 07/02/25 20:00 07/02/25 20:00 Temperature 97.8 F Pulse Rate 59 L 48 L Respiratory Rate 28 H Blood Pressure 135/46 L Pulse Oximetry 100 Oxygen Delivery Room Air 07/02/25 20:00 07/02/25 22:00 07/03/25 00:00 Temperature 98.5 F Pulse Rate 52 L 55 L 52 L Respiratory Rate 23 H Blood Pressure 122/45 L Pulse Oximetry 99 Oxygen Delivery 07/03/25 00:00 07/03/25 00:00 07/03/25 02:00 Temperature Pulse Rate 54 L 55 L Respiratory Rate Blood Pressure Pulse Oximetry Oxygen Delivery Room Air 07/03/25 03:44 07/03/25 04:00 07/03/25 04:00 Temperature 98.5 F Pulse Rate 55 L 53 L Respiratory Rate 32 H Blood Pressure 137/48 L Pulse Oximetry 98 Oxygen Delivery Room Air 07/03/25 06:00 07/03/25 08:00 07/03/25 08:00 Temperature 98.1 F Pulse Rate 56 L 52 L Respiratory Rate 16 Blood Pressure 132/52 L Pulse Oximetry 98 98 Oxygen Delivery Room Air 07/03/25 08:00 07/03/25 08:59 07/03/25 10:00 Temperature Pulse Rate 56 L 52 L 54 L Respiratory Rate Blood Pressure Pulse Oximetry Oxygen Delivery 07/03/25 12:00 07/03/25 12:00 07/03/25 12:00 Temperature 98.4 F Pulse Rate 59 L 51 L Respiratory Rate 20 Blood Pressure 142/51 H Pulse Oximetry 98 99 Oxygen Delivery Room Air 07/03/25 14:00 07/03/25 16:00 07/03/25 16:00 Temperature Pulse Rate 49 L 48 L Respiratory Rate Blood Pressure Pulse Oximetry 99 Oxygen Delivery Room Air 07/03/25 16:00 Temperature 98.2 F Pulse Rate 50 L Respiratory Rate 20 Blood Pressure 132/53 L Pulse Oximetry 100 Oxygen Delivery Intake/Output Intake/Output: Intake & Output 06/30/25 07/01/25 07/02/25 07/03/25 23:59 23:59 23:59 23:59 Intake Total 483 715 Output Total 400 650 Balance 83 65 Meds/Results Medications: Active Medications Generic Name Dose Route Start Last Admin Trade Name Freq PRN Reason Stop Dose Admin Amiodarone HCl 100 mg 07/03/25 09:00 07/03/25 08:59 Amiodarone Hcl 100 Mg Tablet PO 100 mg DAILY TATIANA Administration Aspirin 81 mg 07/03/25 08:00 07/03/25 08:58 Aspirin 81 Mg Chewable Tablet PO 81 mg DAILY@0800 TATIANA Administration Calcium Carbonate 500 mg 07/03/25 09:00 07/03/25 08:59 Calcium Carbonate (Oscal) 500 Mg Tablet PO 500 mg DAILY TATIANA Administration Clopidogrel Bisulfate 75 mg 07/03/25 09:00 07/03/25 08:58 Clopidogrel Bisulfate 75 Mg Tablet PO 75 mg QAM TATIANA Administration Docusate Sodium 100 mg 07/02/25 17:00 07/03/25 17:10 Docusate Sodium 100 Mg Capsule PO 100 mg BID TATIANA Administration Ferrous Sulfate 325 mg 07/03/25 09:00 07/03/25 08:59 Ferrous Sulfate 325 Mg Tablet PO 325 mg DAILY TATIANA Administration Finasteride 5 mg 07/03/25 09:00 07/03/25 08:58 Finasteride 5 Mg Tablet PO 5 mg DAILY TATIANA Administration Ceftriaxone Sodium 1 gm/ 50 mls @ 100 mls/hr 07/02/25 17:00 07/03/25 17:09 Sodium Chloride IVPB 100 mls/hr Q24H TATIANA Administration Rosuvastatin Calcium 40 mg 07/02/25 21:30 07/02/25 21:52 Rosuvastatin 20 Mg Tablet PO Not Given QHS TATIANA Tamsulosin HCl 0.4 mg 07/03/25 09:00 07/03/25 08:59 Tamsulosin Hcl 0.4 Mg Capsule PO 0.4 mg DAILY TATIANA Administration Radiology Results: ITS Impressions Chest X-Ray 07/02/25 15:10 Impression: Mild CHF Labs Labs: Laboratory Results - last 24 hr 07/02/25 07/03/25 18:05 03:48 WBC 11.1 H RBC 3.18 L Hgb 9.2 L Hct 29.3 L MCV 92.1 MCH 28.9 MCHC 31.4 L RDW 15.6 H Plt Count 321 MPV 9.2 Immature Gran % (Auto) 0.5 Neut % (Auto) 80.1 H Lymph % (Auto) 11.0 L [place] % (Auto) 5.7 Eos % (Auto) 2.3 Baso % (Auto) 0.4 Lymph # (Auto) 1.22 [place] # (Auto) 0.6 Eos # (Auto) 0.3 Baso # (Auto) 0.0 Abs Immat Gran (auto) 0.06 H Absolute Neuts (auto) 8.9 H Absolute Nucleated RBC 0.000 Nucleated RBC % 0.0 Sodium 142 Potassium 3.9 Chloride 114 H Carbon Dioxide 21 L Anion Gap 7 BUN 29 H Creatinine 2.48 H Estim Creat Clear Calc 19 Estimated GFR 25 L Glucose 101 Calcium 8.6 Urine Color Light red H Urine Appearance Turbid H Urine pH 6.5 Ur Specific [place] 1.019 Urine Protein 3+ H Urine Glucose (UA) Negative Urine Ketones Negative Ur Blood (Man) 3+ H Urine Nitrate Negative Urine Bilirubin Negative Urine Urobilinogen 0.2 Add Ur Microanalysis Reviewed Leukocyte Esterase Rfl 1+ H Urine RBC >100 H Urine WBC 51-100 H Ur Squamous Epith Cells Few Urine Bacteria None seen Urine Casts 0-2
[2025-07-03] MEDS: ROSUVASTATIN 20 MG TABLET 40 MG PO (21:28)
[2025-07-04] VITALS (9 sets, daily range): BP systolic 132–162; BP diastolic 47–60; PULSE 44–61; RESP 18–24; TEMP 36.4–36.8; O2SAT 99–100
[2025-07-04 04:33] LABS: Hematocrit 28.1 % (42.0-52.0); Hemoglobin 8.8 g/dL (14.0-18.0); Mean Corpuscular HGB Conc 31.3 g/dl (32-36); Mean Corpuscular Hemoglobin 29.0 pg (26-34); Mean Corpuscular Volume 92.7 fl (80-100); Platelet Count Result 305 k/mm3 (150-375); Red Blood Count 3.03 M/mm3 (4.6-6.20); White Blood Count 10.4 K/mm3 (4.5-10.0)
[2025-07-04 04:55] LABS: Albumin Level 2.7 g/dL (3.5-5.1); Anion Gap 4 mmol/L (4-12); Blood Urea Nitrogen 27 mg/dL (9-20); Calcium 8.6 mg/dL (8.4-10.2); Carbon Dioxide 23 mmol/L (22-30); Chloride 113 mmol/L (98-107); Estimated CRCL calculation 19 ml/min; Estimated Glomerular Filt Rate 25; Glucose 94 mg/dL (65-110); Potassium 3.8 mmol/L (3.4-5.0); Sodium 140 mmol/L (137-145)
[2025-07-04] MEDS: FERROUS SULFATE 325 MG TABLET PO (08:34)
[2025-07-04] MEDS: FINASTERIDE 5 MG TABLET PO (08:34)
[2025-07-04] MEDS: TAMSULOSIN HCL 0.4 MG CAPSULE PO (08:34)
[2025-07-04] MEDS: ASPIRIN 81 MG CHEWABLE TABLET PO (08:34)
[2025-07-04] MEDS: DOCUSATE SODIUM 100 MG CAPSULE PO ×2 (08:34→16:46)
[2025-07-04] MEDS: CALCIUM CARBONATE (OSCAL) 500 MG TABLET PO (08:34)
[2025-07-04] MEDS: AMIODARONE HCL 100 MG TABLET PO (08:34)
[2025-07-04] MEDS: CLOPIDOGREL BISULFATE 75 MG TABLET PO (08:34)
--- NOTE | 2025-07-04 10:42 | P.PNUR_ITS ---
Progress Note: A&P Assessment and Plan (1) Renal stones: Code(s): N20.0 - Calculus of kidney Status: Acute Assessment and Plan: POD #2 cysto left stent for partially obstructing staghorn calculus f/u with Dr. Stone for stone and stent management (2) BPH NOS w/o ur obs/LUTS: Code(s): N40.0 - Benign prostatic hyperplasia without lower urinary tract symptoms Status: Chronic Assessment and Plan: doe in place cont Finasteride and flomax voiding trial prior to discharge Subjective Subjective Date/Time Seen: 07/04/25 10:42 Interval history: pt comfortable today, urine clear Exam GI: GI Palp: Yes Soft to palpation Urinary Catheter: Urinary Catheter: patent and draining and urine clear Objective Data Vital Signs Vital Signs: Vital Signs - 24 hr 07/03/25 12:00 07/03/25 12:00 07/03/25 12:00 Temperature 36.9 C Pulse Rate 59 L 51 L Respiratory Rate 20 Blood Pressure 142/51 H Pulse Oximetry 98 99 Oxygen Delivery Room Air 07/03/25 14:00 07/03/25 16:00 07/03/25 16:00 Temperature Pulse Rate 49 L 48 L Respiratory Rate Blood Pressure Pulse Oximetry 99 Oxygen Delivery Room Air 07/03/25 16:00 07/03/25 18:00 07/03/25 20:00 Temperature 36.8 C 36.7 C Pulse Rate 50 L 57 L 56 L Respiratory Rate 20 21 H Blood Pressure 132/53 L 132/47 L Pulse Oximetry 100 100 Oxygen Delivery 07/03/25 20:00 07/03/25 20:00 07/04/25 00:00 Temperature 36.4 C Pulse Rate 51 L 54 L Respiratory Rate 24 H Blood Pressure 139/52 L Pulse Oximetry 100 Oxygen Delivery Room Air 07/04/25 00:00 07/04/25 04:00 07/04/25 07:56 Temperature 36.7 C Pulse Rate 53 L 44 L 52 L Respiratory Rate 18 Blood Pressure 162/60 H Pulse Oximetry 99 Oxygen Delivery 07/04/25 08:00 07/04/25 08:00 07/04/25 08:34 Temperature Pulse Rate 61 58 L Respiratory Rate Blood Pressure Pulse Oximetry 99 Oxygen Delivery Room Air Intake/Output Intake/Output: Intake & Output 07/01/25 07/02/25 07/03/25 12/21/25 23:59 23:59 23:59 23:59 Intake Total 547 1536 790 Output Total 400 1750 420 Balance 83 -215 370 Meds/Results Medications: Active Medications Generic Name Dose Route Start Last Admin Trade Name Pasha PRN Reason Stop Dose Admin Amiodarone HCl 100 mg 07/03/25 09:00 07/04/25 08:34 Amiodarone Hcl 100 Mg Tablet PO 100 mg DAILY TATIANA Administration Aspirin 81 mg 07/03/25 08:00 07/04/25 08:34 Aspirin 81 Mg Chewable Tablet PO 81 mg DAILY@0800 TATIANA Administration Calcium Carbonate 500 mg 07/03/25 09:00 07/04/25 08:34 Calcium Carbonate (Oscal) 500 Mg Tablet PO 500 mg DAILY TATIANA Administration Clopidogrel Bisulfate 75 mg 07/03/25 09:00 07/04/25 08:34 Clopidogrel Bisulfate 75 Mg Tablet PO 75 mg QAM TATIANA Administration Docusate Sodium 100 mg 07/02/25 17:00 07/04/25 08:34 Docusate Sodium 100 Mg Capsule PO 100 mg BID TATIANA Administration Ferrous Sulfate 325 mg 07/03/25 09:00 07/04/25 08:34 Ferrous Sulfate 325 Mg Tablet PO 325 mg DAILY TATIANA Administration Finasteride 5 mg 07/03/25 09:00 07/04/25 08:34 Finasteride 5 Mg Tablet PO 5 mg DAILY TATIANA Administration Ceftriaxone Sodium 1 gm/ 50 mls @ 100 mls/hr 07/02/25 17:00 07/03/25 17:09 Sodium Chloride IVPB 100 mls/hr Q24H TATIANA Administration Rosuvastatin Calcium 40 mg 07/02/25 21:30 07/03/25 21:28 Rosuvastatin 20 Mg Tablet PO 40 mg QHS TATIANA Administration Tamsulosin HCl 0.4 mg 07/03/25 09:00 07/04/25 08:34 Tamsulosin Hcl 0.4 Mg Capsule PO 0.4 mg DAILY TATIANA Administration Radiology Results: ITS Impressions Chest X-Ray 07/02/25 15:10 Impression: Mild CHF Labs Labs: Laboratory Results - last 24 hr 07/04/25 03:46 WBC 10.4 H RBC 3.03 L Hgb 8.8 L Hct 28.1 L MCV 92.7 MCH 29.0 MCHC 31.3 L RDW 15.8 H Plt Count 305 MPV 9.1 Sodium 140 Potassium 3.8 Chloride 113 H Carbon Dioxide 23 Anion Gap 4 BUN 27 H Creatinine 2.50 H Estim Creat Clear Calc 19 Estimated GFR 25 L Glucose 94 Calcium 8.6 Phosphorus 3.2 Albumin 2.7 L
[2025-07-04] MEDS: cefTRIAXone 1 GM in SODIUM CHLORIDE 0.9% IV 50 ML 100 ML IVPB (16:47)
--- NOTE | 2025-07-04 17:15 | P.PNIM_ITS ---
Assessment and Plan Assessment and Plan (1) Renal stones: Code(s): N20.0 - Calculus of kidney Status: Acute Assessment and Plan: Patient was seen in the urology clinic and a CT was performed that showed a left staghorn stone with mild hydronephrosis and left-sided periureteral stranding suggestive of ascending UTI. The urinary bladder is decompressed with indwelling catheter; there appears to be moderately extensive infiltrative changes about the urinary bladder which could be associated with cystitis Restrepo catheter was placed in the clinic before admission Patient was a direct admission and went to the OR 07/02 and had a cystoscopy, left retrograde pyelography, and left ureteral stent placement UA concerning for UTI but UCx showing 25-50K mixed urogenital servando. Patient started on Rocephin (07/02) Continue Flomax and Proscar Continue IV antibiotics. Discussed with urology about the need for continued antibiotics due to stent placement. Consider voiding trial in the morning per urology note. (2) UTI (urinary tract infection): Qualifiers: Hematuria presence: without hematuria Urinary tract infection type: acute cystitis Qualified Code(s): N30.00 - Acute cystitis without hematuria Code(s): N39.0 - Urinary tract infection, site not specified Status: Acute Assessment and Plan: UA is consistent with UTI. UCx collected and Rocephin started. Urine culture negative. UTI ruled out. (3) Bradycardia: Code(s): R00.1 - Bradycardia, unspecified Status: Acute Assessment and Plan: Patient noted to be bradycardic with heart rate 40-50. Metoprolol held. Telemetry reviewed showing heart rate around 50 bpm. Continue amiodarone. Monitor on telemetry. Check TSH (4) Stage 4 chronic kidney disease: Code(s): N18.4 - Chronic kidney disease, stage 4 (severe) Status: Chronic Assessment and Plan: Creatinine earlier this year ranged from 2.9-3.3. Creatinine on admission was 2.7 and has improved to 2.5. Continue to monitor urine output, renal function and electrolytes. (5) Coronary artery disease: Code(s): I25.10 - Atherosclerotic heart disease of [place] coronary artery without angina pectoris Status: Acute Assessment and Plan: Patient with known multivessel coronary disease by heart catheterization September 2023. Continue Plavix, aspirin, amiodarone and Crestor Plan DVT prophylaxis -SCDs Code status -full Subjective Date/time seen: 07/04/25 17:15 Interval history: 84yo male presents the hospital with left hydronephrosis and left staghorn calculus as a direct admit. No problems overnight. No chest pain or shortness of breath. Exam Narrative: AF 98.2 132/47 56 20 100%ra Gen - NARD Chest -bibasilar inspiratory crackles. CV - RRR S1/S2. Telemetry showing mild bradycardia with heart rate in the high 40's/low 50s Abd - Soft, NT/ND, Positive BS - Restrepo secured draining clear yellow urine Ext - No pedal edema Psych - Nml mood and affect Skin - Warm and dry Objective Data Vital Signs Vital Signs: Vital Signs - 24 hr 07/03/25 18:00 07/03/25 20:00 07/03/25 20:00 Temperature 98.1 F Pulse Rate 57 L 56 L Respiratory Rate 21 H Blood Pressure 132/47 L Pulse Oximetry 100 Oxygen Delivery Room Air 07/03/25 20:00 07/04/25 00:00 07/04/25 00:00 Temperature 97.6 F Pulse Rate 51 L 54 L 53 L Respiratory Rate 24 H Blood Pressure 139/52 L Pulse Oximetry 100 Oxygen Delivery 07/04/25 04:00 07/04/25 07:56 07/04/25 08:00 Temperature 98.0 F Pulse Rate 44 L 52 L Respiratory Rate 18 Blood Pressure 162/60 H Pulse Oximetry 99 99 Oxygen Delivery Room Air 07/04/25 08:00 07/04/25 08:34 07/04/25 12:00 Temperature Pulse Rate 61 58 L 55 L Respiratory Rate Blood Pressure Pulse Oximetry Oxygen Delivery 07/04/25 16:00 07/04/25 16:48 Temperature 98.2 F Pulse Rate 57 L 56 L Respiratory Rate 20 Blood Pressure 132/47 L Pulse Oximetry 100 Oxygen Delivery Intake/Output Intake/Output: Intake & Output 07/01/25 07/02/25 07/03/25 07/04/25 23:59 23:59 23:59 23:59 Intake Total 483 1585 1030 Output Total 400 1750 420 Balance 83 -165 610 Meds/Results Medications: Active Medications Generic Name Dose Route Start Last Admin Trade Name Freq PRN Reason Stop Dose Admin Amiodarone HCl 100 mg 07/03/25 09:00 07/04/25 08:34 Amiodarone Hcl 100 Mg Tablet PO 100 mg DAILY TATIANA Administration Aspirin 81 mg 07/03/25 08:00 07/04/25 08:34 Aspirin 81 Mg Chewable Tablet PO 81 mg DAILY@0800 TATIANA Administration Calcium Carbonate 500 mg 07/03/25 09:00 07/04/25 08:34 Calcium Carbonate (Oscal) 500 Mg Tablet PO 500 mg DAILY TATIANA Administration Clopidogrel Bisulfate 75 mg 07/03/25 09:00 07/04/25 08:34 Clopidogrel Bisulfate 75 Mg Tablet PO 75 mg QAM [facility] Administration Docusate Sodium 100 mg 07/02/25 17:00 07/04/25 16:46 Docusate Sodium 100 Mg Capsule PO 100 mg BID TATIANA Administration Ferrous Sulfate 325 mg 07/03/25 09:00 07/04/25 08:34 Ferrous Sulfate 325 Mg Tablet PO 325 mg DAILY TATIANA Administration Finasteride 5 mg 07/03/25 09:00 07/04/25 08:34 Finasteride 5 Mg Tablet PO 5 mg DAILY TATIANA Administration Ceftriaxone Sodium 1 gm/ 50 mls @ 100 mls/hr 07/02/25 17:00 07/04/25 16:47 Sodium Chloride IVPB 100 mls/hr Q24H TATIANA Administration Rosuvastatin Calcium 40 mg 07/02/25 21:30 07/03/25 21:28 Rosuvastatin 20 Mg Tablet PO 40 mg QHS TATIANA Administration Tamsulosin HCl 0.4 mg 07/03/25 09:00 07/04/25 08:34 Tamsulosin Hcl 0.4 Mg Capsule PO 0.4 mg DAILY TATIANA Administration Radiology Results: ITS Impressions Chest X-Ray 07/02/25 15:10 Impression: Mild CHF Labs Labs: Laboratory Results - last 24 hr 07/04/25 03:46 WBC 10.4 H RBC 3.03 L Hgb 8.8 L Hct 28.1 L MCV 92.7 MCH 29.0 MCHC 31.3 L RDW 15.8 H Plt Count 305 MPV 9.1 Sodium 140 Potassium 3.8 Chloride 113 H Carbon Dioxide 23 Anion Gap 4 BUN 27 H Creatinine 2.50 H Estim Creat Clear Calc 19 Estimated GFR 25 L Glucose 94 Calcium 8.6 Phosphorus 3.2 Albumin 2.7 L
[2025-07-04] MEDS: ROSUVASTATIN 20 MG TABLET 40 MG PO (20:42)
[2025-07-05] VITALS: BP 132/102; PULSE 60; PULSE 61; RESP 19; TEMP 36.7; O2SAT 100
[2025-07-05 03:50] LABS: Hematocrit 28.7 % (42.0-52.0); Hemoglobin 9.2 g/dL (14.0-18.0); Mean Corpuscular HGB Conc 32.1 g/dl (32-36); Mean Corpuscular Hemoglobin 29.4 pg (26-34); Mean Corpuscular Volume 91.7 fl (80-100); Platelet Count Result 309 k/mm3 (150-375); Red Blood Count 3.13 M/mm3 (4.6-6.20); White Blood Count 11.0 K/mm3 (4.5-10.0)
[2025-07-05 04:00] VITALS: PULSE 57
[2025-07-05 04:03] LABS: Anion Gap 5 mmol/L (4-12); Blood Urea Nitrogen 28 mg/dL (9-20); Calcium 8.3 mg/dL (8.4-10.2); Carbon Dioxide 23 mmol/L (22-30); Chloride 110 mmol/L (98-107); Estimated CRCL calculation 20 ml/min; Estimated Glomerular Filt Rate 26; Glucose 107 mg/dL (65-110); Potassium 3.7 mmol/L (3.4-5.0); Sodium 138 mmol/L (137-145)
[2025-07-05 04:33] LABS: Thyroid Stimulating Hormone Reflex 1.140 uIU/mL (0.465-4.68)
[2025-07-05 08:00] VITALS: BP 142/58; PULSE 56; PULSE 62; RESP 20; TEMP 36.6; O2SAT 99
[2025-07-05 09:07] VITALS: PULSE 62
[2025-07-05] MEDS: TAMSULOSIN HCL 0.4 MG CAPSULE PO (09:07)
[2025-07-05] MEDS: FINASTERIDE 5 MG TABLET PO (09:07)
[2025-07-05] MEDS: CALCIUM CARBONATE (OSCAL) 500 MG TABLET PO (09:07)
[2025-07-05] MEDS: AMIODARONE HCL 100 MG TABLET PO (09:07)
[2025-07-05] MEDS: FERROUS SULFATE 325 MG TABLET PO (09:07)
[2025-07-05] MEDS: ASPIRIN 81 MG CHEWABLE TABLET PO (09:07)
[2025-07-05] MEDS: CLOPIDOGREL BISULFATE 75 MG TABLET PO (09:08)
[2025-07-05] MEDS: DOCUSATE SODIUM 100 MG CAPSULE PO (09:08)
--- NOTE | 2025-07-05 09:12 | WPDUROPN2 ---
Progress Note: A&P Assessment and Plan (1) Renal stones: Code(s): N20.0 - Calculus of kidney Status: Acute Assessment and Plan: - Partially obstructing Left staghorn calculus s/p Left ureteral stent placement - Pt to follow up outpatient for further discussion of stone management (2) UTI (urinary tract infection): Qualifiers: Hematuria presence: with hematuria Urinary tract infection type: acute cystitis Qualified Code(s): N30.01 - Acute cystitis with hematuria Code(s): N39.0 - Urinary tract infection, site not specified Status: Acute Assessment and Plan: - Continue broad spectrum Abx - UCx with mixed urogenital servando suggesting contamination - Pt still with elevated white count at 11 - Reccomend repeat clean catch urine culture (3) Urinary retention: Code(s): R33.9 - Retention of urine, unspecified Status: Acute Assessment and Plan: - Restrepo catheter in place - Pt on home tamsulosin and finasteride - Plan for void trial prior to discharge. If PVR > 250 ml replace Restrepo catheter and maintain on discharge. Will address as outpatient if this is to occur. Subjective Subjective Date/Time Seen: 07/05/25 09:12 Interval history: NAEO; pt resting comfortably in bed with Restrepo catheter draining clear, yellow urine. Exam Const: General: comfortable and no acute distress Eyes: General: appearance normal, both eyes and all related structures Resp: Effort & Inspection: normal respiratory effort Urinary Catheter: Urinary Catheter: patent and draining and urine clear Skin: General skin exam: normal color Neuro: Speech: normal speech Extrem: General: normal to inspection Psych: Mental Status: mental status grossly normal Objective Data Vital Signs Vital Signs: Vital Signs - 24 hr 07/04/25 12:00 07/04/25 16:00 07/04/25 16:48 Temperature 36.8 C Pulse Rate 55 L 57 L 56 L Respiratory Rate 20 Blood Pressure 132/47 L Pulse Oximetry 100 07/04/25 20:00 07/05/25 00:00 07/05/25 00:00 Temperature 36.7 C Pulse Rate 57 L 61 60 Respiratory Rate 19 Blood Pressure 132/102 H Pulse Oximetry 100 07/05/25 04:00 07/05/25 08:00 07/05/25 09:07 Temperature 36.6 C Pulse Rate 57 L 56 L 62 Respiratory Rate 20 Blood Pressure 142/58 H Pulse Oximetry 99 Intake/Output Intake/Output: Intake & Output 07/02/25 07/03/25 07/04/25 07/05/25 23:59 23:59 23:59 23:59 Intake Total 483 1585 1270 650 Output Total 400 1750 1095 600 Balance 83 -165 175 50 Meds/Results Medications: Active Medications Generic Name Dose Route Start Last Admin Trade Name Pasha PRN Reason Stop Dose Admin Amiodarone HCl 100 mg 07/03/25 09:00 07/05/25 09:07 Amiodarone Hcl 100 Mg Tablet PO 100 mg DAILY TATIANA Administration Aspirin 81 mg 07/03/25 08:00 07/05/25 09:07 Aspirin 81 Mg Chewable Tablet PO 81 mg DAILY@0800 TATIANA Administration Calcium Carbonate 500 mg 07/03/25 09:00 07/05/25 09:07 Calcium Carbonate (Oscal) 500 Mg Tablet PO 500 mg DAILY TATIANA Administration Clopidogrel Bisulfate 75 mg 07/03/25 09:00 07/05/25 09:08 Clopidogrel Bisulfate 75 Mg Tablet PO 75 mg QAM TATIANA Administration Docusate Sodium 100 mg 07/02/25 17:00 07/05/25 09:08 Docusate Sodium 100 Mg Capsule PO 100 mg BID TATIANA Administration Ferrous Sulfate 325 mg 07/03/25 09:00 07/05/25 09:07 Ferrous Sulfate 325 Mg Tablet PO 325 mg DAILY TATIANA Administration Finasteride 5 mg 07/03/25 09:00 07/05/25 09:07 Finasteride 5 Mg Tablet PO 5 mg DAILY ATTIANA Administration Ceftriaxone Sodium 1 gm/ 50 mls @ 100 mls/hr 07/02/25 17:00 07/04/25 16:47 Sodium Chloride IVPB 100 mls/hr Q24H TATIANA Administration Rosuvastatin Calcium 40 mg 07/02/25 21:30 07/04/25 20:42 Rosuvastatin 20 Mg Tablet PO 40 mg QHS TATIANA Administration Tamsulosin HCl 0.4 mg 07/03/25 09:00 07/05/25 09:07 Tamsulosin Hcl 0.4 Mg Capsule PO 0.4 mg DAILY TATIANA Administration Radiology Results: ITS Impressions Chest X-Ray 07/02/25 15:10 Impression: Mild CHF Labs Labs: Laboratory Results - last 24 hr 07/05/25 03:34 WBC 11.0 H RBC 3.13 L Hgb 9.2 L Hct 28.7 L MCV 91.7 MCH 29.4 MCHC 32.1 RDW 15.6 H Plt Count 309 MPV 8.7 Sodium 138 Potassium 3.7 Chloride 110 H Carbon Dioxide 23 Anion Gap 5 BUN 28 H Creatinine 2.41 H Estim Creat Clear Calc 20 Estimated GFR 26 L Glucose 107 Calcium 8.3 L TSH (Reflex) 1.140
[2025-07-05 12:00] VITALS: PULSE 61
[2025-07-05 16:00] VITALS: BP 135/53; PULSE 54; PULSE 56; RESP 18; TEMP 36.6; O2SAT 99
--- NOTE | 2025-07-05 18:27 | PM.DS ---
DS: Admitting Diagnosis Discharge Date 07/05/25 Admitting Diagnosis Left hydronephrosis and left staghorn calculus DS: Discharge Diagnosis Discharge Diagnosis (1) Renal stones: Code(s): N20.0 - Calculus of kidney Status: Acute (2) UTI (urinary tract infection): Qualifiers: Hematuria presence: without hematuria Urinary tract infection type: acute cystitis Qualified Code(s): N30.00 - Acute cystitis without hematuria Code(s): N39.0 - Urinary tract infection, site not specified Status: Acute (3) Bradycardia: Code(s): R00.1 - Bradycardia, unspecified Status: Acute (4) Stage 4 chronic kidney disease: Code(s): N18.4 - Chronic kidney disease, stage 4 (severe) Status: Chronic (5) Coronary artery disease: Code(s): I25.10 - Atherosclerotic heart disease of [place] coronary artery without angina pectoris Status: Acute DS: Summary Hospital Course Reason for hospitalization: 84yo male presents the hospital with left hydronephrosis and left staghorn calculus as a direct admit. Please see H&P for details. Hospital Course: The following medical issues were addressed during this hospitalization: (1) Renal stones: Patient was seen in the urology clinic and a CT was performed that showed a left staghorn stone with mild hydronephrosis and left-sided periureteral stranding suggestive of ascending UTI. The urinary bladder is decompressed with indwelling catheter; there appears to be moderately extensive infiltrative changes about the urinary bladder which could be associated with cystitis Restrepo catheter was placed in the clinic before admission Patient was a direct admission and went to the OR 07/02 and had a cystoscopy, left retrograde pyelography, and left ureteral stent placement UA was concerning for UTI but UCx showing 25-50K mixed urogenital servando. Patient started on Rocephin (07/02) He was continued on Flomax and Proscar Restrepo catheter was removed but patient had difficulty voiding. Bladder scan revealed about 350 mL. Restrepo catheter replaced. Plan for voiding trial in the urology clinic. (2) UTI (urinary tract infection): UA is consistent with UTI. UCx collected and Rocephin started. Urine culture negative. Given the findings on CT scan and that he has a stent and Restrepo catheter in place, we will continue antibiotics to complete a course. (3) Bradycardia: Patient noted to be bradycardic with heart rate 40-50 so Metoprolol held. Telemetry reviewed showing heart rate stable in the 50-60bpm range We continued amiodarone. TSH normal. Patient was asymptomatic and felt safe to resume metoprolol. (4) Stage 4 chronic kidney disease: Creatinine earlier this year ranged from 2.9-3.3. Creatinine on admission was 2.7 and has improved to 2.4 Possibly related to chronic retention? (5) Coronary artery disease: Patient with known multivessel coronary disease by heart catheterization September 2023. Continue Plavix, aspirin, amiodarone, metoprolol and Crestor Patient overall did well was able be discharged home on 07/05/2025. Discharge instructions including medication side effects were discussed. All questions were answered. Status at Discharge Cognitive/behavioral status at discharge: Stable Time Spent with Patient Time attestation: Total time spent providing and/or coordinating discharge services: 34 minutes Time spent: Greater than 30 minutes Exam Narrative: AF 97.8 135/53 56 18 99%ra Gen - NARD Chest -lungs are clear anterior CV - RRR S1/S2. Telemetry showing no significant dysrhythmias Abd - Soft, NT/ND, Positive BS Ext - No pedal edema Psych - Nml mood and affect Skin - Warm and dry DS: Data Data Completed and Pending Labs on day of discharge: Labs from last 24 hours 07/05/25 03:34 WBC 11.0 H RBC 3.13 L Hgb 9.2 L Hct 28.7 L MCV 91.7 MCH 29.4 MCHC 32.1 RDW 15.6 H Plt Count 309 MPV 8.7 Sodium 138 Potassium 3.7 Chloride 110 H Carbon Dioxide 23 Anion Gap 5 BUN 28 H Creatinine 2.41 H Estim Creat Clear Calc 20 Estimated GFR 26 L Glucose 107 Calcium 8.3 L TSH (Reflex) 1.140 Discharge Plan Discharge Attending physician on discharge: Vinicio Dean Consulting providers: Lavon Stone Discharging Clinician: Vinicio Dean Anticipated Discharge Date/Time: 07/05/25 18:37 Patient Disposition: Home Activity: as tolerated Diet: regular Discharge Instructions: Home with Urinary catheter. Please provide patient with a leg bag for day use and a larger bag for night time use. Please complete your antibiotic course even if you are starting to feel well. Take precautions to avoid falls. Contact your doctor or call 911 and come to the Emergency Room if you have fevers, blood in your urine or other worrisome symptoms. Avoid NSAIDs (ibuprofen, naproxen, Aleve). Tylenol is safe to take. Follow-up with your primary care provider in 1-2 weeks. Please call for appointment. Follow-up with Urology in 1-2 weeks. Please call for an appointment. Thank you for using [facility] for your health care needs. Patient Instructions: Antibiotic Form Patient Language: Nauruan Stand Alone Forms: General Discharge Information Follow-up/Referrals: Hilda Painting MD [Primary Care Provider, Family Practice] - Call for Appointment aLvon Stone MD [Physician, Urology] - Call for Appointment Discharge Medications: New amoxicillin-pot clavulanate [Augmentin] 500-125 mg Tablet 1 tablet PO Q12HR Qty: 7 0RF Continued amiodarone 100 mg tablet 100 mg PO DAILY metoprolol succinate [Toprol XL] 25 mg tablet extended release 24 hr 12.5 mg PO QAM Qty: 90 0RF calcium carbonate 600 mg calcium (1,500 mg) tablet 600 mg PO DAILY (DME) electric hospital bed See Rx Instructions .Route .MEDSUPPLY Qty: 1 0RF Rx Instructions: As directed terbinafine HCl 250 mg tablet 250 mg PO .nightly (DME) Gee lift See Rx Instructions .Route .MEDSUPPLY Qty: 1 0RF Rx Instructions: As directed ([facility] [place]) Roho mattress See Rx Instructions .Route .MEDSUPPLY Qty: 1 0RF Rx Instructions: As directed (DME) low air loss mattress See Rx Instructions .Route .MEDSUPPLY Qty: 1 0RF Rx Instructions: As directed ferrous sulfate 325 mg (65 mg iron) tablet,delayed release (DR/EC) 325 mg PO DAILY Qty: 90 2RF rosuvastatin [Crestor] 40 mg tablet 40 mg PO QHS Qty: 90 1RF clopidogrel 75 mg tablet 75 mg PO QAM Qty: 90 1RF omeprazole 20 mg capsule,delayed release(DR/EC) 20 mg PO DAILY Qty: 90 0RF Rx Instructions: DUE FOR APPOINTMENT IN JUNE tamsulosin 0.4 mg capsule 0.4 mg PO DAILY Qty: 90 0RF Rx Instructions: DUE FOR APPOINTMENT IN JUNE finasteride 5 mg tablet 5 mg PO DAILY Qty: 90 0RF Rx Instructions: DUE FOR APPOINTMENT IN JUNE aspirin [Children's Aspirin] 81 mg tablet,chewable 81 mg PO DAILY@0800 Qty: 90 3RF Date of admission: 07/02/25 14:00 Primary Care Provider: Hilda Painting Admitting Provider: Vinicio Dean Attending physician on admission: Vinicio Dean Condition: Stable Hospitalist MIPS Heart Failure (Exclusion) Patient has history of Heart Transplant or Left Ventricular Assistive Device?: No IF YES, STOP HERE Heart Failure (Qualifier) Patient has current or prior documentation of LVEF less than or equal to 40%, or mod/servere depressed LVSF?: No IF NO, STOP HERE
--- NOTE | 2025-07-06 10:48 | WPDURCON ---
Assessment and Plan Assessment and plan (1) UTI (urinary tract infection): Qualifiers: Hematuria presence: with hematuria Urinary tract infection type: acute cystitis Qualified Code(s): N30.01 - Acute cystitis with hematuria Code(s): N39.0 - Urinary tract infection, site not specified Status: Acute (2) Stage 4 chronic kidney disease: Code(s): N18.4 - Chronic kidney disease, stage 4 (severe) Status: Chronic (3) Renal stones: Code(s): N20.0 - Calculus of kidney Status: Acute Assessment and Plan: Patient with a partial left staghorn calculus with partial obstruction and evidence of possible UTI Will plan cystoscopy left ureteral stent placement today followed by definitive stone management in the future Urology Consult Note HPI Date Seen: 07/06/25 Requesting Physician: Lauro Dean MD Primary Care Provider: Akhil Painting MD Consult Narrative Narrative: David Coleman is a 84 year old male who was seen early on the day of his ureteral stent placement by my partner Dr. Louise. He has a known left partial staghorn calculus and had evidence of obstruction and possible urinary tract infection. In light of that a decision was made for cystoscopy with left ureteral stent placement until definitive stone management can be undertaken. Review of Systems Review of Systems: All systems reviewed & are unremarkable except as noted in HPI and below PMFSH Past Medical History Medical History Chronic kidney disease (CKD), stage 4 Prediabetes Colon cancer Status post partial colectomy and chemoradiation. 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 Iron deficiency anemia Deep vein thrombosis of left lower extremity (2018) Provoked DVT following admission. Coronary artery disease Multivessel coronary artery disease noted on cardiac catheterization in September 2023 including the LAD, RCA, and an obtuse marginal. Patient declined MIDCAB and is being treated medically. Cardiomyopathy On LifeVest from September to February 2024. Vitamin D deficiency Psoriasis Benign prostatic disease Osteoarthritis Foot drop Surgical History Surgical History History of cervical spinal surgery (10/2018) History of left knee replacement (2000) History of partial colectomy (1994) History of lumbosacral spine surgery early Family History Family History Mother Alzheimer dementia Social History Social History Social History: Surrogate medical decision maker: David Coleman Jr. (son). Code status: Full code. Smoking packs per day: 0.25 Smoking cigarettes per day: 5.0 Years smoked: 4 Smoking pack-years: 1.00 Smoking status: Former smoker Second hand tobacco smoke exposure: No Alcohol intake: never Substance use: never Substance use type: does not use Lack of Transportation: No Lack of Food: Never True Current Housing: I Have Housing Concerned About Future Housing: No Difficulty Paying Gas/Electric Bills: No Difficulty Paying for Meds: No Currently Unemployed: No Education: High School Diploma/GED Difficulty w/ Childcare or Family Care: No Living arrangements: with family Additional living arrangements comments: Lives alone. 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 He has bilateral footdrop and cannot ambulate even with his AFO braces. He uses a slide board to transfer. Occupation/Education: retired Spiritual care concerns: No Meds Home Medications and Allergies Home Medications ?Medication ?Instructions ?Recorded ?Confirmed ?Type calcium carbonate 600 mg PO DAILY 12/13/21 07/02/25 History electric hospital bed #1 ea 10/08/24 07/02/25 Rx Gee lift #1 ea 10/27/24 07/02/25 Rx Roho mattress #1 ea 11/03/24 07/02/25 Rx low air loss mattress #1 ea 11/10/24 07/02/25 Rx ferrous sulfate 325 mg (65 mg 325 mg PO DAILY #90 tabs 12/28/24 07/02/25 Rx iron) tablet,delayed release rosuvastatin 40 mg tablet (Crestor) 40 mg PO QHS #90 tabs 01/01/25 07/02/25 Rx amiodarone 100 mg tablet 100 mg PO DAILY 01/11/25 07/02/25 History metoprolol succinate 25 mg 12.5 mg (1/2 x 25 mg) PO QAM #90 01/11/25 07/02/25 Rx tablet,extended release 24 hr tabs (Toprol XL) clopidogrel 75 mg tablet 75 mg PO QAM #90 tabs 02/19/25 07/02/25 Rx finasteride 5 mg tablet 5 mg PO DAILY #90 tabs 05/03/25 07/02/25 Rx omeprazole 20 mg capsule,delayed 20 mg PO DAILY #90 caps 05/03/25 07/02/25 Rx release tamsulosin 0.4 mg capsule 0.4 mg PO DAILY #90 caps 05/03/25 07/02/25 Rx aspirin 81 mg chewable tablet 81 mg PO DAILY@0800 #90 tabs 05/13/25 07/02/25 Rx (Children's Aspirin) terbinafine HCl 250 mg tablet 250 mg PO .nightly 07/02/25 07/02/25 History amoxicillin 500 mg-potassium 1 tablet PO Q12HR #7 tabs 07/05/25 Rx clavulanate 125 mg tablet (Augmentin) Allergies Allergy/AdvReac Type Severity Reaction Status Date / Time morphine Allergy Severe HIVES Verified 07/02/25 16:12 No Known Food Allergies Allergy Other Verified 07/02/25 16:12 meperidine AdvReac severe Verified 07/02/25 16:12 constipation Vital Signs Vital Signs - 24 hr 07/05/25 12:00 07/05/25 16:00 07/05/25 16:00 Temperature 97.8 F Pulse Rate 61 54 L 56 L Respiratory Rate 18 Blood Pressure 135/53 L Pulse Oximetry 99 Exam Const: General: no acute distress Resp: Effort & Inspection: normal respiratory effort GI: Inspection: non-distended GI Palp: No abdominal tenderness and No Guarding due to palpation present (GI) Auscultation: normal bowel sounds Results Labs 07/05/25 03:34 07/05/25 03:34
--- NOTE | 2025-07-06 10:50 | WPDHPUPDATE1 ---
History and Physical Update Update Date/Time: 07/06/25 10:50 History and Physical has been reviewed, including an updated exam of the patient. There are NO changes in the patient's condition. Risks, benefits, and alternatives have been discussed and questions answered. Patient agrees to proceed with procedure.
== END 2025-07-05 19:51 | disposition home or self-care (01) ==
LOC: ANHIMU 07-05 18:40 → ANH3MEDSUR 07-05 19:13 → ANHIMU 07-05 19:15
PROVIDERS: Nurse Practitioner Gerontology; Urology; Admitting Provider Internal Medicine; PCP Family Medicine; Visit Provider Internal Medicine
PROC: (CPT 52352; principal; 2025-07-02 15:45)
DX: N13.2 Hydronephrosis with renal and ureteral calculous obstruction (principal); N30.00 Acute cystitis without hematuria; N32.89 Other specified disorders of bladder; N40.1 Benign prostatic hyperplasia with lower urinary tract symptoms; R33.9 Retention of urine, unspecified; R00.1 Bradycardia, unspecified; N18.4 Chronic kidney disease, stage 4 (severe); Z85.038 Personal history of other malignant neoplasm of large intestine; E55.9 Vitamin D deficiency, unspecified; R73.03 Prediabetes; I25.10 Atherosclerotic heart disease of native coronary artery without angina pectoris; Z86.718 Personal history of other venous thrombosis and embolism; Z87.891 Personal history of nicotine dependence; Z79.82 Long term (current) use of aspirin; Z79.02 Long term (current) use of antithrombotics/antiplatelets
CPT/HCPCS: 52332; 36415; 71045; 74420; 80048; 80069; 81001; 84443; 85025; 85027; 85610; 85730; 87086; 93005; J0690; A9270; C1758; C1769; C2617; G0378; J0696; J2704; J7120; Q9966

== ENCOUNTER 2025-07-10 08:20 | Emergency (ER) | payer MEDICARE, SELFPAY ==
[2025-07-10 08:20] VITALS: BP 133/70; PULSE 79; RESP 16; TEMP 36.3; O2SAT 97
--- OUTSIDE RECORDS SUMMARY | 2025-07-10 08:22 | XMS_ITS | Clinical Summary ---
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 Name Role Phone Akhil Painting MD Primary [...] Comments Blood Pressure 134/76 06/04/2022 11:32 AM SPECIAL SERVICE REPRESENTATIVE Pulse - - Temperature 36.5 C (97.7 F) 06/04/2022 11:32 AM SPECIAL SERVICE REPRESENTATIVE Respiratory Rate 18 06/04/2022 11:32 AM SPECIAL SERVICE REPRESENTATIVE Oxygen Saturation - - Inhaled Oxygen Concentration - - Weight 74.8 kg (165 lb) 02/19/2022 9:42 AM CDT Height 175.3 cm (5' 9) 06/04/2022 11:32 AM SPECIAL SERVICE REPRESENTATIVE Body Mass Index 24.37 02/19/2022 9:42 AM CDT Plan of Treatment Health Maintenance Due Date Last Done Comments Pneumococcal PPSV23/PCV13 65 + Years / Low and Medium Risk (1 of 2 - PCV) 1990 COVID-19 Vaccine (2 - season) 03/15/202503/2021, 10/19/2020 Influenza Vaccine (#1) 2025 04/14/2014, 2013 Insurance MEDICARE [facility] Care Teams 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
--- OUTSIDE RECORDS SUMMARY | 2025-07-10 08:22 | XMS_ITS | Clinical Summary ---
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
--- OUTSIDE RECORDS SUMMARY | 2025-07-10 08:22 | XMS_ITS | Encounter Summary ---
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 de Phone Number INTERFACE [...] INTERFACE SYSTEM Comment: As of 05 the [facility] has changed testing methods. The new reference range is 25-100 The old referance range was 38-126 AST 28 8 - 33 U/L INTERFACE SYSTEM Comment: As of 05 the [facility] has changed testing methods. The new reference range is 8-33 The old referance range was Males 17-59 Females 14-36 ALT 32 4 - 36 IU/L INTERFACE SYSTEM Comment: As of 05 the [facility] has changed testing methods. The new reference range is 4-36 The old referance range was Males 21-72 Females 9-52 BILIRUBIN TOTAL 0.6 0.3 - 1.2 mg/dL INTERFACE SYSTEM Comment: As of 05 the [facility] has changed testing methods. The new [...] ORDERABLES Final Resu lt Performing Organization Address City/State/[facility] Co de Phone Number INTERFACE [...]
--- OUTSIDE RECORDS SUMMARY | 2025-07-10 08:22 | XMS_ITS | Clinical Summary ---
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 Gender Identity Not on file Sexual [...] this topic Medical Devices Implanted Type Area Stocking Inspector Device Identifier Shelf Expiration Date Model / Serial / Lot Percutaneous Endoscopic Gastrostomy Set Implanted:Qty: 1 on 11/12/2018 by Caleb Rios MD at [facility] Tube Implant N/A: Abdomen COOK ENDOSCOPY A [employer] [id number] 09/23/2019 / / [id number] Graft Infuse Bone Small - [id number] Implanted:Qty: 1 on 10/29/2018 by Soto Castillo MD at [facility] N/A: Spine Cervical [employer] 12/12/2020 [id number] / / [id number] Frierson Lordotic Peek-Huey Spacer Implanted:Qty: 1 on 10/29/2018 by Soto Castillo MD at [facility] N/A: Spine Cervical SEASPINE [id number] 02/20/2022 39-2607-S / / [id number] Description:C3-C4 Frierson Lordotic Peek-Huey Spacer Implanted:Qty: 1 on 10/29/2018 by Soto Castillo MD at [facility] N/A: Spine Cervical SEASPINE [id number] 08/05/2022 39-2607-S / / [id number] Description:C4-C5 Screw Implanted:Qty: 6 on 10/29/2018 by Soto Castillo MD at [facility] N/A: Spine Cervical MARISSA SPINE - DIV MARISSA KT [id number] / / 2 Level Plate Implanted:Qty: 1 on 10/29/2018 by Soto Castillo MD at [facility] N/A: Spine Cervical MARISSA SPINE - DIV MARISSA KT [id number] / / Explanted Type Area Stocking Inspector Device Identifier Shelf Expiration Date Model / Serial / Lot Distration Pin 12mm - [id number] Explanted:Qty: 3 on 10/29/[address] [facility] DP-12-TB / / Insurance MEDICARE [facility] Advance Directives Documents on File Type Date Recorded Patient Counseling Case Manager Expl anation Advance Directives and Living Will [...] 1:26 PM 10/31/2018 6:17 PM Care Teams Hoisting Machine Operator Relationship Specialty Start Date End Date Akhil Painting MD PCP - General FAMILY PRACTICE 09/15/18 Soto Castillo MD Surgeon NEUROLOGICAL SURGERY 10/16/18
--- OUTSIDE RECORDS SUMMARY | 2025-07-10 08:22 | XMS_ITS | Clinical Summary ---
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
--- NOTE | 2025-07-10 10:02 | ED.GENADULT ---
HPI - General Adult General Chief complaint: Recheck/Abnormal Lab/Rx Stated complaint: catheter problems Time Seen by Provider: 07/10/25 10:01 History of Present Illness HPI narrative: 84-year-old male with history of indwelling Restrepo catheter secondary to BPH and recent staghorn calculi in the left presents to the emergency department with some bleeding around the urethral meatus. Caregivers think he may have been messing around the Restrepo catheter, patient denies any fevers chills abdominal pain urinary symptoms. No other areas of easy bruising or bleeding. He denies any flank pain. States he otherwise feels in his usual state of health. Related Data Home Medications ?Medication ?Instructions ?Recorded ?Confirmed ?Last Taken ?Type calcium carbonate 600 mg PO DAILY 12/13/21 07/02/25 07/02/25 History amiodarone 100 mg tablet 100 mg PO DAILY 01/11/25 07/02/25 07/02/25 History terbinafine HCl 250 mg tablet 250 mg PO .nightly 07/02/25 07/02/25 07/01/25 History Allergies Allergy/AdvReac Type Severity Reaction Status Date / Time morphine Allergy Severe HIVES Verified 07/10/25 08:23 meperidine AdvReac severe Verified 07/10/25 08:23 constipation Review of Systems Review of Systems: All systems reviewed & are unremarkable except as noted in HPI and below PMFSH Past Medical History Medical History Chronic kidney disease (CKD), stage 4 Prediabetes Colon cancer Status post partial colectomy and chemoradiation. 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 Iron deficiency anemia Deep vein thrombosis of left lower extremity (2018) Provoked DVT following admission. Coronary artery disease Multivessel coronary artery disease noted on cardiac catheterization in September 2023 including the LAD, RCA, and an obtuse marginal. Patient declined MIDCAB and is being treated medically. Cardiomyopathy On LifeVest from September to February 2024. Vitamin D deficiency Psoriasis Benign prostatic disease Osteoarthritis Foot drop Surgical History Surgical History History of cervical spinal surgery (10/2018) History of left knee replacement (2000) History of partial colectomy (1994) History of lumbosacral spine surgery early Family History Family History Mother Alzheimer dementia Social History Social History Social History: Surrogate medical decision maker: Davidbrenda Coleman Jr. (son). Code status: Full code. Smoking packs per day: 0.25 Smoking cigarettes per day: 5.0 Years smoked: 4 Smoking pack-years: 1.00 Smoking status: Former smoker Second hand tobacco smoke exposure: No Alcohol intake: never Substance use: never Substance use type: does not use Lack of Transportation: No Lack of Food: Never True Current Housing: I Have Housing Concerned About Future Housing: No Difficulty Paying Gas/Electric Bills: No Difficulty Paying for Meds: No Currently Unemployed: No Education: High School Diploma/GED Difficulty w/ Childcare or Family Care: No Living arrangements: with family Additional living arrangements comments: Lives alone. 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 He has bilateral footdrop and cannot ambulate even with his AFO braces. He uses a slide board to transfer. Occupation/Education: retired Spiritual care concerns: No Exam Narrative: EXAMINATION OF ORGAN SYSTEMS/BODY AREAS: Constitutional: Vital signs per nursing GENERAL:[No acute distress, non-toxic appearing.] HEAD: Normal with no signs of head trauma. EYES: EOMI, conjunctiva normal ENT: Hearing grossly intact LUNGS: Nonlabored breathing. HEART: [Regular rate and rhythm] ABD: [Soft], [nontender to palpation] there is no flank tenderness bilaterally. EXT: Normal range of motion SKIN: [No rashes or lesions.] exam, there is some scant blood around the urethral meatus. The penile shaft is nontender there is no masses. There is some evidence of skin breakdown in the inguinal regions consistent with a Elana infection. Otherwise the testicles are nontender NEURO: [Alert. No gross focal sensory or strength deficits.] Patient is A&O x4 PSYCH: Normal affect Course Vital Signs Vital signs: Vital Signs Temperature 36.3 C L 07/10/25 08:20 Pulse Rate 79 07/10/25 08:20 Respiratory Rate 16 07/10/25 08:20 Blood Pressure 133/70 07/10/25 08:20 Pulse Oximetry 97 07/10/25 08:20 Temperature 36.3 C L 07/10/25 08:20 Pulse Rate 79 07/10/25 08:20 Respiratory Rate 16 07/10/25 08:20 Blood Pressure 133/70 07/10/25 08:20 Pulse Oximetry 97 07/10/25 08:20 [facility] Differential Diagnosis Differential Diagnosis: 84-year-old male presents emergency department with blood around the urethral meatus. He is nontoxic appearing soft abdominal exam, did think it prudent to check basic labs to evaluate for any acute inflammatory signs of infection. Cbc he has no leukocytosis his kidney function is his baseline. I did have her seen exchange the Restrepo catheter is draining appropriately. He has outpatient follow-up with Urology later this week. He appears to be at his baseline poor level of health. suspect his presentation today is almost certainly trauma however his urethra is nontender it is flowing appropriately. Return precautions discussed understands verbalized discharged in fair condition Lab Data [facility] Lab Attestation statement: I personally reviewed the patient's lab results. 07/10/25 10:33 07/10/25 10:33 Labs: Lab Results 07/10/25 Range/Units 10:33 WBC 9.3 (4.5-10.0) K/mm3 RBC 3.35 L (4.6-6.20) M/mm3 Hgb 9.8 L (14.0-18.0) g/dL Hct 31.2 L (42.0-52.0) % MCV 93.1 (80-100) fl MCH 29.3 (26-34) pg MCHC 31.4 L (32-36) g/dl RDW 14.9 H (11.5-14.5) % Plt Count 291 (150-375) k/mm3 MPV 8.9 (7.4-10.4) fl Immature Gran % (Auto) 0.9 H (0-0.5) % Neut % (Auto) 79.1 H (45.5-73.1) % Lymph % (Auto) 11.2 L (18.3-44.2) % Monroe % (Auto) 4.5 (2.6-8.5) % Eos % (Auto) 3.8 (0-4.4) % Baso % (Auto) 0.5 (0.2-1.2) % Lymph # (Auto) 1.04 (0.9-3.2) K/mm3 Monroe # (Auto) 0.4 (0.1-0.6) K/mm3 Eos # (Auto) 0.4 H (0-0.3) K/mm3 Baso # (Auto) 0.1 (0.0-0.1) K/mm3 Abs Immat Gran (auto) 0.08 H (0.00-0.031) K/mm3 Absolute Neuts (auto) 7.4 H (1.3-6.7) K/mm3 Absolute Nucleated RBC 0.000 (0.0-0.012) K/mm3 Nucleated RBC % 0.0 (0.0-0.2) % PT 13.9 (11.1-14.7) Seconds INR 1.1 Sodium 140 (137-145) mmol/L Potassium 3.8 (3.4-5.0) mmol/L Chloride 110 H (98-107) mmol/L Carbon Dioxide 25 (22-30) mmol/L Anion Gap 5 (4-12) mmol/L BUN 30 H (9-20) mg/dL Creatinine 2.14 H (0.7-1.3) mg/dL Estim Creat Clear Calc 21 ml/min Estimated GFR 30 L (59 - ) Glucose 136 H (65-110) mg/dL Lactic Acid 1.2 (0.7-2.0) mmol/L Calcium 8.9 (8.4-10.2) mg/dL Total Bilirubin 0.2 (0.2-1.3) mg/dL AST 24 (17-59) U/L ALT 13 (6-50) U/L Alkaline Phosphatase 68 (38-126) U/L Total Protein 7.0 (6.3-8.2) g/dL Albumin 3.1 L (3.5-5.1) g/dL Lipase 50 (23-300) U/L Discharge Plan Discharge Clinical Impression: Complication of Restrepo catheter Patient Disposition: Home Condition: Stable Instructions: Restrepo Catheter Placement and Care (ED) Patient Language: Kiswahili Prescriptions: No Action amiodarone 100 mg tablet 100 mg PO DAILY metoprolol succinate [Toprol XL] 25 mg tablet extended release 24 hr 12.5 mg PO QAM Qty: 90 0RF calcium carbonate 600 mg calcium (1,500 mg) tablet 600 mg PO DAILY (DME) electric hospital bed See Rx Instructions .Route .MEDSUPPLY Qty: 1 0RF Rx Instructions: As directed terbinafine HCl 250 mg tablet 250 mg PO .nightly amoxicillin-pot clavulanate [Augmentin] 500-125 mg Tablet 1 tablet PO Q12HR Qty: 7 0RF (DME) Gee lift See Rx Instructions .Route .MEDSUPPLY Qty: 1 0RF Rx Instructions: As directed (DME) Roho mattress See Rx Instructions .Route .MEDSUPPLY Qty: 1 0RF Rx Instructions: As directed (DME) low air loss mattress See Rx Instructions .Route .MEDSUPPLY Qty: 1 0RF Rx Instructions: As directed ferrous sulfate 325 mg (65 mg iron) tablet,delayed release (DR/EC) 325 mg PO DAILY Qty: 90 2RF rosuvastatin [Crestor] 40 mg tablet 40 mg PO QHS Qty: 90 1RF clopidogrel 75 mg tablet 75 mg PO QAM Qty: 90 1RF omeprazole 20 mg capsule,delayed release(DR/EC) 20 mg PO DAILY Qty: 90 0RF Rx Instructions: DUE FOR APPOINTMENT IN JUNE tamsulosin 0.4 mg capsule 0.4 mg PO DAILY Qty: 90 0RF Rx Instructions: DUE FOR APPOINTMENT IN JUNE finasteride 5 mg tablet 5 mg PO DAILY Qty: 90 0RF Rx Instructions: DUE FOR APPOINTMENT IN JUNE aspirin [Children's Aspirin] 81 mg tablet,chewable 81 mg PO DAILY@0800 Qty: 90 3RF Follow-up/Referrals: Hilda Painting MD [Primary Care Provider, Family Practice] - 3 Days Time of Disposition: 11:33
--- OUTSIDE RECORDS SUMMARY | 2025-07-10 10:12 | XMS_ITS | Clinical Summary ---
Author Organization 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
--- OUTSIDE RECORDS SUMMARY | 2025-07-10 10:12 | XMS_ITS | Clinical Summary ---
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 Gender Identity Not on file Sexual Orientation [...] this topic Medical Devices Implanted Type Area Resource Development Manager Device Identifier Shelf Expiration Date Model / Serial / Lot Percutaneous Endoscopic Gastrostomy Set Implanted:Qty: 1 on 11/12/2018 by Caleb Rios MD at [facility] Tube Implant N/A: Abdomen COOK ENDOSCOPY [employer] [id number] 09/23/2019 / / [id number] Graft Infuse Bone Small - [id number] Implanted:Qty: 1 on 10/29/2018 by Soto Castillo MD at [facility] N/A: Spine Cervical [employer] 12/12/2020 [id number] / / [id number] Champion Lordotic Peek-Ewing Spacer Implanted:Qty: 1 on 10/29/2018 by Soto Castillo MD at [facility] N/A: Spine Cervical SEASPINE [id number] 02/20/2022 39-2607-S / / [id number] Description:C3-C4 Champion Lordotic Peek-Ewing Spacer Implanted:Qty: 1 on 10/29/2018 by Soto Castillo MD at [facility] N/A: Spine Cervical SEASPINE [id number] 08/05/2022 39-2607-S / / [id number] Description:C4-C5 Screw Implanted:Qty: 6 on 10/29/2018 by Soto Castillo MD at [facility] N/A: Spine Cervical MARISSA SPINE - DIV MARISSA KT [id number] / / 2 Level Plate Implanted:Qty: 1 on 10/29/2018 by Soto Castillo MD at [facility] N/A: Spine Cervical MARISSA SPINE - DIV MARISSA KT [id number] / / Explanted Type Area Resource Development Manager Device Identifier Shelf Expiration Date Model / Serial / Lot Distration Pin 12mm - [id number] Explanted:Qty: 3 on 10/29/2018 at [facility] DP-12-TB / / Insurance MEDICARE [facility] Advance Directives Documents on File Type Date Recorded Patient Supercalender Operator Helper Expl anation Advance Directives and Living Will [...] 1:26 PM 10/31/2018 6:17 PM Care Teams Nonprofit Manager Relationship Specialty Start Date End Date Akhil Painting MD PCP - General FAMILY PRACTICE 09/15/18 Soto Castillo MD Surgeon NEUROLOGICAL SURGERY 10/16/18
--- OUTSIDE RECORDS SUMMARY | 2025-07-10 10:12 | XMS_ITS | Encounter Summary ---
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 The new reference range is 25-100 The old referance range was 38-126 AST 28 8 - 33 U/L INTERFACE SYSTEM Comment: As of 05 the [facility] has changed testing methods. The new reference range is 8-33 The old referance range was Males 17-59 Females 14-36 ALT 32 4 - 36 IU/L INTERFACE SYSTEM Comment: As of 05 the [facility] has changed testing methods. The new reference range is 4-36 The old referance range was Males 21-72 Females 9-52 BILIRUBIN TOTAL 0.6 0.3 - 1.2 mg/dL INTERFACE SYSTEM Comment: As of 05 the [facility] has changed testing methods. The new [...] ORDERABLES Final Resu lt Performing Organization Address City/State/[facility] Co de Phone Number INTERFACE SYSTEM [...]
--- OUTSIDE RECORDS SUMMARY | 2025-07-10 10:12 | XMS_ITS | Clinical Summary ---
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 INSPECTOR Pulse - - Temperature 36.5 C (97.7 F) 06/04/2022 11:32 AM FILM TOUCH UP INSPECTOR Respiratory Rate 18 06/04/2022 11:32 AM FILM TOUCH UP INSPECTOR Oxygen Saturation - - Inhaled Oxygen Concentration - - Weight 74.8 kg (165 lb) 02/19/2022 9:42 AM CDT Height 175.3 cm (5' 9) 06/04/2022 11:32 AM FILM TOUCH UP INSPECTOR Body Mass Index 24.37 02/19/2022 9:42 AM CDT Plan of Treatment Health Maintenance Due Date Last Done Comments Pneumococcal PPSV23/PCV13 65 + Years / Low and Medium Risk (1 of 2 - PCV) 1990 COVID-19 Vaccine (2 - season) 03/15/202503/2021, 10/19/2020 Influenza Vaccine (#1) 2025 04/14/2014, 2013 Insurance MEDICARE [facility] Care Teams Putty Mixer And Applier Relationship Specialty Start Date End Date Akhil Painting MD [address] [place] [address] PCP - General Internal Medicine 12/26/21
[2025-07-10 10:39] LABS: Hematocrit 31.2 % (42.0-52.0); Hemoglobin 9.8 g/dL (14.0-18.0); Immature Granulocyte Percent A 0.9 % (0-0.5); Lymphocytes Absolute Auto 1.04 K/mm3 (0.9-3.2); Mean Corpuscular HGB Conc 31.4 g/dl (32-36); Mean Corpuscular Hemoglobin 29.3 pg (26-34); Mean Corpuscular Volume 93.1 fl (80-100); Nucleated Red Blood Cells Absolute Auto 0.000 K/mm3 (0.0-0.012); Nucleated Red Blood Cells Perc 0.0 % (0.0-0.2); Platelet Count Result 291 k/mm3 (150-375); Red Blood Count 3.35 M/mm3 (4.6-6.20); White Blood Count 9.3 K/mm3 (4.5-10.0)
[2025-07-10 10:51] LABS: Alanine Aminotransferase 13 U/L (6-50); Albumin Level 3.1 g/dL (3.5-5.1); Alkaline Phosphatase 68 U/L (38-126); Anion Gap 5 mmol/L (4-12); Aspartate Amino Transferase 24 U/L (17-59); Bilirubin,Total 0.2 mg/dL (0.2-1.3); Blood Urea Nitrogen 30 mg/dL (9-20); Calcium 8.9 mg/dL (8.4-10.2); Carbon Dioxide 25 mmol/L (22-30); Chloride 110 mmol/L (98-107); Estimated CRCL calculation 21 ml/min; Estimated Glomerular Filt Rate 30; Glucose 136 mg/dL (65-110); Lipase 50 U/L (23-300); Potassium 3.8 mmol/L (3.4-5.0); Sodium 140 mmol/L (137-145); Total Protein 7.0 g/dL (6.3-8.2)
[2025-07-10 10:53] LABS: INR 1.1; Prothrombin Time 13.9 Seconds (11.1-14.7)
[2025-07-10 11:30] VITALS: BP 134/63; PULSE 78; RESP 16; TEMP 36.6; O2SAT 98
== END 2025-07-10 12:00 | disposition home or self-care (01) ==
PROVIDERS: Emergency Provider Emergency Medicine; PCP Family Medicine
DX: T83.83XA Hemorrhage due to genitourinary prosthetic devices, implants and grafts, initial encounter (principal); N18.4 Chronic kidney disease, stage 4 (severe); I25.10 Atherosclerotic heart disease of native coronary artery without angina pectoris; I42.9 Cardiomyopathy, unspecified; E55.9 Vitamin D deficiency, unspecified; N40.0 Benign prostatic hyperplasia without lower urinary tract symptoms; D50.9 Iron deficiency anemia, unspecified; L40.9 Psoriasis, unspecified; M21.372 Foot drop, left foot; M21.371 Foot drop, right foot; Z96.652 Presence of left artificial knee joint; Z96.0 Presence of urogenital implants; Z86.718 Personal history of other venous thrombosis and embolism; Z85.038 Personal history of other malignant neoplasm of large intestine; Z92.3 Personal history of irradiation; Z92.21 Personal history of antineoplastic chemotherapy; Z87.891 Personal history of nicotine dependence; Z90.49 Acquired absence of other specified parts of digestive tract; Y84.6 Urinary catheterization as the cause of abnormal reaction of the patient, or of later complication, without mention of misadventure at the time of the procedure; Z79.02 Long term (current) use of antithrombotics/antiplatelets; Z79.82 Long term (current) use of aspirin; Z79.899 Other long term (current) drug therapy
CPT/HCPCS: 36415; 80053; 83605; 83690; 85025; 85610; 99283